=== PATIENT | female | born 1945 | race Caucasian/White ===

== ENCOUNTER → 2023-07-28 08:28 | Outpatient (REF) | payer MEDICARE, OTHER, SELFPAY ==
[2023-07-28 09:53] LABS: ALT (SGPT) 31 U/L (0-35); AST (SGOT) 26 U/L (14-36); Albumin 4.3 g/dl (3.5-5.0); Alkaline Phosphatase 83 U/L (38-126); Blood Urea Nitrogen 28 mg/dl (7-17); Carbon Dioxide 21 mmol/L (22-30); Chloride 108 mmol/L (98-107); Glucose 167 mg/dl (70-99); HDL Cholesterol 83 mg/dl; LDL Cholesterol, Calculated 110 mg/dl; Potassium 4.7 mmol/L (3.5-5.1); Sodium 136 mmol/L (135-145); Total Bilirubin 0.6 mg/dl (0.2-1.3); Total Cholesterol 215 mg/dl (50-199); Triglyceride 113 mg/dl (10-149); Very Low Density Lipoprotein 22 mg/dl (0-30); eGFR 33.01
[2023-07-28 10:10] LABS: Free T4 0.99 ng/dl (0.78-2.19)
[2023-07-28 10:23] LABS: TSH 0.86 uIU/ml (0.47-4.68)
[2023-07-28 12:13] LABS: Glycohemoglobin (HgbA1c) 7.4 % (4.0-5.6)
== END ==
LOC: REG 08:28
PROVIDERS: ATTENDING PHYSICIAN Family Medicine
DX: K52.9 Noninfective gastroenteritis and colitis, unspecified (principal); K58.0 Irritable bowel syndrome with diarrhea; I10 Essential (primary) hypertension; E11.9 Type 2 diabetes mellitus without complications
CPT/HCPCS: 36415; 80053; 80061; 83036; 84439; 84443

== ENCOUNTER 2023-11-05 19:50 | Inpatient (IN) | payer MEDICARE, OTHER, SELFPAY ==
[2023-11-05] VITALS (8 sets, daily range): BP systolic 138–189; BP diastolic 84–119; BMI 29.0; BMI 28.1; BMI 27.5
--- NOTE | 2023-11-05 15:12 | ED.PDOC.TRB ---
ED Provider Triage
-
Patient seen by provider in Triage?: Seen in Triage
78-year-old female presenting to the ER from her primary care physician for evaluation of gradually worsening shortness of breath and lower extremity edema. Patient states she has gained approximately 25 pounds since July due to the edema.
Primary care wanted her evaluated here further. Patient does admit to some exertional dyspnea. No cough, no fevers, no infectious symptoms. She does note that sometimes her abdomen feels a little bit swollen as well. She is not on any diuretics.
Patient is otherwise stable in no acute respiratory distress. Lab work and chest x-ray were ordered.
[2023-11-05 16:54] LABS: ALT (SGPT) 33 U/L (0-35); AST (SGOT) 34 U/L (14-36); Albumin 3.9 g/dl (3.5-5.0); Alkaline Phosphatase 95 U/L (38-126); Blood Urea Nitrogen 31 mg/dl (7-17); Calcium 9.1 mg/dl (8.4-10.2); Carbon Dioxide 19 mmol/L (22-30); Chloride 105 mmol/L (98-107); Glucose 164 mg/dl (70-99); Potassium 5.5 mmol/L (3.5-5.1); Sodium 135 mmol/L (135-145); Total Bilirubin 0.6 mg/dl (0.2-1.3); Total Protein 6.3 g/dl (6.3-8.2); eGFR 35.67
--- NOTE | 2023-11-05 17:26 | ED.GENMED ---
History of Present Illness
General
Chief Complaint: Breathing Problem
Source: patient
Exam Limitations: none
Time Seen by Provider: 11/05/23 17:04
Travel History
Have you had any contact with someone who has COVID-19?: No
Do you have any symptoms of coronavirus? Fever > 100 degrees, chills, cough, shortness of breath, sore throat, loss of taste or smell, muscle aches, or headache?: No
History of Present Illness
History of Present Illness:
78-year-old female presents with progressively worsening swelling to lower extremities now the abdomen and fatigue with shortness of breath. She lives by herself at home does not have a way to get to the doctor. She notes 25 pound weight gain in
the past several weeks. History of ttg-sdcieht-srpzugzme diabetes as well as hypothyroidism. No fevers. She notes decreased appetite. She notes decreased urine output. She notes significant swelling in the legs. No chest pain. She does note
occasional shortness of breath with exertion. No other complaints at this time
Past History
Past History
ED Past Medical History: Fibromyalgia, NIDDM, Hypothyroidism, Psychiatric (agorophobia) and Other (diabetic neuropathy, diverticulosis, IBS)
ED Past Surgical History: None
Social History
Tobacco: Non-smoker
Alcohol: None
Personal:
Living: alone
Phy Exam
Physical Exam
Physical Exam:
General: Slightly pale appearing female no acute respiratory distress
HEENT: Normocephalic atraumatic neck supple
Heart: Regular rate and rhythm no murmurs
Lungs: Breath sounds diminished more so on the right than the left extremities: Significant edema bilateral lower extremities that spreads into the abdomen
Abdomen is soft nontender nondistended
Skin: Warm no rash
Scores
Heart Failure Risk
Heart Failure Risk Score: Not Applicable
Course
Orders/Labs/Results
Orders:
Orders
11/05/23 15:15
Electrocardiogram (*1) Urgent
Reason for Study: Shortness of Breath
EKG- Treatment ONCE
CR Chest - 2 Views Urgent
Comment:
Reason For Exam: SOB, edema
11/05/23 16:32
Comprehensive Metabolic Panel Urgent
11/05/23 17:26
Complete Blood Count/With Diff Urgent
NT-proBNP Urgent
Urinalysis Reflex To Culture Urgent
Date Specimen was Collected: 11/05/23
Time Specimen was Collected: 16:51
Urine Microscopic Reflex Cult Urgent
11/05/23 18:14
Furosemide [Lasix] 60 mg IV NOW STA
Abnormal Lab Results
11/05/23 11/05/23
16:32 17:26
RBC 4.14 L 10^6/uL
(4.20-5.40)
Hgb 11.8 L g/dL
(12.0-16.0)
Hct 36.0 L %
(37.0-47.0)
MCHC 32.8 L g/dL
(33.0-37.0)
RDW 16.4 H %
(11.5-14.5)
Absolute Neuts (auto) 7.4 H 10^3/uL
(1.4-6.5)
Absolute Monos (auto) 0.7 H 10^3/uL
(0.1-0.6)
Neutrophils % 78.6 H %
(42.2-75.2)
Lymphocytes % 12.7 L %
(20.5-51.1)
Potassium 5.5 H mmol/L
(3.5-5.1)
Carbon Dioxide 19 L mmol/L
(22-30)
BUN 31 H mg/dl
(7-17)
Creatinine 1.5 H mg/dL
(0.6-1.0)
Glucose 164 H mg/dl
(70-99)
Urine Ketones 1+ A
(Negative)
Ur Occult Blood Reflex 1+ A
(Negative)
Urine Bacteria (Reflex) Few A
(Negative)
Urine Albumin (Reflex) 2+ A
(Neg - Trace)
11/05/23 17:26
11/05/23 16:32
Vital Signs
Initial and Last Documented VS:
Initial Vital Signs
Temp Pulse Resp BP Pulse Ox
97.4 F 92 20 185/100 98
11/05/23 15:14 11/05/23 15:14 11/05/23 15:14 11/05/23 15:14 11/05/23 15:14
Last Documented Vital Signs
Temp Pulse Resp BP Pulse Ox
98.1 F 93 21 184/119 96
11/05/23 17:27 11/05/23 17:30 11/05/23 17:30 11/05/23 17:27 11/05/23 17:30
MDM/Problems Addressed
Differential Diagnosis Includes:
Weight gain, shortness of breath and edema. Question CHF versus anemia versus electrolyte abnormality
Will check labs including BNP. I personally visualized chest x-ray which demonstrates a moderate right-sided pleural effusion.
Reviewed prior records. Patient most recently had an echocardiogram 12 years ago. The estimated ejection fraction was 55% at that time
I anticipate pending labs that patient require admission to hospital for moderate pleural effusion shortness of breath diffuse edema to be diuresed.
*Critical Care Note
Total Time (30-74mins, 75-104mins- exclusive of procedures): Not Applicable
Update Note
Update Note:
Chest x-ray demonstrates moderate pleural effusion on the right side. BNP is 24,600. Patient is volume overloaded and symptomatic. Underlying CHF. Lasix ordered. Admit to hospitalist
ED Attending Note
-
Portions of this chart may have been created with voice recognition software.� Occasional wrong word or��sound alike� substitutions may have occurred due to the inherent limitations of voice recognition software.
Discharge Plan
Departure
Patient Disposition: Admit
Date of Disposition: 11/05/23
Time of Disposition: 18:16
Admit to: Telemetry
Presentation/result/management discussed w/ accepting MD/DO: Hospitalist
Discharge Problem:
CHF (congestive heart failure)
Prescriptions:
No Action
glyburide 5 MG tablet
5 mg PO BID
metformin 1,000 MG tablet extended release 24hr
500 mg PO BID
thyroid (pork) [[place] Thyroid] 90 MG tablet
90 mg PO DAILY
latanoprost 0.005 % Drops
1 drp OPHTHALMIC (EYE) HS
Referrals:
UNKNOWN - PT DOES,NOT KNOW [Unknown Provider] -
Interventions
Interventions:
*Risk Screen - Suicide Last Done: 11/05/23 17:27
*Neglect/Abuse Screening Last Done: 11/05/23 17:27
ED- Fall Risk Assessment Last Done: 11/05/23 17:27
*ED COVID-19 Vaccine History Last Done: 11/05/23 15:14
ED- Cardiac Assessment Last Done: 11/05/23 17:27
ED- Pulmonary Assessment Last Done: 11/05/23 17:27
Discharge Date and Time
Print Language: URUGUAYAN
[2023-11-05 17:43] LABS: % Basophils 0.3 % (0-2); % Eosinophils 0.7 % (0-6); % Immature Granulocytes 0.2 % (0-0.5); % Lymphocytes 12.7 % (20.5-51.1); % Monocytes 7.5 % (1.7-9.3); % Neutrophils 78.6 % (42.2-75.2); Absolute Eosinophils 0.1 10^3/uL (0-0.7); Absolute Lymphocytes 1.2 10^3/uL (1.2-3.4); Absolute Monocytes 0.7 10^3/uL (0.1-0.6); Absolute Neutrophils 7.4 10^3/uL (1.4-6.5); Hemoglobin 11.8 g/dL (12.0-16.0); Mean Corp Hgb Conc. 32.8 g/dL (33.0-37.0); Mean Corpuscular Hgb 28.5 pg (27.0-31.0); Mean Platelet Volume 9.3 fL (7.4-10.4); Nucleated Red Blood Cells % 0 %; Platelet Count 297 10^3/uL (130-400); Red Blood Cell Count 4.14 10^6/uL (4.20-5.40); Red Cell Dist. Width 16.4 % (11.5-14.5); Urine Albumin 2+ (Neg - Trace); Urine Bilirubin Negative (Negative); Urine Character Clear (Clear); Urine Color Yellow; Urine Glucose Negative (Negative); Urine Ketone 1+ (Negative); Urine Leukocyte Negative (Negative); Urine Nitrite Negative (Negative); Urine Occult Blood 1+ (Negative); Urine Specific Gravity 1.025 (<1.030); Urine Urobilinogen Negative (Neg - 1+); White Blood Cell Count 9.4 10^3/uL (4.8-10.8)
[2023-11-05 17:52] LABS: Urine Squamous Cell 0-2 /LPF (Few)
[2023-11-05 17:53] LABS: Urine Red Blood Cell 0-2 /HPF (0-2)
[2023-11-05 17:54] LABS: Urine Bacteria Few (Negative); Urine White Cell 0-2 /HPF (0-5)
[2023-11-05 18:05] LABS: NT-proBNP 24600 pg/ml
[2023-11-05] MEDS: LASIX 60 MG IV (18:26)
--- NOTE | 2023-11-05 18:30 | EDRN ---
this RN notified the provider that the pts blood pressure has been elevated, the pt stated to this RN, 'If you people give me blood pressure medication i will freak out, bite someone, and leave AMA, so do not dare give me a blood pressure medication
i will freak out, i have a reaction, it doesn't make me feel good, i am agorophopic and i have white coat syndrome, my blood pressure will calm down i promise, i don't need blood pressure medication', this RN notified provider, will continue to
monitor the pt closely
--- NOTE | 2023-11-05 18:30 | HPS.HSE ---
Family Physician
-
Family Physician: Shukri Lara
Chief Complaint
-
Weight gain of breath
History of Present Illness
78-year-old female with past medical history for fibromyalgia, diabetes, hypothyroidism, agoraphobia, type 2 diabetes, mercury poisoning, presents with progressively worsening swelling to lower extremities, short of breath worse with activity.
weight gain of 25lbs in few weeks. Patient stated short of breath worse with activity. Denied headache, dizziness, syncopal episode. Patient denied chest pain. Patient denied abdominal pain, nausea, vomiting or diarrhea. Patient stated last
urine output.
Chest x-ray with pleural effusion. Elevated BNP. Patient received a dose of Lasix in ER. Admitting for further management
Medical History
Past Medical History
Past Medical History: Reports Other
Additional Past Medical History:
Neuropathy
Hypertension
Depression anxiety
Hyperlipidemia breast cancer
Hypothyroidism fibromyalgia
Type 2 diabetes
Diabetic retinopathy
Past Surgical History: Reports Other
Additional Past Surgical History:
Tonsillectomy
Cataract extraction
Right lumpectomy
Social History
Tobacco: Non-smoker
Alcohol: None
Drug: None
Personal: Single
Living: Alone
Family History
Family History: Not pertinent
Allergies / Home Medications
Allergies reflects when Allergies were last updated in [facility].
Home Medications with original date entered in [facility]
Allergy/Medication List:
Allergies
Allergy/AdvReac Type Severity Reaction Status Date / Time
lidocaine Allergy very cold Verified 11/05/23 15:20
& shakes
phenobarbital Allergy patient Verified 11/05/23 15:20
denies
phenytoin Allergy patient Verified 11/05/23 15:20
denies
Sulfa (Sulfonamide Allergy Itching Verified 11/05/23 15:20
Antibiotics)
sulfisoxazole Allergy Itching Verified 11/05/23 15:20
codeine AdvReac 'shakiness' Verified 11/05/23 15:20
anti hypertensives Allergy Unknown Unknown Uncoded 11/05/23 18:42
most pain medicines Allergy 'per Uncoded 11/05/23 15:20
patient -
they cause
problems'
NOT.[id number] - Not Allergy Pharmacy Uncoded 11/05/23 15:20
Converted 38. See Text. to Review
NOT.[id number] - Not Allergy Pharmacy Uncoded 11/05/23 15:20
Converted 46. See Text. to Review
NOT.[id number] - Not Allergy Pharmacy Uncoded 11/05/23 15:20
Converted 65. See Text. to Review
perfumed soaps Allergy Rash Uncoded 11/05/23 15:20
Home Medications
glyburide 5 mg tablet 5 mg PO BID 09/03/13
thyroid (pork) 90 mg tablet ([place] Thyroid) 90 mg PO DAILY 09/03/13
acetaminophen 500 mg tablet 500 mg PO TID PRN mild pain 11/05/23
glyburide 5 mg tablet 5 mg PO DAILYPRN PRN heavy meal 11/05/23
latanoprost 0.005 % eye drops 1 drp BOTH EYES HS 11/05/23
metformin 500 mg tablet 500 mg PO BID 11/05/23
metformin 500 mg tablet 500 mg PO DAILYPRN PRN heavy meal 11/05/23
Review of Systems
-
Constitutional: Reports Weight Gain
EENT: Reports No Symptoms
Respiratory: Reports Trouble Breathing
Cardiac: Reports No Symptoms
Abdomen/GI: Reports No Symptoms
: Reports No Symptoms
Musculoskeletal: Reports Edema (Bilateral lower extremities)
Skin: Reports No Symptoms
Neurological: Reports No Symptoms
Endocrine: Reports No Symptoms
Hematologic/Lymphatic: Reports No Symptoms
Psych: Reports No Symptoms
Physical Exam
Vital Signs
Vital Signs
Temp Pulse Resp BP Pulse Ox
98.1 F 89 21 189/106 96
11/05/23 17:27 11/05/23 18:26 11/05/23 17:30 11/05/23 18:26 11/05/23 17:30
Physical Exam
General: Well Developed, Well Nourished and No Apparent Distress
HEENT: NormoCephalic, Moist mucous membranes and Atraumatic
Respiratory: Clear
Cardiac: S1/S2 and Regular Rhythm; No Murmur or Rub
GI: Soft, Non Tender, Non Distended and Normal Bowel Sounds; No Organomegaly
Rectal: Deferred by Provider
Musculoskeletal: No Clubbing, No Cyanosis and Other (Bilateral lower extremity symmetric edema)
Skin: No Rash
Neuro: AO x 3 and Nonfocal/grossly intact
Laboratory Results
-
11/05/23 17:26
11/05/23 16:32
Laboratory Results
Total Bilirubin 0.6 mg/dl (0.2-1.3) 11/05/23 16:32
AST 34 U/L (14-36) 11/05/23 16:32
ALT 33 U/L (0-35) 11/05/23 16:32
Alkaline Phosphatase 95 U/L (38-126) 11/05/23 16:32
Data Reviewed
-
Diagnostic Radiology: Report Reviewed by me
Lab Data: Labs Reviewed by me
Impression/Plan
-
# Dyspneic on exertion, weight gain, edema suspect new onset CHF
-BNP 24 600
-Chest x-ray with impression of moderate right-sided pleural effusion with associated compressive atelectasis at the right lung base.
-IV Lasix 4omg bid continued
-Strict RBETT
-Daily weight
-Echocardiogram
-cardiology consult
# Pleural effusion
-IR consulted for thoracentesis
# Anemia of chronic disease
-Hemoglobin stable at 11.8
-No active bleeding
-Continue to monitor
# Hyperkalemia/metabolic acidosis/CKD stage IIIb
-K5.5, CO2 18, creatinine 1.5
-Continue to trend
#hypertension urgency
-hydralazine added
#type 2 DM
-glyburide, metformin held
-sliding scale
-CHO diet
#hypothyroidism
-thyroid continued
#DVT prophylaxis
heparin sq
#CODE status
-full code
--- NOTE | 2023-11-05 18:37 | EDRN ---
hospitalist at the pts bedside speaking with the pt, this RN notified the provider that the pt is allergic to anti hypertensive medications
--- NOTE | 2023-11-05 18:45 | W.PN.UPDATE ---
Update Note
Progress Note Update
This is an addendum to the H&P written by Denisse Song on 11/05/2023.
78-year-old female past medical history of diabetes, breast cancer status post right mastectomy, prior Mercury poisoning, agoraphobia, hypothyroidism, chronic kidney disease presenting with significant lower extremity edema all the way up to her
abdomen, 25 pound weight gain and shortness of breath. She is not been urinating much.
She has diminished breath sounds on the right side. Labs show hyperkalemia potassium 5.5, creatinine 1.5, baseline around 1.3. Cardiac BNP 24,000, chest x-ray showing moderate right-sided pleural effusion with compressive atelectasis of right lung
base.
Presentation consistent with CHF exacerbation. Also hypertensive urgency.
40 IV Lasix twice daily, check echo, cardiology. As needed hydralazine for hypertension. IR consulted for thoracentesis. Check bladder scan protocol.
[2023-11-05] MEDS: HEPARIN 5000 UNITS SC (21:15)
[2023-11-05 21:36] LABS: Glucose - Point of Care 169 mg/dl (70-99)
[2023-11-05] MEDS: XALATAN OPHTHALMIC SOLUTION 1 DROP BOTH EYES (22:27)
[2023-11-06] VITALS (8 sets, daily range): BP systolic 91–182; BP diastolic 70–109; BMI 27.5
[2023-11-06] MEDS: TYLENOL 650 MG PO (04:26)
[2023-11-06] MEDS: ARMOUR THYROID 90 MG PO (05:58)
[2023-11-06 07:36] LABS: % Basophils 0.4 % (0-2); % Eosinophils 0.8 % (0-6); % Immature Granulocytes 0.3 % (0-0.5); % Lymphocytes 12.8 % (20.5-51.1); % Monocytes 8.3 % (1.7-9.3); % Neutrophils 77.4 % (42.2-75.2); Absolute Eosinophils 0.1 10^3/uL (0-0.7); Absolute Lymphocytes 0.9 10^3/uL (1.2-3.4); Absolute Monocytes 0.6 10^3/uL (0.1-0.6); Absolute Neutrophils 5.6 10^3/uL (1.4-6.5); Hematocrit 34.8 % (37.0-47.0); Hemoglobin 11.3 g/dL (12.0-16.0); Mean Corp Hgb Conc. 32.5 g/dL (33.0-37.0); Mean Corpuscular Hgb 28.3 pg (27.0-31.0); Nucleated Red Blood Cells % 0 %; White Blood Cell Count 7.2 10^3/uL (4.8-10.8)
[2023-11-06 07:41] LABS: ALT (SGPT) 26 U/L (0-35); Albumin 3.5 g/dl (3.5-5.0); Alkaline Phosphatase 74 U/L (38-126); Blood Urea Nitrogen 31 mg/dl (7-17); Calcium 8.8 mg/dl (8.4-10.2); Carbon Dioxide 18 mmol/L (22-30); Chloride 108 mmol/L (98-107); Direct Bilirubin 0.4 mg/dl (0.0-0.4); Estimated Creatinine Clearance 33 ml/min; Glucose 138 mg/dl (70-99); HDL Cholesterol 72 mg/dl; LDH 253 U/L (120-246); LDL Cholesterol, Calculated 94 mg/dl; Magnesium 1.9 mg/dl (1.6-2.3); Potassium 4.8 mmol/L (3.5-5.1); Sodium 137 mmol/L (135-145); Total Bilirubin 0.7 mg/dl (0.2-1.3); Total Cholesterol 185 mg/dl (50-199); Total Protein 5.8 g/dl (6.3-8.2); Triglyceride 99 mg/dl (10-149); Very Low Density Lipoprotein 19 mg/dl (0-30); eGFR 35.67
--- NOTE | 2023-11-06 07:44 | CON.CAR ---
Addendum entered and electronically signed by Lora Boone DO 11/06/23 18:48:
Reviewed pending lab work and echocardiogram.
-Mildly abnormal troponin with cardiac risk factors and abnormal EKG with newly diagnosed LV systolic function and acute HFrEF. will add aspirin 81 mg daily. Will add atorvastatin 20 mg daily. Team will review echo findings and discuss future
ischemic evaluation, R/C, with patient during this hospitalization
-Blood pressures overall better but still elevated. Will increase Toprol-XL to 25 mg twice daily. Add hydralazine/Isordil with hopeful transition to Entresto prior to discharge id renal function/cost allows. Will check cost of Entresto with case
management.
-Jardiance cost is $198 a month per case management and will discuss with patient tomorrow
-Consults placed for heart failure education
Addendum entered and electronically signed by Lora Boone DO 11/06/23 18:34:
I saw and examined the patient.
The Shoe Caser's note was reviewed and I agree with the note.
Comment: Patient seen and examined with cardiac PA. Patient is a 78-year-old female with past medical history of type 2 diabetes, diabetic neuropathy, hypertension, hypercholesterolemia, hypothyroidism, CKD stage III, fibromyalgia, irritable bowel
disease, History of cervical cancer treated with holistic treatments, history of breast cancer, anxiety/depression who was seen by PCP yesterday due to complaints of 25 pound weight gain, bilateral lower extremity swelling and shortness of breath,
referred for admission. She states she has been having significant health problems since she had RSV in August 2022. She reports she has had shortness of breath which has been constant since July with panting at times. She has had worsening
weakness. She reports she weighed 142 pounds on 10/11 and reports she woke up on 10/12 swollen from the waist down. Previous to that she states she had only ever had swelling in her ankles.She denies chest pain or pressure. She denies palpitations
or dizziness. She denies known prior cardiovascular disease including cardiomyopathy, valvular heart disease, or known coronary artery disease. No history of cardiac arrhythmias. She unfortunately has significant issues with transportation and
lives independently. proBNP 24,600. Chest x-ray with moderate right-sided effusion. Cardiology consulted for evaluation
General: 78-year-old female who appears older than stated age awake alert and oriented x 3
Neck: +JVP
Heart: Regular, positive S1/S2, 2/6 SHYANN. 2/6 SM
Lungs: Bronchovesicular breath sounds with crackles bilaterally right greater than left. No wheezes
Abd: Distended, nontender. Positive bowel sound
Ext: +++ edema to thighs
Plan:
78-year-old female with volume overload consistent with heart failure with unknown ejection fraction.
-proBNP 24,600
-Chest x-ray with moderate right-sided effusion. Consider thoracentesis with fluid analysis and cytology given patient's history of prior malignancies
-Continue IV diuresis
-2D echocardiogram planned this morning
-Check LE US to rule out DVT
-Blood pressure significantly elevated: Add Toprol-XL 25 mg daily and if tolerates add hydralazine/Isordil. Eventual transition to RIGO/ARB or ARNi if renal function allows and pending echocardiogram results
-Patient denies chest pain or pressure but has multiple risk factors and abnormal EKG. EKG SR with lateral T wave inversion. check troponin. Future ischemic evaluation will be discussed with patient at later time
-Consider for SGLT2 inhibitor, although cost may be prohibitive to patient
-Monitor renal function closely with diuresis.
-TSH is 16 with compensated free T4. Defer adjustment in Synthroid dosing to primary service
-Hemoglobin A1c elevated 7.5%. Goal Normoglycemia
-Lipid profile: Total cholesterol 185, LDL 94, HDL 72, triglycerides 99. Pending studies will likely need to start lipid-lowering therapy
-Of note she has significant transportation issues limiting her medical compliance. Will consult case management to investigate options for patient.
Original Note:
Consultation
Consultation Request
Date/Time Consultation Performed: 11/06/23
Requesting Provider: Dr. Prado
Performing Provider: Magaly Welch PA-C for Dr. Boone
Reason for Consultation: CHF
Medical History
-
Chief Complaint: SOB, LE edema
History of Present Illness:
Patient is a 78-year-old female with past medical history of type 2 diabetes, diabetic neuropathy, hypertension, hypercholesterolemia, hypothyroidism, CKD stage III, fibromyalgia, irritable bowel disease, history of breast cancer, anxiety/depression
who was seen by PCP yesterday due to complaints of bilateral lower extremity swelling and shortness of breath. Noted weight gain of 25 pounds. Reportedly she needed to rest to get from the waiting room to the exam room at the PCP office. She
states she has been having significant health problems since she had RSV in August 2022. She reports she has had shortness of breath which has been constant since July with panting at times. She has had worsening weakness. She reports she weighed
142 pounds on 10/11 and reports she woke up on 10/12 swollen from the waist down. Previous to that she states she had only ever had swelling in her ankles. She unfortunately has significant issues with transportation and lives independently. She
was referred to the ER for further evaluation. proBNP 24,600. Chest x-ray with moderate right-sided effusion. Cardiology consulted for evaluation
PMH:
type 2 diabetes
diabetic neuropathy
hypertension
hypercholesterolemia
hypothyroidism
CKD stage III
Chronic anemia
fibromyalgia
irritable bowel disease
history of breast cancer s/p 9 lumpectomies on R and double XRT 2016
History of cervical cancer in 30s s/p holistic treatment
anxiety/depression
History of polio
History of mercury poisoning 1997
Past Medical History
Past Medical History: Other (in HPI)
Social History
Tobacco: Non-Smoker
Personal:
Living: Alone
Employment: Retired
Family History
Family History: CAD and Cancer
Allergies / Home Medications
Allergy/AdvReac Type Severity Reaction Status Date / Time
lidocaine Allergy very cold Verified 11/05/23 15:20
& shakes
phenobarbital Allergy patient Verified 11/05/23 15:20
denies
phenytoin Allergy patient Verified 11/05/23 15:20
denies
Sulfa (Sulfonamide Allergy Itching Verified 11/05/23 15:20
Antibiotics)
sulfisoxazole Allergy Itching Verified 11/05/23 15:20
codeine AdvReac 'shakiness' Verified 11/05/23 15:20
anti hypertensives Allergy Unknown Unknown Uncoded 11/05/23 18:42
most pain medicines Allergy 'per Uncoded 11/05/23 15:20
patient -
they cause
problems'
perfumed soaps Allergy Rash Uncoded 11/05/23 15:20
�Medication �Instructions �Recorded �Confirmed �Type
glyburide 5 mg tablet 5 mg PO BID 09/03/13 11/05/23 History
thyroid (pork) 90 mg tablet 90 mg PO DAILY 09/03/13 11/05/23 History
([place] Thyroid)
acetaminophen 500 mg tablet 500 mg PO TID PRN mild pain 11/05/23 11/05/23 History
glyburide 5 mg tablet 5 mg PO DAILYPRN PRN heavy meal 11/05/23 11/05/23 History
latanoprost 0.005 % eye drops 1 drp BOTH EYES HS 11/05/23 11/05/23 History
metformin 500 mg tablet 500 mg PO BID 11/05/23 11/05/23 History
metformin 500 mg tablet 500 mg PO DAILYPRN PRN heavy meal 11/05/23 11/05/23 History
Review of Systems
-
History Source: Patient
All other systems: Negative unless noted
Physical Exam
Vital Signs
Temp Pulse Resp BP Pulse Ox
98.1 F 84 18 169/94 100
11/06/23 03:33 11/06/23 03:33 11/06/23 03:33 11/06/23 03:33 11/06/23 03:33
Lab Results
11/06/23 06:42
[id number] Pept 76685 pg/ml 11/05/23 17:26
Physical Exam
General: No Apparent Distress and Comfortable
HEENT: Normocephalic, Anicteric and Moist Mucous Membranes
Respiratory: Clear and Non Labored Respirations
Cardiac: S1/S2 and Regular Rhythm
GI: Soft
Musculoskeletal: No Clubbing, No Cyanosis and Edema (4+ to level of thigh)
Skin: Warm and Dry
Impression / Plan
-
Primary [place]: none prior to admission
Assessment:
Presentation with SOB, LE edema
Acute CHF, unknown type
Right pleural effusion
type 2 diabetes, hemoglobin 7.5%
diabetic neuropathy
hypertension with hypertensive urgency on arrival
hypercholesterolemia
hypothyroidism with elevated TSH
CKD stage III
Chronic anemia
fibromyalgia
irritable bowel disease
history of breast cancer s/p 9 lumpectomies on R and double XRT 2016
History of cervical cancer in 30s s/p holistic treatment
anxiety/depression
History of polio
History of mercury poisoning 1997
Hyperkalemia, improved
Multiple medication intolerances
ECHO 11/06/23: pending
Plan:
-Patient presents with shortness of breath, lower extremity edema, weight gain
-Chest x-ray with right pleural effusion, and proBNP significantly elevated at 24,600
-Continue diuresis with IV Lasix 40 mg twice daily
-IR consult for right thoracentesis. Would send fluid cytology and analysis given history of malignancies.
-will also check LE US to rule out DVT
-Check echo
-in SR upon review of tele overnight. EKG SR with lateral T wave inversion. check troponin. may require eventual ischemic eval
-Blood pressures significantly elevated since admission. Will add Toprol 25 mg daily and uptitrate as able.
-Consider for SGLT2 inhibitor, although cost may be prohibitive to patient
-Of note she has significant transportation issues limiting her medical compliance. Will consult case management to investigate options for patient.
-TSH is 16 with compensated free T4. Defer adjustment in Synthroid dosing to primary service
Data Reviewed
-
EKG: Tracing Personally Visualized and interpreted
Radiology: Report Reviewed by me
Medical Tests (Nuc Med, Echo etc): Report Reviewed by me
Labs: Labs Reviewed by me
Old Records: Reviewed
[2023-11-06 07:46] LABS: AST (SGOT) 31 U/L (14-36)
[2023-11-06 07:51] LABS: Glucose - Point of Care 159 mg/dl (70-99)
[2023-11-06 08:30] LABS: Hepatitis C Antibody Negative (Negative)
[2023-11-06] MEDS: NOVOLOG FLEXPEN-LOW RESISTANCE 1 UNITS SC ×2 (08:46→12:58)
[2023-11-06] MEDS: LASIX 40 MG IV ×2 (08:46→17:25)
[2023-11-06] MEDS: HEPARIN 5000 UNITS SC ×2 (08:47→20:10)
[2023-11-06 08:52] LABS: Free T4 1.04 ng/dl (0.78-2.19)
[2023-11-06 09:47] LABS: Glycohemoglobin (HgbA1c) 7.5 % (4.0-5.6)
--- NOTE | 2023-11-06 10:07 | PTCARENOTE ---
Addendum entered by Mary Gerber RN 11/06/23 12:06:
pt went for R thoracentesis. report received and pt had 1100cc of clear yellow fluid pulled. follow up xray shows There is no pneumothorax.
Original Note:
pt receiving IV lasix for this nurse through her L AC IV site. pt is aaox3, ambulates at home with 'all her furniture in site'. pt to go for a thoracentesis this morning. Pt given CHF and thoracentesis education packets so that she understands the
procedures and treatment of her care.
--- NOTE | 2023-11-06 11:18 | PTCARENOTE ---
Advised covering provider ERIKA Anne of positive Troponin at 2318 of 0.182. Patient denies pain and is resting in bed. VSS. Serial Troponin labs are already in place.
[2023-11-06 11:34] LABS: Body Fluid pH 7.44
[2023-11-06 11:53] LABS: Body Fluid Glucose 155 mg/dl; Body Fluid LDH < 90 U/L; Body Fluid Protein < 2.0 g/dl; Body Fluid Triglycerides < 30 mg/dl
[2023-11-06 12:20] LABS: Glucose - Point of Care 170 mg/dl (70-99)
[2023-11-06 12:45] LABS: Body Fluid Mononuclear 71.7 %; Body Fluid Polymorphonuclear 28.3 %; Body Fluid WBC 113 /CUMM
--- NOTE | 2023-11-06 12:54 | PTCARENOTE ---
pt back to the floor at 1225. pt dhara receive toprolol now
--- NOTE | 2023-11-06 13:30 | W.PN.HOSP.TC ---
Today's Communication/Plan
-
cont iv lasix
echo
hypertensive control
Assessment / Plan
Assessment / Plan
Physical Exam
General: Well Developed, Well Nourished and No Apparent Distress
HEENT: NormoCephalic, Moist mucous membranes and Atraumatic
Respiratory: Clear
Cardiac: S1/S2 and Regular Rhythm; No Murmur or Rub
GI: Soft, Non Tender, Non Distended and Normal Bowel Sounds; No Organomegaly
Rectal: Deferred by Provider
Musculoskeletal: No Clubbing, No Cyanosis and Other (Bilateral lower extremity symmetric edema)
Skin: No Rash
Neuro: AO x 3 and Nonfocal/grossly intact
# Dyspnea on Exertion
#LE edema
#Pleural Effusion
#Acute unknown type CHF
-BNP 36879
-Chest x-ray with impression of moderate right-sided pleural effusion with associated compressive atelectasis at the right lung base.
-IV Lasix 4omg bid continued
- 2/p Right thora /
-Strict BRETT
-Daily weight
-Echocardiogram
-cardiology consult
-Toprol
# Anemia of chronic disease
-Hemoglobin stable at 11.8
-No active bleeding
-Continue to monitor
# Hyperkalemia/metabolic acidosis/CKD stage IIIb
-K5.5, CO2 18, creatinine 1.5
-Continue to trend
-Treat as needed
#hypertension urgency
-hydralazine added
-Add TOprol
#type 2 DM
-glyburide, metformin held
-sliding scale
-CHO diet
#Euthyroid sick syndrome
-thyroid continued
-f/u tfts outpatient for titration
#DVT prophylaxis
heparin sq
#CODE status
-full code
Anticipated Discharge: > 48 hours
Subjective/Interval History
-
Date of Service: November 06, 2023
No acute events, sitting on room air
Objective Data
-
Labs:
Laboratory Results
11/06/23
06:42
WBC 7.2
Hgb 11.3 L
Hct 34.8 L
Plt Count
Sodium 137
Potassium 4.8
Chloride 108 H
Carbon Dioxide 18 L
BUN 31 H
Creatinine 1.5 H
Glucose 138 H
Calcium 8.8
Total Bilirubin 0.7
AST 31
ALT 26
Alkaline Phosphatase 74
Vital Signs:
Vital Signs
Temp Pulse Resp BP Pulse Ox
98.4 F 94 18 160/81 95
11/06/23 12:20 11/06/23 12:20 11/06/23 12:20 11/06/23 12:59 11/06/23 12:20
I&O
11/05/23 11/06/23 11/07/23
06:59 06:59 06:59
Intake Total 480 / 480
Balance 480 / 480
Review of Systems
-
History Source: Patient
All other systems: Not reviewed unless documented
Data Reviewed
-
Diagnostic Radiology: Image personally visualized and interpreted and Report Reviewed by me
Medical Tests (Nuc Med, Echo etc): Image personally visualized and interpreted
[2023-11-06 13:36] LABS: Body Fluid Second Tech BP
--- NOTE | 2023-11-06 14:56 | CM ---
met with patient at bedside.patient lives alone in mobile home at [facility].she has 3 sonja,her bed and bath is o the frist level.she amb without device but uses A of 1 person to A(to hold hr hand).she is I in bathing with a shower chair in
bath tub.her pcp is dr zurita and she uses [facility] in [place].she has used [facility] home care but no ip rehab in past.
patient with a hx of htn,t2ddm is adm with chf. she has a r pleural effusion and is sp a thoracentesis with 1100cc fluid removed.she is on iv lasix bid.she is diabetic and takes glyburide and metformin.she dos not test her bs. patient mentions she
has little to no support since her son is in [place] and .however son helped her financially.she does have a friend bear erk who also assists her.she is having difficuty picking up her meds since he [facility] no longer delivers
her meds.Plan [facility].
--- NOTE | 2023-11-06 16:01 | VNURNOTE ---
[facility] referral completed in [facility] after review of chart. Patient was out of room at time of visit.
[2023-11-06 16:51] LABS: Troponin I 0.119 ng/ml
[2023-11-06 17:03] LABS: Glucose - Point of Care 235 mg/dl (70-99)
[2023-11-06] MEDS: NOVOLOG FLEXPEN-LOW RESISTANCE 2 UNITS SC (17:25)
[2023-11-06 21:16] LABS: Glucose - Point of Care 197 mg/dl (70-99)
[2023-11-06] MEDS: XALATAN OPHTHALMIC SOLUTION 1 DROP BOTH EYES (22:13)
[2023-11-06 22:56] LABS: Troponin I 0.182 ng/ml
[2023-11-07] MEDS: TYLENOL 650 MG PO ×3 (01:00→23:09)
[2023-11-07 01:57] LABS: Troponin I 0.221 ng/ml
--- NOTE | 2023-11-07 02:02 | PTCARENOTE ---
Advised covering provider ERIKA Anne of positive Troponin at 0202 of 0.221. Patient denies pain and is resting in bed. VSS.
[2023-11-07 03:25] VITALS: BP 149/70
[2023-11-07 03:27] VITALS: BMI 26.6
[2023-11-07] MEDS: ARMOUR THYROID 90 MG PO (05:53)
[2023-11-07 06:00] VITALS: BMI 26.6
[2023-11-07 07:19] LABS: % Basophils 0.5 % (0-2); % Eosinophils 2.8 % (0-6); % Immature Granulocytes 0.4 % (0-0.5); % Lymphocytes 16.1 % (20.5-51.1); % Monocytes 9.3 % (1.7-9.3); % Neutrophils 70.9 % (42.2-75.2); Absolute Eosinophils 0.2 10^3/uL (0-0.7); Absolute Lymphocytes 1.2 10^3/uL (1.2-3.4); Absolute Monocytes 0.7 10^3/uL (0.1-0.6); Absolute Neutrophils 5.4 10^3/uL (1.4-6.5); Hematocrit 34.2 % (37.0-47.0); Hemoglobin 11.3 g/dL (12.0-16.0); Mean Corpuscular Hgb 28.3 pg (27.0-31.0); Mean Corpuscular Volume 85.7 fL (81.0-99.0); Mean Platelet Volume 9.7 fL (7.4-10.4); Nucleated Red Blood Cells % 0 %; Platelet Count 249 10^3/uL (130-400); Red Blood Cell Count 3.99 10^6/uL (4.20-5.40); Red Cell Dist. Width 16.2 % (11.5-14.5); White Blood Cell Count 7.6 10^3/uL (4.8-10.8)
[2023-11-07 07:40] VITALS: BP 168/77
[2023-11-07 07:48] LABS: Troponin I 0.219 ng/ml
[2023-11-07 08:02] LABS: Glucose - Point of Care 130 mg/dl (70-99)
[2023-11-07] MEDS: NOVOLOG FLEXPEN-LOW RESISTANCE SC (08:02)
[2023-11-07 08:14] LABS: Blood Urea Nitrogen 34 mg/dl (7-17); Calcium 8.8 mg/dl (8.4-10.2); Carbon Dioxide 22 mmol/L (22-30); Chloride 105 mmol/L (98-107); Estimated Creatinine Clearance 28 ml/min; Glucose 136 mg/dl (70-99); Sodium 137 mmol/L (135-145); eGFR 33.01
[2023-11-07] MEDS: LASIX 40 MG IV ×2 (09:19→16:57)
[2023-11-07] MEDS: LOW STRENGTH ASPIRIN 81 MG PO (09:23)
[2023-11-07] MEDS: FLUSH (NSS) 2 FLUSH IV (09:23)
[2023-11-07] MEDS: HEPARIN 5000 UNITS SC ×2 (09:24→20:11)
[2023-11-07 11:39] LABS: Glucose - Point of Care 160 mg/dl (70-99)
[2023-11-07] MEDS: NOVOLOG FLEXPEN-LOW RESISTANCE 1 UNITS SC ×2 (12:17→17:22)
--- NOTE | 2023-11-07 13:03 | W.PN.CARDCBS ---
Today's Communication / Plan
-
Continue IV diuresis
Not agreeable to take metoprolol, hydralazine/nitrate
Consider left and right heart catheterization this week
Impression / Plan
-
Primary Survey Research Professor: none prior to admission, initially seen by Dr. Boone
Assessment:
Presentation with SOB, LE edema
Acute HFrEF (EF 25%)
Right pleural effusion
type 2 diabetes, hemoglobin 7.5%
diabetic neuropathy
hypertension with hypertensive urgency on arrival
hypercholesterolemia
hypothyroidism with elevated TSH
CKD stage III
Chronic anemia
fibromyalgia
irritable bowel disease
history of breast cancer s/p 9 lumpectomies on R and double XRT 2016
History of cervical cancer in 30s s/p holistic treatment
anxiety/depression
History of polio
History of mercury poisoning 1997
Hyperkalemia, improved
Multiple medication intolerances
ECHO 11/06/23: pending
Plan:
-Patient presents with shortness of breath, lower extremity edema, weight gain. Chest x-ray with right pleural effusion, and proBNP significantly elevated at 24,600 in keeping with decompensated HF.
-TTE shows newly reduced LVEF 25%
-Continue diuresis with IV Lasix 40 mg twice daily- follow daily weights and Cr/electrolytes
-Discussed GDMT for HFrEF, but she does not seem agreeable to take metoprolol or hydral/nitrate as ordered
-Willing to take KCA10ja daily, would continue pending ischemic eval
-Recommended L/RHC this week if patient agreeable
Progress Note - Survey Research Professor
Subjective
Date of Service: November 07, 2023
No acute overnight events. Tells me resolving lower extremity edema and abdominal distention with IV diuresis.
Objective
Labs:
11/07/23 06:43
11/07/23 06:43
Labs
Hgb 11.3 g/dL (12.0-16.0) L 11/07/23 06:43
Hct 34.2 % (37.0-47.0) L 11/07/23 06:43
Plt Count 249 10^3/uL (130-400) 11/07/23 06:43
Sodium 137 mmol/L (135-145) 11/07/23 06:43
Potassium 4.0 mmol/L (3.5-5.1) 11/07/23 06:43
BUN 34 mg/dl (7-17) H 11/07/23 06:43
Creatinine 1.6 mg/dL (0.6-1.0) H 11/07/23 06:43
Glucose 136 mg/dl (70-99) H 11/07/23 06:43
Troponins
11/06/23 11/06/23 11/07/23
16:17 22:05 01:15
Troponin I 0.119 H* 0.182 H* D 0.221 H*
11/07/23
06:43
Troponin I 0.219 H*
Vital Signs and I&O:
Vital Signs
Temp Pulse Resp BP Pulse Ox
99.3 F 79 18 168/77 98
11/07/23 07:40 11/07/23 07:40 11/07/23 07:40 11/07/23 07:40 11/07/23 07:40
Vital Signs
Temp Pulse Resp BP Pulse Ox
99.3 F 79 18 168/77 98
11/07/23 07:40 11/07/23 07:40 11/07/23 07:40 11/07/23 07:40 11/07/23 07:40
Intake & Output
11/05/23 11/06/23 11/07/23 11/08/23
06:59 06:59 06:59 06:59
Intake Total 480 / 480 960 / 960
Balance 480 / 480 960 / 960
Physical Exam
Physical Exam
Gen: NAD, AAOx3
HEENT: NC/AT, sclera anicteric
Neck: No JVD
CV: RRR, NL s1/s2
Lungs: No increased work of breathing on room air
Abd: S/distended
Ext: 2+ pitting LE edema
Skin: Warm, dry
Neuro: Non-focal
[2023-11-07 13:15] LABS: Glucose - Point of Care 248 mg/dl (70-99)
[2023-11-07 13:28] VITALS: BP 144/63
--- NOTE | 2023-11-07 14:25 | PTCARENOTE ---
Pt's son came out to desk from his mothers room yelling she is having a reaction. Pt in bed very sleepy and unable to hold trunk up. PT needed to have a sternal rub done to help awaken. She was unable to maintain a conversation and appeared to go
unresponsive, eyes rolling back. Rapid called. Once awoke she c/o her tongue feeling swollen and her speech was altered. Inspected pt's mouth and tongue appeared normal. ALL VSS. Glucose also normal. Pt just finished eating her dinner. No
facial droop or slurred speech noted. Pt does have an extensive hx of allergies to certain medications. Many am medications wer refused by pt. Upon ICU examination pt started to have visual hallucinations stating that something was in front of
her nose with different colors on and waving her hands at the side of the bed. She appeared confused. Son was in the room when all of these sudden changes took place. He was texting on his phone. Shortly thereafter assessment from ICU, pt states
that she is starting to feel better, 'it's going away.'. Team made a call that pt appeared to be recovering and no further tests order from ICU. Text placed to Dr. Goldman, but initially sent to other doctors. Text then forwarded to correct
doctor. Pt's already on floor. New orders placed and pt currently recovered from hallucinations and swollen tongue, stating 'I'm feeling better.' However started to cry saying 'I don't want to be a burden to my son' Son at [facility]. Pt sent
to CT for study. Will cont to monitor.
[2023-11-07 14:33] LABS: Venous Blood Gas B.E. -0.2 mmol/L (-4 to +4); Venous Blood Gas HCO3 23.9 mmol/L (22-27); Venous Blood Gas O2 Sat % 97.3 %; Venous Blood Gas pCO2 36 mmHg (35-48); Venous Blood Gas pH 7.43 (7.32-7.43); Venous Blood Gas pO2 80 mmHg (30-50)
[2023-11-07 14:34] LABS: Venous Blood Gas O2 Therapy ra
--- NOTE | 2023-11-07 14:36 | W.PN.HOSP.TC ---
Today's Communication/Plan
-
diuresis
asa; patient refusing bb,, hydral/nitrates
ua/ct head
lhc/rhc tentatively next week
Assessment / Plan
Assessment / Plan
Physical Exam
General: Well Developed, Well Nourished and No Apparent Distress
HEENT: NormoCephalic, Moist mucous membranes and Atraumatic
Respiratory: Clear
Cardiac: S1/S2 and Regular Rhythm; No Murmur or Rub
GI: Soft, Non Tender, Non Distended and Normal Bowel Sounds; No Organomegaly
Rectal: Deferred by Provider
Musculoskeletal: No Clubbing, No Cyanosis and Other (Bilateral lower extremity symmetric edema)
Skin: No Rash
Neuro: AO x 3 and Nonfocal/grossly intact
# Dyspnea on Exertion
#LE edema
#Pleural Effusion
#Acute HFrEF
-EF 25%
- BNP 22741
-Chest x-ray with impression of moderate right-sided pleural effusion with associated compressive atelectasis at the right lung base.
-IV Lasix 4omg bid continued
- 2/p Right thora 11/05
-Strict BRETT
-Daily weight
- Refusing BB, Hydral/nitrate
-LHC/RHC consideration early this week
-cardiology consulted
# Nonischemic myocardial injury
� Mostly secondary to acute HFrEF
� Cardiology planning for left and right heart cath this week
� Continue aspirin
# Anemia of chronic disease
-Hemoglobin stable at 11.8
-No active bleeding
-Continue to monitor
# Hyperkalemia/metabolic acidosis/CKD stage IIIb
-K5.5, CO2 18, creatinine 1.5
-Continue to trend
-Treat as needed
#Hallucinations
#Acute Metabolic Encephalopathy
-resolved
� Unclear etiology, doubt acute organic pathology
� Follow-up UA, CT head
� Patient is at baseline upon examination after rapid
#hypertension urgency
-hydralazine added
-Add Toprol
#type 2 DM
-glyburide, metformin held
-sliding scale
-CHO diet
#Euthyroid sick syndrome
-thyroid continued
-f/u tfts outpatient for titration
#DVT prophylaxis
heparin sq
#CODE status
-full code
Total time spent on today's encounter was 50 minutes which included time spent in counseling the patient/family regarding diagnosis and treatment plan as listed above, goals of care, and symptom management. Case was discussed with nursing staff,
specialists, and care coordinators/case management. All labs and imaging personally reviewed by me. Remainder the time spent in detailed review of previous records, lab data, imaging, and other medical provider documentation.
Anticipated Discharge: > 48 hours
Subjective/Interval History
-
Date of Service: November 07, 2023
No acute events overnight.
Rapid today, felt altered although at baseline upon examination. Vitals unremarkable for any abnormalities, respiratory
Objective Data
-
Labs:
Laboratory Results
11/07/23 11/07/23
06:43 14:23
WBC 7.6
Hgb 11.3 L
Hct 34.2 L
Plt Count 249
Sodium 137 Pending
Potassium 4.0 Pending
Chloride 105 Pending
Carbon Dioxide 22 Pending
BUN 34 H Pending
Creatinine 1.6 H Pending
Glucose 136 H Pending
Calcium 8.8 Pending
Vital Signs:
Vital Signs
Temp Pulse Resp BP Pulse Ox
98.2 F 87 18 144/63 97
11/07/23 13:28 11/07/23 13:28 11/07/23 13:28 11/07/23 13:28 11/07/23 13:28
I&O
11/06/23 11/07/23 11/08/23
06:59 06:59 06:59
Intake Total 480 / 480 960 / 960
Balance 480 / 480 960 / 960
Review of Systems
-
History Source: Patient
All other systems: Not reviewed unless documented
Data Reviewed
-
Diagnostic Radiology: Image personally visualized and interpreted and Report Reviewed by me
Medical Tests (Nuc Med, Echo etc): Image personally visualized and interpreted
[2023-11-07 15:12] LABS: Blood Urea Nitrogen 39 mg/dl (7-17); Calcium 9.1 mg/dl (8.4-10.2); Carbon Dioxide 21 mmol/L (22-30); Chloride 105 mmol/L (98-107); Estimated Creatinine Clearance 29 ml/min; Glucose 211 mg/dl (70-99); Potassium 4.4 mmol/L (3.5-5.1); Sodium 135 mmol/L (135-145); eGFR 35.67
--- NOTE | 2023-11-07 16:17 | CM ---
Per Cardiology consult request: Cost of Jardiance 10mg daily is $55.16/per month, Entresto 24/26 mg 1tab BID is 55.16/per month also.
[2023-11-07 17:05] LABS: Glucose - Point of Care 179 mg/dl (70-99)
[2023-11-07 19:51] VITALS: BP 149/69
[2023-11-07 21:23] LABS: Glucose - Point of Care 210 mg/dl (70-99)
[2023-11-07] MEDS: XALATAN OPHTHALMIC SOLUTION 1 DROP BOTH EYES (21:28)
[2023-11-07 23:12] VITALS: BP 166/80
[2023-11-08 03:17] VITALS: BP 146/67
[2023-11-08] MEDS: ARMOUR THYROID 90 MG PO (05:35)
[2023-11-08 06:00] VITALS: BMI 26.3
[2023-11-08 07:09] LABS: Glucose - Point of Care 151 mg/dl (70-99)
[2023-11-08 08:03] VITALS: BP 164/78
[2023-11-08] MEDS: LASIX 40 MG IV ×2 (09:11→17:21)
[2023-11-08] MEDS: LOW STRENGTH ASPIRIN 81 MG PO (09:12)
[2023-11-08] MEDS: HEPARIN 5000 UNITS SC ×2 (09:12→21:50)
[2023-11-08] MEDS: FLUSH (NSS) 2 FLUSH IV ×2 (09:14→17:22)
[2023-11-08] MEDS: NOVOLOG FLEXPEN-LOW RESISTANCE 1 UNITS SC ×2 (09:24→13:25)
[2023-11-08 09:48] LABS: % Basophils 0.5 % (0-2); % Eosinophils 2.6 % (0-6); % Immature Granulocytes 0.3 % (0-0.5); % Lymphocytes 11.4 % (20.5-51.1); % Monocytes 8.6 % (1.7-9.3); % Neutrophils 76.6 % (42.2-75.2); Absolute Eosinophils 0.2 10^3/uL (0-0.7); Absolute Lymphocytes 0.9 10^3/uL (1.2-3.4); Absolute Monocytes 0.7 10^3/uL (0.1-0.6); Absolute Neutrophils 5.9 10^3/uL (1.4-6.5); Hematocrit 32.9 % (37.0-47.0); Hemoglobin 10.7 g/dL (12.0-16.0); Mean Corp Hgb Conc. 32.5 g/dL (33.0-37.0); Mean Corpuscular Hgb 28.4 pg (27.0-31.0); Mean Corpuscular Volume 87.3 fL (81.0-99.0); Mean Platelet Volume 10.2 fL (7.4-10.4); Nucleated Red Blood Cells % 0 %; Platelet Count 237 10^3/uL (130-400); Red Blood Cell Count 3.77 10^6/uL (4.20-5.40); Red Cell Dist. Width 16.2 % (11.5-14.5); White Blood Cell Count 7.7 10^3/uL (4.8-10.8)
[2023-11-08 10:18] LABS: Blood Urea Nitrogen 39 mg/dl (7-17); Calcium 8.8 mg/dl (8.4-10.2); Carbon Dioxide 22 mmol/L (22-30); Chloride 104 mmol/L (98-107); Estimated Creatinine Clearance 28 ml/min; Glucose 202 mg/dl (70-99); Magnesium 1.7 mg/dl (1.6-2.3); Potassium 4.4 mmol/L (3.5-5.1); Sodium 137 mmol/L (135-145); eGFR 33.01
[2023-11-08 11:36] LABS: Urine Albumin Negative (Neg - Trace); Urine Bilirubin Negative (Negative); Urine Character Clear (Clear); Urine Color Yellow; Urine Glucose Negative (Negative); Urine Ketone Negative (Negative); Urine Leukocyte Trace (Negative); Urine Nitrite Negative (Negative); Urine Occult Blood Negative (Negative); Urine Specific Gravity 1.015 (<1.030); Urine Urobilinogen Negative (Neg - 1+)
[2023-11-08 11:44] LABS: Urine Red Blood Cell None Seen /HPF (0-2); Urine Squamous Cell 16-20 /LPF (Few); Urine White Cell 0-2 /HPF (0-5)
[2023-11-08 12:03] VITALS: BP 172/86
--- NOTE | 2023-11-08 12:45 | W.PN.HOSP.TC ---
Today's Communication/Plan
-
cont diuretics
patient still refusing many antihypertensive meds
anticipate lhc/rhc this week once near euvolemia
Assessment / Plan
Assessment / Plan
Physical Exam
General: Well Developed, Well Nourished and No Apparent Distress
HEENT: NormoCephalic, Moist mucous membranes and Atraumatic
Respiratory: Clear
Cardiac: S1/S2 and Regular Rhythm; No Murmur or Rub
GI: Soft, Non Tender, Non Distended and Normal Bowel Sounds; No Organomegaly
Rectal: Deferred by Provider
Musculoskeletal: No Clubbing, No Cyanosis and Other (Bilateral lower extremity symmetric edema)
Skin: No Rash
Neuro: AO x 3 and Nonfocal/grossly intact
# Dyspnea on Exertion
#LE edema
#Pleural Effusion
#Acute HFrEF
-EF 25%
- BNP 66536
-Chest x-ray with impression of moderate right-sided pleural effusion with associated compressive atelectasis at the right lung base.
-IV Lasix 4omg bid continued
- 2/p Right thora 11/05
-Strict BRETT
-Daily weight
- Refusing BB, Hydral/nitrate despite education and understanding risks
-LHC/RHC consideration early this week
-cardiology consulted
# Nonischemic myocardial injury
� Mostly secondary to acute HFrEF
� Cardiology planning for left and right heart cath this week
� Continue aspirin
# Anemia of chronic disease
-Hemoglobin stable at 11.8
-No active bleeding
-Continue to monitor
# Hyperkalemia/metabolic acidosis/CKD stage IIIb
-K5.5, CO2 18, creatinine 1.5
-Continue to trend
-Treat as needed
#Hallucinations
#Acute Metabolic Encephalopathy
-possible delirium
-resolved
� Unclear etiology, doubt acute organic pathology - possibly anxiety
- UA and CT head unremarkable
-CTM
#hypertension urgency
-hydralazine added
-Add Toprol
-pt refusing many meds
#type 2 DM
-glyburide, metformin held
-sliding scale
-CHO diet
#Euthyroid sick syndrome
-thyroid continued
-f/u tfts outpatient for titration
#DVT prophylaxis
heparin sq
#CODE status
-full code
Total time spent on today's encounter was 51 minutes which included time spent in counseling the patient/family regarding diagnosis and treatment plan as listed above, goals of care, and symptom management. Case was discussed with nursing staff,
specialists, and care coordinators/case management. All labs and imaging personally reviewed by me. Remainder the time spent in detailed review of previous records, lab data, imaging, and other medical provider documentation.
Anticipated Discharge: Within 24 hours
Subjective/Interval History
-
Date of Service: November 08, 2023
No acute events
Objective Data
-
Labs:
Laboratory Results
11/08/23
08:57
WBC 7.7
Hgb 10.7 L
Hct 32.9 L
Plt Count 237
Sodium 137
Potassium 4.4
Chloride 104
Carbon Dioxide 22
BUN 39 H
Creatinine 1.6 H
Glucose 202 H
Calcium 8.8
Vital Signs:
Vital Signs
Temp Pulse Resp BP Pulse Ox
98.3 F 84 16 172/86 98
11/08/23 12:03 11/08/23 12:03 11/08/23 12:03 11/08/23 12:03 11/08/23 12:12
I&O
11/07/23 11/08/23 11/09/23
06:59 06:59 06:59
Intake Total 960 / 960 600 / 600
Balance 960 / 960 600 / 600
Review of Systems
-
History Source: Patient
All other systems: Not reviewed unless documented
Data Reviewed
-
Diagnostic Radiology: Image personally visualized and interpreted and Report Reviewed by me
Medical Tests (Nuc Med, Echo etc): Image personally visualized and interpreted
[2023-11-08 12:52] LABS: Glucose - Point of Care 174 mg/dl (70-99)
[2023-11-08 15:50] VITALS: BP 147/59
--- NOTE | 2023-11-08 16:36 | W.PN.CARDCBS ---
Today's Communication / Plan
-
Continue IV diuresis, suspect her dry weight is around 150 pounds
Not agreeable to start guideline directed medical therapy for heart failure
Impression / Plan
-
Primary Leg Breaker: none prior to admission, initially seen by Dr. Boone
Assessment:
Presentation with SOB, LE edema
Acute HFrEF (EF 25%)
Right pleural effusion
type 2 diabetes, hemoglobin 7.5%
diabetic neuropathy
hypertension with hypertensive urgency on arrival
hypercholesterolemia
hypothyroidism with elevated TSH
CKD stage III
Chronic anemia
fibromyalgia
irritable bowel disease
history of breast cancer s/p 9 lumpectomies on R and double XRT 2016
History of cervical cancer in 30s s/p holistic treatment
anxiety/depression
History of polio
History of mercury poisoning 1997
Hyperkalemia, improved
Multiple medication intolerances
ECHO 11/06/23: Severely reduced left ventricular systolic function. Global hypokinesis with regional variability. Left ventricular ejection fraction is 25%. Mild mitral stenosis with a mean gradient of 4 mmHg. Mild to moderate mitral regurgitation.
Moderate tricuspid regurgitation, estimated pulmonary artery pressure of 60 mmHg, assuming a right atrial pressure of 8 mmHg.
Plan:
-Patient presents with shortness of breath, lower extremity edema, weight gain. Chest x-ray with right pleural effusion, and proBNP significantly elevated at 24,600 in keeping with decompensated HF.
-TTE shows newly reduced LVEF 25%
-Continue diuresis with IV Lasix 40 mg twice daily- follow daily weights and Cr/electrolytes
-Discussed GDMT for HFrEF, but she is not agreeable
-Willing to take [id number] daily, would continue pending ischemic eval
-Discussed potential L/RHC this week, she seems agreeable
Discussed with patient's son Danis by phone
Progress Note - Leg Breaker
Subjective
Date of Service: November 08, 2023
No acute overnight events. Patient resting comfortably in bed. Tells me that her extremity edema is significantly improved from prior. Breathing is comfortable.
Objective
Labs:
11/08/23 08:57
11/08/23 08:57
Labs
Hgb 10.7 g/dL (12.0-16.0) L 11/08/23 08:57
Hct 32.9 % (37.0-47.0) L 11/08/23 08:57
Plt Count 237 10^3/uL (130-400) 11/08/23 08:57
Sodium 137 mmol/L (135-145) 11/08/23 08:57
Potassium 4.4 mmol/L (3.5-5.1) 11/08/23 08:57
BUN 39 mg/dl (7-17) H 11/08/23 08:57
Creatinine 1.6 mg/dL (0.6-1.0) H 11/08/23 08:57
Glucose 202 mg/dl (70-99) H 11/08/23 08:57
Troponins
11/06/23 11/06/23 11/07/23
16:17 22:05 01:15
Troponin I 0.119 H* 0.182 H* D 0.221 H*
11/07/23
06:43
Troponin I 0.219 H*
Vital Signs and I&O:
Vital Signs
Temp Pulse Resp BP Pulse Ox
98.3 F 87 18 147/59 96
11/08/23 15:50 11/08/23 15:50 11/08/23 15:50 11/08/23 15:50 11/08/23 15:50
Vital Signs
Temp Pulse Resp BP Pulse Ox
98.3 F 87 18 147/59 96
11/08/23 15:50 11/08/23 15:50 11/08/23 15:50 11/08/23 15:50 11/08/23 15:50
Intake & Output
11/06/23 11/07/23 11/08/23 11/09/23
06:59 06:59 06:59 06:59
Intake Total 480 / 480 960 / 960 600 / 600
Balance 480 / 480 960 / 960 600 / 600
Physical Exam
Physical Exam
Gen: NAD, AAOx3
HEENT: NC/AT, sclera anicteric
Neck: No JVD
CV: RRR, NL s1/s2
Lungs: CTAB
Abd: S/ND
Ext: 1-2+ LE edema
Skin: Warm, dry
Neuro: Non-focal
[2023-11-08 17:20] LABS: Glucose - Point of Care 261 mg/dl (70-99)
[2023-11-08] MEDS: NOVOLOG FLEXPEN-LOW RESISTANCE 3 UNITS SC (17:26)
[2023-11-08 19:27] VITALS: BP 168/90
[2023-11-08] MEDS: XALATAN OPHTHALMIC SOLUTION 1 DROP BOTH EYES (21:50)
[2023-11-08] MEDS: TYLENOL 650 MG PO (21:51)
[2023-11-08 22:30] LABS: Glucose - Point of Care 168 mg/dl (70-99)
[2023-11-08 23:37] VITALS: BP 169/82
[2023-11-09] VITALS (7 sets, daily range): BP systolic 153–178; BP diastolic 68–89; PULSE 80; O2SAT 98; BMI 25.9
[2023-11-09] MEDS: ARMOUR THYROID 90 MG PO (06:09)
[2023-11-09 07:05] LABS: Glucose - Point of Care 147 mg/dl (70-99)
[2023-11-09] MEDS: NOVOLOG FLEXPEN-LOW RESISTANCE SC ×3 (07:25→17:27)
--- NOTE | 2023-11-09 08:41 | W.PN.HOSP.TC ---
Today's Communication/Plan
-
diuresis
eventual cath
Assessment / Plan
Assessment / Plan
Physical Exam
General: Well Developed, Well Nourished and No Apparent Distress
HEENT: NormoCephalic, Moist mucous membranes and Atraumatic
Respiratory: Clear
Cardiac: S1/S2 and Regular Rhythm; No Murmur or Rub
GI: Soft, Non Tender, Non Distended and Normal Bowel Sounds; No Organomegaly
Rectal: Deferred by Provider
Musculoskeletal: No Clubbing, No Cyanosis and Other (Bilateral lower extremity symmetric edema)
Skin: No Rash
Neuro: AO x 3 and Nonfocal/grossly intact
#Acute HFrEF
# Dyspnea on Exertion
#LE edema
#Pleural Effusion
-EF 25%, TTE 11/06/23 - newly reduced
-Chest x-ray with impression of moderate right-sided pleural effusion with associated compressive atelectasis at the right lung base.
- s/p Right thora 11/05
-IV Lasix 4omg BID
-Strict BRETT, Daily weight
- Refusing BB, Hydral/nitrate despite education and understanding risks
- LHC/RHC consideration early this week
- cardiology consult appreciated
# Nonischemic myocardial injury
� Mostly secondary to acute HFrEF
� Cardiology planning for left and right heart cath this week
� Continue aspirin
# Anemia of chronic disease
-Hemoglobin stable at 11.8
-No active bleeding
-Continue to monitor
# Hyperkalemia/metabolic acidosis/CKD stage IIIb
-K5.5, CO2 18, creatinine 1.5
-Continue to trend
-Treat as needed
#Hallucinations
#Acute Metabolic Encephalopathy
-possible delirium
-resolved
� Unclear etiology, doubt acute organic pathology - possibly anxiety
- UA and CT head unremarkable
- CTM
#hypertension urgency
-hydralazine added
-Add Toprol
-pt refusing many meds
#type 2 DM
-glyburide, metformin held
-sliding scale
-CHO diet
#Euthyroid sick syndrome
-thyroid continued
-f/u tfts outpatient for titration
#DVT prophylaxis
heparin sq
#CODE status
-full code
Total time spent on today's encounter was 51 minutes which included time spent in counseling the patient/family regarding diagnosis and treatment plan as listed above, goals of care, and symptom management. Case was discussed with nursing staff,
specialists, and care coordinators/case management. All labs and imaging personally reviewed by me. Remainder the time spent in detailed review of previous records, lab data, imaging, and other medical provider documentation.
Anticipated Discharge: 24 - 48 hours
Subjective/Interval History
-
Date of Service: November 09, 2023
she is diuresing well with less swelling and increased mobility of legs
Objective Data
-
Labs:
Laboratory Results
11/09/23
08:11
WBC Pending
Hgb Pending
Hct Pending
Plt Count Pending
Sodium Pending
Potassium Pending
Chloride Pending
Carbon Dioxide Pending
BUN Pending
Creatinine Pending
Glucose Pending
Calcium Pending
Total Bilirubin Pending
AST Pending
ALT Pending
Alkaline Phosphatase Pending
Vital Signs:
Vital Signs
Temp Pulse Resp BP Pulse Ox
98.4 F 74 18 168/85 97
11/09/23 06:57 11/09/23 06:57 11/09/23 06:57 11/09/23 06:57 11/09/23 06:57
I&O
11/08/23 11/09/23 11/10/23
06:59 06:59 06:59
Intake Total 600 / 600 1320 / 1320
Balance 600 / 600 0 / 1320
Review of Systems
-
History Source: Patient
All other systems: Reviewed and negative
Physical Exam
-
General: No Apparent Distress
Psych: Calm
Data Reviewed
-
Diagnostic Radiology: Report Reviewed by me
Labs: Labs Reviewed by me
[2023-11-09] MEDS: COLACE 100 MG PO (09:00)
[2023-11-09] MEDS: LASIX 40 MG IV ×2 (09:00→16:22)
[2023-11-09] MEDS: LOW STRENGTH ASPIRIN 81 MG PO (09:01)
[2023-11-09] MEDS: HEPARIN 5000 UNITS SC ×2 (09:01→21:12)
[2023-11-09 09:07] LABS: Hematocrit 34.5 % (37.0-47.0); Hemoglobin 11.1 g/dL (12.0-16.0); Mean Corp Hgb Conc. 32.2 g/dL (33.0-37.0); Mean Corpuscular Hgb 28.2 pg (27.0-31.0); Mean Corpuscular Volume 87.8 fL (81.0-99.0); Platelet Count 244 10^3/uL (130-400); Red Blood Cell Count 3.93 10^6/uL (4.20-5.40); Red Cell Dist. Width 15.9 % (11.5-14.5)
[2023-11-09 09:59] LABS: ALT (SGPT) 26 U/L (0-35); AST (SGOT) 33 U/L (14-36); Albumin 3.6 g/dl (3.5-5.0); Alkaline Phosphatase 77 U/L (38-126); Blood Urea Nitrogen 40 mg/dl (7-17); Calcium 8.9 mg/dl (8.4-10.2); Carbon Dioxide 25 mmol/L (22-30); Chloride 103 mmol/L (98-107); Estimated Creatinine Clearance 28 ml/min; Glucose 224 mg/dl (70-99); Magnesium 1.7 mg/dl (1.6-2.3); Potassium 4.2 mmol/L (3.5-5.1); Sodium 138 mmol/L (135-145); Total Bilirubin 0.7 mg/dl (0.2-1.3); eGFR 33.01
[2023-11-09 11:33] LABS: Glucose - Point of Care 209 mg/dl (70-99)
[2023-11-09] MEDS: TYLENOL 650 MG PO ×2 (12:14→21:11)
--- NOTE | 2023-11-09 13:10 | W.PN.CARDCBS ---
Today's Communication / Plan
-
Diurese
Impression / Plan
-
Primary Agricultural Technical Officer: none prior to admission, initially seen by Dr. Boone
Assessment:
Presentation with SOB, LE edema
Acute HFrEF (EF 25%)
Right pleural effusion
type 2 diabetes, hemoglobin 7.5%
diabetic neuropathy
hypertension with hypertensive urgency on arrival
hypercholesterolemia
hypothyroidism with elevated TSH
CKD stage III
Chronic anemia
fibromyalgia
irritable bowel disease
history of breast cancer s/p 9 lumpectomies on R and double XRT 2016
History of cervical cancer in 30s s/p holistic treatment
anxiety/depression
History of polio
History of mercury poisoning 1997
Hyperkalemia, improved
Multiple medication intolerances
ECHO 11/06/23: Severely reduced left ventricular systolic function. Global hypokinesis with regional variability. Left ventricular ejection fraction is 25%. Mild mitral stenosis with a mean gradient of 4 mmHg. Mild to moderate mitral regurgitation.
Moderate tricuspid regurgitation, estimated pulmonary artery pressure of 60 mmHg, assuming a right atrial pressure of 8 mmHg.
Plan:
New diagnosed acute heart failure with reduced ejection fraction and an EF estimated 25% with mild mitral stenosis and mild to moderate mitral regurgitation as well as pulmonary hypertension with moderate tricuspid regurgitation and an estimated
pulmonary artery pressure of 60 mmHg
-proBNP 24,600
-We discussed diagnosis and reviewed goal-directed medical therapy which was previously discussed over the weekend by my colleague with both patient and her son. Patient reiterates that she is not interested in starting any further pharmacologic
therapy at this time although states she may be open to it in the future [per case management, Jardiance 10 mg daily would be $55.16 per month, Entresto 24/26 mg 1 p.o. twice daily is $55.16/month.]
-Workup of heart failure etiology was also reviewed including ischemic evaluation. Patient states that she would be agreeable to a diagnostic left heart catheterization.
-Her volume status is improving however she remains volume overloaded. She is -19 pounds since admission. Will continue IV Lasix 40 mg IV twice daily.
-Continue to monitor renal function and electrolytes. Creatinine has been relatively stable at 1.5�1.6
-Blood pressures remain elevated-She has been overall resistant about adding medical therapy so we will increase hydralazine and if blood pressures tolerate increase Isordil. Continue diuretics with plan for transition to RIGO/ARB or ARNI if patient
allows prior to discharge
-Continue to monitor on telemetry for arrhythmias
-Will discuss with interventional cardiology diagnostic only right/left heart catheterization once patient is more euvolemic
Progress Note - Agricultural Technical Officer
Subjective
Date of Service: November 09, 2023
Patient seen and examined. Reviewed echocardiogram findings and reviewed discussions which occurred over the weekend regarding goal-directed medical therapy for heart failure and workup including ischemic evaluation
Objective
Labs:
11/09/23 08:11
11/09/23 08:11
Labs
Hgb 11.1 g/dL (12.0-16.0) L 11/09/23 08:11
Hct 34.5 % (37.0-47.0) L 11/09/23 08:11
Plt Count 244 10^3/uL (130-400) 11/09/23 08:11
Sodium 138 mmol/L (135-145) 11/09/23 08:11
Potassium 4.2 mmol/L (3.5-5.1) 11/09/23 08:11
BUN 40 mg/dl (7-17) H 11/09/23 08:11
Creatinine 1.6 mg/dL (0.6-1.0) H 11/09/23 08:11
Glucose 224 mg/dl (70-99) H 11/09/23 08:11
Troponins
11/06/23 11/06/23 11/07/23
16:17 22:05 01:15
Troponin I 0.119 H* 0.182 H* D 0.221 H*
11/07/23
06:43
Troponin I 0.219 H*
Vital Signs and I&O:
Vital Signs
Temp Pulse Resp BP Pulse Ox
99.1 F 79 18 178/86 96
11/09/23 11:26 11/09/23 11:26 11/09/23 11:26 11/09/23 11:26 11/09/23 11:26
Vital Signs
Temp Pulse Resp BP Pulse Ox
99.1 F 79 18 178/86 96
11/09/23 11:26 11/09/23 11:26 11/09/23 11:26 11/09/23 11:26 11/09/23 11:26
Intake & Output
11/07/23 11/08/23 11/09/23 11/10/23
06:59 06:59 06:59 06:59
Intake Total 960 / 960 600 / 600 1320 / 1320
Balance 960 / 960 600 / 600 1320 / 1320
Physical Exam
Physical Exam
Gen: NAD, AAOx3
HEENT: NC/AT, sclera anicteric
Neck: No JVD
CV: RRR, NL s1/s2
Lungs: CTAB
Abd: S/ND
Ext: 1-2+ LE edema
[2023-11-09 14:43] LABS: Glucose - Point of Care 188 mg/dl (70-99)
[2023-11-09] MEDS: MICRONASE 2.5 MG PO (14:43)
--- NOTE | 2023-11-09 16:24 | PTCARENOTE ---
pt refusing all cardiac medications. pt compliant to take lasix and heparin sc shot but no BP meds. nurse educated on purpose and pt states she does not know why we keep trying to give her them
[2023-11-09 17:27] LABS: Glucose - Point of Care 259 mg/dl (70-99)
[2023-11-09] MEDS: COLACE PO (21:08)
[2023-11-09 21:15] LABS: Glucose - Point of Care 224 mg/dl (70-99)
[2023-11-09] MEDS: XALATAN OPHTHALMIC SOLUTION 1 DROP BOTH EYES (21:22)
[2023-11-10] VITALS (12 sets, daily range): BP systolic 121–176; BP diastolic 65–86; BMI 25.0
[2023-11-10] MEDS: ARMOUR THYROID 90 MG PO (06:13)
[2023-11-10 06:38] LABS: % Basophils 0.5 % (0-2); % Eosinophils 5.4 % (0-6); % Immature Granulocytes 0.2 % (0-0.5); % Lymphocytes 14.5 % (20.5-51.1); % Monocytes 9.3 % (1.7-9.3); % Neutrophils 70.1 % (42.2-75.2); Absolute Eosinophils 0.3 10^3/uL (0-0.7); Absolute Lymphocytes 0.9 10^3/uL (1.2-3.4); Absolute Monocytes 0.6 10^3/uL (0.1-0.6); Absolute Neutrophils 4.3 10^3/uL (1.4-6.5); Hematocrit 33.1 % (37.0-47.0); Hemoglobin 10.7 g/dL (12.0-16.0); Mean Corp Hgb Conc. 32.3 g/dL (33.0-37.0); Mean Corpuscular Hgb 28.4 pg (27.0-31.0); Mean Corpuscular Volume 87.8 fL (81.0-99.0); Nucleated Red Blood Cells % 0 %; Platelet Count 233 10^3/uL (130-400); Red Blood Cell Count 3.77 10^6/uL (4.20-5.40); Red Cell Dist. Width 16.2 % (11.5-14.5); White Blood Cell Count 6.2 10^3/uL (4.8-10.8)
[2023-11-10 06:54] LABS: ALT (SGPT) 23 U/L (0-35); AST (SGOT) 27 U/L (14-36); Albumin 3.3 g/dl (3.5-5.0); Alkaline Phosphatase 76 U/L (38-126); Blood Urea Nitrogen 42 mg/dl (7-17); Carbon Dioxide 25 mmol/L (22-30); Chloride 103 mmol/L (98-107); Estimated Creatinine Clearance 29 ml/min; Glucose 148 mg/dl (70-99); Magnesium 1.7 mg/dl (1.6-2.3); Potassium 3.5 mmol/L (3.5-5.1); Sodium 138 mmol/L (135-145); Total Bilirubin 0.8 mg/dl (0.2-1.3); Total Protein 5.6 g/dl (6.3-8.2); eGFR 35.67
[2023-11-10 07:01] LABS: Glucose - Point of Care 147 mg/dl (70-99)
[2023-11-10] MEDS: NOVOLOG FLEXPEN-LOW RESISTANCE SC ×3 (07:04→17:19)
[2023-11-10] MEDS: LOW STRENGTH ASPIRIN 81 MG PO (09:00)
[2023-11-10] MEDS: COLACE 100 MG PO (09:00)
[2023-11-10] MEDS: LASIX 40 MG IV (09:00)
--- NOTE | 2023-11-10 09:02 | W.PN.HOSP.TC ---
Today's Communication/Plan
-
diuresis
Assessment / Plan
Assessment / Plan
Physical Exam
General: Well Developed, Well Nourished and No Apparent Distress
HEENT: NormoCephalic, Moist mucous membranes and Atraumatic
Respiratory: Clear
Cardiac: S1/S2 and Regular Rhythm; No Murmur or Rub
GI: Soft, Non Tender, Non Distended and Normal Bowel Sounds; No Organomegaly
Rectal: Deferred by Provider
Musculoskeletal: No Clubbing, No Cyanosis and Other (Bilateral lower extremity symmetric edema)
Skin: No Rash
Neuro: AO x 3 and Nonfocal/grossly intact
#Acute HFrEF
# Dyspnea on Exertion
#LE edema
#Pleural Effusion
-EF 25%, TTE 11/06/23 - newly reduced
-Chest x-ray with impression of moderate right-sided pleural effusion with associated compressive atelectasis at the right lung base.
- s/p Right thora 11/05
-IV Lasix 4omg BID
-Strict BRETT, Daily weight
- Refusing BB, Hydral/nitrate despite education and understanding risks
- LHC/RHC consideration when euvolemic
- cardiology consult appreciated
# Nonischemic myocardial injury
� Mostly secondary to acute HFrEF
� Cardiology planning for left and right heart cath this week
� Continue aspirin
# Anemia of chronic disease
-Hemoglobin stable at 11.8
-No active bleeding
-Continue to monitor
# Hyperkalemia/metabolic acidosis/CKD stage IIIb
-K5.5, CO2 18, creatinine 1.5
-Continue to trend
-Treat as needed
#Hallucinations
#Acute Metabolic Encephalopathy
-possible delirium
-resolved
� Unclear etiology, doubt acute organic pathology - possibly anxiety
- UA and CT head unremarkable
- CTM
#hypertension urgency
-hydralazine added
-Add Toprol
-pt refusing many meds
#type 2 DM
-glyburide, metformin held
-sliding scale
-CHO diet
#Euthyroid sick syndrome
-thyroid continued
-f/u [facility] outpatient for titration
#DVT prophylaxis
heparin sq
#CODE status
-full code
Anticipated Discharge: > 48 hours
Subjective/Interval History
-
Date of Service: November 10, 2023
urinating significantly and losing weight
Objective Data
-
Labs:
Laboratory Results
11/10/23
05:48
WBC 6.2
Hgb 10.7 L
Hct 33.1 L
Plt Count 233
Sodium 138
Potassium 3.5
Chloride 103
Carbon Dioxide 25
BUN 42 H
Creatinine 1.5 H
Glucose 148 H
Calcium 9.0
Total Bilirubin 0.8
AST 27
ALT 23
Alkaline Phosphatase 76
Vital Signs:
Vital Signs
Temp Pulse Resp BP Pulse Ox
98.0 F 80 18 153/70 97
11/10/23 07:50 11/10/23 07:50 11/10/23 07:50 11/10/23 07:50 11/10/23 07:50
I&O
11/09/23 11/10/23 11/11/23
06:59 06:59 06:59
Intake Total 1320 / 1320 1320 / 1320
Balance 1320 / 1320 1320 / 1320
Review of Systems
-
History Source: Patient
All other systems: Reviewed and negative
Physical Exam
-
General: No Apparent Distress
Psych: Calm
Data Reviewed
-
Diagnostic Radiology: Report Reviewed by me
Labs: Labs Reviewed by me
[2023-11-10] MEDS: HEPARIN 5000 UNITS SC ×2 (09:07→20:51)
[2023-11-10] MEDS: KCL 40 MEQ PO (09:30)
[2023-11-10] MEDS: MICRONASE 2.5 MG PO (11:25)
--- NOTE | 2023-11-10 12:29 | CM ---
Chart reviewed: diuresing today; anticipate DC > 48 hours
Plan: [facility] when medically stable;
--- NOTE | 2023-11-10 14:08 | ITS.CL.CATH ---
Logistics Supervisor - Catheterization
Cardiac Catheterization
Procedure Report:
LEFT HEART CATHETERIZATION
Date of Procedure: November 10, 2023
Referring: Adama Gilbert MD
PROCEDURES:
1. Left heart catheterization, coronary angiogram.
2. Right heart catheterization.
3. Ultrasound-guided access
INDICATION: Patient is a 78-year-old female with multiple significant comorbid conditions including type 2 diabetes mellitus, prior history of breast cancer, fibromyalgia, hypothyroidism, poorly controlled hypertension, hyperlipidemia, stage IIIb
CKD who presents with acute decompensated heart failure found to have severe LV dysfunction. Of note extensive discussions were had at the time of consent with patient and her son given ongoing refusal of medications including blood pressure
medications despite blood pressures being elevated into the 170s-190s systolic. After very extensive discussions explaining the risk and benefits of the procedure, both patient and son are agreeable to move forward excepting the risk of the
procedures.
ACCESS:
1. Right ulnar artery, 5 [place] sheath, under ultrasound guidance.
2. Right common femoral vein, 6 [place] sheath, under ultrasound guidance using a micropuncture kit
HEMODYNAMICS : (mmHg)
RA (m) : 16
RV (s/d,m) : 65/10, 18
PA (s/d, m) : 66/28, 42
PCWP (m) : 26
PA saturation: 55.6% on room air
AO saturation: 85.8% on room air
RA saturation: 56.9% on room air
Cardiac Output : 3.99 L/min
Cardiac Index : 2.22 L/min/m-2
Systemic vascular resistance: 1522 dsc^(-5)
Pulmonary vascular resistance: 4.76 kang unit
AO (s/d) : 144/60
LV (s/d) : 154/14
LVEDP : 27
CORONARY FINDINGS
DOMINANCE: Left
LEFT MAIN: The left main artery is a large-caliber vessel which gives rise to the left anterior descending artery and the left circumflex artery. There is mild diffuse atherosclerotic plaque.
LEFT ANTERIOR DESCENDING: The left anterior descending artery is a medium caliber vessel which gives rise to 1 major diagonal branch which is small to medium in caliber. There are tandem 70 to 80% lesions in the proximal to mid LAD with otherwise
moderate diffuse atherosclerotic plaque with 100% chronic total occlusion in the mid LAD with left to left collaterals.
CIRCUMFLEX: The left circumflex artery is a medium caliber vessel which gives rise to 3 major obtuse marginal branches, 2 left posterolateral branch and a small left posterior descending artery. There is moderate to severe diffuse atherosclerotic
plaque with multiple severe tandem lesions up to 70 to 80% in left circumflex artery proper. OM1 is a small caliber vessel with moderate to severe diffuse disease in the proximal portion. OM 2 has tubular 60 to 70% ostial to proximal stenosis.
RIGHT CORONARY ARTERY: The right coronary artery is a small caliber, nondominant vessel with a subtotal occlusion in the proximal portion.
SEDATION: 39 minutes of procedural sedation was utilized. An independent medical record technician was present to assist with and help manage the patient's level of consciousness and physiologic status.
RADIATION SUMMARY: Fluoro Time (min): 9.9, Dose (mGy): 327.3, DAP (Gy.cm2) : 30.6
Closure Device:
1. Vascular band over right ulnar artery, 10 cc of air.
2. Manual pressure was held over the right common femoral venous access site with successful hemostasis
CONCLUSIONS
1. Left dominant circulation. Severe multivessel coronary artery disease.
2. Significantly elevated right and left-sided filling pressures with normal cardiac output and severe pulmonary hypertension.
RECOMMENDATIONS
1. Goal-directed medical therapy for severe ischemic cardiomyopathy.
2. Ongoing heart team discussions in regards to potential treatment options including medical therapy alone versus consideration for coronary artery bypass grafting in addition to medications depending on what patient is agreeable to if patient is
deemed a good surgical candidate based on her anatomy.
3. Optimization of invasive filling pressures with IV diuresis.
4. Aggressive management of cardiovascular risk factors.
5. Wean vascular band per protocol and bedrest per protocol.
6. Eventual referral for outpatient cardiac rehab.
Copy to: Adama Gilbert
Milady Yu MD, FACC, [facility]
--- NOTE | 2023-11-10 14:36 | PTCARENOTE ---
pt down to cardiac services via bed. pt sent with chart and all under garments removed prior to transportation.
--- NOTE | 2023-11-10 16:58 | PTCARENOTE ---
pt returned to 2135 post cath. through the L ulnar and R femoral vein. pt bp when returning to the floor 121/82 and HR of 75. pt on bedrest for now per order. R band in place on R ulnar.
[2023-11-10] MEDS: LASIX IV (17:07)
[2023-11-10 17:14] LABS: Glucose - Point of Care 142 mg/dl (70-99)
[2023-11-10] MEDS: COLACE PO ×2 (20:51→21:02)
[2023-11-10 21:27] LABS: Glucose - Point of Care 276 mg/dl (70-99)
[2023-11-10] MEDS: XALATAN OPHTHALMIC SOLUTION 1 DROP BOTH EYES (22:06)
[2023-11-10] MEDS: TYLENOL 650 MG PO (23:03)
[2023-11-11] VITALS (7 sets, daily range): BP systolic 144–185; BP diastolic 70–98; BMI 24.6
[2023-11-11] MEDS: ARMOUR THYROID 90 MG PO (05:54)
--- NOTE | 2023-11-11 06:01 | PTCARENOTE ---
Patient refusing PRN blood pressure medication. Elevated blood pressure throughout shift. DR lam.
[2023-11-11] MEDS: TYLENOL 650 MG PO ×2 (06:03→20:11)
[2023-11-11 07:08] LABS: Glucose - Point of Care 182 mg/dl (70-99)
[2023-11-11 07:30] LABS: Hematocrit 32.1 % (37.0-47.0); Hemoglobin 10.4 g/dL (12.0-16.0); Mean Corp Hgb Conc. 32.4 g/dL (33.0-37.0); Mean Corpuscular Hgb 28.4 pg (27.0-31.0); Mean Corpuscular Volume 87.7 fL (81.0-99.0); Mean Platelet Volume 10.1 fL (7.4-10.4); Platelet Count 241 10^3/uL (130-400); Red Blood Cell Count 3.66 10^6/uL (4.20-5.40); Red Cell Dist. Width 16.1 % (11.5-14.5); White Blood Cell Count 6.3 10^3/uL (4.8-10.8)
[2023-11-11 07:51] LABS: Blood Urea Nitrogen 43 mg/dl (7-17); Calcium 8.9 mg/dl (8.4-10.2); Carbon Dioxide 27 mmol/L (22-30); Chloride 103 mmol/L (98-107); Estimated Creatinine Clearance 28 ml/min; Glucose 159 mg/dl (70-99); HDL Cholesterol 69 mg/dl; LDL Cholesterol, Calculated 97 mg/dl; Magnesium 1.7 mg/dl (1.6-2.3); Potassium 4.1 mmol/L (3.5-5.1); Sodium 139 mmol/L (135-145); Total Cholesterol 182 mg/dl (50-199); Triglyceride 80 mg/dl (10-149); Very Low Density Lipoprotein 16 mg/dl (0-30); eGFR 33.01
[2023-11-11] MEDS: COLACE 100 MG PO (08:44)
[2023-11-11] MEDS: NOVOLOG FLEXPEN-LOW RESISTANCE 1 UNITS SC (08:44)
[2023-11-11] MEDS: LOW STRENGTH ASPIRIN 81 MG PO (08:44)
[2023-11-11] MEDS: HEPARIN 5000 UNITS SC ×2 (08:44→20:11)
[2023-11-11] MEDS: MICRONASE 2.5 MG PO (08:44)
--- NOTE | 2023-11-11 09:28 | W.PN.HOSP.TC ---
Addendum entered and electronically signed by Michelle Vaughn MD 11/11/23 12:08:
visual hallucinations
-likely related to anxiety
-resolved
Original Note:
Today's Communication/Plan
-
diuresis
F/U further cardiology eval
Assessment / Plan
Assessment / Plan
Physical Exam
General: Well Developed, Well Nourished and No Apparent Distress
HEENT: NormoCephalic, Moist mucous membranes and Atraumatic
Respiratory: Clear
Cardiac: S1/S2 and Regular Rhythm; No Murmur or Rub
GI: Soft, Non Tender, Non Distended and Normal Bowel Sounds; No Organomegaly
Rectal: Deferred by Provider
Musculoskeletal: No Clubbing, No Cyanosis and Other (Bilateral lower extremity symmetric edema)
Skin: No Rash
Neuro: AO x 3 and Nonfocal/grossly intact
CONCLUSIONS
1. Left dominant circulation. Severe multivessel coronary artery disease.
2. Significantly elevated right and left-sided filling pressures with normal cardiac output and severe pulmonary hypertension.
RECOMMENDATIONS
1. Goal-directed medical therapy for severe ischemic cardiomyopathy.
2. Ongoing heart team discussions in regards to potential treatment options including medical therapy alone versus consideration for coronary artery bypass grafting in addition to medications depending on what patient is agreeable to if patient is
deemed a good surgical candidate based on her anatomy.
3. Optimization of invasive filling pressures with IV diuresis.
4. Aggressive management of cardiovascular risk factors.
5. Wean vascular band per protocol and bedrest per protocol.
6. Eventual referral for outpatient cardiac rehab.
#Acute HFrEF
# Dyspnea on Exertion
#LE edema
#Pleural Effusion
-EF 25%, TTE 11/06/23 - newly reduced
-Chest x-ray with impression of moderate right-sided pleural effusion with associated compressive atelectasis at the right lung base.
-s/p Right thora 6/7
-now s/p right and left cardiac cath 11/09 with finding MVD
-F/U cardiology and CTS recs; patient may not be candidate for CABG or agreeable
-patient refused GDMT earlier in hospital course - continued education
-IV Lasix 80mg BID
-Strict BRETT, Daily weight
# Anemia of chronic disease
-Hemoglobin stable at 11.8
-No active bleeding
-Continue to monitor
# Hyperkalemia/metabolic acidosis/CKD stage IIIb
-K5.5, CO2 18, creatinine 1.5
-improved
-creatinine stable
#Hallucinations
#Acute Metabolic Encephalopathy
-possible delirium
-resolved
� Unclear etiology, doubt acute organic pathology - possibly anxiety
- UA and CT head unremarkable
- CTM
#hypertension urgency
-hydralazine added
-Add Toprol
-pt refusing many meds
#type 2 DM
-resumed lower dose Glyburide
-sliding scale
-CHO diet
#Euthyroid sick syndrome
-thyroid continued
-f/u tfts outpatient for titration
#DVT prophylaxis
heparin sq
#CODE status
-full code
Anticipated Discharge: > 48 hours
Subjective/Interval History
-
Date of Service: November 11, 2023
continuing to diurese well
denies ches tpain
Objective Data
-
Labs:
Laboratory Results
11/11/23
06:40
WBC 6.3
Hgb 10.4 L
Hct 32.1 L
Plt Count 241
Sodium 139
Potassium 4.1
Chloride 103
Carbon Dioxide 27
BUN 43 H
Creatinine 1.6 H
Glucose 159 H
Calcium 8.9
Vital Signs:
Vital Signs
Temp Pulse Resp BP Pulse Ox
98.0 F 85 14 172/86 98
11/11/23 07:50 11/11/23 07:50 11/11/23 07:50 11/11/23 07:50 11/11/23 07:50
I&O
11/10/23 11/11/23 11/12/23
06:59 06:59 06:59
Intake Total 1320 / 1320 1080 / 1080
Balance 1320 / 1320 1080 / 1080
Review of Systems
-
History Source: Patient
All other systems: Reviewed and negative
Physical Exam
-
General: No Apparent Distress
Psych: Calm
Data Reviewed
-
Diagnostic Radiology: Report Reviewed by me
Labs: Labs Reviewed by me
--- NOTE | 2023-11-11 10:38 | PN.CDI ---
CDI
- -
CDI:
Physician Documentation Request
Admit Date: 11/05/23 19:50
Dear Doctor Johana,
Patient is admitted with heart failure.
Progress notes include a diagnosis of hallucinations.
11/06 Nursing note states pt stated 'that something was in front of her nose in different colors on and waving her hands to the side of the bed. She appears confused'
Please further specify the type of hallucinations:
Visual
Tactile
Other
Use of terms such as suspected, likely, concern for, or probable (associated with a specific diagnosis that is being evaluated, monitored, or treated as if it exists) are acceptable and can be coded in the inpatient setting, when documented at the
time of discharge.
Thank you,
Jeanette Kaur RN,BSN
CDI Specialist
tiger text
Please use your independent medical judgment in providing your response.
--- NOTE | 2023-11-11 11:19 | CONSULT.CT ---
Addendum entered and electronically signed by Wayne Hoang MD 11/12/23 15:26:
CARDIAC SURGERY ATTENDING:
I had a long conversation with Mrs. Tyson and her son at bedside this afternoon. I reviewed her case independently and concurrently with my cardiac surgical colleague and interventional cardiology colleagues. Unfortunately, given this patient's
past medical history coupled with her coronary disease, I do not believe she has any good surgical options for revascularization. I discussed this impression with the patient and her son who are agreeable. Is not clear the patient would desire
surgery even if this was recommended. I will defer to my interventional cardiology colleagues any potential for PCI intervention, but according to the patient and her son, it does not appear that this option is possible. The best course of action
given the complexity of this patient may be to continue to proceed with GDMT for her CAD.
Thank you for the opportunity participate in the care of this patient.
Wayne Hoang MD
[phone]
Original Note:
Consultation
-
Date/Time Consultation Requested: 11/11/23
Date/Time Consultation Performed: 11/11/23
Requesting Provider: Brianna
Performing Provider: Diana Yin PA-C for Dr. Martín Hoang
Reason for Consultation: CABG eval
Patient History
Physicians
Family Physician: Shukri Lara
Outpatient Live Truck Technician: none
Inpatient Live Truck Technician: YVONNE/Vladimir
History of Present Illness
Patient is a very interesting 78 year old woman with extensive past medical history including agoraphobia, anxiety/depression, mercury poisoning (1997), neuropathy, fibromyalgia, right breast cancer s/p multiple lumpectomies & XRT 2018 who describes
abrupt onset of shortness of breath that started in July of this year. Pt states all activities of daily living induced shortness of breath which was relieved by rest. At the time she states that her family doctor was out of town so she did not
immediately seek treatment. On October 11 patient states she woke up with swelling up to her abdomen where she was unable to walk or bend her legs. Some time after that, patient was able to see her PCP with the assistance of a friend from [facility]. Her
PCP then referred her to the hospital for evaluation & treatment. She denies any chest pain or palpitations. She denies any cardiac history or instances of shortness of breath prior to July. Upon admission pt noted to be extremely edematous, trops
peaked at 0.22, dx acute heart failure with reduced EF. Echo on 11/06 demonstrated EF 25% elevated PA pressures, mild to mod MR. She has been diuresed almost 30lbs so far. [facility] yesterday demonstrated diffuse severe multivessel CAD. We are asked to
evaluate her for CABG.
Additionally, patient does not have a ton of support at home, she states she never leaves the house alone. She has some balance issues as a result of polio as a child (?vestibular), but prefers to ambulate by holding onto another person or guiding
herself by holding onto furniture. She states she gets around her house just fine, and she has never had success with a cane/walker and refuses to use them. Her son, Danis, is supportive but lives in [place]. Pt states her was her
primary binder stripper machine/cyber workforce developer and manager of her medical issues, but he in 2017 from the flu. She states she and her son are in the process of trying to find some hat and cap parts cutter hand care-taking for her at home.
Patient is fixated on concerns over anesthesia complication. She reports issues in the past dating to her C section in 1976 where she ' for 11 seconds' due to anesthetics (twin where one during delivery). She told me
when she had her lumpectomy for breast CA in [address] Mehta at she had 'multiple procedures under twilight', but further investigation of her chart at notes a biopsy 04/2017 and then R lumpectomy 06/05/17 which was documented as conscious
sedation converted to general anesthesia with LMA. No apparent complications with anesthesia during that visit.
Past Medical History
type 2 diabetes
diabetic neuropathy
hypertension
hypercholesterolemia
hypothyroidism
CKD stage III
Chronic anemia
fibromyalgia
irritable bowel disease
history of R breast cancer s/p 9 lumpectomies and XRT 2016/2017
History of cervical cancer in 30s s/p holistic treatment
anxiety/depression
History of polio
History of mercury poisoning 1997
Past Surgical History
C section 1976 (with anesthesia complication per patient)
[place] teeth 1970
tonsillectomy 1969
R breast lumpectomy 2017 (Janine @ )- pt states multiple lumpectomies under twilight, but documentation states LMA/general anesthesia
Family History
Mother: at Age (88, old age)
Father: at Age (53, [place])
Family Medical History: Early CAD
Social History
Alcohol: None
Drug: None
Tobacco: Non-Smoker (never)
Personal:
Living: Alone
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
Allergies
Allergy/AdvReac Type Severity Reaction Status Date / Time
lidocaine Allergy very cold Verified 11/05/23 15:20
& shakes
phenobarbital Allergy patient Verified 11/05/23 15:20
denies
phenytoin Allergy patient Verified 11/05/23 15:20
denies
Sulfa (Sulfonamide Allergy Itching Verified 11/05/23 15:20
Antibiotics)
sulfisoxazole Allergy Itching Verified 11/05/23 15:20
codeine AdvReac 'shakiness' Verified 11/05/23 15:20
anti hypertensives Allergy Unknown Unknown Uncoded 11/05/23 18:42
most pain medicines Allergy 'per Uncoded 11/05/23 15:20
patient -
they cause
problems'
perfumed soaps Allergy Rash Uncoded 11/05/23 15:20
Home Medications
�Medication �Instructions �Recorded �Confirmed �Type
glyburide 5 mg tablet 5 mg PO BID Diabetes 09/03/13 11/05/23 History
thyroid (pork) 90 mg tablet 90 mg PO DAILY Thyroid 09/03/13 11/05/23 History
([place] Thyroid)
acetaminophen 500 mg tablet 500 mg PO TID PRN mild pain 11/05/23 11/05/23 History
glyburide 5 mg tablet 5 mg PO DAILYPRN PRN heavy meal 11/05/23 11/05/23 History
latanoprost 0.005 % eye drops 1 drp BOTH EYES HS Eye Condition 11/05/23 11/05/23 History
metformin 500 mg tablet 500 mg PO BID Diabetes 11/05/23 11/05/23 History
metformin 500 mg tablet 500 mg PO DAILYPRN PRN heavy meal 11/05/23 11/05/23 History
Review of Systems
-
History Source: Patient
General: Reports Weight Gain and Fatigue (reports fatigue today since cath yesterday)
HEENT: Reports Hoarseness (since thoracentesis/cough associated with that)
Respiratory: Reports MILLS (improving)
Cardiac: Reports Edema; Denies Chest Pain, Palpitations or Diaphoresis
Abdomen/GI: Reports No Symptoms
: Reports No Symptoms
Musculoskeletal: Reports No Symptoms
Skin: Reports No Symptoms
Neurological: Denies Syncope or Seizures
Vascular: Reports No Symptoms
Physical Exam
Vital Signs
Temp 98.0 F 11/11/23 07:50
Temp route: Oral 11/11/23 07:50
Pulse 85 11/11/23 07:50
Rhythm: Normal sinus rhythm 11/11/23 02:24
Resp Rate 14 11/11/23 07:50
Blood pressure 172/86 11/11/23 07:50
Blood pressure extremity used: Left upper arm 11/11/23 07:50
Position: Lying 11/11/23 07:50
MAP (cuff-Jesus Monitor) 116 11/05/23 19:00
MAP 139 11/05/23 17:27
SaO2 98 11/11/23 07:50
Oxygen Mode of Delivery Room air 11/11/23 07:50
Pulse Ox at Rest 98 11/09/23 11:11
Acceptable pain level during hospitalization? 1 11/05/23 15:14
Can the patient verbally communicate their pain? Yes 11/11/23 07:03
Pain scale ratin 11/11/23 07:03
Actual Weight 69.127 kg 11/11/23 05:20
Body Mass Index (BMI) 24.6 11/11/23 05:20
Supine- Blood Pressure 175/86 11/09/23 11:11
Supine- Pulse 80 11/09/23 11:11
Labs
11/11/23 06:40
11/11/23 06:40
Hemoglobin A1c 7.5 % (4.0-5.6) H 11/06/23 06:42
Troponin I 0.219 ng/ml H* 11/07/23 06:43
Akp-G-Vclqbbicces Pept 40960 pg/ml 11/05/23 17:26
Urinalysis
Urine Color Yellow 11/08/23 11:26
Urine Clarity Clear (Clear) 11/08/23 11:26
Urine pH 5.0 (5.0-9.0) 11/08/23 11:26
Ur Specific [place] 1.015 (<1.030) 11/08/23 11:26
Urine Ketones Negative (Negative) 11/08/23 11:26
Ur Occult Blood Reflex Negative (Negative) 11/08/23 11:26
Urine Bilirubin Negative (Negative) 11/08/23 11:26
Leukocyte Esterase Rfl Trace (Negative) A 11/08/23 11:26
Urine RBC None seen /HPF (0-2) 11/08/23 11:26
Urine WBC (Reflex) 0-2 /HPF (0-5) 11/08/23 11:26
Ur Squamous Epith Cells 16-20 /LPF (Few) 11/08/23 11:26
Urine Bacteria (Reflex) Few (Negative) A 11/05/23 17:26
Urine Glucose Negative (Negative) 11/08/23 11:26
Urine Albumin (Reflex) Negative (Neg - Trace) 11/08/23 11:26
Exam
General: Well Developed and No Apparent Distress
HEENT: Normocephalic and Anicteric
Neck: Trachea Midline; Negative Carotid Bruit or Mass
Respiratory: Clear; Negative Wheezes or Crackles
Cardiac: Regular Rhythm; Negative Murmur or Rub
GI: Soft, Non Tender and Non Distended
Rectal: Deferred by Provider
Skin: Warm and Dry
Neuro: Nonfocal/Grossly Intact
Extremities: Lower Level Edema (trace-1+ bilaterally)
Psych: Calm
Assessment / Plan
-
acute HF with reduced EF (25% on echo 11/06)
mild to moderate MR
severe multivessel CAD with OCEAN EXPORT COORDINATOR of LAD
Cath films to be reviewed by attending at earliest convenience to assess anatomy for bypass grafting. Pt amenable to discussions with surgeon regarding possible need for CABG. Will hold on preoperative testing/risk assessments until anatomy has been
reviewed. Her son, Danis, is here visiting her but was not present for my discussions with her. She would like him to be present for meetings with Dr if possible.
Data Reviewed
-
Tile Mason: Image Personally Visualized and interpreted and Report Reviewed by me
Echo: Report Reviewed by me
Labs: Labs Reviewed by me
[2023-11-11 11:39] LABS: Glucose - Point of Care 225 mg/dl (70-99)
[2023-11-11] MEDS: NOVOLOG FLEXPEN-LOW RESISTANCE 2 UNITS SC (11:44)
--- NOTE | 2023-11-11 12:10 | W.PN.CARDCBS ---
Today's Communication / Plan
-
CT surgery consult
Continue diuresis.
Start Coreg 3.125 mg twice daily
Impression / Plan
-
Primary Senior Sous Chef: none prior to admission, initially seen by Dr. Boone
Assessment:
Presentation with SOB, LE edema
Acute HFrEF (EF 25%)
CAD
Right pleural effusion
type 2 diabetes, hemoglobin 7.5%
diabetic neuropathy
hypertension with hypertensive urgency on arrival
hypercholesterolemia
hypothyroidism with elevated TSH
CKD stage III
Chronic anemia
fibromyalgia
irritable bowel disease
history of breast cancer s/p 9 lumpectomies on R and double XRT 2016
History of cervical cancer in 30s s/p holistic treatment
anxiety/depression
History of polio
History of mercury poisoning 1997
Hyperkalemia, improved
Multiple medication intolerances
ECHO 11/06/23: Severely reduced left ventricular systolic function. Global hypokinesis with regional variability. Left ventricular ejection fraction is 25%. Mild mitral stenosis with a mean gradient of 4 mmHg. Mild to moderate mitral regurgitation.
Moderate tricuspid regurgitation, estimated pulmonary artery pressure of 60 mmHg, assuming a right atrial pressure of 8 mmHg.
Cath 11/10/23: Tandem 70 to 80% proximal to mid LAD lesions with moderate diffuse disease with 100% chronic total occlusion of mid AD with left to left collaterals. 70 to 80% left circumflex, 60 to send percent ostial OM 2, small nondominant RCA
subtotal occlusion. LVEDP 27, PCWP 26.
Plan:
-Lengthy discussion was had with the patient and her son. We reviewed the results of her catheterization which has severe coronary artery disease with a depressed ejection fraction and continued volume overload. We will consult CT surgery to get
their opinion on possible revascularization.
She remains very concerned about possible medication side effects. I strongly advised her to consider the initiation of goal-directed medical therapy for her advanced cardiomyopathy. She is agreeable to start Coreg 3.125 mg twice daily. She is
going to think about RIGO/ARB/ARNI. Jardiance/Farxiga would also be an option for her. She is very concerned about side effects.
We will continue the IV Lasix for now as her filling pressures were elevated. Continue IV Lasix. Creatinine is overall stable at 1.6
Continue to hold metformin.
LDL is 97. She clearly would also benefit from statin therapy but remains hesitant for now.
Progress Note - Senior Sous Chef
Subjective
Date of Service: November 11, 2023
Her breathing is improved and she has diuresed well. She has no current chest pains.
Objective
Labs:
11/11/23 06:40
11/11/23 06:40
Labs
Hgb 10.4 g/dL (12.0-16.0) L 11/11/23 06:40
Hct 32.1 % (37.0-47.0) L 11/11/23 06:40
Plt Count 241 10^3/uL (130-400) 11/11/23 06:40
Sodium 139 mmol/L (135-145) 11/11/23 06:40
Potassium 4.1 mmol/L (3.5-5.1) 11/11/23 06:40
BUN 43 mg/dl (7-17) H 11/11/23 06:40
Creatinine 1.6 mg/dL (0.6-1.0) H 11/11/23 06:40
Glucose 159 mg/dl (70-99) H 11/11/23 06:40
Vital Signs and I&O:
Vital Signs
Temp Pulse Resp BP Pulse Ox
98.1 F 84 14 182/98 98
11/11/23 11:30 11/11/23 11:30 11/11/23 11:30 11/11/23 11:30 11/11/23 11:30
Vital Signs
Temp Pulse Resp BP Pulse Ox
98.1 F 84 14 182/98 98
11/11/23 11:30 11/11/23 11:30 11/11/23 11:30 11/11/23 11:30 11/11/23 11:30
Intake & Output
11/09/23 11/10/23 11/11/23 11/12/23
06:59 06:59 06:59 06:59
Intake Total 1320 / 1320 1320 / 1320 1080 / 1080
Balance 1320 / 1320 1320 / 1320 1080 / 1080
Physical Exam
Physical Exam
GEN: No distress, awake, Ox3
HEENT: supple, anicteric, mmm
LUNGS: CTA, no wheezes/rales
CV: Reg, S1/S2, 1/6 syst LSB, no gallop
ABD: soft, BS+, NT/ND
EXT: +1 edema
NEURO: Gross non-focal
SKIN: No rash
[2023-11-11] MEDS: COREG 3.125 MG PO ×2 (12:35→20:11)
[2023-11-11 15:54] LABS: Glucose - Point of Care 306 mg/dl (70-99)
[2023-11-11] MEDS: LASIX 80 MG IV (16:29)
[2023-11-11] MEDS: NOVOLOG FLEXPEN-LOW RESISTANCE 4 UNITS SC (16:32)
[2023-11-11 18:20] LABS: Glucose - Point of Care 211 mg/dl (70-99)
[2023-11-11] MEDS: COLACE PO (20:11)
[2023-11-11 21:19] LABS: Glucose - Point of Care 160 mg/dl (70-99)
[2023-11-11] MEDS: XALATAN OPHTHALMIC SOLUTION 1 DROP BOTH EYES (22:40)
[2023-11-12] VITALS (7 sets, daily range): BP systolic 136–179; BP diastolic 60–86; BMI 24.5
[2023-11-12] MEDS: ARMOUR THYROID 90 MG PO (05:27)
[2023-11-12 07:10] LABS: Glucose - Point of Care 149 mg/dl (70-99)
--- NOTE | 2023-11-12 07:47 | CM ---
met with patient at bedside.patient is sp right and left cardiac cath with mvd,cardiac surgery cs.visual hallucinations resolved,cont iv lasix bid,hgb stable.[facility] following patient.Plan dc home with [facility].
[2023-11-12 08:09] LABS: Blood Urea Nitrogen 47 mg/dl (7-17); Calcium 8.7 mg/dl (8.4-10.2); Carbon Dioxide 28 mmol/L (22-30); Chloride 103 mmol/L (98-107); Estimated Creatinine Clearance 28 ml/min; Glucose 130 mg/dl (70-99); Sodium 137 mmol/L (135-145); eGFR 33.01
--- NOTE | 2023-11-12 09:07 | W.PN.HOSP.TC ---
Today's Communication/Plan
-
diuresis
F/U discussion with surgeon
Assessment / Plan
Assessment / Plan
Physical Exam
General: Well Developed, Well Nourished and No Apparent Distress
HEENT: NormoCephalic, Moist mucous membranes and Atraumatic
Respiratory: Clear
Cardiac: S1/S2 and Regular Rhythm; No Murmur or Rub
GI: Soft, Non Tender, Non Distended and Normal Bowel Sounds; No Organomegaly
Rectal: Deferred by Provider
Musculoskeletal: No Clubbing, No Cyanosis and Other (Bilateral lower extremity symmetric edema)
Skin: No Rash
Neuro: AO x 3 and Nonfocal/grossly intact
CONCLUSIONS
1. Left dominant circulation. Severe multivessel coronary artery disease.
2. Significantly elevated right and left-sided filling pressures with normal cardiac output and severe pulmonary hypertension.
RECOMMENDATIONS
1. Goal-directed medical therapy for severe ischemic cardiomyopathy.
2. Ongoing heart team discussions in regards to potential treatment options including medical therapy alone versus consideration for coronary artery bypass grafting in addition to medications depending on what patient is agreeable to if patient is
deemed a good surgical candidate based on her anatomy.
3. Optimization of invasive filling pressures with IV diuresis.
4. Aggressive management of cardiovascular risk factors.
5. Wean vascular band per protocol and bedrest per protocol.
6. Eventual referral for outpatient cardiac rehab.
#Acute HFrEF
# Dyspnea on Exertion
#LE edema
#Pleural Effusion
-EF 25%, TTE 11/06/23 - newly reduced
-Chest x-ray with impression of moderate right-sided pleural effusion with associated compressive atelectasis at the right lung base.
-s/p Right thora 11/05
-now s/p right and left cardiac cath 11/09 with finding MVD
-F/U cardiology and CTS recs; patient may not be candidate for CABG or agreeable
-patient refused GDMT earlier in hospital course - continued education
-IV Lasix 80mg BID
-Strict BRETT, Daily weight
# Anemia of chronic disease
-Hemoglobin stable at 11.8
-No active bleeding
-Continue to monitor
# Hyperkalemia/metabolic acidosis/CKD stage IIIb
-K5.5, CO2 18, creatinine 1.5
-improved
-creatinine stable
#Hallucinations
#Acute Metabolic Encephalopathy
-possible delirium
-resolved
� Unclear etiology, doubt acute organic pathology - possibly anxiety
- UA and CT head unremarkable
- CTM
#hypertension urgency
-hydralazine added
-Add Toprol
-pt refusing many meds
#type 2 DM
-resumed lower dose Glyburide
-sliding scale
-CHO diet
#Euthyroid sick syndrome
-thyroid continued
-f/u [facility]fts outpatient for titration
#DVT prophylaxis
heparin sq
#CODE status
-full code
Anticipated Discharge: > 48 hours
Subjective/Interval History
-
Date of Service: November 12, 2023
continuing to urinate often
Objective Data
-
Labs:
Laboratory Results
11/12/23
06:12
Sodium 137
Potassium 4.0
Chloride 103
Carbon Dioxide 28
BUN 47 H
Creatinine 1.6 H
Glucose 130 H
Calcium 8.7
Vital Signs:
Vital Signs
Temp Pulse Resp BP Pulse Ox
98.0 F 67 16 168/80 97
11/12/23 07:00 11/12/23 07:00 11/12/23 07:00 11/12/23 07:00 11/12/23 07:00
I&O
11/11/23 11/12/23 11/13/23
06:59 06:59 06:59
Intake Total 1080 / 1080 480 / 480 120 / 120
Balance 1080 / 1080 480 / 480 120 / 120
Review of Systems
-
History Source: Patient
All other systems: Reviewed and negative
Data Reviewed
-
Diagnostic Radiology: Report Reviewed by me
Labs: Labs Reviewed by me
[2023-11-12] MEDS: NOVOLOG FLEXPEN-LOW RESISTANCE SC (09:11)
[2023-11-12] MEDS: COREG 3.125 MG PO ×2 (09:12→20:23)
[2023-11-12] MEDS: HEPARIN 5000 UNITS SC ×2 (09:12→20:23)
[2023-11-12] MEDS: LASIX 80 MG IV ×2 (09:13→17:33)
[2023-11-12] MEDS: COLACE 100 MG PO (09:13)
[2023-11-12] MEDS: MICRONASE 2.5 MG PO (09:14)
[2023-11-12] MEDS: LOW STRENGTH ASPIRIN 81 MG PO (09:14)
--- NOTE | 2023-11-12 11:19 | W.PN.CARDCBS ---
Today's Communication / Plan
-
await CT Surgery
increase Coreg to 6.25mg po bid
cont IV Lasix. Creat stable at 1.6
Cont sugar control
eventual RIGO/ARB/ARNI if aggreable
also consider Farxiga if not cost prohibitive
Impression / Plan
-
Primary Resident Care Aide: none prior to admission, initially seen by Dr. Boone
Assessment:
Presentation with SOB, LE edema
Acute HFrEF (EF 25%)
CAD
Right pleural effusion
type 2 diabetes, hemoglobin 7.5%
diabetic neuropathy
hypertension with hypertensive urgency on arrival
hypercholesterolemia
hypothyroidism with elevated TSH
CKD stage III
Chronic anemia
fibromyalgia
irritable bowel disease
history of breast cancer s/p 9 lumpectomies on R and double XRT 2016
History of cervical cancer in 30s s/p holistic treatment
anxiety/depression
History of polio
History of mercury poisoning 1997
Hyperkalemia, improved
Multiple medication intolerances
ECHO 11/06/23: Severely reduced left ventricular systolic function. Global hypokinesis with regional variability. Left ventricular ejection fraction is 25%. Mild mitral stenosis with a mean gradient of 4 mmHg. Mild to moderate mitral regurgitation.
Moderate tricuspid regurgitation, estimated pulmonary artery pressure of 60 mmHg, assuming a right atrial pressure of 8 mmHg.
Cath 11/10/23: Tandem 70 to 80% proximal to mid LAD lesions with moderate diffuse disease with 100% chronic total occlusion of mid AD with left to left collaterals. 70 to 80% left circumflex, 60 to send percent ostial OM 2, small nondominant RCA
subtotal occlusion. LVEDP 27, PCWP 26.
Plan:
-await Ct surgery opinion regarding possible CABG
She remains very concerned about possible medication side effects. I strongly advised her to consider the initiation of goal-directed medical therapy for her advanced cardiomyopathy. She is agreeable to Coreg. will increase to 6.25mg po bid today
She is going to think about RIGO/ARB/ARNI. Jardiance/Farxiga would also be an option for her. She is very concerned about side effects.
We will continue the IV Lasix for now as her filling pressures were elevated. Continue IV Lasix. Creatinine is overall stable at 1.6
Continue to hold metformin.
LDL is 97. She clearly would also benefit from statin therapy but remains hesitant for now.
Progress Note - Resident Care Aide
Subjective
Date of Service: November 12, 2023
Continues to diurese.
Objective
Labs:
11/11/23 06:40
11/12/23 06:12
Labs
Hgb 10.4 g/dL (12.0-16.0) L 11/11/23 06:40
Hct 32.1 % (37.0-47.0) L 11/11/23 06:40
Plt Count 241 10^3/uL (130-400) 11/11/23 06:40
Sodium 137 mmol/L (135-145) 11/12/23 06:12
Potassium 4.0 mmol/L (3.5-5.1) 11/12/23 06:12
BUN 47 mg/dl (7-17) H 11/12/23 06:12
Creatinine 1.6 mg/dL (0.6-1.0) H 11/12/23 06:12
Glucose 130 mg/dl (70-99) H 11/12/23 06:12
Vital Signs and I&O:
Vital Signs
Temp Pulse Resp BP Pulse Ox
98.0 F 67 16 168/80 97
11/12/23 07:00 11/12/23 09:12 11/12/23 07:00 11/12/23 09:12 11/12/23 07:00
Vital Signs
Temp Pulse Resp BP Pulse Ox
98.0 F 67 16 168/80 97
11/12/23 07:00 11/12/23 09:12 11/12/23 07:00 11/12/23 09:12 11/12/23 07:00
Intake & Output
11/10/23 11/11/23 11/12/23 11/13/23
06:59 06:59 06:59 06:59
Intake Total 1320 / 1320 1080 / 1080 480 / 480 120 / 120
Balance 1320 / 1320 1080 / 1080 480 / 480 120 / 120
Physical Exam
Physical Exam
GEN: No distress, awake, Ox3
HEENT: supple, anicteric, mmm
LUNGS: CTA, no wheezes/rales
CV: Reg, S1/S2, 1/6 syst LSB, no gallop
ABD: soft, BS+, NT/ND
EXT: No edema
NEURO: Gross non-focal
SKIN: No rash
--- NOTE | 2023-11-12 11:45 | WOUNDNOTE ---
[facility] RN NOTE: Reviewed chart and met with patient and son. Patient appears anxious about left third toe scab. Patient reports scab is not new and she follows with a sterilization tech for every 6-8 for toenail care. Scab is intact, no drainage, redness.
Patient expressed that she would like scab to be covered so sure-prep and adhesive foam bandage applied to scab. Heels and sacrum intact. Patient prefers bed to the chair and is able to get out of bed and ambulate to BR independently. Reports fair
appetite. RN Lucila given update. Will follow as needed.
--- NOTE | 2023-11-12 12:06 | WOUNDNOTE ---
LEFT THIRD TOE SCAB
[2023-11-12] MEDS: TYLENOL 650 MG PO ×2 (13:15→20:25)
[2023-11-12 14:20] LABS: Glucose - Point of Care 151 mg/dl (70-99)
[2023-11-12] MEDS: NOVOLOG FLEXPEN-LOW RESISTANCE 1 UNITS SC (14:33)
--- NOTE | 2023-11-12 17:02 | W.PN.UPDATE ---
Update Note
Progress Note Update
Patient was seen with Dr. Hoang today. After reviewing patient's images, she was deemed not a surgical candidate. It was discussed during multidisciplinary rounds that medical management will be best. Patient and patient's son were educated about
the importance of medical management and medical regimen adherence. CT surgery will sign off.
[2023-11-12] MEDS: NOVOLOG FLEXPEN-LOW RESISTANCE 3 UNITS SC (17:39)
[2023-11-12 17:40] LABS: Glucose - Point of Care 282 mg/dl (70-99)
[2023-11-12] MEDS: COLACE PO (20:23)
[2023-11-12 21:15] LABS: Glucose - Point of Care 216 mg/dl (70-99)
[2023-11-12] MEDS: XALATAN OPHTHALMIC SOLUTION 1 DROP BOTH EYES (22:34)
[2023-11-13] VITALS (7 sets, daily range): BP systolic 109–169; BP diastolic 56–82; BMI 24.0
[2023-11-13] MEDS: ARMOUR THYROID 90 MG PO (05:21)
[2023-11-13 07:27] LABS: Glucose - Point of Care 158 mg/dl (70-99)
[2023-11-13 08:26] LABS: Blood Urea Nitrogen 53 mg/dl (7-17); Calcium 8.8 mg/dl (8.4-10.2); Carbon Dioxide 26 mmol/L (22-30); Chloride 100 mmol/L (98-107); Estimated Creatinine Clearance 26 ml/min; Glucose 131 mg/dl (70-99); Magnesium 1.8 mg/dl (1.6-2.3); Potassium 3.7 mmol/L (3.5-5.1); Sodium 137 mmol/L (135-145)
[2023-11-13] MEDS: NOVOLOG FLEXPEN-LOW RESISTANCE 1 UNITS SC (09:16)
[2023-11-13] MEDS: COLACE 100 MG PO ×2 (09:17→21:00)
--- NOTE | 2023-11-13 09:17 | W.PN.HOSP.TC ---
Today's Communication/Plan
-
diuresis
GDMT - patient now willing to accept medications
Assessment / Plan
Assessment / Plan
Physical Exam
General: Well Developed, Well Nourished and No Apparent Distress
HEENT: NormoCephalic, Moist mucous membranes and Atraumatic
Respiratory: Clear
Cardiac: S1/S2 and Regular Rhythm; No Murmur or Rub
GI: Soft, Non Tender, Non Distended and Normal Bowel Sounds; No Organomegaly
Rectal: Deferred by Provider
Musculoskeletal: No Clubbing, No Cyanosis and Other (Bilateral lower extremity symmetric edema)
Skin: No Rash
Neuro: AO x 3 and Nonfocal/grossly intact
CONCLUSIONS
1. Left dominant circulation. Severe multivessel coronary artery disease.
2. Significantly elevated right and left-sided filling pressures with normal cardiac output and severe pulmonary hypertension.
RECOMMENDATIONS
1. Goal-directed medical therapy for severe ischemic cardiomyopathy.
2. Ongoing heart team discussions in regards to potential treatment options including medical therapy alone versus consideration for coronary artery bypass grafting in addition to medications depending on what patient is agreeable to if patient is
deemed a good surgical candidate based on her anatomy.
3. Optimization of invasive filling pressures with IV diuresis.
4. Aggressive management of cardiovascular risk factors.
5. Wean vascular band per protocol and bedrest per protocol.
6. Eventual referral for outpatient cardiac rehab.
#Acute HFrEF
# Dyspnea on Exertion
#LE edema
#Pleural Effusion
-EF 25%, TTE 11/06/23 - newly reduced
-Chest x-ray with impression of moderate right-sided pleural effusion with associated compressive atelectasis at the right lung base.
-s/p Right thora 11/05
-now s/p right and left cardiac cath 11/09 with finding MVD
-patient is not a surgical candidate
-patient initially refused GDMT - now telling me she is willing to take any medication recommended - updated cardiology
-IV Lasix 80mg BID
-Strict BRETT, Daily weight
-continue coreg
# Anemia of chronic disease
-Hemoglobin stable at 11.8
-No active bleeding
# Hyperkalemia/metabolic acidosis/CKD stage IIIb
-K5.5, CO2 18, creatinine 1.5
-improved
-creatinine stable
#Hallucinations
#Acute Metabolic Encephalopathy
-possible delirium
-resolved
� Unclear etiology, doubt acute organic pathology - possibly anxiety
- UA and CT head unremarkable
#hypertension urgency
-hydralazine added
-Add Toprol
-pt refusing many meds
#type 2 DM
-resumed lower dose Glyburide
-sliding scale
-CHO diet
#Euthyroid sick syndrome
-thyroid continued
-f/u tfts outpatient for titration
#DVT prophylaxis
heparin sq
#CODE status
-full code
Anticipated Discharge: 24 - 48 hours
Subjective/Interval History
-
Date of Service: November 13, 2023
continuing to diurese
feeling better
Objective Data
-
Labs:
Laboratory Results
11/13/23
07:17
Sodium 137
Potassium 3.7
Chloride 100
Carbon Dioxide 26
BUN 53 H
Creatinine 1.7 H
Glucose 131 H
Calcium 8.8
Vital Signs:
Vital Signs
Temp Pulse Resp BP Pulse Ox
98.3 F 70 14 157/64 96
11/13/23 07:35 11/13/23 07:35 11/13/23 07:35 11/13/23 07:35 11/13/23 07:35
I&O
11/12/23 11/13/23 11/14/23
06:59 06:59 06:59
Intake Total 480 / 480 600 / 600
Balance 480 / 480 600 / 600
Review of Systems
-
History Source: Patient
All other systems: Reviewed and negative
Data Reviewed
-
Diagnostic Radiology: Report Reviewed by me
Labs: Labs Reviewed by me
[2023-11-13] MEDS: MICRONASE 2.5 MG PO (09:18)
[2023-11-13] MEDS: COREG 3.125 MG PO ×2 (09:18→21:00)
[2023-11-13] MEDS: HEPARIN 5000 UNITS SC ×2 (09:18→21:00)
[2023-11-13] MEDS: LOW STRENGTH ASPIRIN 81 MG PO (09:19)
[2023-11-13] MEDS: LASIX 80 MG IV ×2 (09:19→16:58)
[2023-11-13] MEDS: KCL 40 MEQ PO (09:33)
[2023-11-13 12:26] LABS: Glucose - Point of Care 145 mg/dl (70-99)
[2023-11-13] MEDS: NOVOLOG FLEXPEN-LOW RESISTANCE SC (12:36)
[2023-11-13] MEDS: ZESTRIL 5 MG PO (12:37)
--- NOTE | 2023-11-13 16:08 | CM ---
met with patient at bedside.patient is sp r/l heart cath with mvd,still on iv lasix,patient now willing to take goal directed medical therapy(meds) for her icm.patient signed imm letter..son is here visiting from [email or web address] dc home with VN.
[2023-11-13 17:27] LABS: Glucose - Point of Care 246 mg/dl (70-99)
[2023-11-13] MEDS: NOVOLOG FLEXPEN-LOW RESISTANCE 2 UNITS SC (18:13)
--- NOTE | 2023-11-13 20:00 | W.PN.CARDCBS ---
Today's Communication / Plan
-
Optimize medical therapy as able
Impression / Plan
-
Primary Communications Billing Analyst: none prior to admission, initially seen by Dr. Boone
Assessment:
Presentation with SOB, LE edema
Acute HFrEF (EF 25%)
CAD
Right pleural effusion
type 2 diabetes, hemoglobin 7.5%
diabetic neuropathy
hypertension with hypertensive urgency on arrival
hypercholesterolemia
hypothyroidism with elevated TSH
CKD stage III
Chronic anemia
fibromyalgia
irritable bowel disease
history of breast cancer s/p 9 lumpectomies on R and double XRT 2016
History of cervical cancer in 30s s/p holistic treatment
anxiety/depression
History of polio
History of mercury poisoning 1997
Hyperkalemia, improved
Multiple medication intolerances
ECHO 11/06/23: Severely reduced left ventricular systolic function. Global hypokinesis with regional variability. Left ventricular ejection fraction is 25%. Mild mitral stenosis with a mean gradient of 4 mmHg. Mild to moderate mitral regurgitation.
Moderate tricuspid regurgitation, estimated pulmonary artery pressure of 60 mmHg, assuming a right atrial pressure of 8 mmHg.
Cath 11/10/23: Tandem 70 to 80% proximal to mid LAD lesions with moderate diffuse disease with 100% chronic total occlusion of mid AD with left to left collaterals. 70 to 80% left circumflex, 60 to send percent ostial OM 2, small nondominant RCA
subtotal occlusion. LVEDP 27, PCWP 26.
Plan:
New ischemic cardiomyopathy with HFrEF, proBNP 70789 on admission
Volume status is improving however she is still volume overloaded.
-She has lost approximately 30 pounds since admission
-Will continue IV Lasix another 24-48 hours but monitor renal function closely.
-We reviewed cardiac testing, findings and answered all questions ongoing questions regarding medications for ischemic cardiomyopathy/heart failure
-Will start lisinopril 5 mg daily today and give renal function stable start Farxiga 10 mg daily this weekend.
-Will start atorvastatin 20 mg 1 p.o. daily. LDL 97 but she would clearly benefit from statin therapy given multi vessel severe coronary artery disease
-Ongoing education regarding heart failure pathophysiology, symptoms, monitoring, and medical therapy
Severe multivessel coronary artery disease by cardiac catheterization 11/10/2023
-Appreciate CT surgery input; not deemed to be a surgical candidate
-No chest pain suggestive of angina
-Plan for medical therapy at this time
-Continue aspirin and optimize medical therapy as she will allow
Chronic renal insufficiency
-Continue to monitor creatinine with addition of lisinopril and possibly Farxiga with ongoing diuresis
-Outpatient nephrology consultation advised
-Continue to hold metformin
Uncontrolled type 2 diabetes mellitus with hemoglobin A1c 7.5%
-Management per hospitalist
-Continue to hold metformin
Abnormal TFTs
-Management per hospitalist. Thyroid supplementation continued
Anemia
-Advised outpatient evaluation
She remains very concerned about possible medication side effects. I strongly advised her to consider the initiation of goal-directed medical therapy for her advanced cardiomyopathy.
Progress Note - Communications Billing Analyst
Subjective
Date of Service: November 13, 2023
Seen and examined. Son at bedside. Patient ambulated with assistance from bathroom to bed and is being seen by PT with plans for home PT and VNA. Denies chest pain or pressure. Shortness of breath improved. Edema improving.
Objective
Labs:
11/11/23 06:40
11/13/23 07:17
Labs
Hgb 10.4 g/dL (12.0-16.0) L 11/11/23 06:40
Hct 32.1 % (37.0-47.0) L 11/11/23 06:40
Plt Count 241 10^3/uL (130-400) 11/11/23 06:40
Sodium 137 mmol/L (135-145) 11/13/23 07:17
Potassium 3.7 mmol/L (3.5-5.1) 11/13/23 07:17
BUN 53 mg/dl (7-17) H 11/13/23 07:17
Creatinine 1.7 mg/dL (0.6-1.0) H 11/13/23 07:17
Glucose 131 mg/dl (70-99) H 11/13/23 07:17
Vital Signs and I&O:
Vital Signs
Temp Pulse Resp BP Pulse Ox
98.6 F 83 16 109/69 92
11/13/23 18:50 11/13/23 18:50 11/13/23 18:50 11/13/23 18:50 11/13/23 18:50
Vital Signs
Temp Pulse Resp BP Pulse Ox
98.6 F 83 16 109/69 92
11/13/23 18:50 11/13/23 18:50 11/13/23 18:50 11/13/23 18:50 11/13/23 18:50
Intake & Output
11/11/23 11/12/23 11/13/23 11/14/23
06:59 06:59 06:59 06:59
Intake Total 1080 / 1080 480 / 480 600 / 600 780 / 780
Balance 1080 / 1080 480 / 480 600 / 600 780 / 780
Physical Exam
Physical Exam
GEN: No distress, awake, Ox3
HEENT: supple, anicteric, mmm
LUNGS: Bronchovesicular breath sounds with fine crackles right base otherwise clear
CV: Reg, S1/S2, 1/6 syst LSB, no gallop
ABD: soft, BS+, NT/ND
EXT: ++ edema[significantly improved]
[2023-11-13] MEDS: XALATAN OPHTHALMIC SOLUTION 1 DROP BOTH EYES (21:39)
[2023-11-13 21:52] LABS: Glucose - Point of Care 204 mg/dl (70-99)
[2023-11-14 03:54] VITALS: BP 132/58
[2023-11-14] MEDS: ARMOUR THYROID 90 MG PO (05:08)
[2023-11-14 05:22] VITALS: BMI 23.3
[2023-11-14 07:20] LABS: Glucose - Point of Care 141 mg/dl (70-99)
[2023-11-14 07:50] VITALS: BP 149/61
[2023-11-14 07:57] LABS: Blood Urea Nitrogen 57 mg/dl (7-17); Calcium 8.7 mg/dl (8.4-10.2); Carbon Dioxide 30 mmol/L (22-30); Chloride 100 mmol/L (98-107); Estimated Creatinine Clearance 25 ml/min; Glucose 137 mg/dl (70-99); Potassium 3.9 mmol/L (3.5-5.1); Sodium 139 mmol/L (135-145); eGFR 28.66
--- NOTE | 2023-11-14 08:48 | W.PN.HOSP.TC ---
Today's Communication/Plan
-
diuresis per cardiology
GDMT initiation per cardiology
increase glyburide
eventual rehab
Assessment / Plan
Assessment / Plan
Physical Exam
General: Well Developed, Well Nourished and No Apparent Distress
HEENT: NormoCephalic, Moist mucous membranes and Atraumatic
Respiratory: Clear
Cardiac: S1/S2 and Regular Rhythm; No Murmur or Rub
GI: Soft, Non Tender, Non Distended and Normal Bowel Sounds; No Organomegaly
Rectal: Deferred by Provider
Musculoskeletal: No Clubbing, No Cyanosis and Other (Bilateral lower extremity symmetric edema)
Skin: No Rash
Neuro: AO x 3 and Nonfocal/grossly intact
CONCLUSIONS
1. Left dominant circulation. Severe multivessel coronary artery disease.
2. Significantly elevated right and left-sided filling pressures with normal cardiac output and severe pulmonary hypertension.
RECOMMENDATIONS
1. Goal-directed medical therapy for severe ischemic cardiomyopathy.
2. Ongoing heart team discussions in regards to potential treatment options including medical therapy alone versus consideration for coronary artery bypass grafting in addition to medications depending on what patient is agreeable to if patient is
deemed a good surgical candidate based on her anatomy.
3. Optimization of invasive filling pressures with IV diuresis.
4. Aggressive management of cardiovascular risk factors.
5. Wean vascular band per protocol and bedrest per protocol.
6. Eventual referral for outpatient cardiac rehab.
#Acute HFrEF
# Dyspnea on Exertion
#LE edema
#Pleural Effusion
-EF 25%, TTE 11/06/23 - newly reduced
-Chest x-ray with impression of moderate right-sided pleural effusion with associated compressive atelectasis at the right lung base.
-s/p Right thora 11/05
-now s/p right and left cardiac cath 11/09 with finding MVD
-patient is not a surgical candidate
-patient initially refused GDMT - now accepting
-new start atorvastatin and lisinopril
-continue coreg
-IV Lasix 80mg BID. creatinine mildly trending up; remains with swollen legs - follow up further cardiology recs
-Strict BRETT, Daily weight
# Anemia of chronic disease
-Hemoglobin stable at 11.8
-No active bleeding
# Hyperkalemia/metabolic acidosis/CKD stage IIIb
-monitoring renal function closely with diuresis
#Hallucinations
#Acute Metabolic Encephalopathy
-possible delirium
-resolved
#hypertension urgency
-hydralazine added
-Add Toprol
-pt refusing many meds
#type 2 DM
-resumed lower dose Glyburide --> increase to BID todaoy
-sliding scale
-CHO diet
#Euthyroid sick syndrome
-thyroid continued
-f/u tfts outpatient for titration
#DVT prophylaxis
heparin sq
#CODE status
-full code
Anticipated Discharge: 24 - 48 hours
Subjective/Interval History
-
Date of Service: November 14, 2023
feeling better today
legs less swollen
Objective Data
-
Labs:
Laboratory Results
11/14/23
06:17
Sodium 139
Potassium 3.9
Chloride 100
Carbon Dioxide 30
BUN 57 H
Creatinine 1.8 H
Glucose 137 H
Calcium 8.7
Vital Signs:
Vital Signs
Temp Pulse Resp BP Pulse Ox
97.5 F 69 18 149/61 96
11/14/23 07:50 11/14/23 07:50 11/14/23 07:50 11/14/23 07:50 11/14/23 07:50
I&O
11/13/23 11/14/23 11/15/23
06:59 06:59 06:59
Intake Total 600 / 600 1140 / 1140
Balance 600 / 600 1140 / 1140
Review of Systems
-
History Source: Patient
All other systems: Reviewed and negative
Data Reviewed
-
Diagnostic Radiology: Report Reviewed by me
Labs: Labs Reviewed by me
[2023-11-14] MEDS: NOVOLOG FLEXPEN-LOW RESISTANCE SC (09:58)
[2023-11-14] MEDS: COLACE 100 MG PO ×2 (09:58→20:51)
[2023-11-14] MEDS: COREG 3.125 MG PO ×2 (09:58→20:52)
[2023-11-14] MEDS: LOW STRENGTH ASPIRIN 81 MG PO (09:59)
[2023-11-14] MEDS: MICRONASE 2.5 MG PO (09:59)
[2023-11-14] MEDS: LASIX 60 MG IV (09:59)
[2023-11-14] MEDS: ZESTRIL 5 MG PO (09:59)
[2023-11-14] MEDS: HEPARIN 5000 UNITS SC ×2 (10:00→20:51)
[2023-11-14] MEDS: TYLENOL 650 MG PO ×2 (10:21→17:02)
--- NOTE | 2023-11-14 11:23 | W.PN.CARDCBS ---
Today's Communication / Plan
-
change IV to linda Lasix (40 mg BID)
Initiate Jardiance
Impression / Plan
-
Primary Veneer Sample Maker: none prior to admission, initially seen by Dr. Boone
Assessment:
Presentation with SOB, LE edema
Acute HFrEF (EF 25%)
CAD
Right pleural effusion
type 2 diabetes, hemoglobin 7.5%
diabetic neuropathy
hypertension with hypertensive urgency on arrival
hypercholesterolemia
hypothyroidism with elevated TSH
CKD stage III
Chronic anemia
fibromyalgia
irritable bowel disease
history of breast cancer s/p 9 lumpectomies on R and double XRT 2016
History of cervical cancer in 30s s/p holistic treatment
anxiety/depression
History of polio
History of mercury poisoning 1997
Hyperkalemia, improved
Multiple medication intolerances
ECHO 11/06/23: Severely reduced left ventricular systolic function. Global hypokinesis with regional variability. Left ventricular ejection fraction is 25%. Mild mitral stenosis with a mean gradient of 4 mmHg. Mild to moderate mitral regurgitation.
Moderate tricuspid regurgitation, estimated pulmonary artery pressure of 60 mmHg, assuming a right atrial pressure of 8 mmHg.
Cath 11/10/23: Tandem 70 to 80% proximal to mid LAD lesions with moderate diffuse disease with 100% chronic total occlusion of mid AD with left to left collaterals. 70 to 80% left circumflex, 60 to send percent ostial OM 2, small nondominant RCA
subtotal occlusion. LVEDP 27, PCWP 26.
Plan:
New ischemic cardiomyopathy with HFrEF, proBNP 51472 on admission
Volume status is improving however she is still volume overloaded.
Down 4 lbs overnight 11/12 into 11/13, she has lost approximately 35 pounds since admission
BUN/Creat has bumped a bit. She tells me she is back to her baseline wt of 142-144 lbs
Will stop IV Lasix which most recently was at 60 mg IV bid and start oral Lasix at 40 mg BID
Maintain Lisinopril 5 mg daily
Maintain Coreg 3.125 BID
Jardiance is approx $55/mo. Will start Jardiance 10 mg daily
Maintain atorvastatin 20 mg daily. LDL 97
Ongoing education regarding heart failure pathophysiology, symptoms, monitoring, and medical therapy
Severe multivessel coronary artery disease by cardiac catheterization 11/10/2023
-Appreciate CT surgery input; not deemed to be a surgical candidate
-No chest pain suggestive of angina
-Plan for medical therapy at this time
-Continue aspirin, statin, BB and optimize medical therapy as she will allow
Chronic renal insufficiency
-Continue to monitor creatinine with addition of lisinopril and SGLT2 inhibitor, IV Lasix stopped 11/13 as she is transitioned to oral Lasix
-Outpatient nephrology consultation advised
-Continue to hold metformin
Uncontrolled type 2 diabetes mellitus with hemoglobin A1c 7.5%
-Management per hospitalist
-Continue to hold metformin
Abnormal TFTs
-Management per hospitalist. Thyroid supplementation continued
Anemia
-Advised outpatient evaluation
Patient now tells me she is 'on board' with our medical recommendations.
Note, I also spoke to her son who was on speaker phone during my visit with her. All his questions answered as well. .
Total time 53 min
Progress Note - Veneer Sample Maker
Subjective
Date of Service: November 14, 2023
tells me she feels 'better' and that her wt is finally back to her baseline of 142-144 lbs
Objective
Labs:
11/11/23 06:40
11/14/23 06:17
Labs
Hgb 10.4 g/dL (12.0-16.0) L 11/11/23 06:40
Hct 32.1 % (37.0-47.0) L 11/11/23 06:40
Plt Count 241 10^3/uL (130-400) 11/11/23 06:40
Sodium 139 mmol/L (135-145) 11/14/23 06:17
Potassium 3.9 mmol/L (3.5-5.1) 11/14/23 06:17
BUN 57 mg/dl (7-17) H 11/14/23 06:17
Creatinine 1.8 mg/dL (0.6-1.0) H 11/14/23 06:17
Glucose 137 mg/dl (70-99) H 11/14/23 06:17
Vital Signs and I&O:
Vital Signs
Temp Pulse Resp BP Pulse Ox
97.5 F 69 18 149/61 96
11/14/23 07:50 11/14/23 09:59 11/14/23 07:50 11/14/23 09:59 11/14/23 07:50
Vital Signs
Temp Pulse Resp BP Pulse Ox
97.5 F 69 18 149/61 96
11/14/23 07:50 11/14/23 09:59 11/14/23 07:50 11/14/23 09:59 11/14/23 07:50
Intake & Output
11/12/23 11/13/23 11/14/23 11/15/23
06:59 06:59 06:59 06:59
Intake Total 480 / 480 600 / 600 1140 / 1140
Balance 480 / 480 600 / 600 1140 / 1140
Physical Exam
Physical Exam
GEN: No distress, awake, Ox3
HEENT: supple, anicteric, mmm
LUNGS: Bronchovesicular breath sounds with fine crackles right base otherwise clear
CV: Reg, S1/S2, 1/6 syst LSB, no gallop
ABD: soft, BS+, NT/ND
EXT: + edema b/l
[2023-11-14 11:35] VITALS: BP 166/68
[2023-11-14 11:49] LABS: Glucose - Point of Care 172 mg/dl (70-99)
[2023-11-14] MEDS: NOVOLOG FLEXPEN-LOW RESISTANCE 1 UNITS SC (12:15)
[2023-11-14 15:40] VITALS: BP 130/46
[2023-11-14 16:40] LABS: Glucose - Point of Care 226 mg/dl (70-99)
[2023-11-14] MEDS: NOVOLOG FLEXPEN-LOW RESISTANCE 2 UNITS SC (17:03)
[2023-11-14] MEDS: LIPITOR 20 MG PO (18:05)
[2023-11-14] MEDS: XALATAN OPHTHALMIC SOLUTION 1 DROP BOTH EYES (20:52)
[2023-11-14 21:34] LABS: Glucose - Point of Care 194 mg/dl (70-99)
[2023-11-14 23:35] VITALS: BP 151/59
[2023-11-15] MEDS: ARMOUR THYROID 90 MG PO (05:18)
[2023-11-15 05:26] VITALS: BMI 23.0
[2023-11-15 07:05] VITALS: BP 158/68
[2023-11-15 07:09] LABS: Glucose - Point of Care 162 mg/dl (70-99)
[2023-11-15 07:31] LABS: Blood Urea Nitrogen 57 mg/dl (7-17); Calcium 8.7 mg/dl (8.4-10.2); Carbon Dioxide 29 mmol/L (22-30); Chloride 101 mmol/L (98-107); Estimated Creatinine Clearance 25 ml/min; Glucose 135 mg/dl (70-99); Sodium 139 mmol/L (135-145); eGFR 28.66
[2023-11-15] MEDS: MICRONASE 2.5 MG PO ×2 (08:28→17:08)
[2023-11-15] MEDS: LOW STRENGTH ASPIRIN 81 MG PO (08:29)
[2023-11-15] MEDS: HEPARIN 5000 UNITS SC ×2 (08:29→19:32)
[2023-11-15] MEDS: NOVOLOG FLEXPEN-LOW RESISTANCE 1 UNITS SC ×3 (08:29→17:09)
[2023-11-15] MEDS: COLACE 100 MG PO ×2 (08:29→19:32)
[2023-11-15] MEDS: COREG 3.125 MG PO ×2 (08:29→19:32)
[2023-11-15] MEDS: LASIX 40 MG PO ×2 (08:29→17:08)
[2023-11-15] MEDS: JARDIANCE 10 MG PO (08:29)
[2023-11-15] MEDS: ZESTRIL 5 MG PO (08:29)
--- NOTE | 2023-11-15 08:42 | W.PN.HOSP.TC ---
Today's Communication/Plan
-
likely discharge today, confirming plan with cardiology
Assessment / Plan
Assessment / Plan
Physical Exam
General: Well Developed, Well Nourished and No Apparent Distress
HEENT: NormoCephalic, Moist mucous membranes and Atraumatic
Respiratory: Clear
Cardiac: S1/S2 and Regular Rhythm; No Murmur or Rub
GI: Soft, Non Tender, Non Distended and Normal Bowel Sounds; No Organomegaly
Rectal: Deferred by Provider
Musculoskeletal: No Clubbing, No Cyanosis and Other (Bilateral lower extremity symmetric edema much improved)
Skin: No Rash
Neuro: AO x 3 and Nonfocal/grossly intact
CONCLUSIONS
1. Left dominant circulation. Severe multivessel coronary artery disease.
2. Significantly elevated right and left-sided filling pressures with normal cardiac output and severe pulmonary hypertension.
RECOMMENDATIONS
1. Goal-directed medical therapy for severe ischemic cardiomyopathy.
2. Ongoing heart team discussions in regards to potential treatment options including medical therapy alone versus consideration for coronary artery bypass grafting in addition to medications depending on what patient is agreeable to if patient is
deemed a good surgical candidate based on her anatomy.
3. Optimization of invasive filling pressures with IV diuresis.
4. Aggressive management of cardiovascular risk factors.
5. Wean vascular band per protocol and bedrest per protocol.
6. Eventual referral for outpatient cardiac rehab.
#Acute HFrEF
# Dyspnea on Exertion
#LE edema
#Pleural Effusion
-EF 25%, TTE 11/06/23 - newly reduced
-Chest x-ray with impression of moderate right-sided pleural effusion with associated compressive atelectasis at the right lung base.
-s/p Right thora 11/05
-now s/p right and left cardiac cath 11/09 with finding MVD
-patient is not a surgical candidate
-s/p IV diuresis, now converted to lasix 40 BID on 11/13
-patient initially refused GDMT - now accepting
-new start Coreg
-new start atorvastatin and lisinopril
-new start Jardiance
-Strict BRETT, Daily weight
# Anemia of chronic disease
-Hemoglobin stable at 11.8
-No active bleeding
# Hyperkalemia/metabolic acidosis/CKD stage IIIb
-monitoring renal function closely with diuresis
#Hallucinations
#Acute Metabolic Encephalopathy
-possible delirium
-resolved
#hypertension urgency
-hydralazine added
-Add Toprol
-pt refusing many meds
#type 2 DM
-resumed lower dose Glyburide --> increase to BID at discharge
-new start Jardiance for heart faliure
-sliding scale
-CHO diet
#Euthyroid sick syndrome
-thyroid continued
-f/u tfts outpatient for titration
#DVT prophylaxis
heparin sq
#CODE status
-full code
Anticipated Discharge: Within 24 hours
Subjective/Interval History
-
Date of Service: November 15, 2023
feeling well
feels ready to go home
Objective Data
-
Labs:
Laboratory Results
11/15/23
06:17
Sodium 139
Potassium 4.0
Chloride 101
Carbon Dioxide 29
BUN 57 H
Creatinine 1.8 H
Glucose 135 H
Calcium 8.7
Vital Signs:
Vital Signs
Temp Pulse Resp BP Pulse Ox
97.6 F 64 16 158/68 98
11/15/23 07:05 11/15/23 08:29 11/15/23 07:05 11/15/23 08:29 11/15/23 07:05
I&O
11/14/23 11/15/23 11/16/23
06:59 06:59 06:59
Intake Total 1140 / 1140 600 / 600
Balance 1140 / 1140 600 / 600
Review of Systems
-
History Source: Patient
All other systems: Reviewed and negative
Physical Exam
-
General: No Apparent Distress
Psych: Calm
Data Reviewed
-
Diagnostic Radiology: Report Reviewed by me
Labs: Labs Reviewed by me
--- NOTE | 2023-11-15 08:55 | W.DS.TRANS ---
DC Summary - Geological Sample Tester
-
Discharge Instructions:
Sleep Apnea Risk Low
Discharge Diagnosis/Procedures multi-vessel coronary artery disease; heart
failure with reduced ejection fraction (EF 25%);
status post cardiac catheterization on 11/10/23
Diet 2 Gram Sodium,Diabetic, Carb Controlled,Low
Cholesterol,Restrict fluids to 48 oz
Activity As tolerated
Driving Restrictions No driving for 24 hours
Bathing Restrictions None
Blood Work BMP to be collected by home health in 5-8 days.
Other Services VN,PT,OT
Specialty Instructions Weigh Daily
Instructions: *[facility] Heart Failure Instructions
Stand-Alone Forms: DC Instructions- Cath/EP Lab
Changes to Home Medications: Yes
Discharge Medications:
DC Medications w/original date entered in [facility]
thyroid (pork) 90 mg tablet ([facility] Thyroid) 90 mg PO DAILY Thyroid 09/03/13
acetaminophen 500 mg tablet 500 mg PO TID PRN mild pain 11/05/23
latanoprost 0.005 % eye drops 1 drp BOTH EYES HS Eye Condition 11/05/23
aspirin 81 mg chewable tablet (Children's Aspirin) 81 mg PO DAILY #30 tabs 11/15/23
atorvastatin 20 mg tablet 20 mg PO QPM #30 tabs 11/15/23
carvedilol 3.125 mg tablet 3.125 mg PO BID #60 tabs 11/15/23
empagliflozin 10 mg tablet (Jardiance) 10 mg PO DAILY #30 tabs 11/15/23
furosemide 40 mg tablet 40 mg PO BID AT 0800,1600 #60 tabs 11/15/23
glyburide 2.5 mg tablet 2.5 mg PO BID #60 tabs 11/15/23
lisinopril 5 mg tablet 5 mg PO DAILY #30 tabs 11/15/23
Home Medication Changes
For Diabetes:
Stop Metformin given kidney disease. This may be decided to be resumed as outpatient based on your kidney function numbers.
Your Glyburide is decreased from 5mg twice a day to 2.5mg twice a day.
You are newly started on Jardiance for management of heart failure, this also lowers blood sugar levels
New Heart Medication Regimen:
Aspirin 81mg daily
Atorvastatin 20mg in evenings
Coreg 3.125mg twice a day
Lisinopril 5mg daily
Jardiance 10mg daily
Lasix 40mg twice a day --> this is to keep the extra fluid off
Pending Results: No
--- NOTE | 2023-11-15 10:28 | CM ---
Addendum entered by Ivonne Cerrato RN 11/15/23 11:31:
Spoke with the patient at the bedside. Patient's son will transport home.
Original Note:
Reviewed the chart notes. Patient to be discharged to home today with VN services. CM continues to be available to patient/family and is monitoring medical plan for needs at discharge.
Plan: Discharge to home with VN services.
[2023-11-15 10:47] LABS: Glucose - Point of Care 162 mg/dl (70-99)
--- NOTE | 2023-11-15 12:31 | W.DCSUMMARY ---
Discharge Summary
Discharge Data
Date of Admission: 11/05/23
Date of Discharge: 11/15/23
-
Pending Results: No
Hospital Course
Discharging Physician : Dr. Michelle Vaughn
Disposition : Home with Home Health
Primary care physician : Dr. Shukri Lara
Principal Discharge diagnosis : multivessel coronary artery disease, heart failure with reduced ejection fraction
Hospital Course :
Ms. Casandra Tyson is a 78 yo woman with history of diabetes, breast cancer status post right mastectomy, prior Mercury poisoning, agoraphobia, hypothyroidism, chronic kidney disease presenting with significant lower extremity edema all the way up to
her abdomen, 25 pound weight gain and shortness of breath. Triage vitals significant for BP 185/100, RR 20, SpO2 98% RA. Exam with diminished breath sounds on right. Labs with creatinine 1.5, K 5.5, BNP 24,000. CXR with moderate right-sided
pleural effusion with compressive atelectasis of right lung base.
She was admitted to medicine with cardiology consulting for further treatment and work up of heart failure. IR consulted for right pleural effusion and she is s/p thoracentesis on 11/05, transudative. TTE 11/05 with a new finding of EF 25%. She was
diuresed with improvement of symptoms and on 11/09 underwent cardiac catheterization with finding of multivessel coronary artery disease. Patient was deemed not to be a good surgical candidate based on her anatomy. Plan made for medical management.
In the beginning of hospital course patient refused initiation of GDMT but after cath findings and knowing she wasn't a surgical candidate she is more accepting.
She was newly started on:
Aspirin 81mg daily
Atorvastatin 20mg in evenings
Coreg 3.125mg twice a day
Lisinopril 5mg daily
Jardiance 10mg daily
Lasix 40mg twice a day
She was diuresed with drop in weight from 81.6kg on admission to 64.5 kg on discharge. She has follow up with cardiology on 12/01.
Patient's creatinine is 1.8 on day of discharge. May have some mild post contrast nephropathy. Her IV lasix is now transitioned to oral. She will get close follow up labs in one week. Her metformin is held.
Patient's HgA1c is 7.5%. Farxiga is now added as a heart failure drug. Her Glipizide is decreased in half from 5mg PO BID to 2.5mg PO BID. She is told to stop metformin given kidney disease.
Hospital course c/b delirium, negative head CT. May have been related to anxiety and fully resolved.
Patient felt ready to go home today. I discussed that if family had any concerns we could watch an additional night on current regimen.
Time spent on discharge was 40 minutes.
Important imaging findings :
TTE 11/06/23
Normal left ventricular chamber size. Severely reduced left ventricular
systolic function. Global hypokinesis with regional variability. Left
ventricular ejection fraction is 25% by Walls's method. Mild concentric left
ventricular hypertrophy. Enlarged right ventricular size. Reduced right
ventricular systolic function.
Stage II diastolic dysfunction suggestive of abnormal relaxation and increased
filling pressures.
Mild mitral stenosis with a mean gradient of 4 mmHg. Mild to moderate mitral
regurgitation.
Aortic sclerosis without stenosis.
Moderate tricuspid regurgitation. Estimated pulmonary artery pressure of 60
mmHg, assuming a right atrial pressure of 8 mmHg.
Compared to prior study dated 05/19/12:
Biventricular function was previously normal and has now declined
Tricuspid regurgitation has worsened from trace to moderate
Estimated pulmonary pressures were previously normal and are now significantly
elevated
HEAD CT 11/07/23
IMPRESSION:
There are no acute intracranial abnormalities.
There is mild diffuse cortical atrophy with mild nonspecific white matter changes as described above.
Procedure findings :
Cardiac Cath 11/10/23
CONCLUSIONS
1. Left dominant circulation. Severe multivessel coronary artery disease.
2. Significantly elevated right and left-sided filling pressures with normal cardiac output and severe pulmonary hypertension.
RECOMMENDATIONS
1. Goal-directed medical therapy for severe ischemic cardiomyopathy.
2. Ongoing heart team discussions in regards to potential treatment options including medical therapy alone versus consideration for coronary artery bypass grafting in addition to medications depending on what patient is agreeable to if patient is
deemed a good surgical candidate based on her anatomy.
3. Optimization of invasive filling pressures with IV diuresis.
4. Aggressive management of cardiovascular risk factors.
5. Wean vascular band per protocol and bedrest per protocol.
6. Eventual referral for outpatient cardiac rehab.
Discharge Plan
-
Patient Disposition: Home with Home Care
Discharge Diagnosis/Procedures: multi-vessel coronary artery disease; heart failure with reduced ejection fraction (EF 25%); status post cardiac catheterization on 11/10/23
Diet: Low Cholesterol, 2 Gram Sodium, Diabetic, Carb Controlled and Restrict fluids to 48 oz
Activity: As tolerated
Driving Restrictions: No driving for 24 hours
Bathing Restrictions: None
Blood Work: BMP to be collected by home health in 5-8 days.
Other Services: VN, PT and OT
Specialty Instructions: Weigh Daily- Call MD for wt gain/loss 3 lbs overnight/5 lbs in 1 week
Activity Restrictions/Additional Instructions:
Wound Care Instructions Left third toe- Clean with normal saline, apply sure-prep and clean dressing. Change Q 3 days and PRN. Follow up with your photographic editor after discharge.
Instructions: *[facility] Heart Failure Instructions
Stand Alone Forms: DC Instructions- Cath/EP Lab
Referrals:
Flakita Bunch PA-C [Specified Professional Personl] - 12/02/23 10:40 am (You have a follow up visit with Flakita Bunch at the [place] office. Please call with questions. )
Shukri Lara, DO [Family Provider] - in less than 1 week
Additional Discharge Medication Instructions: For Diabetes:
Stop Metformin given kidney disease. This may be decided to be resumed as outpatient based on your kidney function numbers.
Your Glyburide is decreased from 5mg twice a day to 2.5mg twice a day.
You are newly started on Jardiance for management of heart failure, this also lowers blood sugar levels
New Heart Medication Regimen:
Aspirin 81mg daily
Atorvastatin 20mg in evenings
Coreg 3.125mg twice a day
Lisinopril 5mg daily
Jardiance 10mg daily
Lasix 40mg twice a day --> this is to keep the extra fluid off
Prescriptions:
New
carvedilol 3.125 mg Tablet
3.125 mg PO BID Qty: 60 0RF
Jardiance 10 mg Tablet
10 mg PO DAILY Qty: 30 0RF
furosemide 40 mg Tablet
40 mg PO BID AT 0800,1600 Qty: 60 0RF
atorvastatin 20 mg Tablet
20 mg PO QPM Qty: 30 0RF
aspirin [Children's Aspirin] 81 mg Tablet,Chewable
81 mg PO DAILY Qty: 30 0RF
glyburide 2.5 mg Tablet
2.5 mg PO BID Qty: 60 0RF
lisinopril 5 mg Tablet
5 mg PO DAILY Qty: 30 0RF
Continued
thyroid (pork) [[place] Thyroid] 90 MG tablet
90 mg PO DAILY
latanoprost 0.005 % Drops
1 drp BOTH EYES HS
acetaminophen 500 mg Tablet
500 mg PO TID PRN (Reason: mild pain)
Discontinued
glyburide 5 MG tablet
5 mg PO BID
metformin 500 mg tablet
500 mg PO BID
metformin 500 mg tablet
500 mg PO DAILYPRN PRN (Reason: heavy meal)
Patient Comments:
11/05/2023: Sometimes takes a 3rd dose if she has a heavy meal.
glyburide 5 mg tablet
5 mg PO DAILYPRN PRN (Reason: heavy meal)
Patient Comments:
11/05/2023: Sometimes takes a 3rd dose if she has a heavy meal.
Discharge Orders:
Discharge Patient (As Directed); Ordered 11/15/23
Ordered By: Michelle Vaughn
Discharge Date and Time
Print Language: TURKMEN
--- NOTE | 2023-11-15 14:04 | W.PN.UPDATE ---
Update Note
Progress Note Update
discussion had with son. worried about discharge so soon after addition of new medication regimen requesting one more day of observation. will repeat labs tomorrow. cardiology updated.
[2023-11-15 15:45] VITALS: BP 147/57
[2023-11-15 16:57] LABS: Glucose - Point of Care 179 mg/dl (70-99)
[2023-11-15] MEDS: LIPITOR 20 MG PO (17:08)
[2023-11-15] MEDS: XALATAN OPHTHALMIC SOLUTION 1 DROP BOTH EYES (20:57)
[2023-11-15 21:43] LABS: Glucose - Point of Care 188 mg/dl (70-99)
[2023-11-15 23:07] VITALS: BP 156/54
[2023-11-16] MEDS: ARMOUR THYROID 90 MG PO (04:13)
[2023-11-16 05:39] VITALS: BMI 22.8
[2023-11-16 06:30] LABS: Blood Urea Nitrogen 59 mg/dl (7-17); Calcium 8.6 mg/dl (8.4-10.2); Carbon Dioxide 29 mmol/L (22-30); Chloride 102 mmol/L (98-107); Estimated Creatinine Clearance 23 ml/min; Glucose 141 mg/dl (70-99); Potassium 3.8 mmol/L (3.5-5.1); Sodium 139 mmol/L (135-145); eGFR 26.86
[2023-11-16 07:24] LABS: Glucose - Point of Care 163 mg/dl (70-99)
[2023-11-16 07:26] VITALS: BP 163/63
[2023-11-16] MEDS: ZESTRIL 5 MG PO (08:43)
[2023-11-16] MEDS: COLACE 100 MG PO (08:43)
[2023-11-16] MEDS: NOVOLOG FLEXPEN-LOW RESISTANCE 1 UNITS SC ×2 (08:43→12:00)
[2023-11-16] MEDS: MICRONASE 2.5 MG PO (08:44)
[2023-11-16] MEDS: JARDIANCE 10 MG PO (08:44)
[2023-11-16] MEDS: LOW STRENGTH ASPIRIN 81 MG PO (08:44)
[2023-11-16] MEDS: HEPARIN 5000 UNITS SC (08:44)
[2023-11-16] MEDS: COREG 3.125 MG PO (08:44)
[2023-11-16] MEDS: LASIX 40 MG PO (08:44)
--- NOTE | 2023-11-16 10:18 | W.PN.UPDATE ---
Update Note
Progress Note Update
Patient with acute HFrEF on admission. Diuresed 33+ lbs this admission and is new to Lasix 40 mg PO BID at discharge. Also new to Coreg 3.125 mg BID, lisinopril 5 mg daily and Jardiance 10 mg daily. Patient and son were agreeable to additions.
Cardiac cath this admission showed multivessel CAD and patient was not felt to be a candidate for CABG. New to aspirin 81 mg daily. Troponin peaked at 0.221 and will manage as a nonischemic myocardial injury Troponin elevation due to acute HF.
Cardiology follow up arranged. Will sign off.
--- NOTE | 2023-11-16 11:35 | CM ---
IMM signed and placed on chart. The patient is being discharged to home today with VN. CM continues to be available to patient/family and is monitoring medical plan for needs at discharge.
Plan: Discharge to home with VN services.
--- NOTE | 2023-11-16 11:41 | W.PN.HOSP.TC ---
Addendum entered and electronically signed by Jonas Goldman MD 11/17/23 16:00:
[id number]
Original Note:
Today's Communication/Plan
-
DC today on new cardiac meds
F/u PCP, Cardiology outpatient
Assessment / Plan
Assessment / Plan
Physical Exam
General: Well Developed, Well Nourished and No Apparent Distress
HEENT: NormoCephalic, Moist mucous membranes and Atraumatic
Respiratory: Clear
Cardiac: S1/S2 and Regular Rhythm; No Murmur or Rub
GI: Soft, Non Tender, Non Distended and Normal Bowel Sounds; No Organomegaly
Rectal: Deferred by Provider
Musculoskeletal: No Clubbing, No Cyanosis and Other (Bilateral lower extremity symmetric edema much improved)
Skin: No Rash
Neuro: AO x 3 and Nonfocal/grossly intact
CONCLUSIONS
1. Left dominant circulation. Severe multivessel coronary artery disease.
2. Significantly elevated right and left-sided filling pressures with normal cardiac output and severe pulmonary hypertension.
RECOMMENDATIONS
1. Goal-directed medical therapy for severe ischemic cardiomyopathy.
2. Ongoing heart team discussions in regards to potential treatment options including medical therapy alone versus consideration for coronary artery bypass grafting in addition to medications depending on what patient is agreeable to if patient is
deemed a good surgical candidate based on her anatomy.
3. Optimization of invasive filling pressures with IV diuresis.
4. Aggressive management of cardiovascular risk factors.
5. Wean vascular band per protocol and bedrest per protocol.
6. Eventual referral for outpatient cardiac rehab.
#Acute HFrEF
# Dyspnea on Exertion
#LE edema
#Pleural Effusion
-EF 25%, TTE 11/06/23 - newly reduced
-Chest x-ray with impression of moderate right-sided pleural effusion with associated compressive atelectasis at the right lung base.
-s/p Right thora 11/05
-now s/p right and left cardiac cath 11/09 with finding MVD
-patient is not a surgical candidate
-s/p IV diuresis, now converted to lasix 40 BID on 11/13
-patient initially refused GDMT - now accepting
-new start Coreg
-new start atorvastatin and lisinopril
-new start Jardiance
-Strict BRETT, Daily weight
# Anemia of chronic disease
-Hemoglobin stable at 11.8
-No active bleeding
# Hyperkalemia/metabolic acidosis/CKD stage IIIb
-monitoring renal function closely with diuresis
#Hallucinations
#Acute Metabolic Encephalopathy
-possible delirium
-resolved
#hypertension urgency
-hydralazine added
-Add Toprol
-pt refusing many meds
#type 2 DM
-resumed lower dose Glyburide --> increase to BID at discharge
-new start Jardiance for heart faliure
-sliding scale
-CHO diet
#Euthyroid sick syndrome
-thyroid continued
-f/u tfts outpatient for titration
#DVT prophylaxis
heparin sq
#CODE status
-full code
More than 30 minutes spent in discharge including
Final examination of the patient
Summarizing hospital stay
Instructions for continuing care to all relevant caregivers
Preparation of discharge records, prescriptions, and referral forms
Total time spent (35 in minutes):
Anticipated Discharge: Today
Subjective/Interval History
-
Date of Service: November 16, 2023
No acute events overnight
Objective Data
-
Labs:
Laboratory Results
11/16/23
04:57
Sodium 139
Potassium 3.8
Chloride 102
Carbon Dioxide 29
BUN 59 H
Creatinine 1.9 H
Glucose 141 H
Calcium 8.6
Vital Signs:
Vital Signs
Temp Pulse Resp BP Pulse Ox
98.3 F 62 18 163/63 98
11/16/23 07:26 11/16/23 08:43 11/16/23 07:26 11/16/23 08:43 11/16/23 09:47
I&O
11/15/23 11/16/23 11/17/23
06:59 06:59 06:59
Intake Total 600 / 600 1320 / 1320
Balance 600 / 600 1320 / 1320
Review of Systems
-
History Source: Patient
All other systems: Not reviewed unless documented
Physical Exam
-
General: No Apparent Distress
Psych: Calm
Data Reviewed
-
Diagnostic Radiology: Report Reviewed by me
Ultrasound: Report Reviewed by me
Labs: Labs Reviewed by me
--- NOTE | 2023-11-16 11:44 | W.DS.TRANS ---
DC Summary - Stop Attacher
-
Discharge Instructions:
Sleep Apnea Risk Low
Discharge Diagnosis/Procedures multi-vessel coronary artery disease; heart
failure with reduced ejection fraction (EF 25%);
status post cardiac catheterization on 11/10/23
Diet 2 Gram Sodium,Diabetic, Carb Controlled,Low
Cholesterol,Restrict fluids to 48 oz
Activity As tolerated
Driving Restrictions No driving for 24 hours
Bathing Restrictions None
Blood Work BMP to be collected by home health in 5-8 days.
TFTS in 4 weeks
Other Services VN,PT,OT
Specialty Instructions Weigh Daily
Instructions: *[facility] Heart Failure Instructions
Stand-Alone Forms: DC Instructions- Cath/EP Lab
Changes to Home Medications: Yes
Discharge Medications:
DC Medications w/original date entered in [employer]
thyroid (pork) 90 mg tablet ([place] Thyroid) 90 mg PO DAILY Thyroid 09/03/13
acetaminophen 500 mg tablet 500 mg PO TID PRN mild pain 11/05/23
latanoprost 0.005 % eye drops 1 drp BOTH EYES HS Eye Condition 11/05/23
aspirin 81 mg chewable tablet (Children's Aspirin) 81 mg PO DAILY #30 tabs 11/15/23
atorvastatin 20 mg tablet 20 mg PO QPM #30 tabs 11/15/23
carvedilol 3.125 mg tablet 3.125 mg PO BID #60 tabs 11/15/23
empagliflozin 10 mg tablet (Jardiance) 10 mg PO DAILY #30 tabs 11/15/23
furosemide 40 mg tablet 40 mg PO BID AT 0800,1600 #60 tabs 11/15/23
glyburide 2.5 mg tablet 2.5 mg PO BID #60 tabs 11/15/23
lisinopril 5 mg tablet 5 mg PO DAILY #30 tabs 11/15/23
Home Medication Changes
aspirin 81 mg chewable tablet (Children's Aspirin) 81 mg PO DAILY #30 tabs 11/15/23
atorvastatin 20 mg tablet 20 mg PO QPM #30 tabs 11/15/23
carvedilol 3.125 mg tablet 3.125 mg PO BID #60 tabs 11/15/23
empagliflozin 10 mg tablet (Jardiance) 10 mg PO DAILY #30 tabs 11/15/23
furosemide 40 mg tablet 40 mg PO BID AT 0800,1600 #60 tabs 11/15/23
glyburide 2.5 mg tablet 2.5 mg PO BID #60 tabs 11/15/23
lisinopril 5 mg tablet 5 mg PO DAILY #30 tabs 11/15/23
Pending Results: No
[2023-11-16 11:53] LABS: Glucose - Point of Care 192 mg/dl (70-99)
--- NOTE | 2023-11-16 13:44 | W.HF.CON ---
Heart Failure
- LV Function
Left ventricular function study result: LV Ejection fraction </= 35%
Ejection Fraction Percentage: 25
- ARNI
Patient already on ARNI: No
Heart Failure ARNI Contraindication: Acute Renal Failure
- ACEI/ARB
Patient already on ACEI/ARB: Yes
- Beta Efren
Patient already on Evidence Based Beta Efren: Yes
- Mineralocorticord Receptor Antagonist
Patient already on MRA: No
Heart Failure MRA Contraindication: Acute Renal Insufficiency
- SGLT-2 Inhibitor
Patient already on SGLT-2 Inhibitor: Yes
- NYHA CHF Classification
NYHA CHF Classification Level: Class III - Symptoms w/ min exertion, interferes w/ nml daily activity
- ACC/AHA Stage
ACC/AHA Stage: Stage C: Symptomatic Heart Failure
[2023-11-16 14:13] VITALS: BP 158/63
== END 2023-11-16 15:31 | disposition home health service (06) | DRG 286 ==
LOC: 2 NORTH 19:50
PROVIDERS: Internal Medicine Cardiovascular Disease; Internal Medicine Interventional Cardiology; Nurse Practitioner Adult Health; Nurse Practitioner Family; Physician Assistant; Physician Assistant Medical; Radiology Diagnostic Radiology; Registered Nurse; Student in an Organized Health Care Education/Training Program; ADMITTING PHYSICIAN Hospitalist; ATTENDING PHYSICIAN Internal Medicine; CONSULT PHYSICIAN Internal Medicine Cardiovascular Disease; CONSULT PHYSICIAN Thoracic Surgery (Cardiothoracic Vascular Surgery); EMERGENCY PHYSICIAN Emergency Medicine; FAMILY PHYSICIAN Family Medicine
PROC: 0W993ZX Drainage of Right Pleural Cavity, Percutaneous Approach, Diagnostic (ICD-10-PCS; 2023-11-06)
PROC: B24BZZZ Ultrasonography of Heart with Aorta (ICD-10-PCS; 2023-11-06)
PROC: 4A023N8 Measurement of Cardiac Sampling and Pressure, Bilateral, Percutaneous Approach (ICD-10-PCS; 2023-11-10)
PROC: B211YZZ Fluoroscopy of Multiple Coronary Arteries using Other Contrast (ICD-10-PCS; 2023-11-10)
DX: I13.0 Hypertensive heart and chronic kidney disease with heart failure and stage 1 through stage 4 chronic kidney disease, or unspecified chronic kidney disease (principal); G93.41 Metabolic encephalopathy; I50.21 Acute systolic (congestive) heart failure; J98.11 Atelectasis; E87.20 Acidosis, unspecified; J90 Pleural effusion, not elsewhere classified; E11.22 Type 2 diabetes mellitus with diabetic chronic kidney disease; E11.40 Type 2 diabetes mellitus with diabetic neuropathy, unspecified; N18.32 Chronic kidney disease, stage 3b; I16.0 Hypertensive urgency; I5A Non-ischemic myocardial injury (non-traumatic); M79.7 Fibromyalgia; F40.00 Agoraphobia, unspecified; F32.A Depression, unspecified; F41.9 Anxiety disorder, unspecified; E78.00 Pure hypercholesterolemia, unspecified; E11.319 Type 2 diabetes mellitus with unspecified diabetic retinopathy without macular edema; E87.5 Hyperkalemia; D63.1 Anemia in chronic kidney disease; K58.9 Irritable bowel syndrome, unspecified; E07.81 Sick-euthyroid syndrome; I08.1 Rheumatic disorders of both mitral and tricuspid valves; R44.1 Visual hallucinations; I25.10 Atherosclerotic heart disease of native coronary artery without angina pectoris; I25.5 Ischemic cardiomyopathy; I27.20 Pulmonary hypertension, unspecified; E03.8 Other specified hypothyroidism; Z91.148 Patient's other noncompliance with medication regimen for other reason; Z88.2 Allergy status to sulfonamides; Z85.41 Personal history of malignant neoplasm of cervix uteri; Z85.3 Personal history of malignant neoplasm of breast; Z79.84 Long term (current) use of oral hypoglycemic drugs; Z59.82 Transportation insecurity; Z86.12 Personal history of poliomyelitis; Z82.49 Family history of ischemic heart disease and other diseases of the circulatory system
CPT/HCPCS: 32555; 70450; 71045; 71046; 80048; 80053; 80061; 81003; 81015; 82248; 82805; 82945; 82962; 83036; 83615; 83735; 83880; 83986; 84157; 84439; 84443; 84478; 84484; 85025; 85027; 86803; 87015; 87040; 87070; 87102; 87116; 87205; 87206; 89051; 93005; 93306; 93460; 93970; 96374; 97162; 97530; 99152; 99153; 99285; C1894; Q9950; Q9967

== ENCOUNTER → 2023-11-23 12:18 | Outpatient (REF) | payer MEDICARE, OTHER, SELFPAY ==
[2023-11-23 14:12] LABS: Blood Urea Nitrogen 52 mg/dl (7-17); Calcium 9.2 mg/dl (8.4-10.2); Carbon Dioxide 22 mmol/L (22-30); Chloride 102 mmol/L (98-107); Glucose 145 mg/dl (70-99); Potassium 4.4 mmol/L (3.5-5.1); Sodium 138 mmol/L (135-145); eGFR 25.26
== END ==
LOC: CLAB 12:18
PROVIDERS: ATTENDING PHYSICIAN Family Medicine; REFERRING PHYSICIAN Physician Assistant Medical
DX: I11.0 Hypertensive heart disease with heart failure (principal)
CPT/HCPCS: 80048

== ENCOUNTER → 2023-12-23 14:02 | Outpatient (REF) | payer MEDICARE, OTHER, SELFPAY ==
[2023-12-23 15:38] LABS: TSH Reflex To Free T4 0.21 uIU/ml (0.47-4.68)
[2023-12-23 16:08] LABS: Free T4 0.96 ng/dl (0.78-2.19)
== END ==
LOC: CLAB 14:02
PROVIDERS: ATTENDING PHYSICIAN Family Medicine
DX: I11.0 Hypertensive heart disease with heart failure (principal); M79.7 Fibromyalgia
CPT/HCPCS: 36415; 84439; 84443

== ENCOUNTER 2024-04-19 04:02 | Inpatient (IN) | payer MEDICARE, OTHER, SELFPAY ==
[2024-04-19] VITALS (18 sets, daily range): BP systolic 117–153; BP diastolic 44–74; PULSE 83–88; O2SAT 98; BMI 20.9; BMI 20.3
[2024-04-19 01:10] LABS: % Basophils 0.2 % (0-2); % Immature Granulocytes 0.4 % (0-0.5); % Lymphocytes 6.6 % (20.5-51.1); % Monocytes 4.6 % (1.7-9.3); % Neutrophils 88.2 % (42.2-75.2); Absolute Immature Granulocytes 0.1 10^3/uL (0-0.05); Absolute Lymphocytes 1.2 10^3/uL (1.2-3.4); Absolute Monocytes 0.8 10^3/uL (0.1-0.6); Absolute Neutrophils 16.1 10^3/uL (1.4-6.5); Hemoglobin 12.5 g/dL (12.0-16.0); Mean Corp Hgb Conc. 33.8 g/dL (33.0-37.0); Mean Corpuscular Hgb 32.1 pg (27.0-31.0); Mean Corpuscular Volume 95.1 fL (81.0-99.0); Mean Platelet Volume 9.5 fL (7.4-10.4); Nucleated Red Blood Cells % 0 %; Platelet Count 302 10^3/uL (130-400); Red Blood Cell Count 3.89 10^6/uL (4.20-5.40); Red Cell Dist. Width 13.1 % (11.5-14.5); White Blood Cell Count 18.2 10^3/uL (4.8-10.8)
--- NOTE | 2024-04-19 01:43 | ED.GENMED ---
History of Present Illness
General
Chief Complaint: Weakness
Source: patient, records and ambulance crew
Exam Limitations: none
Time Seen by Provider: 04/19/24 01:02
Nursing documentation reviewed up to this point in time: agreed with
History of Present Illness
History of Present Illness:
79-year-old female with past medical history of hypertension, CHF, diabetes, diabetic neuropathy who presents to the emergency room from home where she lives independently and has visiting nurse few times a week; she presents via EMS for evaluation
of generalized weakness. Patient reports onset of symptoms about a week ago and they have been constant and progressive since then. She reports generalized weakness and lack of strength. She says that she has had so much fatigue and weakness that
she has trouble even getting up out of her chair. She says that she has essentially not had anything to eat or drink in the past 4 days because she is too weak to get up. Finally called EMS to bring her to the hospital today after she disclosed
symptoms to her son. She denies any other specific symptoms such as chest pain, shortness of breath, cough. She denies any fevers or chills. She denies any abdominal pain. She denies any urinary symptoms. She does have chronic incontinence of
her stools. No vomiting. She has not had any weight gain. She says she has had increased pain in her right leg she believes from neuropathy. She denies any other complaints. She did have recent admission in October for CHF with significant pleural
effusion requiring thoracentesis. She has been following with Dr. Rao for cardiology.
Past History
Past History
ED Past Medical History: Fibromyalgia, NIDDM, Hypothyroidism, Psychiatric (agorophobia) and Other (diabetic neuropathy, diverticulosis, IBS)
ED Past Surgical History: None
Social History
Tobacco: Non-smoker
Alcohol: None
Personal:
Living: alone
Review of Systems
Review of Systems
All Other Systems: ROS reviewed and negative except as documented in HPI and ROS
Constitutional: Reports fatigue; Denies fever
Respiratory: Denies cough or trouble breathing
Cardiac: Denies chest pain or palpitations
ABD/GI: Denies abdominal pain, nausea or vomiting
: Denies dysuria, frequency or flank pain
Musculoskeletal: Denies edema, neck pain or back pain
Neurological: Reports weakness (Generalized); Denies dizzy or headache
Phy Exam
Physical Exam
Physical Exam:
General: Awake, alert, oriented x3; no acute distress
Head: Normocephalic, atraumatic
Eyes: Conjunctiva normal
Throat: Airway intact, mucous membranes very dry
Neck: Trachea midline, supple without meningismus
Lungs: Clear to auscultation bilaterally, no wheezing, rales, rhonchi
Heart: Regular rate and rhythm, no murmurs, gallops, or rubs appreciated
Abd: Soft, non distended, nontender
Neuro: No gross deficits
Extremities: No edema in extremities, equal pulses in all extremities; right lower extremity erythematous, warm and tender to the touch
Scores
Heart Failure Risk
Heart Failure Risk Score: Not Applicable
Heart Score for Chest Pain Patients
STEMI patient?: Not applicable
Withdrawal Assessment of Alcohol
Withdrawal Assessment Completed?: Not applicable
Course
Orders/Labs/Results
Orders:
Orders
04/19/24 00:53
Cardiac Monitoring- Treatment ONCE
04/19/24 01:04
Complete Blood Count/With Diff Urgent
Free T4 Urgent
TSH Reflex To Free T4 Urgent
04/19/24 01:23
Urinalysis Reflex To Culture Urgent
04/19/24 01:46
COVID-19 Antigen Urgent
Source: Nasal Swab
Comprehensive Metabolic Panel Urgent
Lactate Level [Lactic Acid] Urgent
Blood Culture Q30M
GHAZAL Source: Blood/Venous
Specimen Description:
Blood Culture Q30M
GHAZAL Source: Blood/Venous
Specimen Description:
04/19/24 01:48
0.9% Sodium Chloride 250 ml [Nss] 250 ml IV BOLUS
04/19/24 01:49
Electrocardiogram (*1) Urgent
Reason for Study: Fatigue / Weakness
EKG- Treatment ONCE
04/19/24 02:05
CR Chest - 2 Views Urgent
Comment:
Reason For Exam: weakness
04/19/24 02:36
Albuterol Nebs [Ventolin Nebules] 2.5 mg INH R NOW STA
Insulin Human Regular [Novolin R] 5 units IV NOW STA
Sodium Zirconium Cyclosilicate [Lokelma] 10 gram PO NOW STA
04/19/24 02:39
0.9% Sodium Chloride 1000 ml [Nss] 1,000 ml IV BOLUS
04/19/24 02:43
Liao Placement- Treatment ONCE
Reason for insertion: Acute Kidney Injury
04/19/24 02:45
Dextrose 5%/Water 1000 ml [D5w] 1,000 ml Sodium Bicarbonate 150 meq IV 100 mls/hr
Abnormal Lab Results
04/19/24 04/19/24
01:04 01:46
WBC 18.2 H 10^3/uL
(4.8-10.8)
RBC 3.89 L 10^6/uL
(4.20-5.40)
MCH 32.1 H pg
(27.0-31.0)
Abs Immat Gran (auto) 0.1 H 10^3/uL
(0-0.05)
Absolute Neuts (auto) 16.1 H 10^3/uL
(1.4-6.5)
Absolute Monos (auto) 0.8 H 10^3/uL
(0.1-0.6)
Neutrophils % 88.2 H %
(42.2-75.2)
Lymphocytes % 6.6 L %
(20.5-51.1)
Sodium 129 L mmol/L
(135-145)
Potassium 5.7 H mmol/L
(3.5-5.1)
Carbon Dioxide 11 L* mmol/L
(22-30)
BUN 106 H* mg/dl
(7-17)
Creatinine 3.9 H mg/dL
(0.6-1.0)
Glucose 268 H mg/dl
(70-99)
Calcium 8.1 L mg/dl
(8.4-10.2)
AST 78 H U/L
(14-36)
ALT 56 H U/L
(0-35)
Total Protein 6.1 L g/dl
(6.3-8.2)
TSH (Reflex) 4.94 H uIU/ml
(0.47-4.68)
04/19/24 01:04
04/19/24 01:46
Vital Signs
Initial and Last Documented VS:
Initial Vital Signs
Temp Pulse Resp BP Pulse Ox
36.8 C 98 13 144/74 100
04/19/24 00:55 04/19/24 00:55 04/19/24 00:55 04/19/24 00:55 04/19/24 00:55
Last Documented Vital Signs
Temp Pulse Resp BP Pulse Ox
36.8 C 98 13 144/74 100
04/19/24 00:55 04/19/24 00:55 04/19/24 00:55 04/19/24 00:55 04/19/24 00:55
MDM/Problems Addressed
Differential Diagnosis Includes:
Deconditioning, infection including UTI or pneumonia, dehydration, anemia, hypothyroidism
MDM/Problems Addressed:
79-year-old female with history as documented presents for increased generalized weakness as described above. She says that she has not been able to eat for days due to difficulty getting up out of her chair. Vital signs significant for heart rate
in the 90s. Exam as above�notably the patient appears very dry. She had lab work sent off in triage: CBC showed a leukocytosis to 18.2�added lactate and blood cultures. CMP still pending. Thyroid studies pending. Swab for COVID and flu. Will
check chest x-ray and urinalysis. Will provide some fluids as clinically she appears to be hydration�slow rate given known history of CHF with reduced ejection fraction. Monitor closely reassess after the above.
Chest x-ray reviewed by me: No acute disease. CMP reviewed: Patient has acute renal failure with creatinine of 3.9 (baseline 2.0), anion gap metabolic acidosis with bicarb of 11�likely secondary to uremia. Hyperkalemia with a potassium of 5.7.
Treat with insulin, albuterol, bicarb, Lokelma. Provide additional IV fluids. Urinalysis pending�no retained urine on bladder scan will place Liao for strict I+O's. Concern for right lower extremity cellulitis�will treat with Ancef. Will admit
for continued treatment of acute renal failure. Case discussed with hospitalist.
Chronic conditions affecting care:
CHF
*Radiology
Radiology exam reviewed: preliminary read by ED provider
*Pulse Oximetry
Patient hypoxic: no
*Critical Care Note
Total Time (30-74mins, 75-104mins- exclusive of procedures): Not Applicable
Data Reviewed
Review of Other/Old Records Reveals: Labs, Records and Discharge Summary
Source: patient, records and ambulance crew
Patient Management
Discussion with other providers: Hospitalist (Discussed with hospitalist)
Escalation/DeEscalation of care consider admission/obs:
Admission indicated
ED Attending Note
-
Portions of this chart may have been created with voice recognition software.� Occasional wrong word or��sound alike� substitutions may have occurred due to the inherent limitations of voice recognition software.
Discharge Plan
Departure
Patient Disposition: Admit
Date of Disposition: 04/19/24
Time of Disposition: 02:41
Admit to doctor: Malcolm
Presentation/result/management discussed w/ accepting MD/DO: Hospitalist
Discharge Problem:
Acute renal failure, Metabolic acidosis, Acute hyperkalemia, Acute dehydration, Cellulitis
Prescriptions:
No Action
thyroid (pork) [[place] Thyroid] 90 MG tablet
90 mg PO DAILY
latanoprost 0.005 % Drops
1 drp BOTH EYES HS
acetaminophen 500 mg Tablet
500 mg PO TID PRN (Reason: mild pain)
carvedilol 3.125 mg Tablet
3.125 mg PO BID Qty: 60 0RF
Jardiance 10 mg Tablet
10 mg PO DAILY Qty: 30 0RF
furosemide 40 mg Tablet
40 mg PO BID AT 0800,1600 Qty: 60 0RF
atorvastatin 20 mg Tablet
20 mg PO QPM Qty: 30 0RF
aspirin [Children's Aspirin] 81 mg Tablet,Chewable
81 mg PO DAILY Qty: 30 0RF
glyburide 2.5 mg Tablet
2.5 mg PO BID Qty: 60 0RF
lisinopril 5 mg Tablet
5 mg PO DAILY Qty: 30 0RF
Referrals:
Shukri Lara DO [Family Provider] -
Interventions
Interventions:
*Risk Screen - Suicide Last Done: 04/19/24 00:55
*General Assessment Last Done: 04/19/24 00:55
*Neglect/Abuse Screening Last Done: 04/19/24 00:55
ED- Fall Risk Assessment Last Done: 04/19/24 01:02
*ED COVID-19 Vaccine History Last Done: 04/19/24 00:55
ED- Cardiac Assessment Last Done: 04/19/24 01:02
ED- Neurological Assessment Last Done: 04/19/24 01:02
ED- Pulmonary Assessment Last Done: 04/19/24 01:02
Discharge Date and Time
Print Language: ALBANIAN
[2024-04-19 02:19] LABS: Lactic Acid 1.3 mmol/L (0.7-2.0)
[2024-04-19] MEDS: NSS 250 IV (02:19)
[2024-04-19 02:22] LABS: COVID-19 Antigen Negative (Negative)
[2024-04-19 02:28] LABS: ALT (SGPT) 56 U/L (0-35); AST (SGOT) 78 U/L (14-36); Albumin 3.5 g/dl (3.5-5.0); Alkaline Phosphatase 66 U/L (38-126); Blood Urea Nitrogen 106 mg/dl (7-17); Calcium 8.1 mg/dl (8.4-10.2); Carbon Dioxide 11 mmol/L (22-30); Chloride 99 mmol/L (98-107); Estimated Creatinine Clearance 11 ml/min; Glucose 268 mg/dl (70-99); Potassium 5.7 mmol/L (3.5-5.1); Sodium 129 mmol/L (135-145); Total Bilirubin 0.5 mg/dl (0.2-1.3); Total Protein 6.1 g/dl (6.3-8.2); eGFR 11.26
[2024-04-19 02:37] LABS: TSH Reflex To Free T4 4.94 uIU/ml (0.47-4.68)
[2024-04-19 03:06] LABS: Free T4 1.08 ng/dl (0.78-2.19)
[2024-04-19] MEDS: NSS 1000 IV (03:09)
[2024-04-19] MEDS: ANCEF 10 IV (03:09)
[2024-04-19] MEDS: VENTOLIN NEBULES 2.5 MG INH (03:10)
[2024-04-19] MEDS: LOKELMA 10 GRAM PO (03:12)
[2024-04-19] MEDS: NOVOLIN R 5 UNITS IV (03:12)
[2024-04-19 03:30] LABS: Urine Albumin Trace (Neg - Trace); Urine Bilirubin Negative (Negative); Urine Character Clear (Clear); Urine Color Yellow; Urine Glucose Trace (Negative); Urine Ketone Negative (Negative); Urine Leukocyte 1+ (Negative); Urine Nitrite Negative (Negative); Urine Occult Blood Negative (Negative); Urine Urobilinogen Negative (Neg - 1+)
--- NOTE | 2024-04-19 03:50 | EDRN ---
Dr. Fowler at bedside working on admission, was discussing with him what patient had already received, Dr. Fowler would like the bicarb not to be in dextrose, asked me to hold of on starting the drip and continue the NSS @ 150ml/hr and he will put in
for her to get the bicarb once that is completed.
--- NOTE | 2024-04-19 03:58 | HPS.HSE ---
Family Physician
-
Family Physician: Shukri Lara
Chief Complaint
-
Fatigue / Weakness. RLE Pain
History of Present Illness
Patient is a 79y F with PMH significant for ASCVD, CHFrEF, hypothyroidism and DM-II who presents to ED complaining of marked fatigue / weakness and general decline over the past week or so. Patient states that today she was so weak that she
could not get OOB. She notes that she has not eaten / drank or taken her medications for the past 3-4 days due to overwhelming weakness / fatigue. Her current symptoms started about one week ago. She had a follow-up visit with her Airway Controller
and had to walk a distance to get to the office. She felt extremely fatigued at that time and it has only progressed since.
Patient was last admitted here in October of this year when she was treated for CHF and severe multivessel coronary disease. She was deemed not a surgical candidate and was started on GDMT and new diuretics.
Patient states that she has been monitoring her weight and she has lost 65 lbs since that time.
She has not had an follow-up labs since her October admission.
Patient denies any chest pain. She states that she has chronic dyspnea with activity that is not significantly changed since October.
She denies any new cough, fevers / chills, abdominal pain, N/V.
She does note that she has been having episodes of incontinence of loose / watery stools. It is difficult to quantify the amount / frequency.
She also complains of pain in the R leg that also started about one week ago. the leg is red appearing and quite painful to touch / move.
Patient denies any known injury or trauma. She states that she has mostly been lying bed / sitting in a chair and has not been moving around much.
Medical History
Past Medical History
Past Medical History: Reports Other
Additional Past Medical History:
ASCVD
Chronic HFrEF (25% October 2023)
Hypertension
CKD III
Depression / Anxiety
Agoraphobia
Hyperlipidemia
Breast cancer
Hypothyroidism
Fibromyalgia
DM-II with Retinopathy and Neuropathy
Past Surgical History: Reports Other
Additional Past Surgical History:
Tonsillectomy
Cataract extraction
Right lumpectomy
Social History
Tobacco: Non-smoker
Alcohol: None
Drug: None
Personal: Single
Living: Alone
Family History
Family History: Not pertinent
Allergies / Home Medications
Allergies reflects when Allergies were last updated in [facility].
Home Medications with original date entered in [facility]
Allergy/Medication List:
Allergies
Allergy/AdvReac Type Severity Reaction Status Date / Time
lidocaine Allergy very cold Verified 04/19/24 01:01
& shakes
phenobarbital Allergy patient Verified 04/19/24 01:01
denies
phenytoin Allergy patient Verified 04/19/24 01:01
denies
Sulfa (Sulfonamide Allergy Itching Verified 04/19/24 01:01
Antibiotics)
sulfisoxazole Allergy Itching Verified 04/19/24 01:01
codeine AdvReac 'shakiness' Verified 04/19/24 01:01
anti hypertensives Allergy Unknown Unknown Uncoded 04/19/24 01:01
most pain medicines Allergy 'per Uncoded 04/19/24 01:01
patient -
they cause
problems'
perfumed soaps Allergy Rash Uncoded 04/19/24 01:01
Home Medications
thyroid (pork) 90 mg tablet ([place] Thyroid) 90 mg PO DAILY Thyroid 09/03/13
latanoprost 0.005 % eye drops 1 drp BOTH EYES HS Eye Condition 11/05/23
aspirin 81 mg chewable tablet (Children's Aspirin) 81 mg PO DAILY #30 tabs 11/15/23
atorvastatin 20 mg tablet 20 mg PO QPM #30 tabs 11/15/23
carvedilol 3.125 mg tablet 3.125 mg PO BID #60 tabs 11/15/23
lisinopril 5 mg tablet 5 mg PO DAILY #30 tabs 11/15/23
Probiotic 04/19/24
docusate sodium 100 mg capsule (Colace) 100 mg PO BID 04/19/24
glyburide 5 mg tablet 5 mg PO BID 04/19/24
metformin 500 mg tablet 500 mg PO BID 04/19/24
Review of Systems
-
History Source: Patient
A 12 point ROS was completed and negative except as noted: Yes
Constitutional: Reports Weight Loss (65 lbs in 5 months) and Fatigue; Denies Fever
EENT: Denies Sore Throat
Respiratory: Reports Trouble Breathing (MILLS); Denies Cough
Cardiac: Denies Chest Pain, Palpitations or Syncope
Abdomen/GI: Reports Diarrhea and Anorexia; Denies Abdominal Pain, Nausea, Vomiting or Bloody Stools
: Reports Frequency; Denies Dysuria, Incontinence or Difficulty Voiding
Musculoskeletal: Denies Joint Pain or Edema
Neurological: Reports Dizzy and Weakness; Denies Headache
Psych: Denies Depression or Anxiety
Physical Exam
Vital Signs
Vital Signs
Temp Pulse Resp BP Pulse Ox
98.2 F 102 12 143/54 100
04/19/24 00:55 04/19/24 03:30 04/19/24 03:30 04/19/24 03:00 04/19/24 00:55
Physical Exam
General: Other (79y F in no acute distress.)
HEENT: Other (Dry MM. Neck supple.)
Respiratory: Clear; No Wheezes, Rales or Rhonchi
Cardiac: S1/S2 and Regular Rhythm; No Murmur
GI: Soft, Non Tender, Non Distended and Normal Bowel Sounds
Musculoskeletal: No Clubbing, No Cyanosis and Other (Erythematous / petechial rash over the RLE. Significantly tender. Trace edema.)
Neuro: AO x 3 and Nonfocal/grossly intact
Laboratory Results
-
04/19/24 01:04
04/19/24 01:46
Laboratory Results
Lactic Acid 1.3 mmol/L (0.7-2.0) 04/19/24 01:46
Total Bilirubin 0.5 mg/dl (0.2-1.3) 04/19/24:46
AST 78 U/L (14-36) H 04/19/24:46
ALT 56 U/L (0-35) H 04/19/24:46
Alkaline Phosphatase 66 U/L (38-126) 04/19/24 01:46
Impression/Plan
-
A/P: Patient is a 79y F with PMH significant for ASCVD, CHF, HTN and DM-II who presents to ED complaining of marked weakness / fatigue and RLE pain / redness.
FAWN on CKD III
Anion Gap Metabolic Acidosis
Hyperkalemia secondary to the above
Hyponatremia
- Admit for further evaluation and treatment.
- Suspect excessive diuresis / prerenal etiology coupled with med effects (RIGO inhibitor / metformin / etc).
- Lokelma was given in the ED along with NSS bolus.
- Hold diuretics acutely.
- Hold lisinopril / metformin.
- Liao placed in the ED to monitor I/Os / urine output.
- IVFs with supplemental bicarb for now.
- Follow labs and lytes q4 hours for now and adjust fluids as needed.
- Nephrology evaluation for additional recommendations.
- Follow for clinical improvement coincident with improvement in labs.
RLE Cellulitis
- Petechial / red rash from the knee to the toes.
- Significantly tender. Afebrile. Noted leukocytosis.
- Continue IV abx and follow for clinical changes.
Chronic HFrEF
- Patient with excessive weight loss since October admission.
- Hold diuretics (Lasix / Aldactone) as noted above.
- Follow daily weights, I/Os, etc.
- Consider updating Echo.
ASCVD
- Severe multivessel disease noted on cardiac cath in October.
- Not surgical candidate and plan for medical therapy.
- Continue ASA, statin, etc.
DM-II
- Uncontrolled. Hyperglycemia noted in the ED - follow for changes with volume replacement.
- Hold PO medications including metformin and glyburide.
- Follow glucose and cover with SSI as needed.
- Update A1C.
Hypothyroidism
- Stable. Continue current [place] Thyroid replacement.
- TFTs done today are essentially unremarkable (mildly elevated TSH / normal T4).
DVT Prophylaxis: Subcut Heparin
Code Status: Full
[2024-04-19 04:12] LABS: Urine Bacteria Moderate (Negative); Urine White Cell 30-40 /HPF (0-5)
--- NOTE | 2024-04-19 05:02 | EDRN ---
Patient asked to use bedside commode was able to transfer with help, attempted to have a bowl movement but states she can't go anymore, patient back in bed and lights turned down, call dowling in reach.
[2024-04-19 06:41] LABS: Hematocrit 33.5 % (37.0-47.0); Hemoglobin 11.4 g/dL (12.0-16.0); Mean Corpuscular Hgb 32.6 pg (27.0-31.0); Mean Corpuscular Volume 95.7 fL (81.0-99.0); Mean Platelet Volume 9.6 fL (7.4-10.4); Platelet Count 244 10^3/uL (130-400); Red Cell Dist. Width 13.2 % (11.5-14.5); White Blood Cell Count 16.9 10^3/uL (4.8-10.8)
--- NOTE | 2024-04-19 07:00 | PTCARENOTE ---
received patient from ER. assessment documented. AM labs sent. SR on monitor, on RA. tello intact, ordered for FAWN. IVF infusing, waiting for bicarb gtt from pharmacy. call dowling in reach.
[2024-04-19 07:17] LABS: Blood Urea Nitrogen 104 mg/dl (7-17); Calcium 7.6 mg/dl (8.4-10.2); Carbon Dioxide 12 mmol/L (22-30); Chloride 99 mmol/L (98-107); Estimated Creatinine Clearance 12 ml/min; Glucose 209 mg/dl (70-99); Magnesium 2.1 mg/dl (1.6-2.3); Potassium 4.9 mmol/L (3.5-5.1); Sodium 129 mmol/L (135-145); eGFR 13.28
[2024-04-19] MEDS: ARMOUR THYROID 90 MG PO (07:22)
[2024-04-19] MEDS: COLACE 100 MG PO ×2 (07:22→19:45)
[2024-04-19] MEDS: COREG 3.125 MG PO ×2 (07:22→19:46)
[2024-04-19] MEDS: LOW STRENGTH ASPIRIN 81 MG PO (07:22)
[2024-04-19] MEDS: HEPARIN 5000 UNITS SC ×2 (07:23→19:45)
[2024-04-19 07:31] LABS: Glucose - Point of Care 266 mg/dl (70-99)
[2024-04-19] MEDS: ANCEF 5 IV ×2 (07:46→19:45)
[2024-04-19] MEDS: NOVOLOG FLEXPEN-MODERATE RESISTANCE 5 UNITS SC ×2 (07:47→12:29)
[2024-04-19] MEDS: SODIUM BICARBONATE 1150 MEQ IV ×2 (07:58→18:05)
[2024-04-19 08:38] LABS: Glycohemoglobin (HgbA1c) 8.4 % (4.0-5.6)
--- NOTE | 2024-04-19 09:27 | W.CON.NEPH ---
Consultation
-
Date/Time Consultation Requested: 04/19/24 0600
Date/Time Consultation Performed: 04/19/24 0930
Requesting Provider: Clarke Alexander
Performing Provider: Hina Lagunas
Reason for Consultation: FAWN, met acidosis
Medical History
-
Chief Complaint: gen weakness
History of Present Illness:
Patient is a 79y F with PMH significant for ASCVD, CHFrEF 25%, hypothyroidism on armour thyroid, and DM-II on meformin and Glyburide who presents to ED on 04/18 complaining of marked fatigue / weakness and general decline over the past week or
so. Patient states that today she was so weak that she could not get OOB. She notes that she has not eaten / drank or taken her medications for the past 3-4 days due to overwhelming weakness / fatigue. Her current symptoms started about one week
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 She felt extremely fatigued since that time and it has only progressed since.
Patient was last admitted here in October of this year when she was treated for CHF and severe multivessel coronary disease. She was deemed not a surgical candidate and was started on GDMT and new diuretics. No SGLT2I was started with UTI. During her
recent cards visit lasix was lowered to 20mg daily.
Patient states that she has been monitoring her weight and she has lost 65 lbs since that time.
SHe reports only eating breakfast and rest of the day nibbling on fruits since she could not cook. She has caregivers who help her with basic needs. For last 4days ago she became bedbound and unable to move. On arrival to ER c/o right leg pain and
redness. No DVT noted on US. Cr noted at 3.9, bicarb of 11, k 5.7 s/p Lokelma, na at 129, tello placed and drained 400cc, No hypotension s/p .25lit of NS given and currently running bicarb IVF.
last admit in October cr was in range of 1.5-1.9, and post d/c cr at 2 on November 22.
Patient denies any chest pain. She states that she has chronic dyspnea with activity that is not significantly changed since October. c/o dysphagia for few few days. 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 She does
note that she has been having episodes of incontinence of loose / watery stools. It is difficult to quantify the amount / frequency. No falls.
Past Medical History
ASCVD
Chronic HFrEF (25% October 2023)
Hypertension
CKD III
Depression / Anxiety
Agoraphobia
Hyperlipidemia
Breast cancer
Hypothyroidism
Fibromyalgia
DM-II with Retinopathy and Neuropathy
Past Surgical History: Other (Tonsillectomy Cataract extraction Right lumpectomy )
Social History
son lives in [place]
Tobacco: Non-Smoker
Alcohol: None
Drug: None
Personal: Single
Living: Alone
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
Family History
no CKD
Family History: Not Pertinent
Allergies / Home Medications
Allergy/AdvReac Type Severity Reaction Status Date / Time
lidocaine Allergy very cold Verified 04/19/24 01:01
& shakes
phenobarbital Allergy patient Verified 04/19/24 01:01
denies
phenytoin Allergy patient Verified 04/19/24 01:01
denies
Sulfa (Sulfonamide Allergy Itching Verified 04/19/24 01:01
Antibiotics)
sulfisoxazole Allergy Itching Verified 04/19/24 01:01
codeine AdvReac 'shakiness' Verified 04/19/24 01:01
anti hypertensives Allergy Unknown Unknown Uncoded 04/19/24 01:01
most pain medicines Allergy 'per Uncoded 04/19/24 01:01
patient -
they cause
problems'
perfumed soaps Allergy Rash Uncoded 04/19/24 01:01
�Medication �Instructions �Recorded �Confirmed �Type
thyroid (pork) 90 mg tablet 90 mg PO DAILY Thyroid 09/03/13 04/19/24 History
([place] Thyroid)
latanoprost 0.005 % eye drops 1 drp BOTH EYES HS Eye Condition 11/05/23 04/19/24 History
aspirin 81 mg chewable tablet 81 mg PO DAILY #30 tabs 11/15/23 04/19/24 Rx
(Children's Aspirin)
atorvastatin 20 mg tablet 20 mg PO QPM #30 tabs 11/15/23 04/19/24 Rx
carvedilol 3.125 mg tablet 3.125 mg PO BID #60 tabs 11/15/23 04/19/24 Rx
lisinopril 5 mg tablet 5 mg PO DAILY #30 tabs 11/15/23 04/19/24 Rx
Probiotic 04/19/24 History
docusate sodium 100 mg capsule 100 mg PO BID 04/19/24 04/19/24 History
(Colace)
glyburide 5 mg tablet 5 mg PO BID 04/19/24 04/19/24 History
metformin 500 mg tablet 500 mg PO BID 04/19/24 04/19/24 History
Review of Systems
-
All complete 12 point ROS have been inquired and found negative other than stated in HPI
Physical Exam
Vital Signs
Vital Signs
Temp Pulse Resp BP Pulse Ox
98.3 F 93 18 135/50 97
04/19/24 07:30 04/19/24 07:22 04/19/24 07:00 04/19/24 07:22 04/19/24 08:37
Lab Results
WBC 16.9 10^3/uL (4.8-10.8) H 04/19/24 06:26
RBC 3.50 10^6/uL (4.20-5.40) L 04/19/24 06:26
Hgb 11.4 g/dL (12.0-16.0) L 04/19/24 06:26
Hct 33.5 % (37.0-47.0) L 04/19/24 06:26
Plt Count 244 10^3/uL (130-400) 04/19/24 06:26
eGFR Cancelled 04/19/24 09:59
Phosphorus 5.0 mg/dl (2.5-4.5) H 04/19/24 06:26
Albumin 3.5 g/dl (3.5-5.0) 04/19/24 01:46
Abnormal Lab Results
04/19/24 04/19/24 04/19/24
01:04 01:46 03:07
WBC 18.2 H
RBC 3.89 L
Hgb
Hct
MCH 32.1 H
Abs Immat Gran (auto) 0.1 H
Absolute Neuts (auto) 16.1 H
Absolute Monos (auto) 0.8 H
Neutrophils % 88.2 H
Lymphocytes % 6.6 L
Sodium 129 L
Potassium 5.7 H
Carbon Dioxide 11 L*
BUN 106 H*
Creatinine 3.9 H
Glucose 268 H
Hemoglobin A1c
Calcium 8.1 L
Phosphorus
AST 78 H
ALT 56 H
Total Protein 6.1 L
TSH (Reflex) 4.94 H
Leukocyte Esterase Rfl 1+ A
Urine RBC 3-6 A
Urine WBC (Reflex) 30-40 A
Urine Bacteria (Reflex) Moderate A
Urine Glucose Trace A
POC Glucose
04/19/24 04/19/24
06:26 07:20
WBC 16.9 H
RBC 3.50 L
Hgb 11.4 L
Hct 33.5 L
MCH 32.6 H
Abs Immat Gran (auto)
Absolute Neuts (auto)
Absolute Monos (auto)
Neutrophils %
Lymphocytes %
Sodium 129 L
Potassium
Carbon Dioxide 12 L*
BUN 104 H*
Creatinine 3.4 H
Glucose 209 H
Hemoglobin A1c 8.4 H
Calcium 7.6 L
Phosphorus 5.0 H
AST
ALT
Total Protein
TSH (Reflex)
Leukocyte Esterase Rfl
Urine RBC
Urine WBC (Reflex)
Urine Bacteria (Reflex)
Urine Glucose
POC Glucose 266 H
Physical Exam
General: Awake, Alert, Oriented, AOx3, No Distress and Nontoxic
HEENT: EOMI, Anicteric, Conjunctivae Clear, Facial Symmetry and Neck Supple
Respiratory: Clear, Normal Excursion and Nonlabored Respirations
Cardiac: S1/S2 and Regular Rate/Rhythm
Breast: Deferred by me
Abdomen: Soft, Nontender and Nondistended
Musculoskeletal: No Cyanosis, No Edema and Other
Skin: Other (right LE with TTP and erythema noted)
Neuro: Nonfocal/Grossly Intact
Psych: Mood/afflect pleasant, Insight/judgement good and Appropriate
Data Reviewed
-
Radiology: Report Reviewed by me and Discussed with Patient
Labs: Labs Reviewed by me and Discussed with Patient
Assessment/Plan
-
IMP:
FAWN on CKD 3 vs 4
Azotemia
Anion Gap Metabolic Acidosis
Hyperkalemia
Hyponatremia
RLE Cellulitis
Chronic HFrEF
ASCVD- Severe multivessel disease noted on cardiac cath in October.
DM-II
Hypothyroidism
Plan:
A/w gen weakness and right leg cellulitis
FAWN-suspect prerenal with poor po intake
cr is slowly improving , would cont IVF , barely non oliguric so far
UA ?UTI sample, check Fena and keep tello
check renal US for baseline
her previous cr seem to be at 1.5-1.9 may have CKD 4 -mostly cardiorenal
check U PCR to r/o proteinuria with h/o DM
Sig met acidosis, normal L acid and no ketones on UA-cont bicarb IVF
suspect gap and non gap met acidosis from FAWN and GI loss
BP stable, hold diuretics and ACEI
also hold glyburide and metformin
hyperkalemia improved s/p Lokelma
no SGLT2I with UTI
likely check echo -supposed to have it in Dec out pt
hyponatremia likely from hypovolemia-monitor with IVF
follow LFTs
vol status seem on dry end but cautious with low EF 25%
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
dose meds renally
on Ancef for celllulitis
Also w/u dysphagia?
d/w pt in detail
d/w nursing
high risk encounter
--- NOTE | 2024-04-19 11:37 | PTCARENOTE ---
AM care and rounds completed, pt worked with PT OOB to chair. offers no complaints of pain. US now at bedside for renal US. CB in reach
[2024-04-19 12:09] LABS: Glucose - Point of Care 279 mg/dl (70-99)
--- NOTE | 2024-04-19 14:07 | CM ---
CM following re: discharge planning.
Reviewed pt's chart, met with pt.
Pt is a 79 year old female admitted with primary dx of Fatigue / Weakness. RLE Pain
patient lives alone in mobile home at [place] [id number], she has 3 steps, bed and bath is on the first level, ambulates without device but uses A of 1 person to A(to hold hr hand).she is I in bathing with a shower chair in bath tub.
pt is known to [facility] and [facility]. No SNF history. Pt reports she has been experienced weakness and inability to walk for the past week.
Pt reports she has a son who lives in [place] and helps paying for caregivers. Pt reports he in 2017
PT and OT will evaluate the pt to determine a level of care at discharge.
PCP: Shukri Lara
Pharmacy: [facility] in [place].
D/C plan: most likely SNF if recommended by PT and OT.
CM will follow with discharge plan updates as hospitalization progresses
[2024-04-19 14:13] LABS: Osmolality Urine 412 mOsm/kg (300-900)
[2024-04-19 14:14] LABS: Urine Protein 17 mg/dl (0-12); Urine Sodium 8 mmol/L (30-90)
[2024-04-19 15:18] LABS: Blood Urea Nitrogen 111 mg/dl (7-17); Calcium 7.4 mg/dl (8.4-10.2); Carbon Dioxide 16 mmol/L (22-30); Chloride 95 mmol/L (98-107); Estimated Creatinine Clearance 12 ml/min; Glucose 330 mg/dl (70-99); Potassium 4.9 mmol/L (3.5-5.1); Sodium 127 mmol/L (135-145); eGFR 13.28
--- NOTE | 2024-04-19 15:30 | PTCARENOTE ---
confirm bicarb infusion to continue with nephro and attending. pt is improving, OOB to chair this afternoon. continue to trend labs. No change in assessment. CB in reach.
[2024-04-19] MEDS: NOVOLOG FLEXPEN-MODERATE RESISTANCE 7 UNITS SC (16:09)
[2024-04-19] MEDS: TYLENOL 650 MG PO ×2 (18:08→23:06)
[2024-04-19 20:25] LABS: Blood Urea Nitrogen 110 mg/dl (7-17); Calcium 7.6 mg/dl (8.4-10.2); Carbon Dioxide 18 mmol/L (22-30); Chloride 93 mmol/L (98-107); Estimated Creatinine Clearance 13 ml/min; Glucose 243 mg/dl (70-99); Sodium 127 mmol/L (135-145); eGFR 14.28
[2024-04-19 21:09] LABS: Glucose - Point of Care 242 mg/dl (70-99)
[2024-04-20] VITALS (13 sets, daily range): BP systolic 131–153; BP diastolic 52–87; BMI 20.7
[2024-04-20] MEDS: DILAUDID 0.25 MG IV (04:27)
[2024-04-20 04:49] LABS: % Basophils 0.2 % (0-2); % Eosinophils 1.1 % (0-6); % Immature Granulocytes 0.7 % (0-0.5); % Lymphocytes 10.9 % (20.5-51.1); % Monocytes 5.8 % (1.7-9.3); % Neutrophils 81.3 % (42.2-75.2); Absolute Eosinophils 0.1 10^3/uL (0-0.7); Absolute Immature Granulocytes 0.1 10^3/uL (0-0.05); Absolute Lymphocytes 1.3 10^3/uL (1.2-3.4); Absolute Monocytes 0.7 10^3/uL (0.1-0.6); Absolute Neutrophils 9.3 10^3/uL (1.4-6.5); Hematocrit 25.9 % (37.0-47.0); Hemoglobin 9.2 g/dL (12.0-16.0); Mean Corp Hgb Conc. 35.5 g/dL (33.0-37.0); Mean Corpuscular Hgb 33.1 pg (27.0-31.0); Mean Corpuscular Volume 93.2 fL (81.0-99.0); Mean Platelet Volume 9.9 fL (7.4-10.4); Nucleated Red Blood Cells % 0 %; Platelet Count 239 10^3/uL (130-400); Red Blood Cell Count 2.78 10^6/uL (4.20-5.40); Red Cell Dist. Width 12.2 % (11.5-14.5); White Blood Cell Count 11.5 10^3/uL (4.8-10.8)
--- NOTE | 2024-04-20 05:19 | PTCARENOTE ---
AM labs sent. 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 no other changes in assessment noted. pt assist x2 oob to bathroom to attempt bm with no luck overnight. tello care done. bicarb gtt continues. call
dowling within reach.
[2024-04-20 05:21] LABS: ALT (SGPT) 44 U/L (0-35); AST (SGOT) 85 U/L (14-36); Albumin 2.7 g/dl (3.5-5.0); Alkaline Phosphatase 80 U/L (38-126); Blood Urea Nitrogen 102 mg/dl (7-17); Carbon Dioxide 24 mmol/L (22-30); Chloride 94 mmol/L (98-107); Estimated Creatinine Clearance 15 ml/min; Glucose 186 mg/dl (70-99); Potassium 4.1 mmol/L (3.5-5.1); Sodium 128 mmol/L (135-145); Total Bilirubin 0.2 mg/dl (0.2-1.3); Total Protein 4.8 g/dl (6.3-8.2); eGFR 16.76
[2024-04-20 07:22] LABS: Glucose - Point of Care 241 mg/dl (70-99)
[2024-04-20] MEDS: ANCEF 5 IV ×2 (07:28→19:34)
[2024-04-20] MEDS: COREG 3.125 MG PO ×2 (07:29→19:35)
[2024-04-20] MEDS: LOW STRENGTH ASPIRIN 81 MG PO (07:30)
[2024-04-20] MEDS: ARMOUR THYROID 90 MG PO (07:30)
[2024-04-20] MEDS: HEPARIN 5000 UNITS SC ×2 (07:30→19:35)
[2024-04-20] MEDS: COLACE 100 MG PO ×2 (07:30→19:34)
[2024-04-20] MEDS: NOVOLOG FLEXPEN-MODERATE RESISTANCE 3 UNITS SC (07:31)
--- NOTE | 2024-04-20 09:17 | W.PN.NEPH.PH ---
Today's Communication / Plan
-
follow BMP
Assessment/Plan
-
IMP:
HOWARD on CKD 3 vs 4 (1.5-1.9)
Azotemia
Anion Gap Metabolic Acidosis
Hyperkalemia
Hyponatremia
RLE Cellulitis
Chronic HFrEF
ASCVD- Severe multivessel disease noted on cardiac cath in October.
DM-II
Hypothyroidism
Plan:
cap IVF
follow BMP
follow po intake
voiding trial in next 24-48 hrs
-
-
Date of Service: April 20, 2024
CC / HPI / ROS
-
Chief Complaint:
HOWARD
History of Present Illness:
Howard/Cr down to 2.8
Na low stable 128
K normal
BP stable
tello in place
Review of Systems:
no CP/SOB
Labs
-
Labs:
WBC 11.5 10^3/uL (4.8-10.8) H 04/20/24 04:13
RBC 2.78 10^6/uL (4.20-5.40) L 04/20/24 04:13
Hgb 9.2 g/dL (12.0-16.0) L 04/20/24 04:13
Hct 25.9 % (37.0-47.0) L 04/20/24 04:13
Plt Count 239 10^3/uL (130-400) 04/20/24 04:13
Sodium 128 mmol/L (135-145) L 04/20/24 04:13
Potassium 4.1 mmol/L (3.5-5.1) 04/20/24 04:13
Chloride 94 mmol/L (98-107) L 04/20/24 04:13
Carbon Dioxide 24 mmol/L (22-30) 04/20/24 04:13
BUN 102 mg/dl (7-17) H* 04/20/24 04:13
Creatinine 2.8 mg/dL (0.6-1.0) H 04/20/24 04:13
eGFR 16.76 04/20/24 04:13
Glucose 186 mg/dl (70-99) H 04/20/24 04:13
Calcium 7.0 mg/dl (8.4-10.2) L 04/20/24 04:13
Phosphorus 5.0 mg/dl (2.5-4.5) H 04/19/24 06:26
Albumin 2.7 g/dl (3.5-5.0) L 04/20/24 04:13
Physical Exam
-
Vital Signs:
Vital Signs
Temp Pulse Resp BP Pulse Ox
97 F 85 17 145/55 96
04/20/24 04:03 04/20/24 07:29 04/20/24 06:00 04/20/24 07:29 04/20/24 08:00
Cardiovascular:: Regular rate and rhythm
Respiratory:: Bilateral: CTA
Lung Excursion:: Normal
Abdomen:: Nontender and Soft
Bowel Sounds:: Normal
Extremity Edema:: None: Bilateral:
[2024-04-20] MEDS: NOVOLOG FLEXPEN-MODERATE RESISTANCE 7 UNITS SC ×2 (11:19→16:24)
[2024-04-20 11:28] LABS: Glucose - Point of Care 301 mg/dl (70-99)
--- NOTE | 2024-04-20 12:52 | CM ---
CM following re: discharge planning.
Reviewed pt's chart, met with pt.
PT and OT evaluations noted - SNF level of care recommended. Pt is aware, expressed her agreement. A list of SNFs provided. Following SNFs preferred: [facility], [facility], [facility]. A referral to above SNFs made. Pt stated her number one choice
will be [facility]. Pt stated her son arrived to [place] today from [place] and he will visit the pt tomorrow. Pt stated she will go over a list of SNFs again with her son and will make any corrections.
D/C plan: preferred SNF.
CM will follow to assist pt with discharge to a preferred SNF
[2024-04-20] MEDS: LANTUS 0.1 UNITS SC (13:28)
--- NOTE | 2024-04-20 14:30 | PTCARENOTE ---
pt OOB to chair for lunch. x2 assist to ambulate to bathroom. Now resting comfortably in bed. remains NSR and on RA. CB in reach. no change in assessment
--- NOTE | 2024-04-20 14:53 | W.PN.HOSP.TC ---
Today's Communication/Plan
-
Assessment / Plan
Assessment / Plan
Imaging
Physical Exam
NAD, resting comfortably in bed
Scleral anicteric
Moist mucous membranes
No JVD
CTA bilateral
Normal S1-S2 no murmurs
Soft nontender nondistended bowel sounds active
Right lower extremity swelling with a a petechiae well-demarcated erythematous flat rash that extends to above the knee from the ankle
Moves extremities spontaneously
AAOx3
Assessment and Plan
FAWN versus questionable progressive CKD
�Baseline Cr 1.9
�Pre-renal (overdiuresis and poor p.o. intake)
�Urine lytes
�Bladder scan
�Nonoligouric
�Avoid nephrotoxins and hypotension
�Renal diet
-nephrology following
Right lower extremity cellulitis versus atypical petechial rash
-Improving white count on Ancef
-However there has been further spread today compared to yesterday
-DVT study negative
-Cannot completely exclude small vessel vasculitides
-May eventually need outpatient rheumatology/dermatology follow-up for biopsy
-Will check CPK if high will obtain noncontrast CT daily would want a contrast CT to assess if myofascicle planes involved
Severe anion gap none anion gap metabolic acidosis
-Likely in the setting of FAWN and GI losses
-Previously on bicarbonate drip
-Now discontinued
-Will continue to follow
Hypothyroidism
-Continue levothyroxine
Diabetes type 2
-Hyperglycemic
�Sliding scale
�Accu-Cheks
�Long and short acting insulin initiated
Chronic HFrEF, ICM, EF 25%, hypovolemic NYHA class II
-Hold Lasix
-Hold RIGO inhibitor
-Continue beta-hilda
-Monitor volume status
-Keep potassium greater than 4 magnesium greater than 2
-Monitor urinary output
CAD, severe multivessel CAD
-Medical manage
-Continue outpatient cardiology discussions for medical management versus CABG
-Continue aspirin statin and beta-hilda
Anticipated Discharge: > 48 hours
Subjective/Interval History
-
Date of Service: April 20, 2024
seen and exained. no new complaints. no acute overnight events
no pian
Objective Data
-
Labs:
Laboratory Results
04/20/24
04:13
WBC 11.5 H
Hgb 9.2 L
Hct 25.9 L
Plt Count 239
Sodium 128 L
Potassium 4.1
Chloride 94 L
Carbon Dioxide 24
BUN 102 H*
Creatinine 2.8 H
Glucose 186 H
Calcium 7.0 L
Total Bilirubin 0.2
AST 85 H
ALT 44 H
Alkaline Phosphatase 80
Vital Signs:
Vital Signs
Temp Pulse Resp BP Pulse Ox
98.3 F 84 14 145/52 97
04/20/24 11:05 04/20/24 12:00 04/20/24 12:00 04/20/24 12:00 04/20/24 10:00
I&O
04/19/24 04/20/24 04/21/24
06:59 06:59 06:59
Intake Total 2280 / 2280
Output Total 400 / 400 1050 / 1050
Balance -400 / -400 1230 / 1230
[2024-04-20 16:21] LABS: Glucose - Point of Care 320 mg/dl (70-99)
[2024-04-20] MEDS: NOVOLOG FLEXPEN 4 UNITS SC (16:24)
[2024-04-20] MEDS: TYLENOL 650 MG PO (19:39)
--- NOTE | 2024-04-20 20:10 | PTCARENOTE ---
resumed care of pt laying in bed AAOx3, slightly forgetful. HR in the 70's in NSR on the monitor. POX 97% on RA. Lungs clear. + bowel. Liao cath in place draining yellow urine per FAWN. + 1 RLE. RLE redness, warmth, tender to touch. PRN Tylenol
administered as ordered. Heels elevated on pillows. Pt turned and repositioned per comfort. Warm blankets provided. Left wrist int capped. Call dowling in reach. Bed alarm in place. Will continue to monitor.
[2024-04-20 22:05] LABS: Glucose - Point of Care 100 mg/dl (70-99)
--- NOTE | 2024-04-20 23:36 | PTCARENOTE ---
Pt transferred to unit. aaox3, forgetful. C/o pain in RLE, painful to light touch. RLE pedal pulse + with doppler. RLE red & warm, more like a rash, elevated on a pillow. Pt remains Q2T. NSR on monitor, remains RA lungs clear. No other issues at
this time. Will monitor.
[2024-04-21] VITALS (17 sets, daily range): BP systolic 112–149; BP diastolic 51–111; PULSE 84; O2SAT 97; BMI 21.5
[2024-04-21] MEDS: TYLENOL 650 MG PO (04:00)
[2024-04-21 06:04] LABS: Blood Urea Nitrogen 89 mg/dl (7-17); Calcium 7.4 mg/dl (8.4-10.2); Carbon Dioxide 25 mmol/L (22-30); Chloride 96 mmol/L (98-107); Creatine Phosphokinase 226 U/L (30-135); Estimated Creatinine Clearance 19 ml/min; Glucose 154 mg/dl (70-99); Potassium 4.4 mmol/L (3.5-5.1); Sodium 131 mmol/L (135-145); eGFR 21.22
[2024-04-21 07:37] LABS: Glucose - Point of Care 185 mg/dl (70-99)
[2024-04-21] MEDS: NOVOLOG FLEXPEN-MODERATE RESISTANCE 1 UNITS SC (08:15)
[2024-04-21] MEDS: NOVOLOG FLEXPEN 4 UNITS SC ×3 (08:15→16:10)
[2024-04-21] MEDS: ARMOUR THYROID 90 MG PO (08:16)
[2024-04-21] MEDS: COREG 3.125 MG PO ×2 (08:16→20:02)
[2024-04-21] MEDS: LOW STRENGTH ASPIRIN 81 MG PO (08:16)
[2024-04-21] MEDS: COLACE 100 MG PO ×2 (08:16→20:03)
[2024-04-21] MEDS: ANCEF 5 IV ×2 (08:17→20:07)
[2024-04-21] MEDS: HEPARIN 5000 UNITS SC ×2 (08:17→20:03)
[2024-04-21 12:26] LABS: Glucose - Point of Care 218 mg/dl (70-99)
[2024-04-21] MEDS: NOVOLOG FLEXPEN-MODERATE RESISTANCE 3 UNITS SC (12:30)
[2024-04-21] MEDS: LANTUS 0.1 UNITS SC (13:11)
[2024-04-21] MEDS: MIRALAX 17 GRAMS PO (13:12)
--- NOTE | 2024-04-21 13:58 | W.PN.HOSP.TC ---
Today's Communication/Plan
-
Assessment / Plan
Assessment / Plan
Physical Exam
NAD, resting comfortably in bed
Scleral anicteric
Moist mucous membranes
No JVD
CTA bilateral
Normal S1-S2 no murmurs
Soft nontender nondistended bowel sounds active
Right lower extremity swelling with a a petechiae well-demarcated erythematous flat rash that extends to above the knee from the ankle
Rigth ankle pain to touch, no really effused
Moves extremities spontaneously
AAOx3
Assessment and Plan
FAWN versus questionable progressive CKD
�Baseline Cr 1.9
�Pre-renal (overdiuresis and poor p.o. intake)
�Urine lytes
�Bladder scan
�Nonoligouric
�Avoid nephrotoxins and hypotension
�Renal diet
-nephrology following
Right lower extremity cellulitis versus atypical petechial rash
-Improving white count on Ancef
-However there has been further spread today compared to yesterday
-DVT study negative
-Cannot completely exclude small vessel vasculitides
-May eventually need outpatient rheumatology/dermatology follow-up for biopsy
-CK low in gthe 200's
Severe anion gap none anion gap metabolic acidosis
-Likely in the setting of FAWN and GI losses
-Previously on bicarbonate drip
-Now discontinued
-Will continue to follow
Hypothyroidism
-Continue levothyroxine
Diabetes type 2
-Hyperglycemic
�Sliding scale
�Accu-Cheks
�Long and short acting insulin initiated
Chronic HFrEF, ICM, EF 25%, hypovolemic NYHA class II
-Hold Lasix
-Hold RIGO inhibitor
-Continue beta-hilda
-Monitor volume status
-Keep potassium greater than 4 magnesium greater than 2
-Monitor urinary output
Right ankle pain
-Ortho consult
-Xray
-Uric acid
CAD, severe multivessel CAD
-Medical manage
-Continue outpatient cardiology discussions for medical management versus CABG
-Continue aspirin statin and beta-hilda
Anticipated Discharge: 24 - 48 hours
Subjective/Interval History
-
Date of Service: April 21, 2024
Seen and examined. No new complaints. No acute overnight events
Objective Data
-
Labs:
Laboratory Results
04/21/24
05:14
Sodium 131 L
Potassium 4.4
Chloride 96 L
Carbon Dioxide 25
BUN 89 H
Creatinine 2.3 H
Glucose 154 H
Calcium 7.4 L
Vital Signs:
Vital Signs
Temp Pulse Resp BP Pulse Ox
97.6 F 79 17 139/52 96
04/21/24 11:05 04/21/24 10:00 04/21/24 10:00 04/21/24 10:00 04/21/24 10:18
I&O
04/20/24 04/21/24 04/22/24
06:59 06:59 06:59
Intake Total 2280 / 2280 120 / 120
Output Total 1050 / 1050 1450 / 1450 225 / 225
Balance 1230 / 1230 -1330 / -1330 -225 / -225
[2024-04-21 15:55] LABS: Glucose - Point of Care 299 mg/dl (70-99)
[2024-04-21] MEDS: NOVOLOG FLEXPEN-MODERATE RESISTANCE 5 UNITS SC (16:09)
--- NOTE | 2024-04-21 16:57 | PTCARENOTE ---
see nursing assessment. omer removed this afternoon per order dtv at 2100. pt currently oob in chair. downgraded to tele level of care. report given to Alice on .
--- NOTE | 2024-04-21 19:01 | CON.MD ---
Consultation - Medical
-
Date/Time Consultation Requested: 04/19/24 0600
Date/Time Consultation Performed: 04/19/24 0930
Reason for Consultation: FAWN, met acidosis
Medical History
-
Chief Complaint: Cellulitis RLE and LE pain right more than left
History of Present Illness:
Patient is a 79y F with PMH significant for ASCVD, CHFrEF 25%, hypothyroidism, DM2 who presented to ED on 04/19 complaining of marked fatigue / weakness and general decline over the past week or so. For last 4days she became bedbound and unable
to move as result of generalized weakness as well as right leg pain and redness. She also states she has pain to her left heel for quite some time now as well as a new wound that was found by Dr Peralta, her suction plate roller hand approx 1-2 weeks ago. She has
not returned or sought any treatment for this.
Past Medical History:
ASCVD
Chronic HFrEF (25% October 2023)
HypertensionCKD III
Depression / Anxiety
Agoraphobia
Hyperlipidemia
Breast cancer
Hypothyroidism
Fibromyalgia
Past Surgical History: Other (Tonsillectomy Cataract extraction Right lumpectomy )
Social History: Lives alone, , son lives in [place]
Denies nicotine, drugs or alcohol use
Family History: Not Pertinent
Allergies / Home Medications
Allergy/AdvReac Type Severity Reaction Status Date / Time
lidocaine Allergy very cold Verified 04/19/24 01:01
& shakes
phenobarbital Allergy patient Verified 04/19/24 01:01
denies
phenytoin Allergy patient Verified 04/19/24 01:01
denies
Sulfa (Sulfonamide Allergy Itching Verified 04/19/24 01:01
Antibiotics)
sulfisoxazole Allergy Itching Verified 04/19/24 01:01
codeine AdvReac 'shakiness' Verified 04/19/24 01:01
anti hypertensives Allergy Unknown Unknown Uncoded 04/19/24 01:01
most pain medicines Allergy 'per Uncoded 04/19/24 01:01
patient -
they cause
problems'
perfumed soaps Allergy Rash Uncoded 04/19/24 01:01
�Medication �Instructions �Recorded �Confirmed �Type
thyroid (pork) 90 mg tablet 90 mg PO DAILY Thyroid 09/03/13 04/19/24 History
([place] Thyroid)
latanoprost 0.005 % eye drops 1 drp BOTH EYES HS Eye Condition 11/05/23 04/19/24 History
aspirin 81 mg chewable tablet 81 mg PO DAILY #30 tabs 11/15/23 04/19/24 Rx
(Children's Aspirin)
atorvastatin 20 mg tablet 20 mg PO QPM #30 tabs 11/15/23 04/19/24 Rx
carvedilol 3.125 mg tablet 3.125 mg PO BID #60 tabs 11/15/23 04/19/24 Rx
lisinopril 5 mg tablet 5 mg PO DAILY #30 tabs 11/15/23 04/19/24 Rx
Probiotic 04/19/24 History
docusate sodium 100 mg capsule 100 mg PO BID 04/19/24 04/19/24 History
(Colace)
glyburide 5 mg tablet 5 mg PO BID 04/19/24 04/19/24 History
metformin 500 mg tablet 500 mg PO BID 04/19/24 04/19/24 History
Review of Systems
All complete 12 point ROS have been inquired and found negative other than stated in HPI
Physical Exam
Vital Signs
Vital Signs
Temp Pulse Resp BP Pulse Ox
98.3 F 93 18 135/50 97
04/19/24 07:30 04/19/24 07:22 04/19/24 07:00 04/19/24 07:22 04/19/24 08:37
Lab Results
WBC 16.9 10^3/uL (4.8-10.8) H 04/19/24 06:26
RBC 3.50 10^6/uL (4.20-5.40) L 04/19/24 06:26
Hgb 11.4 g/dL (12.0-16.0) L 04/19/24 06:26
Hct 33.5 % (37.0-47.0) L 04/19/24 06:26
Plt Count 244 10^3/uL (130-400) 04/19/24 06:26
eGFR Cancelled 04/19/24 09:59
Phosphorus 5.0 mg/dl (2.5-4.5) H 04/19/24 06:26
Albumin 3.5 g/dl (3.5-5.0) 04/19/24 01:46
Abnormal Lab Results
04/19/24 04/19/24 04/19/24
01:04 01:46 03:07
WBC 18.2 H
RBC 3.89 L
Hgb
Hct
MCH 32.1 H
Abs Immat Gran (auto) 0.1 H
Absolute Neuts (auto) 16.1 H
Absolute Monos (auto) 0.8 H
Neutrophils % 88.2 H
Lymphocytes % 6.6 L
Sodium 129 L
Potassium 5.7 H
Carbon Dioxide 11 L*
BUN 106 H*
Creatinine 3.9 H
Glucose 268 H
Hemoglobin A1c
Calcium 8.1 L
Phosphorus
AST 78 H
ALT 56 H
Total Protein 6.1 L
TSH (Reflex) 4.94 H
Leukocyte Esterase Rfl 1+ A
Urine RBC 3-6 A
Urine WBC (Reflex) 30-40 A
Urine Bacteria (Reflex) Moderate A
Urine Glucose Trace A
POC Glucose
04/19/24 04/19/24
06:26 07:20
WBC 16.9 H
RBC 3.50 L
Hgb 11.4 L
Hct 33.5 L
MCH 32.6 H
Abs Immat Gran (auto)
Absolute Neuts (auto)
Absolute Monos (auto)
Neutrophils %
Lymphocytes %
Sodium 129 L
Potassium
Carbon Dioxide 12 L*
BUN 104 H*
Creatinine 3.4 H
Glucose 209 H
Hemoglobin A1c 8.4 H
Calcium 7.6 L
Phosphorus 5.0 H
AST
ALT
Total Protein
TSH (Reflex)
Leukocyte Esterase Rfl
Urine RBC
Urine WBC (Reflex)
Urine Bacteria (Reflex)
Urine Glucose
POC Glucose 266 H
Physical Exam
General: Pleasant, AOx3, No Distress and Nontoxic
LE focused exam:
Vascular: Feeble DPA and non palpable SUPERVISOR INSPECTION, poor skin texture and turgor + RLE edema
Musculoskeletal/Neuro: +Hyperaesthesia to legs and feet-limiting physical exam, no gross deformities B/L
Skin: Erysipelas RLE with ischemic changes to the RLE, gangrene/necrosis to the right great toe plantarly and 2 necrotic fissures to the left lateral heel that appear uninfected but very tender to touch
Data Reviewed
-
Radiology: Report Reviewed by me and Discussed with Patient
XRAY Right ankle- does not appear to reveal ST gas, + calcified vessels, + DJD
Labs: Labs Reviewed
Assessment/Plan
RLE Cellulitis
ASCVD- Severe multivessel disease noted on cardiac cath in October.
DM-II with CLI and B/L LE pain
Gangrene Right great toe
Necrotic fissures to the left lateral heel
Fibromyalgia
Plan:
Patient will not tolerate Ultrasound, however, I recommend vascular assessment/eval for treatment options to improve peripheral flow
Wound care and orders written for heating pad for symptom relief to the RLE (pain likely result of cellulitis as well as ischemia)
Do not suspect septic ankle at this time or Gout
Will check xray right foot r/o osteomyelitis right great toe- this appears to be the most likely source of the cellulitis RLE
on Ancef for celllulitis- consider ID eval
--- NOTE | 2024-04-21 20:00 | TRANSFER ---
received pt from [facility] at 1945. pt escorted by U PCT in wheelchair. pt was a stand and pivot with a 2 person assist from wheelchair to bed. pt AAOx3, VSS. oriented to room, call dowling in reach. plan of care ongoing.
[2024-04-21] MEDS: BACTROBAN 2% OINTMENT 1 APPLIC TOPICAL (20:29)
--- NOTE | 2024-04-21 21:30 | PTCARENOTE ---
pt due to void at 2100 per MD orders after removal of tello today at 1500. pt not able to void at this time. bladder scanned for 258. will continue to monitor.
[2024-04-21 21:53] LABS: Glucose - Point of Care 216 mg/dl (70-99)
[2024-04-22] VITALS (8 sets, daily range): BP systolic 118–159; BP diastolic 54–69; PULSE 80–92; O2SAT 98; BMI 21.3
[2024-04-22] MEDS: TYLENOL 650 MG PO ×3 (04:47→17:47)
[2024-04-22 07:13] LABS: Glucose - Point of Care 174 mg/dl (70-99)
[2024-04-22 07:29] LABS: Blood Urea Nitrogen 86 mg/dl (7-17); Carbon Dioxide 25 mmol/L (22-30); Chloride 97 mmol/L (98-107); Estimated Creatinine Clearance 24 ml/min; Glucose 166 mg/dl (70-99); Sodium 134 mmol/L (135-145); Uric Acid 7.4 mg/dl (2.5-6.2); eGFR 28.48
[2024-04-22] MEDS: NOVOLOG FLEXPEN-MODERATE RESISTANCE 1 UNITS SC ×2 (07:48→16:38)
[2024-04-22] MEDS: NOVOLOG FLEXPEN 4 UNITS SC ×3 (07:49→16:38)
[2024-04-22] MEDS: ANCEF 5 IV (07:50)
[2024-04-22] MEDS: ARMOUR THYROID 90 MG PO (07:51)
[2024-04-22] MEDS: COREG 3.125 MG PO ×2 (07:52→21:08)
[2024-04-22] MEDS: BACTROBAN 2% OINTMENT 1 APPLIC TOPICAL (07:52)
[2024-04-22] MEDS: COLACE 100 MG PO ×2 (07:52→21:08)
[2024-04-22] MEDS: LOW STRENGTH ASPIRIN 81 MG PO (07:54)
[2024-04-22] MEDS: HEPARIN 5000 UNITS SC ×2 (07:54→21:09)
--- NOTE | 2024-04-22 10:33 | CON.VAS ---
Addendum entered and electronically signed by Jasmeet Liao III, MD 04/22/24 19:51:
This patient was seen and examined with ERIKA Daltno. I agree with the history and physical exam as well as the assessment and plan. I have the following additions:
79-year-old female with right lower extremity pain below the knee and at the ankle
Reports that she is unable to stand or walk for unclear reasons
Nonhealing right hallux wound for several weeks at least
On physical exam she is tender to touch over the distal calf and ankle
Has scaly plaque-like area of red skin discoloration over her calf and ankle
Doppler signal present over the dorsalis pedis
No Doppler signal could be found over the posterior tibial
Recommending lower extremity arterial studies with ELIUD/TBI and arterial duplex. [place] once the studies are back to formulate a surgical plan which may involve arteriogram and possible endovascular intervention. Explained this to the
patient in detail.
Signed:
Jasmeet Liao III, MD
[facility] Vascular Surgery
[phone] (mlly)
Original Note:
Consultation
Consultation Request
Performing Provider: Yanni
Reason for Consultation: Nonhealing wounds
Medical History
-
Chief Complaint: Right lower extremity pain
History of Present Illness:
79-year-old female with significant past medical history for ASCVD, CHF, diabetes, hypertension, multivessel CAD (not surgical candidate) presented to our ER 04/19/2024 for fatigue and weakness x 1 week. Patient had stated she became so weak she
could not get out of bed. She had noted she did not eat or drink anything or taken her meds in 2 or 3 days due to this fatigue/weakness. Since admission patient also notes pain to the right lower extremity for about a week. Leg was painful to
touch in the ER. She had denied trauma or injury to the site and states she has not been very active lately.
Vascular consult for right lower extremity pain, PAD evaluation, right nonhealing toe wound. Patient seen at bedside this a.m. with Dr. Liao.
Small dry wound to right great toe. + Doppler DP on the right, PT absent, +1 femoral pulse.
Past Medical History
Past Medical History: Other (ASCVD, Chronic HFrEF (25% October 2023), Hypertension, CKD III, Depression / Anxiety, Agoraphobia, Hyperlipidemia, Breast cancer, Hypothyroidism, Fibromyalgia, DM-II with Retinopathy and Neuropathy)
Past Surgical History: , Tonsilectomy and Other (Cataract extraction, right lumpectomy)
Social History
Tobacco: Non-Smoker
Alcohol: None
Drug: None
Personal: Single
Living: Alone
Family History
Family History: Reviewed & Not Pertinent
Allergies / Home Medications
Allergy/AdvReac Type Severity Reaction Status Date / Time
lidocaine Allergy very cold Verified 04/19/24 01:01
& shakes
phenobarbital Allergy patient Verified 04/19/24 01:01
denies
phenytoin Allergy patient Verified 04/19/24 01:01
denies
Sulfa (Sulfonamide Allergy Itching Verified 04/19/24 01:01
Antibiotics)
sulfisoxazole Allergy Itching Verified 04/19/24 01:01
codeine AdvReac 'shakiness' Verified 04/19/24 01:01
anti hypertensives Allergy Unknown Unknown Uncoded 04/19/24 01:01
most pain medicines Allergy 'per Uncoded 04/19/24 01:01
patient -
they cause
problems'
perfumed soaps Allergy Rash Uncoded 04/19/24 01:01
�Medication �Instructions �Recorded �Confirmed �Type
thyroid (pork) 90 mg tablet 90 mg PO DAILY Thyroid 09/03/13 04/19/24 History
([place] Thyroid)
latanoprost 0.005 % eye drops 1 drp BOTH EYES HS Eye Condition 11/05/23 04/19/24 History
aspirin 81 mg chewable tablet 81 mg PO DAILY #30 tabs 11/15/23 04/19/24 Rx
(Children's Aspirin)
atorvastatin 20 mg tablet 20 mg PO QPM #30 tabs 11/15/23 04/19/24 Rx
carvedilol 3.125 mg tablet 3.125 mg PO BID #60 tabs 11/15/23 04/19/24 Rx
lisinopril 5 mg tablet 5 mg PO DAILY #30 tabs 11/15/23 04/19/24 Rx
Probiotic 04/19/24 History
docusate sodium 100 mg capsule 100 mg PO BID Constipation 04/19/24 04/19/24 History
(Colace)
glyburide 5 mg tablet 5 mg PO BID Diabetes 04/19/24 04/19/24 History
metformin 500 mg tablet 500 mg PO BID Diabetes 04/19/24 04/19/24 History
Review of Systems
-
History Source: Patient
All other systems: Negative unless noted
Constitutional: Reports Fatigue
EENT: Reports No Symptoms
Respiratory: Reports No Symptoms
Cardiac: Reports No Symptoms
Abdomen/GI: Reports No Symptoms
: Reports No Symptoms
Musculoskeletal: Reports Edema
Skin: Reports Other (Right great toe wound, skin highly sensitive to touch, dry, scaly)
Neurological: Reports No Symptoms
Endocrine: Reports No Symptoms
Physical Exam
Vital Signs
Temp Pulse Resp BP Pulse Ox
97.8 F 80 20 130/54 98
04/22/24 07:36 04/22/24 07:36 04/22/24 07:36 04/22/24 07:36 04/22/24 07:36
Lab Results
04/20/24 04:13
04/22/24 06:05
Physical Exam
General: No Apparent Distress
HEENT: Normocephalic and Atraumatic
Respiratory: Non Labored Respirations
Cardiac: Negative JVD
GI: Soft and Non Tender
Musculoskeletal: No Clubbing, No Cyanosis and Edema (Trace)
Skin: Warm, Dry and Other (Small dry wound to right great toe, skin dry and scaly, hypersensitive to touch)
Neuro: Awake
Psych: Calm
Pulses: Right Femoral: +1 and Right Dorsalis Pedis: Doppler
Assessment / Plan
-
79-year-old female with nonhealing right great toe wound vascular consult for PAD evaluation
Plan:
-Arterial ultrasound with ELIUD/TBI pending
-Continue local wound care
-Will follow-up with patient after scan
Data Reviewed
-
Labs: Labs Reviewed by me
[2024-04-22] MEDS: LANTUS SC (10:37)
[2024-04-22] MEDS: MAXIPIME 1000 MG IV ×2 (10:58→21:25)
[2024-04-22] MEDS: STERILE WATER FOR INJECTION 10 ML IV ×2 (10:58→21:18)
--- NOTE | 2024-04-22 11:07 | W.PN.NEPH.PH ---
Today's Communication / Plan
-
Observe
Assessment/Plan
-
IMP:
HOWARD on CKD 3 vs 4 (1.5-1.9)
Azotemia
Anion Gap Metabolic Acidosis
Hyperkalemia
Hyponatremia
RLE Cellulitis
Chronic HFrEF
ASCVD- Severe multivessel disease noted on cardiac cath in October.
DM-II
Hypothyroidism
Plan:
Sodium improving to 134
creatinine at baseline 1.8, nonoliguric via straight cath
follow po intake
voiding trial today, he does not look good postvoid residuals greater than 350 requiring intermittent straight cath
Low threshold for putting Liao back in
-
-
Date of Service: April 22, 2024
CC / HPI / ROS
-
Chief Complaint:
HOWARD
History of Present Illness:
Howard/Cr down to 1.8
Na up to 132 from 128
K normal
BP stable
Review of Systems:
no CP/SOB
Intermittent straight cath with high postvoid residual
Labs
-
Labs:
WBC 11.5 10^3/uL (4.8-10.8) H 04/20/24 04:13
RBC 2.78 10^6/uL (4.20-5.40) L 04/20/24 04:13
Hgb 9.2 g/dL (12.0-16.0) L 04/20/24 04:13
Hct 25.9 % (37.0-47.0) L 04/20/24 04:13
Plt Count 239 10^3/uL (130-400) 04/20/24 04:13
Sodium 134 mmol/L (135-145) L 04/22/24 06:05
Potassium 5.0 mmol/L (3.5-5.1) 04/22/24 06:05
Chloride 97 mmol/L (98-107) L 04/22/24 06:05
Carbon Dioxide 25 mmol/L (22-30) 04/22/24 06:05
BUN 86 mg/dl (7-17) H 04/22/24 06:05
Creatinine 1.8 mg/dL (0.6-1.0) H 04/22/24 06:05
eGFR 28.48 04/22/24 06:05
Glucose 166 mg/dl (70-99) H 04/22/24 06:05
Calcium 8.0 mg/dl (8.4-10.2) L 04/22/24 06:05
Phosphorus 5.0 mg/dl (2.5-4.5) H 04/19/24 06:26
Albumin 2.7 g/dl (3.5-5.0) L 04/20/24 04:13
Physical Exam
-
Vital Signs:
Vital Signs
Temp Pulse Resp BP Pulse Ox
97.8 F 80 20 130/54 98
04/22/24 07:36 04/22/24 07:36 04/22/24 07:36 04/22/24 07:36 04/22/24 07:36
Cardiovascular:: Regular rate and rhythm
Respiratory:: Bilateral: CTA
Lung Excursion:: Normal
Abdomen:: Nontender and Soft
Bowel Sounds:: Normal
Extremity Edema:: None: Bilateral:
Liao Catheter: No
[2024-04-22 11:28] LABS: Glucose - Point of Care 250 mg/dl (70-99)
[2024-04-22] MEDS: NOVOLOG FLEXPEN-MODERATE RESISTANCE 5 UNITS SC (11:29)
--- NOTE | 2024-04-22 14:08 | W.PN.HOSP.TC ---
Today's Communication/Plan
-
Assessment / Plan
Assessment / Plan
Physical Exam
NAD, resting comfortably in bed
Scleral anicteric
Moist mucous membranes
No JVD
CTA bilateral
Normal S1-S2 no murmurs
Soft nontender nondistended bowel sounds active
Right lower extremity swelling with a a petechiae well-demarcated erythematous flat rash that extends to above the knee from the ankle
Rigth ankle pain to touch, no really effused
Moves extremities spontaneously
AAOx3
Assessment and Plan
FAWN versus questionable progressive CKD
�Baseline Cr 1.9, now baseline
�Pre-renal (overdiuresis and poor p.o. intake)
�Urine lytes
�Bladder scan
�Nonoligouric, Liao removed however still retaining greater than 350 received 2 straight caths. If again retaining for greater than 350 will replace Liao
�Avoid nephrotoxins and hypotension
�Renal diet
-nephrology following
Right lower extremity cellulitis versus atypical petechial rash
-Improving, but no improvement in erythma/warmth/tnederness will start cefepime and stop ancef
-However there has been further spread today compared to yesterday
-DVT study negative
-Cannot completely exclude small vessel vasculitides
-Podiatry evaluated concern for right great toe infection/osteo-, MRI foot ordered, vascular surgery consulted for ELIUD/TBI
Severe anion gap none anion gap metabolic acidosis
-Likely in the setting of FAWN and GI losses
-Previously on bicarbonate drip
-Now discontinued
-Will continue to follow
Hypothyroidism
-Continue levothyroxine
Diabetes type 2
-Hyperglycemic
�Sliding scale
�Accu-Cheks
�Long and short acting insulin initiated
Chronic HFrEF, ICM, EF 25%, hypovolemic NYHA class II
-Hold Lasix
-Hold RIGO inhibitor
-Continue beta-hilda
-Monitor volume status
-Keep potassium greater than 4 magnesium greater than 2
-Monitor urinary output
Right ankle pain
-Ortho consult
-Xray
-Uric acid
CAD, severe multivessel CAD
-Medical manage
-Continue outpatient cardiology discussions for medical management versus CABG
-Continue aspirin statin and beta-hilda
Anticipated Discharge: > 48 hours
Subjective/Interval History
-
Date of Service: April 22, 2024
Seen and examined. No new complaints. No acute overnight events.
Objective Data
-
Labs:
Laboratory Results
04/22/24
06:05
Sodium 134 L
Potassium 5.0
Chloride 97 L
Carbon Dioxide 25
BUN 86 H
Creatinine 1.8 H
Glucose 166 H
Calcium 8.0 L
Vital Signs:
Vital Signs
Temp Pulse Resp BP Pulse Ox
98.2 F 82 20 156/69 97
04/22/24 11:39 04/22/24 11:39 04/22/24 11:39 04/22/24 11:39 04/22/24 11:39
I&O
04/21/24 04/22/24 04/23/24
06:59 06:59 06:59
Intake Total 120 / 120 1180 / 1180 240 / 240
Output Total 1450 / 1450 1125 / 1125
Balance -1330 / -1330 55 / 55 240 / 240
[2024-04-22 16:20] LABS: Glucose - Point of Care 183 mg/dl (70-99)
--- NOTE | 2024-04-22 17:04 | CON.ID ---
Consultation
-
Date/Time Consultation Requested: 04/22/2024 0914
Date/Time Consultation Performed: 04/22/2024 1630
Requesting Provider: Dr. Delatorre
Performing Provider: Dr. Lai
Reason for Consultation: Right lower extremity cellulitis; right foot infection
Chief Complaint / Past History
History of Present Illness
Casandra Tyson is a 79-year-old female with a significant past medical history of diabetes mellitus (with associated neuropathy/retinopathy) being evaluated at the request of Dr. Delatorre in regards to right lower extremity cellulitis and right hallux
infection. History is obtained from chart review, along with patient interview, along with history obtained from the patient's son who was present at the bedside.
The patient reports that she has had some generalized weakness over the past week or so, that ultimately resulted with her calling the police to bring her in to the hospital for further evaluation. She reports some right leg pain and redness which
is gone on for approximately the past week, and seemed to start rather acutely. Additionally, she reports that she has had an infection of right hallux for the past 3 weeks or so.
Earlier this week she had marked increase in erythema of the right lower extremity, that likely contributed to her generalized weakness.
She denies any history of trauma to the right foot or leg.
Past History
Additional Past Medical History:
Hx breast CA
CKD stage III
HTN
CHF
DM with associated neuropathy/retinopathy
Fibromyalgia
Hypothyroidism
Diverticulosis
IBS
ASCVD
Depression/anxiety
Additional Past Surgical History:
Cataract surgery
Right lumpectomy
Allergy History:
lidocaine Allergy (Verified 04/19/24 01:01)
very cold & shakes
phenobarbital Allergy (Verified 04/19/24 01:01)
patient denies
phenytoin Allergy (Verified 04/19/24 01:01)
patient denies
Sulfa (Sulfonamide Antibiotics) Allergy (Verified 04/19/24 01:01)
Itching
codeine Adverse Reaction (Verified 04/19/24 01:01)
'shakiness'
anti hypertensives Allergy (Unknown, Uncoded 04/19/24 01:01)
Unknown
most pain medicines Allergy (Uncoded 04/19/24 01:01)
'per patient - they cause problems'
perfumed soaps Allergy (Uncoded 04/19/24 01:01)
Rash
Medications Reviewed: Yes
Current Antibiotics:
Cefepime 1 g IV every 24 hours
Social History
Tobacco: Non-Smoker
Alcohol: None
Drug: None
Personal:
Living: Alone
Employment: Retired
Family History
Family History: Not Pertinent
Review of Systems
Vital Signs
Temp Pulse Resp BP Pulse Ox
98.7 F 79 20 159/67 99
04/22/24 16:00 04/22/24 16:00 04/22/24 16:00 04/22/24 16:00 04/22/24 16:00
Physical Exam
Physical Exam
Constitutional: No Acute Distress, Comfortable and Non-toxic
Eyes: No Conjunctival Hemorrhage and Sclera Anicteric
Cardiovascular: Regular Rate and S1/S2; Negative S3/S4
Pulmonary: Clear; Negative Wheezes or Rales
Gastrointestinal: Soft, Non Tender, Non Distended and Normal Bowel Sounds
Extremities: Erythema (Right lower extremity)
Wound: Other (Right hallux with significant swelling and tenderness)
Neurological: Awake and Alert
Psychological: Calm
Lab / Diagnostic Study Results
04/20/24 04:13
04/22/24 06:05
Abs Immat Gran (auto) 0.1 10^3/uL (0-0.05) H 04/20/24 04:13
Absolute Neuts (auto) 9.3 10^3/uL (1.4-6.5) H 04/20/24 04:13
Absolute Lymphs (auto) 1.3 10^3/uL (1.2-3.4) 04/20/24 04:13
Absolute Monos (auto) 0.7 10^3/uL (0.1-0.6) H 04/20/24 04:13
Absolute Basos (auto) 0.0 10^3/uL (0-0.2) 04/20/24 04:13
Immature Gran % 0.7 % (0-0.5) H 04/20/24 04:13
Neutrophils % 81.3 % (42.2-75.2) H 04/20/24 04:13
Lymphocytes % 10.9 % (20.5-51.1) L 04/20/24 04:13
Monocytes % 5.8 % (1.7-9.3) 04/20/24 04:13
Eosinophils % 1.1 % (0-6) 04/20/24 04:13
Basophils % 0.2 % (0-2) 04/20/24 04:13
Lactic Acid 1.3 mmol/L (0.7-2.0) 04/19/24 01:46
Ur Squamous Epith Cells 3-5 /LPF (Few) 04/19/24 03:07
Microbiology Results
Micro:
04/19/24 01:46 Blood Culture - Preliminary
Blood/Venous No Growth in 72 hours- Final report to follow
04/19/24 01:46 Blood Culture - Preliminary
Blood/Venous No Growth in 72 hours- Final report to follow
04/19/24 03:07 Urine Culture - Final
Urine
Imaging:
04/21/2024 X-ray right foot: No acute fracture or dislocation. No osseous destructive changes. Marginal osteophyte at the first metatarsophalangeal joint and hallux sesamoid complex. Vascular calcifications noted. Overall, no radiographic
evidence for acute osteomyelitis. Please see full dictation for additional detail. Film personally viewed.
Assessment / Plan
Right lower extremity cellulitis
Right hallux infection (cellulitis +/- osteomyelitis)
Leukocytosis
FAWN on CKD
Hx breast CA
CKD stage III
HTN
CHF
DM with associated neuropathy/retinopathy
Fibromyalgia
Hypothyroidism
Diverticulosis
IBS
ASCVD
Depression/anxiety
Recommendations:
Continue cefepime for today, but increase to 1 g IV every 12 hours
Local care to hallux.
X-ray does not reveal osseous destruction, but findings on plain film may lag by two weeks or more. Would recommend MRI to further delineate whether osteomyelitis is present.
Podiatry, as well as Vascular Surgery have been consulted. Will await further input.
Check ESR and CRP.
Tight glucose control.
Given underlying uncontrolled diabetes and vascular disease, patient is at high risk for limb loss.
Care Review
Plan reviewed with: Physician (Podiatry)
--- NOTE | 2024-04-22 17:10 | W.PN.POD ---
Today's Communication
Today's Communication
*Wound right great toe was cleansed with 5 min vashe compress, then sharply excisionally debrided full thickness with scalpel through the epidermis, dermis into subcutaneous tissue. Scant bleeding noted, controlled with pressure. Wound measures
1.5cm x 1.8cm with unstageable necrotic area centrally. Wound cleansed and redressed with mupirocin and bordered foam dressing.
*XRAY negative for OM of the right great toe, MRI pending
*Vascular sx input appreciated. arterial studies are pending
*WBAT in walker shoes B/L with walker assist- Lawall consulted-
Assessment / Plan
-
DM2 with PAD
DM2 with DPN
Necrotic toe wound right- unstageable.
Erysipelas RLE -improved. iv abt per id. mri pending. 
Subjective
Chief Complaint
Infection/PAD RLE
Subjective
Pt is sitting up in chair- denies pain at present
Objective
Temp Pulse Resp BP Pulse Ox
98.7 F 79 20 159/67 99
04/22/24 16:00 04/22/24 16:00 04/22/24 16:00 04/22/24 16:00 04/22/24 16:00
04/20/24 04:13
04/22/24 06:05
Vital Signs and Lab results were reviewed.
xray right great toe was personally reviewed - there are changes with osteoarthritis right hallux ipj, no osetomyelitis is seen. 
Inspection: Cellulitis (RLE is improved), Inflammation (improved RLE) and Ulcer (right hallux and left heel)
Review of Systems
Review of Systems
Review of Systems: No Fever, No Chills and No Nausea
Physical Exam
Physical Exam
General: No Apparent Distress, Comfortable and Conversant
Musculoskeletal: Edema, Right Lower Extrem (improved since initial visit) and Other (Pain/ hyperaesthesia has improved to the RLE, heel pain left remains relatively unchanged)
Skin: Dry, Necrotic (Necrotic wound right great toe + scant purulence expressed. Necrotic fissures x 2 left heel without signs of infection) and Other (cellulitis RLE)
Neuro: AO x 3 and Protective Sensation Diminished (to the toes)
Vascular: Capillary Refill Delayed and Pedal Hair Absent
Dorsalis Pedis: Diminished
Posterior Tibialis: Absent
--- NOTE | 2024-04-22 17:45 | PTCARENOTE ---
Dr Delatorre made aware of pts PVR results, MD would favor one more additional straight cath prior to reinsertion of tello. Pt was straight cathed once overnight, Pt bladder scanned multiple times this shift with results less than 400 per bladder scan
straight cath protocol. Pt is voiding 150-200cc with each void. Pt was constipated and is now having bowel movements. Pt updated, plan of care continues.
[2024-04-22 21:07] LABS: Glucose - Point of Care 322 mg/dl (70-99)
[2024-04-22] MEDS: BACTROBAN 2% OINTMENT TOPICAL (21:18)
[2024-04-22] MEDS: LANTUS 0.1 UNITS SC (21:26)
[2024-04-23] VITALS (7 sets, daily range): BP systolic 120–154; BP diastolic 57–74; PULSE 74–95; O2SAT 96; BMI 20.6
[2024-04-23 04:39] LABS: Glucose - Point of Care 155 mg/dl (70-99)
[2024-04-23 06:30] LABS: Blood Urea Nitrogen 74 mg/dl (7-17); Calcium 8.2 mg/dl (8.4-10.2); Carbon Dioxide 25 mmol/L (22-30); Chloride 101 mmol/L (98-107); Estimated Creatinine Clearance 26 ml/min; Glucose 147 mg/dl (70-99); Potassium 5.2 mmol/L (3.5-5.1); Sodium 136 mmol/L (135-145)
[2024-04-23 07:34] LABS: Erythrocyte Sed Rate 80 mm/hour (0-20)
--- NOTE | 2024-04-23 07:48 | PTCARENOTE ---
Pt continues to retain urine despite multiple voiding trials on BSC and BRP. Pt was straight cath at 0000 for 550cc. This morning PVR>365 after voiding 100cc and the pt complains of increasing pressure. BOILER PLANT OPERATOR (Ric) made aware, order of Liao
given. Liao 14F placed and it'd draining clear yellow urine. Pt reports relief of the pressure. Will follow.
[2024-04-23 07:59] LABS: Glucose - Point of Care 247 mg/dl (70-99)
--- NOTE | 2024-04-23 08:15 | W.PN.VS ---
Addendum entered and electronically signed by Jasmeet Liao III, MD 04/23/24 09:01:
This patient was seen and examined with ERIKA Bowman. I agree with the history and physical exam as well as the assessment and plan.
Arterial studies reviewed. Patient would benefit from arteriogram and possible endovascular intervention. Will discuss contrast dye administration with nephrology. Plan discussed with patient and her son Catherine and both agree to proceed.
Sammy will be performing arteriogram on 04/25/2024.
Signed:
Jasmeet Liao III, MD
[facility] Vascular Surgery
[phone] (kbxb)
Original Note:
Today's Communication / Plan
-
Patient seen and examined at bedside with Dr. Jasmeet Liao III, below plan reviewed with attending.
Assessment/Plan
-
Assessment: 79-year-old female with nonhealing right great toe wound vascular consult for PAD evaluation with CKD stage 3 versus 4 and FAWN on this admission
Plan:
Arterial duplex with TBI reviewed suggesting inflow disease in addition to significantly decreased TBI, would ideally recommend CTA aorta with runoff to fully evaluate suspected inflow and outflow peripheral arterial disease. However, patient with
advanced chronic kidney disease and FAWN on this admission, contrast induced neuropathy is of high concern, therefore to reduce contrast load would recommend at this point only proceeding with right lower extremity angio to assess for peripheral
arterial disease. Reviewed this plan with costing analyst, son, patient and hospitalist. We will proceed with right lower extremity angiogram on Thursday (04/25/24). N.p.o. at midnight.
Subjective Data
-
Date of Service: April 23, 2024
Patient seen and examined at bedside, offers no complaints. Does endorse walking a few steps with walker and aid of physical therapy.
Objective Data
-
Vital Signs
Temp Pulse Resp BP Pulse Ox
98.3 F 79 18 153/65 97
04/23/24 03:28 04/23/24 03:28 04/23/24 03:28 04/23/24 03:28 04/23/24 03:28
Intake and Output
04/22/24 04/23/24 04/24/24
06:59 06:59 06:59
Intake Total 1180 / 1180 240 / 240
Output Total 1125 / 1125 1900 / 1900
Balance 55 / 55 -1660 / -1660
Intake:
Oral fluids 1180 / 1180 240 / 240
Output:
Urine, Liao 150 / 150
Urine, Voided 525 / 525 1350 / 1350
Straight cath output 450 / 450 550 / 550
Lab Results
04/20/24 04:13
04/23/24 05:44
Calcium 8.2 mg/dl (8.4-10.2) L 04/23/24 05:44
Phosphorus 5.0 mg/dl (2.5-4.5) H 04/19/24 06:26
Magnesium 2.1 mg/dl (1.6-2.3) 04/19/24 06:26
Total Bilirubin 0.2 mg/dl (0.2-1.3) 04/20/24 04:13
AST 85 U/L (14-36) H 04/20/24 04:13
ALT 44 U/L (0-35) H 04/20/24 04:13
Alkaline Phosphatase 80 U/L (38-126) 04/20/24 04:13
Total Protein 4.8 g/dl (6.3-8.2) L D 04/20/24 04:13
Albumin 2.7 g/dl (3.5-5.0) L 04/20/24 04:13
Physical Exam
-
No apparent distress resting in bed comfortably
No tachycardia
No dyspnea on room air
Right lower extremity remains with erythema and sensitivity to touch over ankle, left hallux wound stable and unchanged
[2024-04-23] MEDS: NOVOLOG FLEXPEN-MODERATE RESISTANCE 3 UNITS SC (08:45)
[2024-04-23] MEDS: NOVOLOG FLEXPEN 4 UNITS SC ×3 (08:46→16:27)
[2024-04-23] MEDS: LOW STRENGTH ASPIRIN 81 MG PO (08:47)
[2024-04-23] MEDS: ARMOUR THYROID 90 MG PO (08:47)
[2024-04-23] MEDS: HEPARIN 5000 UNITS SC ×2 (08:47→20:03)
[2024-04-23] MEDS: COLACE 100 MG PO ×2 (08:47→20:02)
[2024-04-23] MEDS: COREG 3.125 MG PO ×2 (08:47→20:02)
[2024-04-23] MEDS: TYLENOL 650 MG PO ×2 (08:48→17:08)
[2024-04-23] MEDS: FLUSH (NSS) 1 FLUSH IV (08:49)
--- NOTE | 2024-04-23 11:22 | W.PN.NEPH.PH ---
Today's Communication / Plan
-
see plan
Assessment/Plan
-
IMP:
FAWN on CKD 3 vs 4 (1.5-1.9)
Azotemia
Anion Gap Metabolic Acidosis
Hyperkalemia
Hyponatremia
RLE Cellulitis
Chronic HFrEF
ASCVD- Severe multivessel disease noted on cardiac cath in October.
DM-II
Hypothyroidism
Plan:
Sodium improving to 136
creatinine at baseline 1.7,
Omer placed this am for persistent retention 500cc
follow k
reviewed with vasc LESLY risk is mod to high , possible angio next week as cr remains stable
this was reviewed with pt and she agrees with risk
use minimal contrast as much as possible and would give her bicarb IVF
follow h/h
BP stable
-
-
Date of Service: April 23, 2024
CC / HPI / ROS
-
Chief Complaint:
FAWN
History of Present Illness:
Fawn/Cr down to 1.7
Na up to 136
K up at 5.2
BP stable
Review of Systems:
no CP/SOB
Intermittent straight cath with high postvoid residual, omer placed this am
still right leg pain
Labs
-
Labs:
WBC 11.5 10^3/uL (4.8-10.8) H 04/20/24 04:13
RBC 2.78 10^6/uL (4.20-5.40) L 04/20/24 04:13
Hgb 9.2 g/dL (12.0-16.0) L 04/20/24 04:13
Hct 25.9 % (37.0-47.0) L 04/20/24 04:13
Plt Count 239 10^3/uL (130-400) 04/20/24 04:13
Sodium 136 mmol/L (135-145) 04/23/24 05:44
Potassium 5.2 mmol/L (3.5-5.1) H 04/23/24 05:44
Chloride 101 mmol/L (98-107) 04/23/24 05:44
Carbon Dioxide 25 mmol/L (22-30) 04/23/24 05:44
BUN 74 mg/dl (7-17) H 04/23/24 05:44
Creatinine 1.7 mg/dL (0.6-1.0) H 04/23/24 05:44
eGFR 30.50 04/23/24 05:44
Glucose 147 mg/dl (70-99) H 04/23/24 05:44
Calcium 8.2 mg/dl (8.4-10.2) L 04/23/24 05:44
Phosphorus 5.0 mg/dl (2.5-4.5) H 04/19/24 06:26
Albumin 2.7 g/dl (3.5-5.0) L 04/20/24 04:13
Physical Exam
-
Vital Signs:
Vital Signs
Temp Pulse Resp BP Pulse Ox
97.9 F 74 20 154/63 98
04/23/24 06:56 04/23/24 08:47 04/23/24 06:56 04/23/24 08:47 04/23/24 06:56
Cardiovascular:: Regular rate and rhythm
Respiratory:: Bilateral: CTA
Lung Excursion:: Normal
Abdomen:: Nontender and Soft
Extremity Edema:: +1: Bilateral:
Liao Catheter: Yes
Other Findings::
right leg erythema and TTP
[2024-04-23 11:58] LABS: Glucose - Point of Care 165 mg/dl (70-99)
[2024-04-23] MEDS: ULTRAM 25 MG PO (12:06)
[2024-04-23] MEDS: NOVOLOG FLEXPEN-MODERATE RESISTANCE 1 UNITS SC ×2 (12:07→16:28)
[2024-04-23] MEDS: STERILE WATER FOR INJECTION 10 ML IV ×2 (12:07→21:26)
[2024-04-23] MEDS: BACTROBAN 2% OINTMENT 1 APPLIC TOPICAL ×2 (12:08→20:01)
[2024-04-23] MEDS: MAXIPIME 1000 MG IV ×2 (12:08→21:26)
--- NOTE | 2024-04-23 14:19 | W.PN.HOSP.TC ---
Today's Communication/Plan
-
Assessment / Plan
Assessment / Plan
Physical Exam
NAD, resting comfortably in bed
Scleral anicteric
Moist mucous membranes
No JVD
CTA bilateral
Normal S1-S2 no murmurs
Soft nontender nondistended bowel sounds active
Right lower extremity swelling with a a petechiae well-demarcated erythematous flat rash that extends to above the knee from the ankle
Rigth ankle pain to touch, no really effused
Moves extremities spontaneously
AAOx3
Assessment and Plan
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
�Baseline Cr 1.7, now baseline
�Pre-renal (overdiuresis and poor p.o. intake)
�Nonoligouric
�Avoid nephrotoxins and hypotension
�Renal diet
-Baptiste reinserted
-nephrology following
Right lower extremity cellulitis
-Improving, but no improvement in erythma/warmth/tnederness will start cefepime and stop ancef
-However there has been further spread today compared to yesterday
-DVT study negative
-Cannot completely exclude small vessel vasculitides
-Podiatry evaluated concern for right great toe infection/osteo-, MRI foot ordered, vascular surgery following, planning for ctangio to rle on thursday
Severe anion gap none anion gap metabolic acidosis
-Likely in the setting of FAWN and GI losses
-Previously on bicarbonate drip
-Now discontinued
-Will continue to follow
Hypothyroidism
-Continue levothyroxine
Diabetes type 2
-Hyperglycemic
�Sliding scale
�Accu-Cheks
�Long and short acting insulin initiated
Chronic HFrEF, ICM, EF 25%, hypovolemic NYHA class II
-Hold Lasix
-Hold RIGO inhibitor
-Continue beta-hilda
-Monitor volume status
-Keep potassium greater than 4 magnesium greater than 2
-Monitor urinary output
CAD, severe multivessel CAD
-Medical manage
-Continue outpatient cardiology discussions for medical management versus CABG
-Continue aspirin statin and beta-hilda
Anticipated Discharge: > 48 hours
Subjective/Interval History
-
Date of Service: April 23, 2024
seen and examined. no new complaints. no acute ovenrigght events
Objective Data
-
Labs:
Laboratory Results
04/23/24
05:44
Sodium 136
Potassium 5.2 H
Chloride 101
Carbon Dioxide 25
BUN 74 H
Creatinine 1.7 H
Glucose 147 H
Calcium 8.2 L
Vital Signs:
Vital Signs
Temp Pulse Resp BP Pulse Ox
98.8 F 82 18 120/57 98
04/23/24 11:10 04/23/24 11:10 04/23/24 11:10 04/23/24 11:10 04/23/24 11:10
I&O
04/22/24 04/23/24 04/24/24
06:59 06:59 06:59
Intake Total 1180 / 1180 240 / 240
Output Total 1125 / 1125 1900 / 1900
Balance 55 / 55 -1660 / -1660
--- NOTE | 2024-04-23 14:23 | W.PN.ID1 ---
Date of Service
Date of Service: April 23, 2024
Today's Communication
Continue antibiotics. Await MRI
Assessment / Plan
Right lower extremity cellulitis
Right hallux infection (cellulitis +/- osteomyelitis)
Leukocytosis
FAWN on CKD
Hx breast CA
CKD stage III
HTN
CHF
DM with associated neuropathy/retinopathy
Fibromyalgia
Hypothyroidism
Diverticulosis
IBS
ASCVD
Depression/anxiety
Recommendations:
Continue cefepime
Local care to hallux.
X-ray does not reveal osseous destruction, but findings on plain film may lag by two weeks or more. Await MRI to further delineate whether osteomyelitis is present.
Tight glucose control.
Given underlying uncontrolled diabetes and vascular disease, patient is at high risk for limb loss.
Chief Complaint
-: Other (Right hallux infection)
Subjective / Review of Systems
Review of Systems: No Fever
Vital Signs / Physical Exam
Vital Signs
Vital Signs
Temp Pulse Resp BP Pulse Ox
98.8 F 82 18 120/57 98
04/23/24 11:10 04/23/24 11:10 04/23/24 11:10 04/23/24 11:10 04/23/24 11:10
Physical Exam
Constitutional: No Acute Distress and Comfortable
Cardiovascular: S1/S2; Negative S3/S4
Pulmonary: Non Labored
Gastrointestinal: Non Distended
Wound: Other (Right hallux dressed.)
Psychological: Calm
Objective Data
Lab Data
Lab Results
04/20/24 04:13
04/23/24 05:44
ESR 80 mm/hour (0-20) H 04/23/24 05:44
Estimated Creat Clear 26 ml/min 04/23/24 05:44
Lactic Acid 1.3 mmol/L (0.7-2.0) 04/19/24 01:46
Total Bilirubin 0.2 mg/dl (0.2-1.3) 04/20/24 04:13
AST 85 U/L (14-36) H 04/20/24 04:13
ALT 44 U/L (0-35) H 04/20/24 04:13
Alkaline Phosphatase 80 U/L (38-126) 04/20/24 04:13
C-Reactive Protein 59.60 mg/L (0.0-10.00) H 04/23/24 05:44
Most recent labs reviewed.
Micro Results:
04/19/24 01:46 Blood Culture - Preliminary
Blood/Venous No Growth in 4 days- Final report to follow
04/19/24 01:46 Blood Culture - Preliminary
Blood/Venous No Growth in 4 days- Final report to follow
04/19/24 03:07 Urine Culture - Final
Urine
Imaging:
04/21/2024 X-ray right foot: No acute fracture or dislocation. No osseous destructive changes. Marginal osteophyte at the first metatarsophalangeal joint and hallux sesamoid complex. Vascular calcifications noted. Overall, no radiographic
evidence for acute osteomyelitis. Please see full dictation for additional detail. Film personally viewed.
[2024-04-23 16:15] LABS: Glucose - Point of Care 167 mg/dl (70-99)
[2024-04-23 21:09] LABS: Glucose - Point of Care 318 mg/dl (70-99)
[2024-04-23] MEDS: DILAUDID 0.25 MG IV (21:22)
[2024-04-23] MEDS: LANTUS 0.1 UNITS SC (21:23)
[2024-04-23] MEDS: LOKELMA 5 GRAM PO (22:05)
--- NOTE | 2024-04-24 01:18 | W.PN.UPDATE ---
Update Note
Progress Note Update
- Per nursing,�patient c/o 9/10 headache and crying. Upon visit, patient pleasant, appears somewhat anxious, reports she has severe headache which she reports is worse she ever felt. She does report getting headaches at home and reports has taken
medications in the remote past for migraine headaches which she does not recall - but does take extra strength Tylenol now for the headaches. Per nursing patient cannot take PO med as Lokelma is due (per order no meds 2hrs before/after other oral
meds). Rx�0/25mg IV dilaudid x1.�
[2024-04-24 06:00] VITALS: BMI 21.1
[2024-04-24 07:47] LABS: Hematocrit 29.3 % (37.0-47.0); Hemoglobin 10.1 g/dL (12.0-16.0); Mean Corp Hgb Conc. 34.5 g/dL (33.0-37.0); Mean Corpuscular Volume 98.7 fL (81.0-99.0); Mean Platelet Volume 9.6 fL (7.4-10.4); Platelet Count 335 10^3/uL (130-400); Red Blood Cell Count 2.97 10^6/uL (4.20-5.40); White Blood Cell Count 15.9 10^3/uL (4.8-10.8)
[2024-04-24 07:55] VITALS: BP 143/65
[2024-04-24 08:01] LABS: Glucose - Point of Care 328 mg/dl (70-99)
[2024-04-24 08:05] LABS: Blood Urea Nitrogen 67 mg/dl (7-17); Calcium 8.3 mg/dl (8.4-10.2); Carbon Dioxide 23 mmol/L (22-30); Chloride 99 mmol/L (98-107); Estimated Creatinine Clearance 27 ml/min; Glucose 235 mg/dl (70-99); Potassium 5.6 mmol/L (3.5-5.1); Sodium 133 mmol/L (135-145); eGFR 32.81
[2024-04-24] MEDS: NOVOLOG FLEXPEN-MODERATE RESISTANCE 7 UNITS SC (08:25)
[2024-04-24] MEDS: NOVOLOG FLEXPEN 4 UNITS SC ×3 (08:25→18:35)
[2024-04-24] MEDS: ARMOUR THYROID 90 MG PO (08:26)
[2024-04-24] MEDS: COLACE 100 MG PO ×2 (08:26→22:04)
[2024-04-24] MEDS: LOW STRENGTH ASPIRIN 81 MG PO (08:26)
[2024-04-24] MEDS: TYLENOL 650 MG PO (08:26)
[2024-04-24] MEDS: COREG 3.125 MG PO ×2 (08:27→22:08)
[2024-04-24] MEDS: HEPARIN 5000 UNITS SC ×2 (08:27→22:05)
--- NOTE | 2024-04-24 09:00 | PTCARENOTE ---
Pt's blood sugar this am 328 but was obtained after pt ate breakfast. Encouraged pt to make sure that she asks for blood sugar to be taken prior to eating. Made Dr. Dre Delatorre aware and he requested for blood sugar be retaken in a hour. Updated
pt on plan of care.
Also, pt with oral temp of 101.0 this am, Tylenol 650mg po administered and made Dr. Delatorre aware that pt is febrile, will monitor.
[2024-04-24 09:07] VITALS: BP 118/63; BP 132/67; BP 139/70; PULSE 101; PULSE 102; PULSE 106
[2024-04-24 09:45] LABS: Glucose - Point of Care 264 mg/dl (70-99)
[2024-04-24] MEDS: ULTRAM 25 MG PO (09:55)
[2024-04-24] MEDS: FLUSH (NSS) 2 FLUSH IV (10:56)
[2024-04-24] MEDS: STERILE WATER FOR INJECTION 10 ML IV ×2 (10:56→23:55)
[2024-04-24] MEDS: MAXIPIME 1000 MG IV ×2 (10:56→23:55)
--- NOTE | 2024-04-24 10:56 | W.PN.POD ---
Today's Communication
Today's Communication
MRI does not suggest OM to the right great toe, presents as dry gangrene- await Agram w/endovascular intervention w/Dr Christianson
Wound care clarified w/RN and on chart - continue daily dressing with mupirocin and 2x2 and spandage sz 1 or 2
Once revasc will reassess tx plan
Assessment / Plan
-
DM2 with PAD
DM2 with DPN
Necrotic toe wound right- unstageable.
Erysipelas RLE -improved. iv abt per id.
Subjective
Chief Complaint
Cellulitis RLE
Subjective
Patient states she has reduced redness and pain to the RLE now up to the ankle and foot, Pain to the heels L>R is unchanged
Objective
Temp Pulse Resp BP Pulse Ox
98.9 F 100 16 143/65 94
04/24/24 10:55 04/24/24 08:27 04/24/24 07:55 04/24/24 08:27 04/24/24 07:55
04/24/24 06:13
04/24/24 06:13
Vital Signs and Lab results were reviewed.
MRI FOOT right:
IMPRESSION: There is T2/STIR hyperintense signal and enhancement within the inferior medial soft tissues of the great toe as well as a likely soft tissue defect consistent with known infectious process.
There is edema within the underlying distal phalanx of the great toe without discrete findings of osteomyelitis.
Inspection: Cellulitis (improved), Inflammation and Ulcer (necrotic wound to the right great toe-dry, no drainage expressed + pain to palpation, appears to be deep to bone and is not boggy or moveable)
Review of Systems
Review of Systems
Review of Systems: No Fever, No Chills and No Nausea
Physical Exam
Physical Exam
General: No Apparent Distress
Musculoskeletal: Edema, Right Lower Extrem
Skin: Warm and Necrotic (Right great toe and left heel fissures)
Neuro: AO x 3 and Protective Sensation Diminished
Vascular: Capillary Refill Delayed
Dorsalis Pedis: Diminished
Posterior Tibialis: Absent
[2024-04-24] MEDS: BACTROBAN 2% OINTMENT TOPICAL (11:13)
--- NOTE | 2024-04-24 11:25 | W.PN.HOSP.TC ---
Today's Communication/Plan
-
Repeat bcx
Vanc/Cefe
Monitor renal function
Vascular planning for CTAngio of the RLE on Thursday
Assessment / Plan
Assessment / Plan
MRI LE
IMPRESSION:
There is T2/STIR hyperintense signal and enhancement within the inferior medial soft tissues of the great toe as well as a likely soft tissue defect consistent with known infectious process. There is edema within the underlying distal phalanx of the
great toe without discrete findings of osteomyelitis.
Physical Exam
NAD, resting comfortably in bed
Scleral anicteric
Moist mucous membranes
No JVD
CTA bilateral
Normal S1-S2 no murmurs
Soft nontender nondistended bowel sounds active
Right lower extremity cellulitic changes are improving
Rigth ankle pain to touch, no really effused
Moves extremities spontaneously
AAOx3
Assessment and Plan
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
�Baseline Cr 1.7, now baseline
�Pre-renal (overdiuresis and poor p.o. intake)
�Nonoligouric
�Avoid nephrotoxins and hypotension
�Renal diet
-Liao reinserted for retnition
-nephrology following
Sepsis secondary to RLE
-Worsening whitecount, fever
-Repeat Blood Cultures
-Start Vanc
-Continue Cefe
-ID updated
Right lower extremity cellulitism, improving
-Improving, but no improvement in erythma/warmth/tnederness will start cefepime and stop ancef
-However there has been further spread today compared to yesterday
-DVT study negative
-Podiatry evaluated concern for right great toe infection/osteo-, MRI foot completed, as above vascular surgery following, planning for ctangio to rle on thursday
Severe anion gap none anion gap metabolic acidosis, resolved
-Likely in the setting of FAWN and GI losses
-Previously on bicarbonate drip
-Now discontinued
-Will continue to follow
Hypothyroidism
-Continue levothyroxine
Diabetes type 2
-Hyperglycemic
�Sliding scale
�Accu-Cheks
�Long and short acting insulin initiated
Chronic HFrEF, ICM, EF 25%, hypovolemic NYHA class II
-Hold Lasix
-Hold RIGO inhibitor
-Continue beta-hilda
-Monitor volume status
-Keep potassium greater than 4 magnesium greater than 2
-Monitor urinary output
CAD, severe multivessel CAD
-Medical manage
-Continue outpatient cardiology discussions for medical management versus CABG
-Continue aspirin statin and beta-hilda
Anticipated Discharge: > 48 hours
Subjective/Interval History
-
Date of Service: April 24, 2024
seen and examined. no new comaplitns. no acute ovenright events
does not appear in pain
in good spirits today
right leg looks improved.
unfortunatly, worsening white count and fever of 101 this AM
Objective Data
-
Labs:
Laboratory Results
04/24/24
06:13
WBC 15.9 H
Hgb 10.1 L
Hct 29.3 L
Plt Count 335 D
Sodium 133 L
Potassium 5.6 H
Chloride 99
Carbon Dioxide 23
BUN 67 H
Creatinine 1.6 H
Glucose 235 H
Calcium 8.3 L
Vital Signs:
Vital Signs
Temp Pulse Resp BP Pulse Ox
98.9 F 100 16 143/65 94
04/24/24 10:55 04/24/24 08:27 04/24/24 07:55 04/24/24 08:27 04/24/24 07:55
I&O
04/23/24 04/24/24 04/25/24
06:59 06:59 06:59
Intake Total 240 / 240 720 / 720
Output Total 1900 / 1900 1650 / 1650
Balance -1660 / -1660 -930 / -930
[2024-04-24 11:46] LABS: Glucose - Point of Care 168 mg/dl (70-99)
--- NOTE | 2024-04-24 11:49 | W.PN.NEPH.PH ---
Today's Communication / Plan
-
LOkelma
check TTKG
bicarb IVF for angio tomorrow
Assessment/Plan
-
IMP:
HOWARD on CKD 3 vs 4 (1.5-1.9)
Azotemia
Anion Gap Metabolic Acidosis
Hyperkalemia
Hyponatremia
RLE Cellulitis
Chronic HFrEF
ASCVD- Severe multivessel disease noted on cardiac cath in October.
DM-II
Hypothyroidism
Plan:
HOWARD-cr baseline at 1.6
hyperkalemia-changed to low k diet, s/p Lokelma
no clear etiology of hyperkalemia-check TTKG
monitor mild hyponatremia
Liao replaced 04/23 for persistent retention 500cc
reviewed with vasc LESLY risk is mod to high , possible angio tomorrow
this was reviewed with pt and she agrees with risk
use minimal contrast as much as possible and would give her bicarb IVF
abx per ID
BP stable
-
-
Date of Service: April 24, 2024
CC / HPI / ROS
-
Chief Complaint:
HOWARD
History of Present Illness:
Howard/Cr down to 1.6
Na down to 133
K up at 5.6
BP stable
Review of Systems:
no CP/SOB
migraine BRAVO since last night
Labs
-
Labs:
WBC 15.9 10^3/uL (4.8-10.8) H 04/24/24 06:13
RBC 2.97 10^6/uL (4.20-5.40) L 04/24/24 06:13
Hgb 10.1 g/dL (12.0-16.0) L 04/24/24 06:13
Hct 29.3 % (37.0-47.0) L 04/24/24 06:13
Plt Count 335 10^3/uL (130-400) D 04/24/24 06:13
Sodium 133 mmol/L (135-145) L 04/24/24 06:13
Potassium 5.6 mmol/L (3.5-5.1) H 04/24/24 06:13
Chloride 99 mmol/L (98-107) 04/24/24 06:13
Carbon Dioxide 23 mmol/L (22-30) 04/24/24 06:13
BUN 67 mg/dl (7-17) H 04/24/24 06:13
Creatinine 1.6 mg/dL (0.6-1.0) H 04/24/24 06:13
eGFR 32.81 04/24/24 06:13
Glucose 235 mg/dl (70-99) H 04/24/24 06:13
Calcium 8.3 mg/dl (8.4-10.2) L 04/24/24 06:13
Phosphorus 5.0 mg/dl (2.5-4.5) H 04/19/24 06:26
Albumin 2.7 g/dl (3.5-5.0) L 04/20/24 04:13
Physical Exam
-
Vital Signs:
Vital Signs
Temp Pulse Resp BP Pulse Ox
98.9 F 100 16 143/65 94
04/24/24 10:55 04/24/24 08:27 04/24/24 07:55 04/24/24 08:27 04/24/24 07:55
Cardiovascular:: Regular rate and rhythm
Respiratory:: Bilateral: CTA
Lung Excursion:: Normal
Abdomen:: Nontender and Soft
Extremity Edema:: None: Bilateral:
Liao Catheter: Yes
Other Findings::
right erythema improving
[2024-04-24] MEDS: VANCOCIN 530 MG IV (11:51)
[2024-04-24] MEDS: LOKELMA 10 GRAM PO ×3 (11:56→18:34)
--- NOTE | 2024-04-24 12:09 | W.PN.ID1 ---
Date of Service
Date of Service: April 24, 2024
Today's Communication
Continue antibiotics.
Assessment / Plan
Right lower extremity cellulitis
Right hallux wound with cellulitis.
- No osteomyelitis noted on MRI
Leukocytosis
FAWN on CKD
Hx breast CA
CKD stage III
HTN
CHF
DM with associated neuropathy/retinopathy
Fibromyalgia
Hypothyroidism
Diverticulosis
IBS
ASCVD
Depression/anxiety
Recommendations:
Continue cefepime. Vancomycin has been initiated.
Local care to hallux area
Follow white count and temperature curve. Follow-up pending cultures.
Tight glucose control.
����������������������������������������������������������
Chief Complaint
-: Other (Right hallux infection)
Subjective / Review of Systems
Patient seen and examined. Overall feels well, but fever noted this a.m. to 101 degrees. Currently afebrile. Denies significant complaints.
Vital Signs / Physical Exam
Vital Signs
Vital Signs
Temp Pulse Resp BP Pulse Ox
98.9 F 100 16 143/65 94
04/24/24 10:55 04/24/24 08:27 04/24/24 07:55 04/24/24 08:27 04/24/24 07:55
Physical Exam
Constitutional: No Acute Distress, Comfortable, Chronically Ill and Non-toxic
Eyes: Sclera Anicteric
Cardiovascular: S1/S2; Negative S3/S4
Pulmonary: Non Labored
Gastrointestinal: Non Distended
Wound: Other (Right hallux with medial distal wound with overlying crust. Little erythema up foot. Erythema of distal right leg overall improved, but area remains tender.)
Neurological: Awake and Alert
Psychological: Calm
Objective Data
Lab Data
Lab Results
04/24/24 06:13
04/24/24 06:13
ESR 80 mm/hour (0-20) H 04/23/24 05:44
Estimated Creat Clear 27 ml/min 04/24/24 06:13
Lactic Acid 1.3 mmol/L (0.7-2.0) 04/19/24 01:46
Total Bilirubin 0.2 mg/dl (0.2-1.3) 04/20/24 04:13
AST 85 U/L (14-36) H 04/20/24 04:13
ALT 44 U/L (0-35) H 04/20/24 04:13
Alkaline Phosphatase 80 U/L (38-126) 04/20/24 04:13
C-Reactive Protein 59.60 mg/L (0.0-10.00) H 04/23/24 05:44
Most recent labs reviewed.
Micro Results:
04/24/24 10:48 Blood Culture - Pending
Blood/Venous
04/24/24 10:10 Blood Culture - Pending
Blood/Venous
04/19/24 01:46 Blood Culture - Final
Blood/Venous No Growth - Final Report
04/19/24 01:46 Blood Culture - Final
Blood/Venous No Growth - Final Report
04/19/24 03:07 Urine Culture - Final
Urine
Imaging:
04/23/2024 MRI right lower extremity: There is T2/STIR hyperintense signal and enhancement within the inferior medial soft tissues of the great toe as well as a likely soft tissue defect consistent with known infectious process. There is edema
within the underlying distal phalanx of the great toe without discrete findings of osteomyelitis.
04/21/2024 X-ray right foot: No acute fracture or dislocation. No osseous destructive changes. Marginal osteophyte at the first metatarsophalangeal joint and hallux sesamoid complex. Vascular calcifications noted. Overall, no radiographic
evidence for acute osteomyelitis. Please see full dictation for additional detail. Film personally viewed.
Care Review
Plan reviewed with: Physician (Hospitalist)
[2024-04-24 12:48] LABS: Osmolality Serum 306 mOsm/kg (275-300)
[2024-04-24] MEDS: BACTROBAN 2% OINTMENT 1 APPLIC TOPICAL (12:48)
[2024-04-24] MEDS: NOVOLOG FLEXPEN-MODERATE RESISTANCE 1 UNITS SC (12:51)
[2024-04-24 15:30] VITALS: BP 136/66
[2024-04-24 16:05] LABS: Osmolality Urine 534 mOsm/kg (300-900)
[2024-04-24 16:15] LABS: Urine Potassium 42.9 mmol/L (30-90)
[2024-04-24 17:09] LABS: Glucose - Point of Care 149 mg/dl (70-99)
[2024-04-24] MEDS: NOVOLOG FLEXPEN-MODERATE RESISTANCE SC (18:34)
[2024-04-24 21:32] LABS: Glucose - Point of Care 211 mg/dl (70-99)
[2024-04-24] MEDS: MAXIPIME IV (22:07)
[2024-04-24] MEDS: STERILE WATER FOR INJECTION IV (22:08)
[2024-04-24] MEDS: LANTUS 0.1 UNITS SC (22:56)
[2024-04-24] MEDS: MIRALAX 17 GRAMS PO (22:57)
[2024-04-24] MEDS: XALATAN OPHTHALMIC SOLUTION 1 DROP BOTH EYES (22:57)
[2024-04-24 23:37] VITALS: BP 134/67
[2024-04-25] VITALS (14 sets, daily range): BP systolic 114–155; BP diastolic 52–78; PULSE 84; O2SAT 98; BMI 21.5
[2024-04-25 05:50] LABS: Glucose - Point of Care 149 mg/dl (70-99)
[2024-04-25] MEDS: LOKELMA 10 GRAM PO (05:56)
[2024-04-25 07:52] LABS: Hematocrit 28.5 % (37.0-47.0); Hemoglobin 9.2 g/dL (12.0-16.0); Mean Corp Hgb Conc. 32.3 g/dL (33.0-37.0); Mean Corpuscular Hgb 32.3 pg (27.0-31.0); Mean Platelet Volume 9.4 fL (7.4-10.4); Platelet Count 325 10^3/uL (130-400); Red Blood Cell Count 2.85 10^6/uL (4.20-5.40); Red Cell Dist. Width 13.1 % (11.5-14.5); White Blood Cell Count 11.2 10^3/uL (4.8-10.8)
[2024-04-25 07:56] LABS: INR 1.22; PT 15.7 Sec (11.4-14.6)
[2024-04-25 07:58] LABS: APTT 37.6 Sec (23.4-35.0)
[2024-04-25 08:23] LABS: Blood Urea Nitrogen 60 mg/dl (7-17); Calcium 7.9 mg/dl (8.4-10.2); Carbon Dioxide 26 mmol/L (22-30); Chloride 101 mmol/L (98-107); Estimated Creatinine Clearance 24 ml/min; Glucose 131 mg/dl (70-99); Potassium 4.5 mmol/L (3.5-5.1); Sodium 135 mmol/L (135-145); eGFR 28.48
[2024-04-25] MEDS: NOVOLOG FLEXPEN SC ×2 (08:55→15:16)
[2024-04-25] MEDS: NOVOLOG FLEXPEN-MODERATE RESISTANCE SC ×2 (08:55→15:32)
[2024-04-25] MEDS: COREG 3.125 MG PO ×2 (08:56→21:04)
[2024-04-25] MEDS: ARMOUR THYROID 90 MG PO (08:56)
[2024-04-25] MEDS: COLACE 100 MG PO ×2 (09:04→21:04)
[2024-04-25] MEDS: HEPARIN 5000 UNITS SC ×2 (09:04→21:04)
[2024-04-25] MEDS: LOW STRENGTH ASPIRIN 81 MG PO (09:04)
[2024-04-25] MEDS: BACTROBAN 2% OINTMENT 1 APPLIC TOPICAL (09:11)
[2024-04-25] MEDS: ULTRAM 25 MG PO (09:21)
[2024-04-25] MEDS: SODIUM BICARBONATE 1150 MEQ IV (10:14)
--- NOTE | 2024-04-25 11:07 | W.PN.HOSP.TC ---
Today's Communication/Plan
-
.
Assessment / Plan
Assessment / Plan
MRI LE
IMPRESSION:
There is T2/STIR hyperintense signal and enhancement within the inferior medial soft tissues of the great toe as well as a likely soft tissue defect consistent with known infectious process. There is edema within the underlying distal phalanx of the
great toe without discrete findings of osteomyelitis.
Physical Exam
general: No Acute Distress, Comfortable, Chronically Ill and Non-toxic
HEENT: Sclera Anicteric, no deformities.
Cardiovascular: S1/S2;
Lungs: Non Labored
Gastrointestinal: non tender, Non Distended
Wound: Other (Right hallux with medial distal wound with overlying crust. Little erythema up foot. Erythema of distal right leg overall improved, but area remains tender.)
Neurological: Awake and Alert, she followed commands
Psych: Calm
Assessment and Plan
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
�Baseline Cr 1.7, now baseline
�Pre-renal (overdiuresis and poor p.o. intake)
�Nonoligouric
�Avoid nephrotoxins and hypotension, holding lisinopril & metformin.
�Renal diet
-Liao reinserted for retention
-nephrology following
# hyponatremia, mild
No confusion.
# Hyperkalemia:
s/p Lokelma, holding RIGO
K normalizing
#Sepsis secondary to RLE/ Right lower extremity cellulitis, improving
MRI : No OM to the right great toe, c/w dry gangrene due to diabetes/ diabetic neuropathy
Per house mover supervisor: Necrotic toe wound right- unstageable.
Erysipelas RLE -improving.
-afebrile, denies pain in right lower leg/foot
-Repeat Blood Cultures showing no growth
-Appreciate vascular, podiatry and ID doctors.
- for RLE angiogram/ plasty
#Severe anion gap none anion gap metabolic acidosis, resolved
#Hypothyroidism
-Continue levothyroxine
#Diabetes type 2
-Hyperglycemia due to infection
�Sliding scale with Lantus, pre-meal insulin
�Accu-Cheks
Chronic HFrEF, ICM, EF 25%, hypovolemic NYHA class II
-Held Lasix
-Held RIGO inhibitor
-Continue beta-hilda
-Monitor volume status, weight.
-Keep potassium greater than 4 magnesium greater than 2
-Monitor urinary output
#CAD, severe multivessel CAD
-no chest pain
-Continue outpatient cardiology discussions for medical management versus CABG
-Continue aspirin statin and beta-hilda
Total time spent to see the patient, examine the patient on the floor, review data and lab results, discuss treatment plan with patient, nursing staff around 55 minutes
Anticipated Discharge: > 48 hours
Subjective/Interval History
-
Date of Service: April 25, 2024
Objective Data
-
Labs:
Laboratory Results
04/25/24
07:05
WBC 11.2 H
Hgb 9.2 L
Hct 28.5 L
Plt Count 325
PT 15.7 H
INR 1.22
APTT 37.6 H
Sodium 135
Potassium 4.5
Chloride 101
Carbon Dioxide 26
BUN 60 H
Creatinine 1.8 H
Glucose 131 H
Calcium 7.9 L
Vital Signs:
Vital Signs
Temp Pulse Resp BP Pulse Ox
98.2 F 80 16 146/71 100
04/25/24 07:30 04/25/24 08:56 04/25/24 07:30 04/25/24 08:56 04/25/24 07:30
I&O
04/24/24 04/25/24 04/26/24
06:59 06:59 06:59
Intake Total 720 / 720 1490 / 1490
Output Total 1650 / 1650 975 / 975
Balance -930 / -930 515 / 515
--- NOTE | 2024-04-25 11:42 | W.SUR.PREOP ---
Addendum entered and electronically signed by Sony Christianson MD 04/25/24 11:54:
Discussed risks procedure including but not limited to bleeding, arterial injury/thrombosis/worsening of limb ischemia, renal failure. Discussed also possible need for left brachial access for imaging. She understands all and wishes to proceed.
Original Note:
Pre-Operative Surgical Note
-
I have examined this patient prior to the performance of the scheduled procedure.
The patient's condition is unchanged from the time of the current History and
Physical and the patient is able to undergo the scheduled procedure.
--- NOTE | 2024-04-25 12:45 | W.SUR.POST ---
Addendum entered and electronically signed by ERIKA Dalton 04/25/24 13:20:
CORRECTED: Procedure Performed: Right lower extremity arteriogram, shockwave lithotripsy and balloon angioplasty right SFA and popliteal arteries, SFA stent placement
Original Note:
Surgical Immediate Post Op
Note
Pre Op Diagnosis: PAD
Post Op Diagnosis: Same
Procedure Performed: Right lower extremity arteriogram, shockwave lithotripsy and balloon angioplasty right SFA and popliteal arteries
Primary Surgeon: Sammy
Anesthesia: Local and sedation
Estimated Blood Loss: Less than 2 cc
Fluids: See anesthesia flowsheet
Drains/Shunts: none
Specimens/Cultures: none
Doppler/Duplex/Angio (Y/N): Y
Complications: none
Operative Findings: Palpable DP pulse
[2024-04-25 13:30] LABS: Glucose - Point of Care 140 mg/dl (70-99)
--- NOTE | 2024-04-25 13:46 | W.PN.NEPH.PH ---
Today's Communication / Plan
-
Follow-up BMP tomorrow following angiogram procedure
Contrast prophylaxis provided with sodium bicarb IV fluids
Assessment/Plan
-
IMP:
HOWARD on CKD 3 vs 4 (1.5-1.9)
Azotemia
Anion Gap Metabolic Acidosis
Hyperkalemia
Hyponatremia
RLE Cellulitis
Chronic HFrEF
ASCVD- Severe multivessel disease noted on cardiac cath in October.
DM-II
Hypothyroidism
Plan:
HOWARD-cr baseline at 1.8
hyperkalemia-changed to low k diet, s/p Lokelma
K 4.5 today
no clear etiology of hyperkalemia-check TTKG :4:suggests hypo aldosterone state, however elevated bp does not
monitor mild hyponatremia
Liao replaced 04/23 for persistent retention 500cc
reviewed with vasc LESLY risk is mod to high , possible angio today
this was reviewed with pt and she agreed with risk
use minimal contrast as much as possible and given her bicarb IVF for contrast prophylaxis
abx per ID
BP stable
-
-
Date of Service: April 25, 2024
CC / HPI / ROS
-
Chief Complaint:
HOWARD
History of Present Illness:
Howard/Cr at 1.8
Na down to 133
K down following lokelma administration
BP stable
Review of Systems:
no CP/SOB
Grossly nonoliguric
Labs
-
Labs:
WBC 11.2 10^3/uL (4.8-10.8) H 04/25/24 07:05
RBC 2.85 10^6/uL (4.20-5.40) L 04/25/24 07:05
Hgb 9.2 g/dL (12.0-16.0) L 04/25/24 07:05
Hct 28.5 % (37.0-47.0) L 04/25/24 07:05
Plt Count 325 10^3/uL (130-400) 04/25/24 07:05
Sodium 135 mmol/L (135-145) 04/25/24 07:05
Potassium 4.5 mmol/L (3.5-5.1) 04/25/24 07:05
Chloride 101 mmol/L (98-107) 04/25/24 07:05
Carbon Dioxide 26 mmol/L (22-30) 04/25/24 07:05
BUN 60 mg/dl (7-17) H 04/25/24 07:05
Creatinine 1.8 mg/dL (0.6-1.0) H 04/25/24 07:05
eGFR 28.48 04/25/24 07:05
Glucose 131 mg/dl (70-99) H 04/25/24 07:05
Calcium 7.9 mg/dl (8.4-10.2) L 04/25/24 07:05
Phosphorus 5.0 mg/dl (2.5-4.5) H 04/19/24 06:26
Albumin 2.7 g/dl (3.5-5.0) L 04/20/24 04:13
Physical Exam
-
Vital Signs:
Vital Signs
Temp Pulse Resp BP Pulse Ox
98.2 F 80 16 146/71 100
04/25/24 07:30 04/25/24 08:56 04/25/24 07:30 04/25/24 08:56 04/25/24 07:30
Cardiovascular:: Regular rate and rhythm
Respiratory:: Bilateral: CTA
Lung Excursion:: Normal
Abdomen:: Nontender and Soft
Extremity Edema:: None: Bilateral:
Liao Catheter: Yes
Other Findings::
right erythema improving
--- NOTE | 2024-04-25 14:04 | OR.RPT ---
Operative Report
Operative Report
PROCEDURE DATE: 04/25/2024
Preoperative diagnosis: Critical limb ischemia right lower extremity
Postoperative diagnosis: Same
Procedure:
1. Duplex assisted left common femoral artery cannulation.
2. Aortogram and pelvic angiogram.
3. Right lower extremity arteriogram with third order vessel catheterization of right tibioperoneal trunk via left common femoral artery puncture.
4. Balloon angioplasty of right superficial femoral artery and above-knee popliteal artery with 4 mm angioplasty balloon.
5. Intravascular lithotripsy (IVL) angioplasty of right superficial femoral artery and above-knee popliteal artery with Shockwave E8 5 mm balloon catheter.
6. Placement of drug-eluting stent with [employer] Systemslver self-expanding stent 6 mm x 140 mm right superficial femoral artery.
7. Left femoral angiogram.
8. Supervision and interpretation.
Surgeon: Sammy
Wirer Maintenance: None
Complications: None
Anesthesia: Local, sedation
Fluoroscopy:
20.3 min
69 mGy
12.63 Gy.cm2
Indications for procedure:
Critical limb ischemia right lower extremity with small tissue loss right toe. Risk/benefits/alternatives of angiography were discussed. Patient understood all wished to proceed.
Description of procedure:
Patient was identified, brought to the operating room. Placed on the table in the supine position. After the adequate administration of anesthesia, the patient was prepped and draped in the standard surgical fashion. A standard preoperative
timeout was undertaken and everybody was in agreement with the plan.
The left common femoral artery was accessed with a micropuncture kit under direct duplex ultrasound guidance. A 5 Wallisian sheath was then advanced over a 0.035 inch wire, and a marshall's hook catheter was advanced into the abdominal aorta.
Aortogram and pelvic angiogram was obtained. Findings as follows:
Infrarenal aorta: Patent with eccentric calcified plaque but no significant stenosis.
Right common iliac artery: Patent with eccentric calcified plaque but no significant stenosis.
Right external iliac artery: Patent with eccentric calcified plaque but no significant stenosis.
Left common iliac artery: Patent with eccentric calcified plaque but no significant stenosis.
Left external iliac artery: Patent with eccentric calcified plaque but no significant stenosis.
Using a floppy angled hydrophilic wire, the right common femoral artery was cannulated and the catheter was advanced. Right lower extremity arteriogram was obtained. Findings as follows:
Common femoral artery: Patent with eccentric calcified plaque but no significant stenosis.
Profunda femoris artery: Patent with eccentric calcified plaque but no significant stenosis.
Superficial femoral artery: Patent with eccentric calcified plaque. Proximal 4-6 cm with mild luminal irregularities but no significant stenosis. Beyond here there was alternating areas of severe string-like stenoses and near occlusions with
somewhat more patent areas. This continued down to the above-knee popliteal artery. Heavy focal area of stenosis causing plaque in the above-knee popliteal artery in the vicinity of the patella. Beyond here the popliteal artery had some luminal
irregularities but was patent without any significant stenosis.
Popliteal artery: See above
Anterior tibial artery: Patent with no significant stenosis. Dominant runoff vessel to the foot.
Tibial peroneal trunk: Patent proximally and then occluded.
Peroneal artery: Occluded with reconstitution distally at the ankle.
Posterior tibial artery: Occluded
At this point I selectively cannulated the right superficial femoral artery and then exchanged over a Storq wire for a 6 Wallisian up and over sheath. The patient was given 5000 units of intravenous heparin. Next under roadmap assisted guidance using
a flopping of hydrophilic wire and a CXI catheter I was able to gain wire access through the areas of severe stenoses and into the above-knee popliteal artery. However I could not pass my CXI catheter into the distal SFA/above-knee popliteal
artery. I was able to gain distal wire access into the anterior tibial artery. Therefore with Glidewire and the anterior tibial artery, I exchanged my CXI catheter out for a 4 mm angioplasty balloon. I was able to pass this only to the distal SFA
(mid to distal SFA). I then angioplastied this. I then tried to gain further purchase with the balloon but was unable to pass it. I finally after attempting multiple techniques was able to gain more distal wire access into the tibioperoneal trunk
with a stiff Glidewire. Once I did this I was able to pass the balloon further down and angioplasty the very distal SFA. But I could not pass the balloon into the popliteal artery. However once I had inflated and then deflated the balloon, I then
exchanged for a new angioplasty balloon was able to pass this down. I then was able to balloon the popliteal artery as well. I was able to profile the balloons with all these angioplasties. As such now, I was able to gain a flow channel. I then
exchanged for a 0.014 inch wire into the tibioperoneal trunk. There was extensive plaque disease, and therefore I felt that the patient would benefit significantly from plaque modification with intravascular lithotripsy angioplasty. I then used a
Shockwave E8 IVL 5mm balloon catheter to perform intravascular lithotripsy/balloon angioplasty. Standard low atmospheric inflations were performed with delivery of the pulses. And then inflation to 6 isatu to profile the balloon. This was done
repeatedly in the above-knee popliteal artery shifting the balloon between inflations. I then walked to the balloon back repeatedly performing IVL angioplasty all the way back to the proximal to mid SFA where the artery became more normal.
Completion angiogram now demonstrated much improved result with enhance flow through the SFA and popliteal artery. In fact the mid to distal SFA and popliteal artery all appeared quite well now. There was diffuse residual plaque in the more
proximal SFA that had shifted as well. I felt that this needed to be stented therefore. However unfortunately they lost their 0.014 inch wire due to contamination. Therefore had to exchange back using a flopping on hydrophilic wire and a CXI
catheter. However I was easily able to wire back into the TP trunk. I then exchanged for a Storq wire, and then performed stenting of the mid SFA with 6 mm x 140 mm Zilver PTX drug-eluting self-expanding stent. This was post angioplastied with a
5 mm balloon. Completion angiogram now demonstrated excellent result with brisk flow through the SFA and popliteal artery with no residual stenosis. There is brisk flow directly into the anterior tibial artery as well with no residual stenosis or
hold-up. At this point I was very satisfied. I withdrew my sheath to the left external iliac artery. Left femoral angiogram demonstrated good puncture in the left common femoral artery. Therefore the wires and catheters were withdrawn.
Protamine was given reverse the heparin and manual pressure was applied as the sheath was withdrawn. Hemostasis was fully achieved in the left groin.
The patient tolerated procedure well. She had a palpable DP pulse in the right foot upon completion.
[2024-04-25 14:07] LABS: Glucose - Point of Care 134 mg/dl (70-99)
[2024-04-25] MEDS: PLAVIX 300 MG PO (14:07)
[2024-04-25] MEDS: STERILE WATER FOR INJECTION IV (15:33)
[2024-04-25] MEDS: MAXIPIME IV (15:33)
--- NOTE | 2024-04-25 16:04 | WOUNDNOTE ---
WOC RN note: Confirmed with Dr. Canales can cancel WOC RN consult. Dr. Miles is managing.
[2024-04-25 16:20] LABS: Glucose - Point of Care 151 mg/dl (70-99)
[2024-04-25] MEDS: STERILE WATER FOR INJECTION 10 ML IV (17:22)
[2024-04-25] MEDS: MAXIPIME 1000 MG IV (17:22)
[2024-04-25] MEDS: NOVOLOG FLEXPEN-MODERATE RESISTANCE 1 UNITS SC (17:23)
[2024-04-25] MEDS: NOVOLOG FLEXPEN 4 UNITS SC (17:24)
--- NOTE | 2024-04-25 18:06 | CM ---
Addendum entered by Ileana Pantoja 04/25/24 18:10:
[facility] accepted referral pending on bed availability when stable for DC
Original Note:
Casandra lives alone at [facility]; one level dwelling. Ambulates without device but has hand hold A of 1 or 'furniture surfs'. Patient is I in bathing with a shower chair in bath tub. Son paying for private caregivers.
CM to continue to follow.
[2024-04-25] MEDS: LOKELMA PO (18:09)
[2024-04-25] MEDS: XALATAN OPHTHALMIC SOLUTION 1 DROP BOTH EYES (21:05)
[2024-04-25 21:42] LABS: Glucose - Point of Care 316 mg/dl (70-99)
[2024-04-25] MEDS: LANTUS 0.1 UNITS SC (22:24)
[2024-04-26] MEDS: ULTRAM 25 MG PO ×2 (00:41→14:06)
[2024-04-26 03:49] VITALS: BP 143/70
[2024-04-26] MEDS: MAXIPIME 1000 MG IV (04:27)
[2024-04-26] MEDS: STERILE WATER FOR INJECTION 10 ML IV (04:27)
[2024-04-26 06:00] VITALS: BMI 21.6
[2024-04-26 07:17] VITALS: BP 146/65
[2024-04-26 08:01] LABS: Hematocrit 26.3 % (37.0-47.0); Hemoglobin 8.7 g/dL (12.0-16.0); Mean Corp Hgb Conc. 33.1 g/dL (33.0-37.0); Mean Corpuscular Hgb 32.7 pg (27.0-31.0); Mean Corpuscular Volume 98.9 fL (81.0-99.0); Mean Platelet Volume 9.5 fL (7.4-10.4); Platelet Count 339 10^3/uL (130-400); Red Blood Cell Count 2.66 10^6/uL (4.20-5.40); Red Cell Dist. Width 12.9 % (11.5-14.5); White Blood Cell Count 14.6 10^3/uL (4.8-10.8)
--- NOTE | 2024-04-26 08:02 | W.PN.VS ---
Today's Communication / Plan
-
Discussed with Dr. Liao
Assessment/Plan
-
Assessment: POD 1
Balloon angioplasty of right superficial femoral artery and above-knee popliteal artery with 4 mm angioplasty balloon.
Intravascular lithotripsy (IVL) angioplasty of right superficial femoral artery and above-knee popliteal artery with Shockwave E8 5 mm balloon catheter.
Placement of drug-eluting stent with [employer] Inclver self-expanding stent 6 mm x 140 mm right superficial femoral artery.
Plan:
Continue aspirin and Plavix
Continue local wound care
Okay for discharge from vascular standpoint, follow-up will be added to her discharge instructions
Subjective Data
-
Date of Service: April 26, 2024
Patient seen at bedside this a.m. Patient offers no complaints at this time. No events overnight.
Objective Data
-
Vital Signs
Temp Pulse Resp BP Pulse Ox
97.5 F 85 20 143/70 93
04/26/24 03:49 04/26/24 03:49 04/26/24 03:49 04/26/24 03:49 04/26/24 03:49
Intake and Output
04/25/24 04/26/24 04/27/24
06:59 06:59 06:59
Intake Total 1490 / 1490 1730 / 1730
Output Total 975 / 975 1100 / 1100
Balance 515 / 515 630 / 630
Intake:
Oral fluids 960 / 960 1680 / 1680
IV fluids (Total) 50 / 50
Nss 50 / 50
IV piggybacks 530 / 530
Output:
Yanni Mendoza 975 / 975 1100 / 1100
Lab Results
04/26/24 07:37
Calcium 7.9 mg/dl (8.4-10.2) L 04/25/24 07:05
Phosphorus 5.0 mg/dl (2.5-4.5) H 04/19/24 06:26
Magnesium 2.1 mg/dl (1.6-2.3) 04/19/24 06:26
Total Bilirubin 0.2 mg/dl (0.2-1.3) 04/20/24 04:13
AST 85 U/L (14-36) H 04/20/24 04:13
ALT 44 U/L (0-35) H 04/20/24 04:13
Alkaline Phosphatase 80 U/L (38-126) 04/20/24 04:13
Total Protein 4.8 g/dl (6.3-8.2) L D 04/20/24 04:13
Albumin 2.7 g/dl (3.5-5.0) L 04/20/24 04:13
Physical Exam
-
AAO x 3
No tachypnea on room air
No tachycardia
Abdomen soft
Groin site clean, dry, intact, soft, no drainage noted
--- NOTE | 2024-04-26 08:06 | WOUNDNOTE ---
R GREAT TOE, PICTURE TAKEN BY DR. KENDRICK
--- NOTE | 2024-04-26 08:07 | WOUNDNOTE ---
OFELIA PATIÑO NOTE: Wound photo of R great toe taken by Dr. Miles and uploaded by this show card writer, as requested by Dr. Canales.
[2024-04-26 08:26] LABS: Blood Urea Nitrogen 64 mg/dl (7-17); Calcium 7.9 mg/dl (8.4-10.2); Carbon Dioxide 26 mmol/L (22-30); Chloride 101 mmol/L (98-107); Estimated Creatinine Clearance 24 ml/min; Glucose 197 mg/dl (70-99); Potassium 4.8 mmol/L (3.5-5.1); Sodium 134 mmol/L (135-145); eGFR 28.48
[2024-04-26 08:45] LABS: Glucose - Point of Care 283 mg/dl (70-99)
--- NOTE | 2024-04-26 09:28 | W.PN.POD ---
Today's Communication
Today's Communication
Will begin enzymatic debridement of the necrotic area and follow closely, will require follow up xray to the right great toe to evaluate for potential developing osteo
WBAT in DH shoe (delivered to patient room
Continue protection to heels
Assessment / Plan
-
DM2 with PAD S/P revasc RLE
DM2 with DPN
Necrotic toe wound right- unstageable.
Necrotic heel fissures left heel-stable/uninfected
Erysipelas/cellulitis RLE -nearly resolved. iv abt per id.
Subjective
Chief Complaint
RLE pain and cellulitis w/gangrene right great toe
Subjective
Pt states she is feeling much better post Agram and revasc to the RLE
Objective
Temp Pulse Resp BP Pulse Ox
97.5 F 85 20 143/70 93
04/26/24 03:49 04/26/24 03:49 04/26/24 03:49 04/26/24 03:49 04/26/24 03:49
04/26/24 07:37
04/26/24 07:37
Vital Signs and Lab results were reviewed.
Inspection: Cellulitis (nearly all resolved to the RLE ) and Other (dry gangrene to the Right great toe)
Review of Systems
Review of Systems
Review of Systems: No Fever, No Chills, No Nausea, No Diarrhea and No Joint Pain
Physical Exam
Physical Exam
General: No Apparent Distress and Comfortable
Musculoskeletal: Other (General LE weakness, pain to the LEs has improved)
Skin: Warm, Dry and Ischemic Ulcer (right great toe measures 1.5cm x 1.8cm , dry and necrotic, no odor or drainage expressed + local cellulitis to the distal phalynx)
Neuro: AO x 3 and Protective Sensation Diminished (to forefoot and toes B/L )
Vascular: Capillary Refill Delayed and Pedal Hair Absent
Dorsalis Pedis: Diminished
[2024-04-26] MEDS: COREG 3.125 MG PO ×2 (09:38→20:11)
[2024-04-26] MEDS: ARMOUR THYROID 90 MG PO (09:39)
[2024-04-26] MEDS: PLAVIX 75 MG PO (09:39)
[2024-04-26] MEDS: COLACE 100 MG PO ×2 (09:42→20:11)
[2024-04-26] MEDS: HEPARIN 5000 UNITS SC ×2 (09:42→20:12)
[2024-04-26] MEDS: BACTROBAN 2% OINTMENT 1 APPLIC TOPICAL (09:42)
[2024-04-26] MEDS: NOVOLOG FLEXPEN-MODERATE RESISTANCE 5 UNITS SC ×2 (09:43→12:01)
[2024-04-26] MEDS: NOVOLOG FLEXPEN 4 UNITS SC ×3 (09:44→18:27)
[2024-04-26] MEDS: LOW STRENGTH ASPIRIN 81 MG PO (09:51)
[2024-04-26 11:56] LABS: Glucose - Point of Care 273 mg/dl (70-99)
[2024-04-26] MEDS: TYLENOL 650 MG PO ×2 (12:00→20:09)
--- NOTE | 2024-04-26 12:23 | W.PN.HOSP.TC ---
Today's Communication/Plan
-
BMP in AM
PT/OT
Likely dc in am
Assessment / Plan
Assessment / Plan
MRI LE
IMPRESSION:
There is T2/STIR hyperintense signal and enhancement within the inferior medial soft tissues of the great toe as well as a likely soft tissue defect consistent with known infectious process. There is edema within the underlying distal phalanx of the
great toe without discrete findings of osteomyelitis.
Physical Exam
general: No Acute Distress, Comfortable, Chronically Ill and Non-toxic
HEENT: Sclera Anicteric, no deformities.
Cardiovascular: S1/S2;
Lungs: Non Labored
Gastrointestinal: non tender, Non Distended
Wound: Other (Right hallux with medial distal wound with overlying crust. Little erythema up foot. Erythema of distal right leg overall improved, but area remains tender.)
Neurological: Awake and Alert, she followed commands
Psych: Calm
Assessment and Plan
# PAD
s/p Right lower extremity arteriogram, shockwave lithotripsy and balloon angioplasty right SFA and popliteal arteries by Dr Christianson on 04/25
No complications reported
Evaluated the wound with Dr Miles, seems good with no worsening
c/w aspirin and Plavix
# FAWN on CKD IV
�Baseline Cr 1.8, now baseline
�Pre-renal (overdiuresis and poor p.o. intake)
�Nonoligouric
�Avoid nephrotoxins and hypotension, holding lisinopril & metformin.
�Renal diet
-Liao reinserted for retention
-nephrology following
# hyponatremia, mild
No confusion.
# Hyperkalemia:
s/p Lokelma, holding RIGO
K normalizing
#Sepsis secondary to RLE/ Right lower extremity cellulitis, improving
MRI : No OM to the right great toe, c/w dry gangrene due to diabetes/ diabetic neuropathy
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
Erysipelas RLE -improving.
-afebrile, denies pain in right lower leg/foot
-Repeat Blood Cultures showing no growth
-Appreciate vascular, podiatry and ID doctors.
- for RLE angiogram/ plasty
#Severe anion gap none anion gap metabolic acidosis, resolved
#Hypothyroidism
-Continue levothyroxine
#Diabetes type 2
-Hyperglycemia due to infection
�Sliding scale with Lantus, pre-meal insulin
�Accu-Cheks
Chronic HFrEF, ICM, EF 25%, hypovolemic NYHA class II
-Held Lasix
-Held RIGO inhibitor
-Continue beta-hilda
-Monitor volume status, weight.
-Keep potassium greater than 4 magnesium greater than 2
-Monitor urinary output
#CAD, severe multivessel CAD
-no chest pain
-Continue outpatient cardiology discussions for medical management versus CABG
-Continue aspirin statin and beta-hilda
Total time spent to see the patient, examine the patient on the floor, review data and lab results, discuss treatment plan with patient, impregnator [employer] products, nursing staff around 59 minutes
Anticipated Discharge: Within 24 hours
Subjective/Interval History
-
Date of Service: April 26, 2024
No chest pain
No sob
Objective Data
-
Labs:
Laboratory Results
04/26/24
07:37
WBC 14.6 H
Hgb 8.7 L
Hct 26.3 L
Plt Count 339
Sodium 134 L
Potassium 4.8
Chloride 101
Carbon Dioxide 26
BUN 64 H
Creatinine 1.8 H
Glucose 197 H
Calcium 7.9 L
Vital Signs:
Vital Signs
Temp Pulse Resp BP Pulse Ox
98.2 F 81 18 146/65 98
04/26/24 07:17 04/26/24 09:38 04/26/24 07:17 04/26/24 09:38 04/26/24 07:17
I&O
04/25/24 04/26/24 04/27/24
06:59 06:59 06:59
Intake Total 1490 / 1490 1730 / 1730
Output Total 975 / 975 1100 / 1100
Balance 515 / 515 630 / 630
[2024-04-26 13:49] LABS: Glucose - Point of Care 275 mg/dl (70-99)
[2024-04-26 15:29] VITALS: BP 149/58
--- NOTE | 2024-04-26 16:01 | W.PN.ID1 ---
Date of Service
Date of Service: April 26, 2024
Today's Communication
Narrow to cefazolin. See below�
Assessment / Plan
Right lower extremity cellulitis
Right hallux wound with cellulitis.
- No osteomyelitis noted on MRI
Leukocytosis
FAWN on CKD
Hx breast CA
CKD stage III
HTN
CHF
DM with associated neuropathy/retinopathy
Fibromyalgia
Hypothyroidism
Diverticulosis
IBS
ASCVD
Depression/anxiety
Recommendations:
Narrow to cephalexin. If continued clinical improvement, can transition to oral Keflex at discharge.
Local care to hallux area
Tight glucose control.
����������������������������������������������������������
Chief Complaint
-: Other (Right hallux infection)
Subjective / Review of Systems
Patient seen and examined. Reports some right foot discomfort.
Review of Systems: No Fever and No Chills
Vital Signs / Physical Exam
Vital Signs
Vital Signs
Temp Pulse Resp BP Pulse Ox
98.2 F 81 18 146/65 98
04/26/24 07:17 04/26/24 09:38 04/26/24 07:17 04/26/24 09:38 04/26/24 07:17
Physical Exam
Constitutional: No Acute Distress, Comfortable, Chronically Ill and Non-toxic
Eyes: Sclera Anicteric
Cardiovascular: S1/S2; Negative S3/S4
Pulmonary: Non Labored
Gastrointestinal: Non Distended
Wound: Other (Right hallux with medial distal wound with overlying crust. Little erythema up foot. Erythema of distal right leg overall improved, With less tenderness.)
Neurological: Awake and Alert
Psychological: Calm
Objective Data
Lab Data
Lab Results
04/26/24 07:37
04/26/24 07:37
ESR 80 mm/hour (0-20) H 04/23/24 05:44
PT 15.7 Sec (11.4-14.6) H 04/25/24 07:05
INR 1.22 04/25/24 07:05
APTT 37.6 Sec (23.4-35.0) H 04/25/24 07:05
Estimated Creat Clear 24 ml/min 04/26/24 07:37
Lactic Acid 1.3 mmol/L (0.7-2.0) 04/19/24 01:46
Total Bilirubin 0.2 mg/dl (0.2-1.3) 04/20/24 04:13
AST 85 U/L (14-36) H 04/20/24 04:13
ALT 44 U/L (0-35) H 04/20/24 04:13
Alkaline Phosphatase 80 U/L (38-126) 04/20/24 04:13
C-Reactive Protein 59.60 mg/L (0.0-10.00) H 04/23/24 05:44
Most recent labs reviewed.
Micro Results:
04/24/24 10:48 Blood Culture - Preliminary
Blood/Venous No Growth in 48 hours- Final report to follow
04/24/24 10:10 Blood Culture - Preliminary
Blood/Venous No Growth in 48 hours- Final report to follow
04/19/24 01:46 Blood Culture - Final
Blood/Venous No Growth - Final Report
04/19/24 01:46 Blood Culture - Final
Blood/Venous No Growth - Final Report
04/19/24 03:07 Urine Culture - Final
Urine
Imaging:
04/23/2024 MRI right lower extremity: There is T2/STIR hyperintense signal and enhancement within the inferior medial soft tissues of the great toe as well as a likely soft tissue defect consistent with known infectious process. There is edema
within the underlying distal phalanx of the great toe without discrete findings of osteomyelitis.
04/21/2024 X-ray right foot: No acute fracture or dislocation. No osseous destructive changes. Marginal osteophyte at the first metatarsophalangeal joint and hallux sesamoid complex. Vascular calcifications noted. Overall, no radiographic
evidence for acute osteomyelitis. Please see full dictation for additional detail. Film personally viewed.
[2024-04-26 16:06] LABS: Glucose - Point of Care 179 mg/dl (70-99)
--- NOTE | 2024-04-26 16:45 | W.PN.NEPH.PH ---
Today's Communication / Plan
-
follow up bmp tomorrow
s/p PCI of right lower extremity
Assessment/Plan
-
IMP:
HOWARD on CKD 3 vs 4 (1.5-1.9)
Azotemia
Anion Gap Metabolic Acidosis
Hyperkalemia
Hyponatremia
RLE Cellulitis
Chronic HFrEF
ASCVD- Severe multivessel disease noted on cardiac cath in October.
DM-II
Hypothyroidism
Plan:
HOWARD-cr baseline at 1.8
hyperkalemia-changed to low k diet, s/p Lokelma
K 4.8 today
no clear etiology of hyperkalemia-check TTKG :4:suggests hypo aldosterone state, however elevated bp does not
monitor mild hyponatremia
Liao replaced 04/23 for persistent retention 500cc
reviewed with vasc LESLY risk is mod to high , s/p right superficial femoral artery and above knee popliteal artery PCI and stent
abx per ID
BP stable
-
-
Date of Service: April 26, 2024
CC / HPI / ROS
-
Chief Complaint:
HOWARD
History of Present Illness:
Howard/Cr at 1.8
Na at 134
K down following lokelma administration
BP stable
Review of Systems:
no CP/SOB
Grossly nonoliguric
Labs
-
Labs:
WBC 14.6 10^3/uL (4.8-10.8) H 04/26/24 07:37
RBC 2.66 10^6/uL (4.20-5.40) L 04/26/24 07:37
Hgb 8.7 g/dL (12.0-16.0) L 04/26/24 07:37
Hct 26.3 % (37.0-47.0) L 04/26/24 07:37
Plt Count 339 10^3/uL (130-400) 04/26/24 07:37
Sodium 134 mmol/L (135-145) L 04/26/24 07:37
Potassium 4.8 mmol/L (3.5-5.1) 04/26/24 07:37
Chloride 101 mmol/L (98-107) 04/26/24 07:37
Carbon Dioxide 26 mmol/L (22-30) 04/26/24 07:37
BUN 64 mg/dl (7-17) H 04/26/24 07:37
Creatinine 1.8 mg/dL (0.6-1.0) H 04/26/24 07:37
eGFR 28.48 04/26/24 07:37
Glucose 197 mg/dl (70-99) H 04/26/24 07:37
Calcium 7.9 mg/dl (8.4-10.2) L 04/26/24 07:37
Phosphorus 5.0 mg/dl (2.5-4.5) H 04/19/24 06:26
Albumin 2.7 g/dl (3.5-5.0) L 04/20/24 04:13
Physical Exam
-
Vital Signs:
Vital Signs
Temp Pulse Resp BP Pulse Ox
98.2 F 81 18 146/65 98
04/26/24 07:17 04/26/24 09:38 04/26/24 07:17 04/26/24 09:38 04/26/24 07:17
Cardiovascular:: Regular rate and rhythm
Respiratory:: Bilateral: CTA
Lung Excursion:: Normal
Abdomen:: Nontender and Soft
Extremity Edema:: None: Bilateral:
Liao Catheter: Yes
Other Findings::
right erythema improving
[2024-04-26] MEDS: STERILE WATER FOR INJECTION IV (18:24)
[2024-04-26] MEDS: NOVOLOG FLEXPEN-MODERATE RESISTANCE 1 UNITS SC (18:27)
[2024-04-26] MEDS: ANCEF 10 IV (18:28)
[2024-04-26] MEDS: MAXIPIME IV (18:41)
[2024-04-26 21:27] LABS: Glucose - Point of Care 150 mg/dl (70-99)
[2024-04-26] MEDS: LANTUS 0.1 UNITS SC (21:36)
[2024-04-26] MEDS: XALATAN OPHTHALMIC SOLUTION 1 DROP BOTH EYES (21:37)
[2024-04-26 23:28] VITALS: BP 143/62
--- NOTE | 2024-04-27 04:16 | DOWNTIME ---
There was a [employer] Client Payroll Lead Downtime on 04/27/2024 from 0100 to 04/27/2024 at 0350. Downtime documentation of patient's care, including medication administrations, has been reconciled in the electronic record per guidelines. Refer to the
patient's paper chart under the miscellaneous tab to see printed paper medication records and downtime forms.
[2024-04-27] MEDS: ANCEF 10 IV ×2 (05:17→17:25)
[2024-04-27] MEDS: ULTRAM 25 MG PO ×2 (05:17→20:37)
[2024-04-27] MEDS: STERILE WATER FOR INJECTION IV ×2 (05:20→16:53)
[2024-04-27 06:00] VITALS: BMI 21.9
[2024-04-27 07:21] LABS: Glucose - Point of Care 159 mg/dl (70-99)
[2024-04-27 07:30] VITALS: BP 139/65
[2024-04-27 08:37] LABS: Hematocrit 28.1 % (37.0-47.0); Mean Corpuscular Hgb 32.3 pg (27.0-31.0); Mean Corpuscular Volume 100.7 fL (81.0-99.0); Mean Platelet Volume 9.3 fL (7.4-10.4); Platelet Count 345 10^3/uL (130-400); Red Blood Cell Count 2.79 10^6/uL (4.20-5.40); Red Cell Dist. Width 13.2 % (11.5-14.5); White Blood Cell Count 15.1 10^3/uL (4.8-10.8)
[2024-04-27] MEDS: NOVOLOG FLEXPEN-MODERATE RESISTANCE 1 UNITS SC (09:12)
[2024-04-27] MEDS: NOVOLOG FLEXPEN 4 UNITS SC ×3 (09:13→17:26)
[2024-04-27] MEDS: ARMOUR THYROID 90 MG PO (09:14)
[2024-04-27] MEDS: BACTROBAN 2% OINTMENT 1 APPLIC TOPICAL (09:14)
[2024-04-27] MEDS: COLACE 100 MG PO (09:14)
[2024-04-27] MEDS: COREG 3.125 MG PO ×2 (09:15→20:36)
[2024-04-27] MEDS: LOW STRENGTH ASPIRIN 81 MG PO (09:15)
[2024-04-27] MEDS: HEPARIN 5000 UNITS SC ×2 (09:15→20:37)
[2024-04-27] MEDS: PLAVIX 75 MG PO (09:15)
[2024-04-27] MEDS: SANTYL OINTMENT 1 APPLIC TOPICAL (09:16)
[2024-04-27] MEDS: TYLENOL 650 MG PO (10:42)
--- NOTE | 2024-04-27 10:48 | W.PN.ID1 ---
Date of Service
Date of Service: April 27, 2024
Today's Communication
Continue cefazolin for today
Assessment / Plan
Right lower extremity cellulitis
- improved
Right hallux wound with cellulitis.
- No osteomyelitis noted on MRI
Leukocytosis
- suspect secondary to ongoing constipation.
FAWN on CKD
Hx breast CA
CKD stage III
HTN
CHF
DM with associated neuropathy/retinopathy
Fibromyalgia
Hypothyroidism
Diverticulosis
IBS
ASCVD
Depression/anxiety
Recommendations:
Continue with cefazolin. Transition to oral Keflex at discharge.
Local care to hallux area. Offload bilateral heels.
Tight glucose control.
����������������������������������������������������������
Chief Complaint
-: Leukocytosis and Other (Right hallux infection)
Subjective / Review of Systems
Patient seen and examined. Reports some right foot discomfort.
Review of Systems: No Fever and No Chills
Vital Signs / Physical Exam
Vital Signs
Vital Signs
Temp Pulse Resp BP Pulse Ox
98.3 F 97 18 139/65 98
04/27/24 07:30 04/27/24 09:15 04/27/24 07:30 04/27/24 09:15 04/27/24 09:09
Physical Exam
Constitutional: No Acute Distress, Comfortable, Chronically Ill and Non-toxic
Eyes: Sclera Anicteric
Cardiovascular: S1/S2; Negative S3/S4
Pulmonary: Clear and Non Labored
Gastrointestinal: Non Distended and Normal Bowel Sounds
Extremities: Edema (1+ LLE edema); Negative Erythema
Wound: Other (Right hallux with medial distal wound with overlying crust. Little erythema up foot. Erythema of distal right leg overall improved, With less tenderness.)
Neurological: Awake and Alert
Psychological: Calm
Objective Data
Lab Data
Lab Results
04/27/24 08:23
ESR 80 mm/hour (0-20) H 04/23/24 05:44
PT 15.7 Sec (11.4-14.6) H 04/25/24 07:05
INR 1.22 04/25/24 07:05
APTT 37.6 Sec (23.4-35.0) H 04/25/24 07:05
Estimated Creat Clear 24 ml/min 04/26/24 07:37
Lactic Acid 1.3 mmol/L (0.7-2.0) 04/19/24 01:46
Total Bilirubin 0.2 mg/dl (0.2-1.3) 04/20/24 04:13
AST 85 U/L (14-36) H 04/20/24 04:13
ALT 44 U/L (0-35) H 04/20/24 04:13
Alkaline Phosphatase 80 U/L (38-126) 04/20/24 04:13
C-Reactive Protein 59.60 mg/L (0.0-10.00) H 04/23/24 05:44
Most recent labs reviewed.
Micro Results:
04/24/24 10:10 Blood Culture - Preliminary
Blood/Venous No Growth in 72 hours- Final report to follow
04/24/24 10:48 Blood Culture - Preliminary
Blood/Venous No Growth in 48 hours- Final report to follow
04/19/24 01:46 Blood Culture - Final
Blood/Venous No Growth - Final Report
04/19/24 01:46 Blood Culture - Final
Blood/Venous No Growth - Final Report
04/19/24 03:07 Urine Culture - Final
Urine
Imaging:
04/23/2024 MRI right lower extremity: There is T2/STIR hyperintense signal and enhancement within the inferior medial soft tissues of the great toe as well as a likely soft tissue defect consistent with known infectious process. There is edema
within the underlying distal phalanx of the great toe without discrete findings of osteomyelitis.
04/21/2024 X-ray right foot: No acute fracture or dislocation. No osseous destructive changes. Marginal osteophyte at the first metatarsophalangeal joint and hallux sesamoid complex. Vascular calcifications noted. Overall, no radiographic
evidence for acute osteomyelitis. Please see full dictation for additional detail. Film personally viewed.
[2024-04-27 10:54] VITALS: BP 147/73; PULSE 99; O2SAT 97
[2024-04-27 11:14] LABS: Blood Urea Nitrogen 64 mg/dl (7-17); Calcium 8.2 mg/dl (8.4-10.2); Carbon Dioxide 25 mmol/L (22-30); Chloride 98 mmol/L (98-107); Estimated Creatinine Clearance 24 ml/min; Glucose 244 mg/dl (70-99); Potassium 5.5 mmol/L (3.5-5.1); Sodium 135 mmol/L (135-145); eGFR 28.48
[2024-04-27 11:55] LABS: Glucose - Point of Care 246 mg/dl (70-99)
--- NOTE | 2024-04-27 12:24 | W.PN.HOSP.TC ---
Addendum entered and electronically signed by Arianna Canales MD 04/27/24 13:40:
Addendum to A/P
Will dc Liao for second time and do voiding trial, if fails then dc with Liao
End
Original Note:
Today's Communication/Plan
-
Treat constipation. No BM documented. If oral TX kc snot work, will do rectal Dulcolax suppository
Give Lokelma
Increase Lantus
Switch to Keflex
Assessment / Plan
Assessment / Plan
MRI LE
IMPRESSION:
There is T2/STIR hyperintense signal and enhancement within the inferior medial soft tissues of the great toe as well as a likely soft tissue defect consistent with known infectious process. There is edema within the underlying distal phalanx of the
great toe without discrete findings of osteomyelitis.
Physical Exam
general: No Acute Distress, Comfortable, Chronically Ill and Non-toxic
HEENT: Sclera Anicteric, no deformities.
Cardiovascular: S1/S2;
Lungs: Non Labored
Gastrointestinal: non tender, Non Distended
Wound: Other (Right hallux with medial distal wound with overlying crust. Little erythema up foot. Erythema of distal right leg overall improved, but area remains tender.)
Neurological: Awake and Alert, she followed commands
Psych: Calm
Assessment and Plan
# hyperkalemia, will give Lokelma
low K diet if possible
Would avoid RIGO in future. Hyperglycemia seems better controlled, will keep adjusting.
# constipation
will dos tat oral Dulcolax and MiraLAX, if no BM, will do rectal Dulcolax suppository.
# PAD
s/p Right lower extremity arteriogram, shockwave lithotripsy and balloon angioplasty right SFA and popliteal arteries by Dr Christianson on 04/25
No complications reported
Evaluated the wound with Dr Miles, seems good with no worsening
c/w aspirin and Plavix
# FAWN on CKD IV
�Baseline Cr 1.8, now baseline
�Pre-renal (overdiuresis and poor p.o. intake)
�Nonoligouric
�Avoid nephrotoxins and hypotension, holding lisinopril & metformin.
�Renal diet
-Liao reinserted for retention
-nephrology following
# hyponatremia, mild
No confusion.
#Sepsis secondary to RLE/ Right lower extremity cellulitis, improving
MRI : No OM to the right great toe, c/w dry gangrene due to diabetes/ diabetic neuropathy
Per duplication specialist: Necrotic toe wound right- unstageable.
Erysipelas RLE -improving.
-afebrile, denies pain in right lower leg/foot
-Repeat Blood Cultures showing no growth
-Appreciate vascular, podiatry and ID doctors. DC on Keflex.
- for RLE angiogram/ plasty
#Severe anion gap none anion gap metabolic acidosis, resolved
#Hypothyroidism
-Continue levothyroxine
#Diabetes type 2
-Hyperglycemia due to infection
�Sliding scale with Lantus, pre-meal insulin
�Accu-Cheks
Chronic HFrEF, ICM, EF 25%, hypovolemic NYHA class II
-Held Lasix
-Held RIGO inhibitor
-Continue beta-hilda
-Monitor volume status, weight.
-Keep potassium greater than 4 magnesium greater than 2
-Monitor urinary output
#CAD, severe multivessel CAD
-no chest pain
-Continue outpatient cardiology discussions for medical management versus CABG
-Continue aspirin statin and beta-hilda
Total time spent to see the patient, examine the patient on the floor, review data and lab results, discuss treatment plan with patient, duplication specialist, nursing staff around 59 minutes
Anticipated Discharge: Within 24 hours
Subjective/Interval History
-
Date of Service: April 27, 2024
she reports constipation
no chest pain or sob
Objective Data
-
Labs:
Laboratory Results
04/27/24
08:23
WBC 15.1 H
Hgb 9.0 L
Hct 28.1 L
Plt Count 345
Sodium 135
Potassium 5.5 H
Chloride 98
Carbon Dioxide 25
BUN 64 H
Creatinine 1.8 H
Glucose 244 H
Calcium 8.2 L
Vital Signs:
Vital Signs
Temp Pulse Resp BP Pulse Ox
98.3 F 97 18 139/65 98
04/27/24 07:30 04/27/24 09:15 04/27/24 07:30 04/27/24 09:15 04/27/24 09:09
I&O
04/26/24 04/27/24 04/28/24
06:59 06:59 06:59
Intake Total 1730 / 1730 1080 / 1080
Output Total 1100 / 1100 1500 / 1500
Balance 630 / 630 -420 / -420
[2024-04-27] MEDS: NOVOLOG FLEXPEN-MODERATE RESISTANCE 3 UNITS SC ×2 (12:40→17:26)
[2024-04-27] MEDS: DULCOLAX 10 MG PO (13:10)
[2024-04-27] MEDS: LOKELMA 10 GRAM PO (13:11)
[2024-04-27 13:43] VITALS: BMI 21.9
--- NOTE | 2024-04-27 14:36 | PTCARENOTE ---
Yanni harman'mirella; pt DTV by 20:30 today. Will monitor.
[2024-04-27 15:20] VITALS: BP 155/78
--- NOTE | 2024-04-27 15:34 | W.PN.NEPH.PH ---
Today's Communication / Plan
-
follow labs
Assessment/Plan
-
IMP:
HOWARD on CKD 3 vs 4 (1.5-1.9)
Azotemia
Anion Gap Metabolic Acidosis
Hyperkalemia
Hyponatremia
RLE Cellulitis
Chronic HFrEF
ASCVD- Severe multivessel disease noted on cardiac cath in October.
DM-II
Hypothyroidism
Plan:
HOWARD-cr baseline at 1.8
hyperkalemia-changed to low k diet, s/p Lokelma today
may need LOkelma 3xweekly at d/c
TTKG :4:suggests hypo aldosterone state, note pt on heparin SC
monitor mild hyponatremia
Liao replaced 04/23 for persistent retention 500cc
s/p right superficial femoral artery and above knee popliteal artery PCI and stent
abx per ID
BP stable
-
-
Date of Service: April 27, 2024
CC / HPI / ROS
-
Chief Complaint:
HOWARD
History of Present Illness:
Howard/Cr at 1.8, k high 5.5
Na at 135
BP stable
Review of Systems:
no CP/SOB
Grossly nonoliguric
leg pain improving
Labs
-
Labs:
WBC 15.1 10^3/uL (4.8-10.8) H 04/27/24 08:23
RBC 2.79 10^6/uL (4.20-5.40) L 04/27/24 08:23
Hgb 9.0 g/dL (12.0-16.0) L 04/27/24 08:23
Hct 28.1 % (37.0-47.0) L 04/27/24 08:23
Plt Count 345 10^3/uL (130-400) 04/27/24 08:23
Sodium 135 mmol/L (135-145) 04/27/24 08:23
Potassium 5.5 mmol/L (3.5-5.1) H 04/27/24 08:23
Chloride 98 mmol/L (98-107) 04/27/24 08:23
Carbon Dioxide 25 mmol/L (22-30) 04/27/24 08:23
BUN 64 mg/dl (7-17) H 04/27/24 08:23
Creatinine 1.8 mg/dL (0.6-1.0) H 04/27/24 08:23
eGFR 28.48 04/27/24 08:23
Glucose 244 mg/dl (70-99) H 04/27/24 08:23
Calcium 8.2 mg/dl (8.4-10.2) L 04/27/24 08:23
Phosphorus 5.0 mg/dl (2.5-4.5) H 04/19/24 06:26
Albumin 2.7 g/dl (3.5-5.0) L 04/20/24 04:13
Physical Exam
-
Vital Signs:
Vital Signs
Temp Pulse Resp BP Pulse Ox
98.3 F 97 18 139/65 98
04/27/24 07:30 04/27/24 09:15 04/27/24 07:30 04/27/24 09:15 04/27/24 09:09
Cardiovascular:: Regular rate and rhythm
Respiratory:: Bilateral: CTA
Lung Excursion:: Normal
Abdomen:: Nontender and Soft
Extremity Edema:: None: Bilateral:
Liao Catheter: Yes
--- NOTE | 2024-04-27 15:58 | W.PN.POD ---
Today's Communication
Today's Communication
Stable. No surgical tx planned at this time. Rec follow up xrays in 2 weeks.
Wound care : Vashe cleanse, apply santyl ointment, xeroform gauze, 2x2 and hypafix dressing daily
WBAT in DH walker shoe
Assessment / Plan
-
DM2 with PAD S/P revasc RLE
DM2 with DPN
Necrotic toe wound right- unstageable. MRI was negative for OM distal phalynx
Necrotic heel fissures left heel-stable/uninfected
Erysipelas/cellulitis RLE -nearly resolved. iv abt per id.
Subjective
Chief Complaint
cellulitis right foot/leg
Subjective
Pt states she had a great day and was able to walk with far less pain to her RLE and left heel
Objective
Temp Pulse Resp BP Pulse Ox
97.8 F 90 18 155/78 99
04/27/24 15:20 04/27/24 15:20 04/27/24 15:20 04/27/24 15:20 04/27/24 15:49
04/27/24 08:23
04/27/24 08:23
Vital Signs and Lab results were reviewed.
Inspection: Cellulitis
Review of Systems
Review of Systems
Review of Systems: No Fever, No Chills, No Headache and No Nausea
Physical Exam
Physical Exam
General: No Apparent Distress and Comfortable
Musculoskeletal: Edema, Right Lower Extrem
Skin: Warm, Dry, Neurotrophic Ulcer and Ischemic Ulcer (gangrene to right great toe with demarcation, no odor or drainage expressed, minimal discomfort)
Neuro: AO x 3 and Protective Sensation Diminished (to toes B/L )
Vascular: Capillary Refill Delayed, Pedal Hair Absent and Skin Temperature Warm to Warm
Dorsalis Pedis: Intact
Posterior Tibialis: Diminished
[2024-04-27 16:03] LABS: Glucose - Point of Care 211 mg/dl (70-99)
--- NOTE | 2024-04-27 16:32 | PTCARENOTE ---
Pt AAO x3, forgetful at times. LUGO; OOB to chair with assist x 1/walker, izaiah well, no c/o weakness/dizziness. On room air- pulse ox 99%, no SO Bnoted. Abd soft, rounded, izaiah PO well. No BM so far this shift. Pt DTV by 20:30 after Yanni dc'd
earlier in shift. Rt great toe dsg D/I. resting in bed at present, no c/o. Will continue to monitor.
--- NOTE | 2024-04-27 16:41 | CM ---
Casandra has been accepted for transfer to [facility] for tomorrow, 04/28/2024. Family aware and agreeable to same.
Family lives out of the area, so are interested in assisted living for Casandra so she has assistance as needed, as well as supervision on a regular basis.Provided resources - [facility] - to assist with finding a jail living plan, as Casandra
has not been doing well living alone and has been more forgetful. Family lives out of the area, so are interested in assisted living for Casandra so she has assistance as needed, as well as supervision on a regular basis.
Plan: Transfer to [facility] tomorrow via w/c van. CM will need to contact pt's son to provide information re: payment for w/c van transport.
W/C van request form completed and on the front of Casandra's chart. [facility] requests transfer no earlier than 3PM.
[facility] Report:[phone]
[facility]
[2024-04-27] MEDS: FLUSH (NSS) 1 FLUSH IV (17:25)
[2024-04-27] MEDS: COLACE PO (20:36)
[2024-04-27 21:33] LABS: Glucose - Point of Care 205 mg/dl (70-99)
[2024-04-27] MEDS: LANTUS 0.17 UNITS SC (21:39)
[2024-04-27] MEDS: XALATAN OPHTHALMIC SOLUTION 1 DROP BOTH EYES (21:41)
[2024-04-27 23:49] VITALS: BP 150/72
[2024-04-28] MEDS: ANCEF 10 IV (05:19)
[2024-04-28 06:00] VITALS: BMI 22.0
--- NOTE | 2024-04-28 06:00 | PTCARENOTE ---
Pt continues to have difficulty voiding through the night since the tello catheter was removed yesterday afternoon. Pt had multiple voiding trials, but voiding small amounts at the time. This morning PVR>472, and the pt was feeling increasing
pressure. Straight catheter was performed for 500cc of clear yellow urine. Will follow.
[2024-04-28 06:08] LABS: Hematocrit 26.2 % (37.0-47.0); Hemoglobin 8.6 g/dL (12.0-16.0); Mean Corp Hgb Conc. 32.8 g/dL (33.0-37.0); Mean Corpuscular Hgb 32.3 pg (27.0-31.0); Mean Corpuscular Volume 98.5 fL (81.0-99.0); Mean Platelet Volume 9.3 fL (7.4-10.4); Platelet Count 330 10^3/uL (130-400); Red Blood Cell Count 2.66 10^6/uL (4.20-5.40); Red Cell Dist. Width 13.2 % (11.5-14.5); White Blood Cell Count 11.3 10^3/uL (4.8-10.8)
[2024-04-28 06:37] LABS: Blood Urea Nitrogen 59 mg/dl (7-17); Calcium 8.2 mg/dl (8.4-10.2); Carbon Dioxide 26 mmol/L (22-30); Chloride 101 mmol/L (98-107); Estimated Creatinine Clearance 24 ml/min; Glucose 128 mg/dl (70-99); Potassium 4.2 mmol/L (3.5-5.1); Sodium 138 mmol/L (135-145); eGFR 28.48
[2024-04-28 07:01] LABS: Glucose - Point of Care 129 mg/dl (70-99)
[2024-04-28 08:22] VITALS: BP 155/69
[2024-04-28] MEDS: ULTRAM 25 MG PO (08:37)
[2024-04-28] MEDS: NOVOLOG FLEXPEN-MODERATE RESISTANCE SC ×2 (09:15→12:15)
[2024-04-28] MEDS: NOVOLOG FLEXPEN 4 UNITS SC ×3 (09:16→16:34)
[2024-04-28] MEDS: SANTYL OINTMENT 1 APPLIC TOPICAL (09:17)
[2024-04-28] MEDS: COLACE PO (09:17)
[2024-04-28] MEDS: BACTROBAN 2% OINTMENT 1 APPLIC TOPICAL (09:17)
[2024-04-28] MEDS: ARMOUR THYROID 90 MG PO (09:18)
[2024-04-28] MEDS: COREG 3.125 MG PO (09:19)
[2024-04-28] MEDS: LOW STRENGTH ASPIRIN 81 MG PO (09:19)
[2024-04-28] MEDS: PLAVIX 75 MG PO (09:19)
[2024-04-28] MEDS: HEPARIN 5000 UNITS SC (09:20)
--- NOTE | 2024-04-28 10:11 | W.PN.HOSP.TC ---
Today's Communication/Plan
-
Discharge
Assessment / Plan
Assessment / Plan
MRI LE
IMPRESSION:
There is T2/STIR hyperintense signal and enhancement within the inferior medial soft tissues of the great toe as well as a likely soft tissue defect consistent with known infectious process. There is edema within the underlying distal phalanx of the
great toe without discrete findings of osteomyelitis.
Physical Exam
general: No Acute Distress, Comfortable, Chronically Ill and Non-toxic
HEENT: Sclera Anicteric, no deformities.
Cardiovascular: S1/S2;
Lungs: Non Labored
Gastrointestinal: non tender, Non Distended
Wound: Other (Right hallux with medial distal wound with overlying crust. Little erythema up foot. Erythema of distal right leg overall improved, but area remains tender.)
Neurological: Awake and Alert, she followed commands
Psych: Calm
Assessment and Plan
# hyperkalemia, resolved. Avoid RIGO.
# constipation
Had BM
we did oral Dulcolax.
She refused MiraLAX and rectal Dulcolax suppository.
# PAD
s/p Right lower extremity arteriogram, shockwave lithotripsy and balloon angioplasty right SFA and popliteal arteries by Dr Christianson on 04/25
No complications reported
Evaluated the wound with Dr Miles, seems good with no worsening
c/w aspirin and Plavix
# FAWN on CKD IV
�Baseline Cr 1.8, now baseline
�Pre-renal (overdiuresis and poor p.o. intake)
- Also noted to have > 300 cc of post void urine volume
- Starte don Flomax
�Avoid nephrotoxins and hypotension, holding lisinopril & metformin.
�Renal diet
-Liao is removed now, will do Straight cath BID if and PRN
-nephrology following
# hyponatremia, mild
No confusion.
#Sepsis secondary to RLE/ Right lower extremity cellulitis, improving
MRI : No OM to the right great toe, c/w dry gangrene due to diabetes/ diabetic neuropathy
Per supervisor: Necrotic toe wound right- unstageable.
Erysipelas RLE -improving.
-afebrile, denies pain in right lower leg/foot
-Repeat Blood Cultures showing no growth
-Appreciate vascular, podiatry and ID doctors. DC on Keflex.
- for RLE angiogram/ plasty
#Severe anion gap none anion gap metabolic acidosis, resolved
#Hypothyroidism
-Continue levothyroxine
#Diabetes type 2
-Hyperglycemia due to infection, now better controlled.
�Sliding scale with Lantus, pre-meal insulin
�Accu-Cheks
Chronic HFrEF, ICM, EF 25%, hypovolemic NYHA class II
-Held Lasix
-Held RIGO inhibitor
-Continue beta-hilda
-Monitored volume status, weight.
-Keep potassium greater than 4 magnesium greater than 2
-Monitor urinary output
#CAD, severe multivessel CAD
-no chest pain
-Continue outpatient cardiology discussions for medical management versus CABG
-Continue aspirin statin and beta-hilda
Total discharge time spent to see the patient, examine the patient on the floor, review data and lab results, discuss discharge plan with patient, supervisor, nursing staff around 69 minutes
Anticipated Discharge: Today
Subjective/Interval History
-
Date of Service: April 28, 2024
No complaints
No sob
No chest pain
Objective Data
-
Labs:
Laboratory Results
04/28/24
05:56
WBC 11.3 H
Hgb 8.6 L
Hct 26.2 L
Plt Count 330
Sodium 138
Potassium 4.2
Chloride 101
Carbon Dioxide 26
BUN 59 H
Creatinine 1.8 H
Glucose 128 H
Calcium 8.2 L
Vital Signs:
Vital Signs
Temp Pulse Resp BP Pulse Ox
98.7 F 84 18 155/69 99
04/28/24 08:22 04/28/24 08:22 04/28/24 08:22 04/28/24 08:22 04/28/24 08:22
I&O
04/27/24 04/28/24 04/29/24
06:59 06:59 06:59
Intake Total 1080 / 1080 680 / 680
Output Total 1500 / 1500 1150 / 1150
Balance -420 / -420 -470 / -470
[2024-04-28] MEDS: FLOMAX 0.4 MG PO (11:04)
[2024-04-28 11:31] LABS: Glucose - Point of Care 139 mg/dl (70-99)
--- NOTE | 2024-04-28 11:36 | CM ---
CM reviewed chart, patient for discharge today to [facility]. Patient scheduled for 4:30 transport, no WC Van over weekend, ambulance transport, will honor WC Van cost. CM placed call to patients son, Danis, provided number to call to provide
payment for transport. Patient seen bedside, discussed transport time. IMM reviewed, signed, placed in chart, provided with copy. CM will continue to follow for all discharge planning needs.
Plan; [facility], 4:30 ambulance transport
[facility] Report: [phone]
[facility]
--- NOTE | 2024-04-28 12:48 | W.DCSUMMARY ---
Discharge Summary
Discharge Data
Date of Admission: 04/19/24
Date of Discharge: 04/28/24
-
Pending Results: No
Hospital Course
79 years old female presented to the emergency room with history of weakness, fatigue and decreasing oral intake. Patient was seen by her supervisory civil engineer. She was started on new medications including diuretics to optimize treatment for her severe
coronary artery disease and heart failure. She also complained of right leg pain and redness with worsening of right big toe necrotic wound. Ultrasound was negative for deep venous thrombosis. She was noted to have creatinine 3.9, bicarb of 11,
potassium 5.7 and sodium around 129. She had mild urinary retention. Patient had history of chronic kidney disease with creatinine range 1.5-1.9.
Patient was diagnosed with acute kidney injury and was put on bladder scan protocol for retention. Nephrology doctor evaluated the patient and she was started on modified intravenous fluid. RIGO inhibitor and diuretics were held. Her kidney
function started to improve. With stabilization of creatinine around 1.8. She was treated for hyperkalemia with Lokelma multiple times. She was diagnosed with anion gap metabolic acidosis with progressive kidney disease, stage IV. Patient was
started on Flomax for urinary retention. She had MRI of the right foot and did not show osteomyelitis. She was diagnosed with unstageable necrotic toe wound. She was evaluated by podiatry. She had wound care and was started on intravenous
antibiotics. Blood culture did not show any growth. She was followed by podiatry and infectious diseases consultants. Patient had history of severe peripheral arterial disease. She was evaluated by vascular surgery. She underwent right lower
extremity arteriogram, shockwave lithotripsy and balloon angioplasty right SFA and popliteal arteries by Dr Christianson on 04/25. Post procedure, creatinine remained stable. She started to feel better with resolution of right lower extremity discomfort.
She was kept on aspirin and Plavix. She was diagnosed with poorly controlled diabetes. Hemoglobin A1c was 8.4. Oral hypoglycemic agents were discontinued due to progressive kidney disease and to avoid hypoglycemia. She was started on insulin
regimen. Blood glucose became better controlled. ID recommended 2 weeks of antibiotic course. Patient remained hemodynamic stable. She was evaluated by physical therapy recommended snf facility placement. facility manager histology was involved
in discharge planning. Patient was discharged to snf facility in a stable condition.
Discharge Plan
-
Patient Disposition: Home (Routine Discharge)
Discharge Diagnosis/Procedures: Peripheral arterial disease status post right lower extremity arteriogram, shockwave lithotripsy and balloon angioplasty right SFA and popliteal arteries by Dr Christianson on 04/25. Continue aspirin and Plavix
Hyperkalemia, resolved
Acute kidney injury on chronic kidney disease stage IV
Right great toe cellulitis/dry gangrene. Necrotic toe wound right- unstageable. MRI was negative for OM distal phalynx
Necrotic heel fissures left heel-stable/uninfected. Discharged on Keflex for another 4 days.
Diabetes/diabetic neuropathy
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
Coronary artery disease
Constipation
Urinary retention,Bladder scan BID, straight cath if Post void volume more than 450 cc, PRN straight cath if low urine ( less than 150 cc per shift, or discomfort)
Condition: Good
Diet: As tolerated
Additional Diets: Low potassium
Activity: No strenuous activity
Additional Activity: WBAT in DH walker shoe
Driving Restrictions: No driving
Bathing Restrictions: OK to Shower
Blood Work: BMP in 35 days
Others Tests: Your follow up arterial ultrasound is on 05/30/24 at 9:00 here at [facility]
Wound Care: Wound care : Vashe cleanse, apply santyl ointment, xeroform gauze, 2x2 and hypafix dressing daily
Stand Alone Forms: DC Instr - Vascular OR
Referrals:
Shukri Lara DO [Family Provider] -
Antwan Pryor MD [Active] - (as needed )
Hina Staples MD [Active] - in two to three weeks
Merly Gupta CRNP [Specified Professional Personl] - 06/03/24 9:45 am
Prescriptions:
New
clopidogrel 75 mg Tablet
75 mg PO DAILY Qty: 90 0RF
acetaminophen 325 mg Tablet
650 mg PO Q4HPRN PRN (Reason: Mild Pain / Temp > 101) Qty: 20 0RF
polyethylene glycol 3350 17 gram Powder In Packet
17 g PO HS Qty: 30 0RF
insulin aspart U-100 100 unit/mL (3 mL) Insulin Pen
4 unit SC AC Qty: 90 0RF
Insulin Glargine Lantus [Lantus] 17 UNITS
Subcutaneous Insulin Syringe [Syringe-Insulin] 0 UNIT
As Directed mls/hr SC DAILY@2200
Ordered By: Arianna Canales MD
Last Taken: 04/27/24 21:39 0.17 mls
Santyl 250 unit/gram Ointment
1 applic topical DAILY Qty: 30 0RF
cephalexin 500 mg capsule
500 mg PO Q6H Qty: 16 0RF
Continued
thyroid (pork) [[place] Thyroid] 90 MG tablet
90 mg PO DAILY
latanoprost 0.005 % Drops
1 drp BOTH EYES HS
carvedilol 3.125 mg Tablet
3.125 mg PO BID Qty: 60 0RF
atorvastatin 20 mg Tablet
20 mg PO QPM Qty: 30 0RF
aspirin [Children's Aspirin] 81 mg Tablet,Chewable
81 mg PO DAILY Qty: 30 0RF
docusate sodium [Colace] 100 mg Capsule
100 mg PO BID
Probiotic
Discontinued
lisinopril 5 mg Tablet
5 mg PO DAILY Qty: 30 0RF
metformin 500 mg Tablet
500 mg PO BID
glyburide 5 mg Tablet
5 mg PO BID
Discharge Orders:
Discharge Patient (As Directed); Ordered 04/28/24
Ordered By: Arianna Canales
Discharge Date and Time
Print Language: SINHALA
[2024-04-28 14:00] VITALS: BP 141/65
--- NOTE | 2024-04-28 14:20 | W.PN.NEPH.PH ---
Today's Communication / Plan
-
ok for d/c to rehab
Assessment/Plan
-
IMP:
HOWARD on CKD 3 vs 4 (1.5-1.9)
Azotemia
Anion Gap Metabolic Acidosis
Hyperkalemia
Hyponatremia
RLE Cellulitis
Chronic HFrEF
ASCVD- Severe multivessel disease noted on cardiac cath in October.
DM-II
Hypothyroidism
Plan:
HOWARD-cr baseline at 1.8
hyperkalemia-improved k, low k diet and prn LOkelma
TTKG :4:suggests hypo aldosterone state, note pt on heparin SC
monitor mild hyponatremia -improved
Liao replaced 04/23 for persistent retention 500cc -VT today
s/p right superficial femoral artery and above knee popliteal artery PCI and stent
abx per ID
BP stable
after d/c f/u nephro
BMP 1week
-
-
Date of Service: April 28, 2024
CC / HPI / ROS
-
Chief Complaint:
HOWARD
History of Present Illness:
Howard/Cr stable at 1.8, k normal now s/p Lokelam 04/27
Na at 138
BP stable
Review of Systems:
no CP/SOB
Grossly nonoliguric
leg pain improving
Labs
-
Labs:
WBC 11.3 10^3/uL (4.8-10.8) H 04/28/24 05:56
RBC 2.66 10^6/uL (4.20-5.40) L 04/28/24 05:56
Hgb 8.6 g/dL (12.0-16.0) L 04/28/24 05:56
Hct 26.2 % (37.0-47.0) L 04/28/24 05:56
Plt Count 330 10^3/uL (130-400) 04/28/24 05:56
Sodium 138 mmol/L (135-145) 04/28/24 05:56
Potassium 4.2 mmol/L (3.5-5.1) 04/28/24 05:56
Chloride 101 mmol/L (98-107) 04/28/24 05:56
Carbon Dioxide 26 mmol/L (22-30) 04/28/24 05:56
BUN 59 mg/dl (7-17) H 04/28/24 05:56
Creatinine 1.8 mg/dL (0.6-1.0) H 04/28/24 05:56
eGFR 28.48 04/28/24 05:56
Glucose 128 mg/dl (70-99) H 04/28/24 05:56
Calcium 8.2 mg/dl (8.4-10.2) L 04/28/24 05:56
Phosphorus 5.0 mg/dl (2.5-4.5) H 04/19/24 06:26
Albumin 2.7 g/dl (3.5-5.0) L 04/20/24 04:13
Physical Exam
-
Vital Signs:
Vital Signs
Temp Pulse Resp BP Pulse Ox
98.5 F 82 18 141/65 98
04/28/24 14:00 04/28/24 14:00 04/28/24 14:00 04/28/24 14:00 04/28/24 14:00
Cardiovascular:: Regular rate and rhythm
Respiratory:: Bilateral: CTA
Lung Excursion:: Normal
Abdomen:: Nontender and Soft
Extremity Edema:: None: Bilateral:
Liao Catheter: No
[2024-04-28 16:27] LABS: Glucose - Point of Care 155 mg/dl (70-99)
[2024-04-28] MEDS: NOVOLOG FLEXPEN-MODERATE RESISTANCE 1 UNITS SC (16:34)
== END 2024-04-28 17:51 | DRG 278 ==
LOC: 4 EAST ACU 04:02
PROVIDERS: Emergency Medicine; Hospitalist; Nurse Practitioner; Specialist; Surgery Vascular Surgery; ADMITTING PHYSICIAN Hospitalist; ATTENDING PHYSICIAN Internal Medicine; CONSULT PHYSICIAN Internal Medicine; CONSULT PHYSICIAN Internal Medicine Infectious Disease; CONSULT PHYSICIAN Podiatrist Foot & Ankle Surgery; EMERGENCY PHYSICIAN Emergency Medicine; FAMILY PHYSICIAN Family Medicine; OTHER PHYSICIAN Surgery Vascular Surgery
PROC: 0JBQ0ZZ Excision of Right Foot Subcutaneous Tissue and Fascia, Open Approach (ICD-10-PCS; 2024-04-22)
PROC: 047K34Z Dilation of Right Femoral Artery with Drug-eluting Intraluminal Device, Percutaneous Approach (ICD-10-PCS; 2024-04-25)
PROC: 04FK3ZZ Fragmentation of Right Femoral Artery, Percutaneous Approach (ICD-10-PCS; 2024-04-25)
DX: E11.52 Type 2 diabetes mellitus with diabetic peripheral angiopathy with gangrene (principal); A41.9 Sepsis, unspecified organism; N17.9 Acute kidney failure, unspecified; E87.1 Hypo-osmolality and hyponatremia; I13.0 Hypertensive heart and chronic kidney disease with heart failure and stage 1 through stage 4 chronic kidney disease, or unspecified chronic kidney disease; L03.115 Cellulitis of right lower limb; E87.20 Acidosis, unspecified; I50.42 Chronic combined systolic (congestive) and diastolic (congestive) heart failure; I70.261 Atherosclerosis of native arteries of extremities with gangrene, right leg; N18.4 Chronic kidney disease, stage 4 (severe); E11.22 Type 2 diabetes mellitus with diabetic chronic kidney disease; E11.40 Type 2 diabetes mellitus with diabetic neuropathy, unspecified; E11.65 Type 2 diabetes mellitus with hyperglycemia; E11.319 Type 2 diabetes mellitus with unspecified diabetic retinopathy without macular edema; E87.5 Hyperkalemia; I25.10 Atherosclerotic heart disease of native coronary artery without angina pectoris; E03.9 Hypothyroidism, unspecified; F32.A Depression, unspecified; E78.5 Hyperlipidemia, unspecified; I25.5 Ischemic cardiomyopathy; F41.9 Anxiety disorder, unspecified; M79.7 Fibromyalgia; K58.9 Irritable bowel syndrome, unspecified; F40.00 Agoraphobia, unspecified; K57.30 Diverticulosis of large intestine without perforation or abscess without bleeding; L97.519 Non-pressure chronic ulcer of other part of right foot with unspecified severity; R51.9 Headache, unspecified; R33.8 Other retention of urine; K59.00 Constipation, unspecified; Z88.2 Allergy status to sulfonamides; Z88.5 Allergy status to narcotic agent; Z88.8 Allergy status to other drugs, medicaments and biological substances; Z79.84 Long term (current) use of oral hypoglycemic drugs; Z79.82 Long term (current) use of aspirin; Z79.899 Other long term (current) drug therapy; Z85.3 Personal history of malignant neoplasm of breast; Z11.52 Encounter for screening for COVID-19
CPT/HCPCS: 36247; 71046; 73610; 73630; 73720; 75625; 75716; 76775; 80048; 80053; 81003; 81015; 82550; 82570; 82962; 83036; 83605; 83735; 83930; 83935; 84100; 84133; 84156; 84300; 84439; 84443; 84550; 85025; 85027; 85610; 85652; 85730; 86140; 86850; 86900; 86901; 87040; 87086; 87811; 93005; 93922; 93925; 93971; 94640; 96374; 96375; 97116; 97163; 97166; 97530; 97535; 99285; A9575; C1725; C1769; C1874; C1887; C1894; C9765; Q9967

== ENCOUNTER 2024-05-09 09:41 | Inpatient (IN) | payer MEDICARE, OTHER, SELFPAY ==
[2024-05-07 23:33] VITALS: BP 154/60
[2024-05-07 23:35] VITALS: BMI 25.4
[2024-05-07 23:36] VITALS: BP 154/60
[2024-05-08] VITALS (19 sets, daily range): BP systolic 140–168; BP diastolic 47–149; BMI 24.5
--- NOTE | 2024-05-08 00:26 | ED.GENMED ---
History of Present Illness
General
Chief Complaint: Fall
Source: patient
Exam Limitations: none
Time Seen by Provider: 05/07/24 23:46
History of Present Illness
History of Present Illness:
Patient became dizzy/lightheaded standing from her wheelchair and fell on her right hip. She states she gets dizziness frequently. She has had ongoing issues with right leg pain for 4 to 5 days. She has a history of cellulitis and vascular issues
to this leg. She denies any other injury related to the fall
Past History
Past History
ED Past Medical History: CAD, Fibromyalgia, NIDDM, Hypothyroidism, Psychiatric (agorophobia) and Other (diabetic neuropathy, diverticulosis, IBS. Chronic kidney disease)
ED Past Surgical History: Other (Arteriogram angioplasty right SFA and popliteal arteries)
Social History
Tobacco: Non-smoker
Alcohol: None
Personal:
Living: alone
Review of Systems
Review of Systems
All Other Systems: Not applicable
Constitutional: Denies fever or chills
Respiratory: Reports no symptoms
Cardiac: Reports no symptoms
ABD/GI: Reports no symptoms
Phy Exam
Physical Exam
Physical Exam:
GENERAL: Alert and oriented in no apparent distress. Elderly and frail. Normocephalic atraumatic
EYE: Orbits normal.
NECK: Supple, nontender
ENT: Pharynx without erythema
CARDIAC: Regular rate and rhythm without any obvious murmurs.
LUNGS: Clear breath sounds,normal
ABDOMEN: Soft, without focal tenderness or distention
NEUROLOGICAL: Alert and oriented , grossly non-focal
SKIN: Warm and dry, small area of a tender varicose vein to the right lower anterior tibia. Small abrasion to the right lower medial right leg with very minimal erythematous hue.
MUSCULOSKELETAL: Mild swelling to the right lower extremity. Good color. Very strong dorsalis pedis and posterior tibial pulses. Right actually is better than left. Wound dressing of the right great toe. No obvious pain with hip rotation. No
pelvic tenderness. No upper extremity trauma
PSYCH: Normal and appropriate interaction.
Course
Orders/Labs/Results
Orders:
Orders
05/07/24 23:44
Electrocardiogram (*1) Urgent
Reason for Study: Vertigo / Dizzy
EKG- Treatment ONCE
Complete Blood Count/With Diff Urgent
Comprehensive Metabolic Panel Urgent
05/07/24 23:55
US Periph Venous LOWER Ext RT Urgent
Comment:
Reason For Exam: Right leg swelling
05/08/24 00:00
CR Hip - RT w/wo Pel 2-3 Vw* Urgent
Reason For Exam: Trauma
Include a pelvis x-ray?: Yes
CR Leg Tibia/fibula Right 2 Vw Urgent
Reason For Exam: Pain. Trauma.
05/08/24 01:30
Dextrose 50%-Water [Dextrose 50% Syringe] 12.5 grams IV [id number] PRN
Dextrose 50%-Water [Dextrose 50% Syringe] 25 grams IV NOW STA
Insulin Human Regular [Novolin R] 5 units IV NOW STA
Sodium Zirconium Cyclosilicate [Lokelma] 10 gram PO NOW STA
05/08/24 01:31
Bedside Glucose PRE IV Insulin- HyperK+ NOW
05/08/24 01:53
CeFAZolin 1 GRAM [Ancef] 1 gram in 5 ml IV NOW
05/08/24 02:44
Admit/Transfer Patient As Directed
Co-Sign Provider:
Level of Care: Observation services
Assign to:: Telemetry
Physician / Group: hospitalist
Diagnosis: hyperkalemia
Reason for Telemetry: Other
Other Reason for Telemetry: hypekalemia
Date to Stop Telemetry: 05/10/24
Time to Stop Telemetry: 11:00
PRN Pain Medication Management As Directed
May give lesser potent ordered pain med per pt: Yes
preference::
Protocol:: Medication orders for pain may be administered in a
manner that supports deferring to patient preference
when the pt is:
- Requesting an ordered lesser potent pain medication.
Least to most potent pain medications are defined
as: acetaminophen < NSAID < tramadol < opioids
(morphine, oxycodone, hydromorphone).
- Requesting a lesser dose of the same medication IF
ORDERED.
- Requesting a less intrusive route of administration
if both routes are prescribed by the provider (PO <
IV).
05/08/24 02:46
Code Status As Directed
Resuscitation Status: Full Code
05/08/24 03:01
Bedside Glucose POST IV Insulin- HyperK+ Q1HX2,Q2HX2
05/08/24 03:54
Acetaminophen [Tylenol] 650 mg PO Q4HPRN PRN
Ondansetron Injectable [Zofran] 4 mg IV Q6HPRN PRN
Tramadol HCl [Ultram] 100 mg PO A19OWES PRN
05/08/24 03:54
Activity As Directed
Activity Level: With Assistance
Bedside Glucose Monitoring As Directed
Frequency: AC&HS
Orthostatic Vital Signs As Directed
Orthostatic VS Frequency: Daily
Vital Signs As Directed
Frequency: Per unit guidelines
Weight As Directed
Frequency: Daily
Pt Eval And Treat Routine
Activity Level: With Assistance
DX Deep Vein Thrombosis Video Routine
05/08/24 05:12
Basic Metabolic Panel IN AM
Magnesium IN AM
05/08/24 Breakfast
Potassium, 2 Gram
At Your Request: Full Participation
Fluid Restriction: 1440 mL/day (48 oz)
Low Potassium: Sodium, 2 Gram
05/08/24 07:30
Insulin Aspart Corrective Mod [Novolog Flexpen-Moderate Resistance] See Protocol SC AC
05/08/24 08:00
Aspirin Chewable [Low Strength Aspirin] 81 mg PO DAILY
Carvedilol [Coreg] 3.125 mg PO BID
Clopidogrel Bisulfate [Plavix] 75 mg PO DAILY
Docusate Sodium [Colace] 100 mg PO BID
Heparin 5,000 units SC Q8
Thyroid [[place] Thyroid] 90 mg PO DAILY
05/08/24 18:00
Atorvastatin [Lipitor] 20 mg PO QPM
05/08/24 22:00
Insulin Glargine Lantus [Lantus] 15 units Subcutaneous Insulin Syringe [Syringe-Insulin] 0 unit SC HS
Latanoprost [Xalatan Ophthalmic Solution] 1 drop BOTH EYES HS
Polyethylene Glycol Powder [Miralax] 17 grams PO HS
05/10/24 11:00
DC Protocol for Telemetry ONCE
Abnormal Lab Results
05/08/24 05/08/24
00:12 02:01
RBC 2.51 L 10^6/uL
(4.20-5.40)
Hgb 8.3 L g/dL
(12.0-16.0)
Hct 24.9 L %
(37.0-47.0)
MCV 99.2 H fL
(81.0-99.0)
MCH 33.1 H pg
(27.0-31.0)
Abs Immat Gran (auto) 0.1 H 10^3/uL
(0-0.05)
Immature Gran % 1.7 H %
(0-0.5)
Lymphocytes % 19.7 L %
(20.5-51.1)
Potassium 5.9 H mmol/L
(3.5-5.1)
Chloride 108 H mmol/L
(98-107)
Carbon Dioxide 21 L mmol/L
(22-30)
BUN 67 H mg/dl
(7-17)
Creatinine 1.8 H mg/dL
(0.6-1.0)
Glucose 169 H mg/dl
(70-99)
Calcium 8.3 L mg/dl
(8.4-10.2)
AST 65 H U/L
(14-36)
ALT 45 H U/L
(0-35)
Total Protein 5.9 L g/dl
(6.3-8.2)
Albumin 3.1 L g/dl
(3.5-5.0)
POC Glucose 120 H mg/dl
(70-99)
05/08/24 00:12
05/08/24 00:12
Vital Signs
Initial and Last Documented VS:
Initial Vital Signs
Pulse Ox
96
05/07/24 23:30
Last Documented Vital Signs
Temp Pulse Resp BP Pulse Ox
97.9 F 74 19 147/60 97
05/08/24 08:00 05/08/24 15:00 05/08/24 15:00 05/08/24 15:00 05/08/24 11:07
MDM/Problems Addressed
Differential Diagnosis Includes:
From a fall or near syncopal episode standpoint this has been a recurring issue. Nothing to support major arrhythmia issue. EKG is stable. Monitor stable. We will check electrolytes. As for the trauma highly doubt hip fracture. She rotates the
right hip well. She has no pelvic deformity. No other trauma. X-rays will be done like them to be unremarkable. She has some mild swelling of the right lower leg. Ultrasound pending. From an arterial standpoint there are great pulses with
Doppler actually better than the left leg. The foot is warm and perfusing well. There may be a slight cellulitic component with a minimal erythematous hue. She did have a cellulitis in the hospital without osteomyelitis.
*Radiology
Radiology exam reviewed: preliminary read by ED provider (Negative X raise) and other (Negative leg ultrasound)
*Pulse Oximetry
Patient hypoxic: no
*EKG
Interpreted by ED Provider?: Yes
Interpretation: normal
Comparison EKG: no changes
Heart Rate: 68
Rate: normal
Rhythm: sinus
[place]: normal axis
QRS Pattern: poor R-wave progression and left vent hypertrophy
Ischemia: non-specific ST changes
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
Rate: normal
Interpretation: normal
Heart Rate: 70
Rhythm: sinus
*Critical Care Note
Total Time (30-74mins, 75-104mins- exclusive of procedures): Not Applicable
Data Reviewed
Review of Other/Old Records Reveals: Labs, Records, Operative Reports, Testing and Discharge Summary
Update Note
Update Note:
Patient with hyperkalemia, near syncope, renal insufficiency, anemia, possible cellulitis.
ED Attending Note
-
Portions of this chart may have been created with voice recognition software.� Occasional wrong word or��sound alike� substitutions may have occurred due to the inherent limitations of voice recognition software.
Discharge Plan
Departure
Patient Disposition: Admit
Date of Disposition: 05/08/24
Time of Disposition: 01:34
Presentation/result/management discussed w/ accepting MD/DO: Hospitalist
Discharge Problem:
Hyperkalemia, Near syncope, Renal insufficiency, Anemia
Interventions
Interventions:
*Risk Screen - Suicide Last Done: 05/07/24 23:36
*General Assessment Last Done: 05/08/24 08:08
*Neglect/Abuse Screening Last Done: 05/07/24 23:36
ED- Fall Risk Assessment Last Done: 05/08/24 08:00
*ED COVID-19 Vaccine History Last Done: 05/07/24 23:36
*Nursing Disposition Last Done: 05/08/24 12:26
ED-Musculoskeletal Assessment Last Done: 05/07/24 23:41
ED- Neurological Assessment Last Done: 05/08/24 08:00
ED-Skin Assessment Last Done: 05/07/24 23:41
[2024-05-08 00:41] LABS: ALT (SGPT) 45 U/L (0-35); AST (SGOT) 65 U/L (14-36); Albumin 3.1 g/dl (3.5-5.0); Alkaline Phosphatase 103 U/L (38-126); Blood Urea Nitrogen 67 mg/dl (7-17); Calcium 8.3 mg/dl (8.4-10.2); Carbon Dioxide 21 mmol/L (22-30); Chloride 108 mmol/L (98-107); Estimated Creatinine Clearance 24 ml/min; Glucose 169 mg/dl (70-99); Potassium 5.9 mmol/L (3.5-5.1); Sodium 136 mmol/L (135-145); Total Bilirubin 0.3 mg/dl (0.2-1.3); Total Protein 5.9 g/dl (6.3-8.2); eGFR 28.48
[2024-05-08 00:48] LABS: % Basophils 0.8 % (0-2); % Eosinophils 4.1 % (0-6); % Immature Granulocytes 1.7 % (0-0.5); % Lymphocytes 19.7 % (20.5-51.1); % Monocytes 8.3 % (1.7-9.3); % Neutrophils 65.4 % (42.2-75.2); Absolute Basophils 0.1 10^3/uL (0-0.2); Absolute Eosinophils 0.3 10^3/uL (0-0.7); Absolute Immature Granulocytes 0.1 10^3/uL (0-0.05); Absolute Lymphocytes 1.3 10^3/uL (1.2-3.4); Absolute Monocytes 0.5 10^3/uL (0.1-0.6); Absolute Neutrophils 4.2 10^3/uL (1.4-6.5); Hematocrit 24.9 % (37.0-47.0); Hemoglobin 8.3 g/dL (12.0-16.0); Mean Corp Hgb Conc. 33.3 g/dL (33.0-37.0); Mean Corpuscular Hgb 33.1 pg (27.0-31.0); Mean Corpuscular Volume 99.2 fL (81.0-99.0); Mean Platelet Volume 9.9 fL (7.4-10.4); Nucleated Red Blood Cells % 0 %; Platelet Count 396 10^3/uL (130-400); Red Blood Cell Count 2.51 10^6/uL (4.20-5.40); Red Cell Dist. Width 14.3 % (11.5-14.5); White Blood Cell Count 6.4 10^3/uL (4.8-10.8)
[2024-05-08] MEDS: NOVOLIN R 5 UNITS IV (02:01)
[2024-05-08] MEDS: LOKELMA 10 GRAM PO ×2 (02:09→20:19)
[2024-05-08 02:10] LABS: Glucose - Point of Care 120 mg/dl (70-99)
[2024-05-08] MEDS: ANCEF 5 IV (02:10)
[2024-05-08] MEDS: DEXTROSE 50% SYRINGE 25 GRAMS IV (02:10)
--- NOTE | 2024-05-08 02:23 | HPS.HSE ---
Family Physician
-
Family Physician: Shukri Lara
Chief Complaint
-
Fall
History of Present Illness
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
s/p right lower extremity arteriogram, shockwave lithotripsy and balloon angioplasty right SFA and popliteal arteries who presents from rehab with fall and possible presyncope was found to be hyperkalemic in the ED.
Patient reported that she generally is minimally ambulatory but is allowed to ambulate while in the bathroom. She was using the bathroom she got up to pull up pants and felt dizzy. She felt that there was a spinning sensation. She denies loss of
consciousness. This was unwitnessed by anyone else. She was found on the floor next to the commode. She denies hitting her head. She apparently fell on the right side reports her right hip pain. On assessment the right leg was externally
rotated and still remains that way. He was therefore transferred to the emergency department.
Patient denied having any palpitations chest pain dyspnea or shortness of breath. She reports swelling in the right lower extremity since she has been at the rehab. She finished a course of antibiotics per last discharge recommendations. Since
then she has continued to complain of pain and swelling on the right side. She noticed some weeping. She denies any swelling on the left side. She denies having any fevers or chills.
In the emergency department she was afebrile, normotensive with a blood pressure of 151/50 and a pulse of 69. Oxygen saturation was 96% on room air. Labs notable for a potassium of 5.9. Sodium was 136. BUN was 67 with a creatinine of 1.8 which
is not significantly changed from prior. Glucose was 169. She has had a mild transaminitis. Hemoglobin remained at around 8.8 which is similar to prior. The rest of the CBC was unremarkable. ECG showed a sinus rhythm with 4 degree AV block no
acute ST or T wave changes. Skeletal Xrays showed no acute fractures. RLE u/s pending
Medical History
Past Medical History
Past Medical History: Reports CHF, HTN, IDDM and Other
Additional Past Medical History:
ASCVD
CKD III
Depression / Anxiety
Agoraphobia
Hyperlipidemia
Breast cancer
Hypothyroidism
Fibromyalgia
Past Surgical History: Reports Other
Additional Past Surgical History:
Tonsillectomy
Cataract extraction
Right lumpectomy
Social History
Tobacco: Non-smoker
Alcohol: None
Drug: None
Living: Correction
Employment: Retired
Family History
Family History: Not pertinent
Allergies / Home Medications
Allergies reflects when Allergies were last updated in [employer].
Home Medications with original date entered in [employer]
Allergy/Medication List:
Allergies
Allergy/AdvReac Type Severity Reaction Status Date / Time
lidocaine Allergy very cold Verified 04/19/24 01:01
& shakes
phenobarbital Allergy patient Verified 04/19/24 01:01
denies
phenytoin Allergy patient Verified 04/19/24 01:01
denies
Sulfa (Sulfonamide Allergy Itching Verified 04/19/24 01:01
Antibiotics)
sulfisoxazole Allergy Itching Verified 04/19/24 01:01
codeine AdvReac 'shakiness' Verified 04/19/24 01:01
anti hypertensives Allergy Unknown Unknown Uncoded 04/19/24 01:01
most pain medicines Allergy 'per Uncoded 04/19/24 01:01
patient -
they cause
problems'
perfumed soaps Allergy Rash Uncoded 04/19/24 01:01
Home Medications
thyroid (pork) 90 mg tablet ([place] Thyroid) 90 mg PO DAILY Thyroid 09/03/13
latanoprost 0.005 % eye drops 1 drp BOTH EYES HS Eye Condition 11/05/23
aspirin 81 mg chewable tablet (Children's Aspirin) 81 mg PO DAILY #30 tabs 11/15/23
atorvastatin 20 mg tablet 20 mg PO QPM #30 tabs 11/15/23
carvedilol 3.125 mg tablet 3.125 mg PO BID #60 tabs 11/15/23
Probiotic 04/19/24
docusate sodium 100 mg capsule (Colace) 100 mg PO BID Constipation 04/19/24
clopidogrel 75 mg tablet 75 mg PO DAILY #90 tabs 04/26/24
Insulin Glargine Lantus [Lantus] 17 units As Directed mls/hr SC DAILY@2200 04/28/24
acetaminophen 325 mg tablet 650 mg (2 x 325 mg) PO Q4HPRN PRN Mild Pain / Temp > 101 #20 tabs 04/28/24
cephalexin 500 mg capsule 500 mg PO Q6H #16 caps 04/28/24
collagenase clostridium histo. 250 unit/gram topical ointment (Santyl) 1 applic topical DAILY #30 grams 04/28/24
insulin aspart U-100 100 unit/mL (3 mL) subcutaneous pen 4 unit (0.04 mL) SC AC #90 applic 04/28/24
polyethylene glycol 3350 17 gram oral powder packet 17 g PO HS #30 ea 04/28/24
Review of Systems
-
History Source: Patient
Constitutional: Reports No Symptoms
EENT: Reports No Symptoms
Respiratory: Reports No Symptoms
Cardiac: Reports No Symptoms
Abdomen/GI: Reports No Symptoms
: Reports No Symptoms
Musculoskeletal: Reports Joint Swelling and Edema
Skin: Reports Rash
Neurological: Reports No Symptoms
Endocrine: Reports No Symptoms
Hematologic/Lymphatic: Reports No Symptoms
Psych: Reports No Symptoms
Physical Exam
Vital Signs
Vital Signs
Temp Pulse Resp BP Pulse Ox
97.5 F 69 14 151/53 96
05/07/24 23:36 05/08/24 01:15 05/08/24 01:15 05/08/24 00:00 05/08/24 01:15
Physical Exam
General: Well Developed, Comfortable and Conversant
HEENT: NormoCephalic, Anicteric, Moist mucous membranes and Atraumatic
Respiratory: Clear
Cardiac: S1/S2 and Regular Rhythm
GI: Non Tender, Non Distended and Normal Bowel Sounds
Rectal: Deferred by Provider
Genito-urinary: Deferred by me
Musculoskeletal: No Clubbing, No Cyanosis and Edema, Right Upper Extremity (Non-pitting edema to the knees, tenderness to palpation, no erythema, no warmth)
Skin: Warm
Neuro: AO x 3 and Nonfocal/grossly intact
Hematologic/Lymphatic: No Lymphadenopathy
Psych: Calm
Laboratory Results
-
05/08/24 00:12
Laboratory Results
Total Bilirubin 0.3 mg/dl (0.2-1.3) 05/08/24 00:12
AST 65 U/L (14-36) H 05/08/24 00:12
ALT 45 U/L (0-35) H 05/08/24 00:12
Alkaline Phosphatase 103 U/L (38-126) 05/08/24 00:12
Data Reviewed
-
Ultrasound: Report Reviewed by me
Medical Tests (Nuc Med, Echo, EKG etc): Image Personally Visualized and interpreted
Lab Data: Labs Reviewed by me
Impression/Plan
-
IMPRESSION:
Patient with fall while attempting to use a commode independently. She had external rotation of the right leg and was sent to ED. She is barely ambulatory given bilateral foot ulcers and right leg swelling. I suspect mechanical fall. She did
feel dizzy and had a spinning sensation. She denied any loss of consciousness. Skeletal xrays showed no acute fracture. ED evaluation was mostly unremarkable except for recurrent hyperkalemia. Renal function is essential stable. She does have
significant swellling of the RLE.
PLAN:
1. 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 She appears to be on a liberal diet at the rehab. She reports high blood glucose levels at the rehab as well. ACEI discontinued during recent admission. She is also no longer on
diuretics. No acute ECG changes.
- admit to telemetry
- Insulin/Dextrose given in ED
- oral lokelma 10mg given
- repeat k in am
- low K diet for now
- bladder scan to rule out retention
- glucose control
2. RLE swelling - Recently admitted with right great toe infection without bone involvement. S/P arteriogram s/p RFA stent. Completed 14 day course of antibiotics ending with oral cephalexin. Foot and leg tender to touch with non-pitting edema.
No erythema. Possibly recurrent cellulitis vs DVT
- RLE u/s
- if u/s negative, will start vancomycin and consult ID.
- continue asa/plavix and statin for PAD
3. DM II
- lantus 15 hs
- sliding scale
4. Fall - suspect mechanical. No acute fractures
- telemetry monitoring for now
- orthostatic vs
- pt eval
5. CHF - appeas euvolemic except the r leg swelling.
- daily weights for now
- salt and K restriction
- holding off diuretics since discharge
6. Anemia - Chronic macrocytic anemia. No indication for transfusion
- monitorin gfor now
- outpatient nephrology f/u
DVT PPX - hep sq
Code Status - Full Code
[2024-05-08 03:21] LABS: Glucose - Point of Care 101 mg/dl (70-99)
[2024-05-08 04:19] LABS: Glucose - Point of Care 73 mg/dl (70-99)
[2024-05-08] MEDS: ULTRAM 100 MG PO ×2 (04:59→18:03)
[2024-05-08 06:30] LABS: Blood Urea Nitrogen 64 mg/dl (7-17); Calcium 8.5 mg/dl (8.4-10.2); Carbon Dioxide 20 mmol/L (22-30); Chloride 110 mmol/L (98-107); Estimated Creatinine Clearance 24 ml/min; Glucose 65 mg/dl (70-99); Magnesium 2.2 mg/dl (1.6-2.3); Sodium 138 mmol/L (135-145); eGFR 28.48
--- NOTE | 2024-05-08 06:58 | W.PN.HOSP.TC ---
Today's Communication/Plan
-
IV antibiotics
Appreciate Vascular, ID, Podiatry and Ortho evals
Continue to monitor on tele
Assessment / Plan
Assessment / Plan
Physical Exam
General: Not in acute distress
HEENT: Normocephalic
Respiratory: Clear to Auscultation Bilaterally
Cardiac: S1/S2 and Regular Rhythm
GI: Non Tender, Non Distended and Normal Bowel Sounds
Musculoskeletal: No Cyanosis. Edema, Right Lower Extremity (Non-pitting edema to the knees, tenderness to palpation, no erythema, no warmth)
Skin: Warm. Dry.
Neuro: AAO x 3 and Nonfocal/grossly intact
Psych: Calm
Assessment/Plan
79-year-old female with past medical history of chronic kidney disease, insulin-dependent diabetes mellitus, coronary artery disease, recent combined chronic systolic and diastolic heart failure with reduced ejection fraction, history of urinary
retention, right great toe cellulitis with dry gangrene status post right lower extremity arteriogram, shockwave lithotripsy and balloon angioplasty right SFA and popliteal arteries who presented from rehab with fall (while attempting to use a
commode independently) and possible presyncope was found to be hyperkalemic in the emergency department.
Patient reported that she generally is minimally ambulatory but is allowed to ambulate while in the bathroom. She was using the bathroom she got up to pull up pants, felt dizzy but denied any loss of consciousness. She felt that there was a spinning
sensation. This was unwitnessed by anyone else. She was found on the floor next to the commode. She denied hitting her head. She apparently fell on the right side reported right hip pain. On assessment the right leg was externally rotated and still
remains that way. She was therefore transferred to the emergency department.
Patient denied having any palpitations, chest pain, dyspnea or shortness of breath. She reported swelling in the right lower extremity since she has been at the rehab. She finished a course of antibiotics per last discharge recommendations. Since
then she has continued to complain of pain and swelling on the right side. She noticed some weeping. She denied any swelling on the left side. She denied having any fevers or chills.
In the emergency department patient was afebrile, normotensive with a blood pressure of 151/50 and a pulse of 69. Oxygen saturation was 96% on room air. Labs notable for a potassium of 5.9. Sodium was 136. BUN was 67 with a creatinine of 1.8 which
was not significantly changed from prior. Glucose was 169. She has had a mild transaminitis. Hemoglobin remained at around 8.8 which is similar to prior. The rest of the CBC was unremarkable. ECG showed a sinus rhythm with 4 degree AV block no
acute ST or T wave changes. Skeletal X-rays showed no acute fractures. RLE u/s negative for DVT.
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
-She appears to be on a liberal diet at the rehab
-ACEI was discontinued during recent admission
-She was noted to be no longer on diuretics
-No EKG changes
-Continue monitoring on telemetry
-Insulin/Dextrose given in ED
-Lokelma started, continue
-Bumex, as appreciate nephrology
-Continue low potassium diet for now
-Bladder scan to rule out retention
#Right Lower Extremity swelling
#Concern for RLE Cellulitis
#Status post arteriogram status post RFA stent
#Bilateral Lower Extremity Wounds
-Recently admitted with right great toe infection without bone involvement. 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 Foot and leg tender to touch with non-pitting edema. No erythema. Possibly
recurrent cellulitis vs DVT
-Right lower extremity ultrasound was negative for DVT
-Ultrasound negative, started vancomycin and consulted ID.
-Continue Aspirin/Plavix and statin for PAD
-Consulted vascular surgery, appreciate their evaluation and recommendations
-Started Vancomycin, appreciate ID evaluation and recommendations
-Podiatry consulted, appreciate their evaluation and recommendations
-Wound care consult
#DM II
#Hyperglycemia
- lantus 15 hs
- sliding scale
#Fall - suspected mechanical
-Did have dizziness, had a spinning sensation, but no LOC
- Skeletal survey was without fracture but did suggest osteoarthritis in hips and right knee area and possible dislocation of the patella laterally.
- Appreciate ortho eval of the possible patellar dislocation
- telemetry monitoring for now
- orthostatic vitals
- PT/OT
#CHF - appeaes euvolemic except the r leg swelling.
- daily weights for now
- salt and K restriction
- holding off diuretics since discharge
#Anemia - Chronic macrocytic anemia. No indication for transfusion
- monitoring for now
- outpatient nephrology f/u
DVT Prophylaxis: Heparin subq
Code Status: Full Code
Anticipated Discharge: > 48 hours
Subjective/Interval History
-
Date of Service: May 08, 2024
Patient was seen and examined. She reported ongoing pain, redness and tenderness in her right lower extremity and wounds in both of her lower extremities.
Objective Data
-
Labs:
Laboratory Results
05/08/24 05/08/24 05/08/24
00:12 05:04 05:12
WBC 6.4
Hgb 8.3 L
Hct 24.9 L
Plt Count 396
Sodium 136 138
Potassium 5.9 H Cancelled 6.0 H
Chloride 108 H 110 H
Carbon Dioxide 21 L 20 L
BUN 67 H 64 H
Creatinine 1.8 H 1.8 H
Glucose 169 H 65 L
Calcium 8.3 L 8.5
Total Bilirubin 0.3
AST 65 H
ALT 45 H
Alkaline Phosphatase 103
Vital Signs:
Vital Signs
Temp Pulse Resp BP Pulse Ox
97.5 F 68 18 159/66 95
05/07/24 23:36 05/08/24 06:00 05/08/24 06:00 05/08/24 06:00 05/08/24 06:00
[2024-05-08 07:35] LABS: Glucose - Point of Care 77 mg/dl (70-99)
[2024-05-08] MEDS: COLACE 100 MG PO ×2 (07:35→21:49)
[2024-05-08] MEDS: NOVOLOG FLEXPEN-MODERATE RESISTANCE SC (07:35)
[2024-05-08] MEDS: COREG 3.125 MG PO ×2 (07:36→21:49)
[2024-05-08] MEDS: PLAVIX 75 MG PO (07:37)
[2024-05-08] MEDS: HEPARIN 5000 UNITS SC ×2 (07:37→17:17)
[2024-05-08] MEDS: LOW STRENGTH ASPIRIN 81 MG PO (07:37)
--- NOTE | 2024-05-08 07:46 | EDRN ---
Pt administered a boxed lunch.
[2024-05-08] MEDS: ARMOUR THYROID 90 MG PO (08:49)
--- NOTE | 2024-05-08 09:04 | W.CON.NEPH ---
Consultation
-
Date/Time Consultation Requested: 05/08/24 0700
Date/Time Consultation Performed: 06/08/23 0900
Requesting Provider: René Perkins
Performing Provider: Hina Lagunas
Reason for Consultation: hyperkalemia, CKD
Medical History
-
Chief Complaint: gen weakness
History of Present Illness:
Patient is a 79y F with PMH significant for ASCVD, CHFrEF 25%, hypothyroidism on armour thyroid, and DM-II on insulin, CKD3b baseline cr 1.5-1.9 range who just d/c from after long stay for FAWN, urinary retention,right great toe cellulitis with
dry gangrene s/p right lower extremity arteriogram, shockwave lithotripsy and balloon angioplasty right SFA and popliteal arteries d/c on 04/28 and now returns to ER from rehab with fall and possible presyncope was found to be hyperkalemic in the ED
5.9, cr 1.8. She uses WC to the bathroom and when she got up to pull up pants from commode felt dizzy. She felt that there was a spinning sensation. She denies loss of consciousness. This was unwitnessed by anyone else. She was found on the
floor next to the commode. She denies hitting her head.
She reports right lower extremity is more swollen. She finished a course of antibiotics per last discharge recommendations. Since fall she has continued to complain of pain and swelling on the right side. She noticed some weeping. She denies
having any fevers or chills. no chest pain or sob. No abdominal pain or nausea or vomiting. Her creatinine noted at 1.8, potassium was 5.9, received [facility] repeat lab shows potassium still at 6/10 nephrology was consulted. She denies any dysuria
however thinks she may not be emptying her bladder. She notes blood sugars have been elevated at the rehabilitation.
Past Medical History
ASCVD
Chronic HFrEF (25% October 2023)
Hypertension
CKD III
Depression / Anxiety
Agoraphobia
Hyperlipidemia
Breast cancer
Hypothyroidism
Fibromyalgia
DM-II with Retinopathy and Neuropathy
Past Surgical History: Other (Tonsillectomy Cataract extraction Right lumpectomy , s/p right lower extremity arteriogram, shockwave lithotripsy and balloon angioplasty right SFA and popliteal arteries)
Social History
son lives in [place]
Tobacco: Non-Smoker
Alcohol: None
Drug: None
Personal: Single
Living: Long-Term
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
Family History
no CKD
Family History: Not Pertinent
Allergies / Home Medications
Allergy/AdvReac Type Severity Reaction Status Date / Time
lidocaine Allergy very cold Verified 04/19/24 01:01
& shakes
phenobarbital Allergy patient Verified 04/19/24 01:01
denies
phenytoin Allergy patient Verified 04/19/24 01:01
denies
Sulfa (Sulfonamide Allergy Itching Verified 04/19/24 01:01
Antibiotics)
sulfisoxazole Allergy Itching Verified 04/19/24 01:01
codeine AdvReac 'shakiness' Verified 04/19/24 01:01
anti hypertensives Allergy Unknown Unknown Uncoded 04/19/24 01:01
most pain medicines Allergy 'per Uncoded 04/19/24 01:01
patient -
they cause
problems'
perfumed soaps Allergy Rash Uncoded 04/19/24 01:01
�Medication �Instructions �Recorded �Confirmed �Type
thyroid (pork) 90 mg tablet 90 mg PO DAILY Thyroid 09/03/13 05/08/24 History
([place] Thyroid)
latanoprost 0.005 % eye drops 1 drp BOTH EYES HS Eye Condition 11/05/23 05/08/24 History
aspirin 81 mg chewable tablet 81 mg PO DAILY #30 tabs 11/15/23 05/08/24 Rx
(Children's Aspirin)
atorvastatin 20 mg tablet 20 mg PO QPM #30 tabs 11/15/23 05/08/24 Rx
carvedilol 3.125 mg tablet 3.125 mg PO BID #60 tabs 11/15/23 05/08/24 Rx
Probiotic 04/19/24 History
docusate sodium 100 mg capsule 100 mg PO BID Constipation 04/19/24 05/08/24 History
(Colace)
clopidogrel 75 mg tablet 75 mg PO DAILY #90 tabs 04/26/24 05/08/24 Rx
Insulin Glargine Lantus As Directed mls/hr SC DAILY@2200 04/28/24 05/08/24 Rx
[Lantus] 17 units
acetaminophen 325 mg tablet 650 mg (2 x 325 mg) PO Q4HPRN PRN 04/28/24 05/08/24 Rx
Mild Pain / Temp > 101 #20 tabs
collagenase clostridium histo. 250 1 applic topical DAILY #30 grams 04/28/24 05/08/24 Rx
unit/gram topical ointment (Santyl)
insulin aspart U-100 100 unit/mL 4 unit (0.04 mL) SC AC #90 applic 04/28/24 05/08/24 Rx
(3 mL) subcutaneous pen
polyethylene glycol 3350 17 gram 17 g PO HS #30 ea 04/28/24 05/08/24 Rx
oral powder packet
bisacodyl 10 mg rectal suppository 10 mg ND DAILY PRN if no BM after 05/08/24 05/08/24 History
(Dulcolax (bisacodyl)) 8 hr of milk of magnesia
sodium chloride-hypochlorous acid 1 irrig irrigation DAILY 05/08/24 05/08/24 History
0.033 % irrigation solution (Vashe)
tramadol 25 mg tablet 25 mg BID PRN moderate/severe pain 05/08/24 05/08/24 History
tuberculin PPD 1 unit/0.1 mL 5 tb unit intradermal 05/08/24 History
intradermal injection solution
Review of Systems
-
All complete 12 point review of system have been inquired and found negative other than stated in HPI
Physical Exam
Vital Signs
Vital Signs
Temp Pulse Resp BP Pulse Ox
97.9 F 71 18 155/62 97
05/08/24 08:00 05/08/24 07:36 05/08/24 07:15 05/08/24 07:36 05/08/24 07:15
Lab Results
WBC 6.4 10^3/uL (4.8-10.8) 05/08/24 00:12
RBC 2.51 10^6/uL (4.20-5.40) L 05/08/24 00:12
Hgb 8.3 g/dL (12.0-16.0) L 05/08/24 00:12
Hct 24.9 % (37.0-47.0) L 05/08/24 00:12
Plt Count 396 10^3/uL (130-400) 05/08/24 00:12
eGFR 28.48 05/08/24 05:12
Albumin 3.1 g/dl (3.5-5.0) L 05/08/24 00:12
Abnormal Lab Results
05/08/24 05/08/24 05/08/24
00:12 02:01 03:19
RBC 2.51 L
Hgb 8.3 L
Hct 24.9 L
MCV 99.2 H
MCH 33.1 H
Abs Immat Gran (auto) 0.1 H
Immature Gran % 1.7 H
Lymphocytes % 19.7 L
Potassium 5.9 H
Chloride 108 H
Carbon Dioxide 21 L
BUN 67 H
Creatinine 1.8 H
Glucose 169 H
Calcium 8.3 L
AST 65 H
ALT 45 H
Total Protein 5.9 L
Albumin 3.1 L
POC Glucose 120 H 101 H
05/08/24 05/08/24 05/08/24
05:12 12:01 12:21
RBC
Hgb
Hct
MCV
MCH
Abs Immat Gran (auto)
Immature Gran %
Lymphocytes %
Potassium 6.0 H
Chloride 110 H 112 H
Carbon Dioxide 20 L 18 L
BUN 64 H 60 H
Creatinine 1.8 H 1.5 H
Glucose 65 L 158 H
Calcium 7.3 L
AST
ALT
Total Protein
Albumin
POC Glucose 162 H
leg Xray; right
IMPRESSION: Possible dislocation of the patella laterally. Clinical correlation recommended.
Mild lateral compartment osteoarthritis.
Moderate plantar calcaneal spur.
No DVT on US
Physical Exam
General: Awake, Alert, Oriented, AOx3, No Distress and Nontoxic
HEENT: EOMI, Anicteric, Conjunctivae Clear, Neck Supple and No JVD
Respiratory: Clear, Normal Excursion and Nonlabored Respirations
Cardiac: S1/S2 and Regular Rate/Rhythm
Breast: Deferred by me
Abdomen: Soft, Nontender and Nondistended
Musculoskeletal: Edema (right 3+)
Skin: No Rash
Neuro: Nonfocal/Grossly Intact
Psych: Mood/afflect pleasant, Insight/judgement good and Appropriate
Data Reviewed
-
Radiology: Report Reviewed by me and Discussed with Patient
Labs: Labs Reviewed by me and Discussed with Patient
Assessment/Plan
-
IMP:
Hyperkalemia
CKD 3 vs 4 (1.5-1.9)
Metabolic Acidosis
recent RLE Cellulitis
RLE swelling -
PAD S/P arteriogram s/p RFA stent.
DM II
Fall - suspect mechanical
Anemia
Chronic HFrEF
Hypothyroidism
Plan:
Hyperkalemia-no EKG changes, cont temporization, cont LOkelma
last admit TTKG :4:suggests hypo aldosterone state, likely from DM
maintain low k diet, pt reports following at rehab?
will give bumex(sulfa allergy on list)for edema which should help with k too
if still not controlled likely Lokelam 3xweekly
met acidosis -ad dpo bicarb
cr at baseline 1.8
follow bladder scan with known retention
BP stable , check orthostatic since feelign dizzy
hb low-monitor , check fe panel
labs later today
[2024-05-08 12:22] LABS: Glucose - Point of Care 162 mg/dl (70-99)
[2024-05-08 12:23] LABS: Blood Urea Nitrogen 60 mg/dl (7-17); Calcium 7.3 mg/dl (8.4-10.2); Carbon Dioxide 18 mmol/L (22-30); Chloride 112 mmol/L (98-107); Estimated Creatinine Clearance 29 ml/min; Glucose 158 mg/dl (70-99); Sodium 135 mmol/L (135-145); eGFR 35.45
[2024-05-08] MEDS: NOVOLOG FLEXPEN-MODERATE RESISTANCE 1 UNITS SC (13:11)
--- NOTE | 2024-05-08 13:54 | PHA.VAN.IN ---
Assessment
- Assessment
Renal Function: Appears similar to baseline
Maximum Temperature: 97.9
Minimum Temperature: 97.5
- Previous Dosing Experience
Patient's SCR is: Similar to previous dosing experience
Patient's weight is: Elevated compared to previous dosing experience
Plan
- Plan
Initial / Loading Dose: Vanc 1500mg--administration pending
Maintenance Regimen: Dose by level
Monitoring: R 05/09 AM
Pharmacokinetics Vancomycin I
- -
Patient Age: 79
Patient Sex: Female
Vancomycin Day #: 1
Indication: Skin And Soft Tissue
Requesting Provider: Jodi
Pertinent Antimicrobial Allergies:
Sulfa = itching
Height / Weight:
Height 5 ft 6 in
Actual Weight 71.3 kg
IBW in k.3
Adjusted BW in k.1
Pertinent Past Medical History: CKD III; outpt cephalexin course for RLE
- Vital Signs / Lab Results
Temp Pulse Resp BP Pulse Ox
97.9 F 70 17 144/58 97
05/08/24 08:00 05/08/24 12:00 05/08/24 12:00 05/08/24 12:00 05/08/24 11:07
Lab Results - Hematology
05/08/24
00:12
WBC 6.4
Lab Results - Chemistry
05/08/24 05/08/24 05/08/24
00:12 05:12 12:01
BUN 67 H 64 H 60 H
Creatinine 1.8 H 1.8 H 1.5 H
Estimated Creat Clear
Albumin 3.1 L
[2024-05-08] MEDS: BUMEX 0.5 MG IV (14:27)
[2024-05-08] MEDS: VANCOCIN 530 MG IV (14:33)
[2024-05-08 15:06] LABS: Blood Urea Nitrogen 61 mg/dl (7-17); Calcium 8.1 mg/dl (8.4-10.2); Carbon Dioxide 20 mmol/L (22-30); Chloride 110 mmol/L (98-107); Estimated Creatinine Clearance 27 ml/min; Glucose 193 mg/dl (70-99); Potassium 5.8 mmol/L (3.5-5.1); Sodium 136 mmol/L (135-145); eGFR 32.81
[2024-05-08 15:18] LABS: Total Iron Binding Capacity 249 ug/dl (265-497)
[2024-05-08 15:43] LABS: Iron 54 ug/dl (37-170); Percent Saturation 21 % (20-50)
[2024-05-08 16:27] LABS: Ferritin 47.6 ng/ml (11.1-264.0)
[2024-05-08 17:11] LABS: Glucose - Point of Care 218 mg/dl (70-99)
[2024-05-08] MEDS: NOVOLOG FLEXPEN-MODERATE RESISTANCE 3 UNITS SC (17:12)
[2024-05-08] MEDS: LIPITOR 20 MG PO (18:05)
[2024-05-08 22:05] LABS: Potassium 5.6 mmol/L (3.5-5.1)
[2024-05-08] MEDS: LANTUS 0.15 UNITS SC (22:14)
[2024-05-08] MEDS: XALATAN OPHTHALMIC SOLUTION 1 DROP BOTH EYES (22:14)
[2024-05-08] MEDS: MIRALAX 17 GRAMS PO (22:14)
[2024-05-08 22:32] LABS: Glucose - Point of Care 242 mg/dl (70-99)
[2024-05-09] VITALS (7 sets, daily range): BP systolic 131–160; BP diastolic 53–68; PULSE 76–82; O2SAT 99; BMI 24.5
[2024-05-09] MEDS: HEPARIN 5000 UNITS SC ×4 (00:18→23:18)
--- NOTE | 2024-05-09 05:24 | PTCARENOTE ---
Rec'd pt. into room 2130 from ED AAOx3, VSS, NSR on the monitor. Lungs CTA but diminished. Wound care provided to multiple areas (see flow sheet), air mattress applied, q 2 turning schedule initiated. Right lower leg noticeably externally rotated
with +2 edema, pedal pulse present by Doppler, warm to touch, sensation positive. Pt. only complains of pain with movement, offered Tylenol but refused (Ultram given in ED). Unable to void on bedpan (bedrest maintained due to leg, ortho consult
pending), bladder scanned for >[address] cath'd per order yielding 975 ml clear yellow urine. Pt. currently sleeping.
[2024-05-09] MEDS: LOKELMA 10 GRAM PO ×3 (06:24→17:35)
[2024-05-09 07:25] LABS: % Basophils 0.7 % (0-2); % Eosinophils 6.5 % (0-6); % Immature Granulocytes 0.5 % (0-0.5); % Lymphocytes 17.2 % (20.5-51.1); % Monocytes 9.1 % (1.7-9.3); Absolute Eosinophils 0.4 10^3/uL (0-0.7); Absolute Monocytes 0.5 10^3/uL (0.1-0.6); Absolute Neutrophils 3.7 10^3/uL (1.4-6.5); Hematocrit 28.4 % (37.0-47.0); Hemoglobin 8.6 g/dL (12.0-16.0); Mean Corp Hgb Conc. 30.3 g/dL (33.0-37.0); Mean Corpuscular Hgb 32.2 pg (27.0-31.0); Mean Corpuscular Volume 106.4 fL (81.0-99.0); Mean Platelet Volume 9.4 fL (7.4-10.4); Nucleated Red Blood Cells % 0 %; Platelet Count 366 10^3/uL (130-400); Red Blood Cell Count 2.67 10^6/uL (4.20-5.40); Red Cell Dist. Width 14.6 % (11.5-14.5); White Blood Cell Count 5.6 10^3/uL (4.8-10.8)
[2024-05-09 07:54] LABS: ALT (SGPT) 35 U/L (0-35); AST (SGOT) 31 U/L (14-36); Albumin 3.1 g/dl (3.5-5.0); Alkaline Phosphatase 118 U/L (38-126); Blood Urea Nitrogen 53 mg/dl (7-17); Calcium 8.4 mg/dl (8.4-10.2); Carbon Dioxide 21 mmol/L (22-30); Chloride 109 mmol/L (98-107); Estimated Creatinine Clearance 24 ml/min; Glucose 154 mg/dl (70-99); Magnesium 2.2 mg/dl (1.6-2.3); Potassium 5.1 mmol/L (3.5-5.1); Sodium 138 mmol/L (135-145); Total Bilirubin 0.4 mg/dl (0.2-1.3); Total Protein 5.9 g/dl (6.3-8.2); eGFR 28.48
[2024-05-09 07:55] LABS: Vancomycin Random 7.9 ug/ml
[2024-05-09 08:07] LABS: Glucose - Point of Care 211 mg/dl (70-99)
[2024-05-09] MEDS: NOVOLOG FLEXPEN-MODERATE RESISTANCE 3 UNITS SC ×2 (08:13→16:17)
[2024-05-09] MEDS: ARMOUR THYROID 90 MG PO (08:14)
[2024-05-09] MEDS: COREG 3.125 MG PO ×2 (08:14→21:06)
[2024-05-09] MEDS: COLACE 100 MG PO ×2 (08:15→21:06)
[2024-05-09] MEDS: PLAVIX 75 MG PO (08:15)
[2024-05-09] MEDS: LOW STRENGTH ASPIRIN 81 MG PO (08:15)
--- NOTE | 2024-05-09 08:28 | CON.ORTHO ---
Consultation
-
Date/Time Consultation Requested: May 24
Date/Time Consultation Performed: May 24
Requesting Provider: Lele
Performing Provider: Haley for Stefaz[facility]
Reason for Consultation: Right knee pain, r/o patellar dislocation
Consultation - Orthopedics
History
Dictation#[id number]
HPI: Requested in consult by Dr. Royal to this very pleasant 79 y/o white female with a PMH CAD, Fibromyalgia, NIDDM, Hypothyroidism, CKD3, agorophobia, diabetic neuropathy, diverticulosis, IBS who presented through the [facility] after a possible
(pre)syncopal event when standing from her wheelchair. She is currently in rehab at [facility]. She has had 2-3 admissions here since the summer for CHF, RLE cellulitis. Reports landing on her right side, mainly the knee. Also with ongoing
cellulitis and vascular issues with the RLE, under care. Xrays in the ED were concerning for possible right patellar dislocation, therefore we were requested in consultation. Reports some off and on pain about the right knee over the years.
Allergies / Home Medications
Allergy/AdvReac Type Severity Reaction Status Date / Time
lidocaine Allergy very cold Verified 04/19/24 01:01
& shakes
phenobarbital Allergy patient Verified 04/19/24 01:01
denies
phenytoin Allergy patient Verified 04/19/24 01:01
denies
Sulfa (Sulfonamide Allergy Itching Verified 04/19/24 01:01
Antibiotics)
sulfisoxazole Allergy Itching Verified 04/19/24 01:01
codeine AdvReac 'shakiness' Verified 04/19/24 01:01
anti hypertensives Allergy Unknown Unknown Uncoded 04/19/24 01:01
most pain medicines Allergy 'per Uncoded 04/19/24 01:01
patient -
they cause
problems'
perfumed soaps Allergy Rash Uncoded 04/19/24 01:01
�Medication �Instructions �Recorded
thyroid (pork) 90 mg tablet 90 mg PO DAILY Thyroid 09/03/13
([place] Thyroid)
latanoprost 0.005 % eye drops 1 drp BOTH EYES HS Eye Condition 11/05/23
aspirin 81 mg chewable tablet 81 mg PO DAILY #30 tabs 11/15/23
(Children's Aspirin)
atorvastatin 20 mg tablet 20 mg PO QPM #30 tabs 11/15/23
carvedilol 3.125 mg tablet 3.125 mg PO BID #60 tabs 11/15/23
Saccharomyces boulardii 250 mg 250 mg PO HS Supplement ##0 04/19/24
capsule (Florastor)
docusate sodium 100 mg capsule 100 mg PO BID Constipation 04/19/24
(Colace)
clopidogrel 75 mg tablet 75 mg PO DAILY #90 tabs 04/26/24
acetaminophen 325 mg tablet 650 mg (2 x 325 mg) PO Q4HPRN PRN 04/28/24
Mild Pain / Temp > 101 #20 tabs
collagenase clostridium histo. 250 1 applic topical DAILY #30 grams 04/28/24
unit/gram topical ointment (Santyl)
polyethylene glycol 3350 17 gram 17 g PO HS #30 ea 04/28/24
oral powder packet
bisacodyl 10 mg rectal suppository 10 mg [place] DAILYPRN PRN if no BM 05/08/24
(Dulcolax (bisacodyl)) after 8 hr of milk of magnesia
insulin aspart U-100 100 unit/mL 7 unit SC AC Diabetes 05/08/24
(3 mL) subcutaneous pen (Novolog
FlexPen U-100 Insulin aspart)
insulin glargine 100 unit/mL (3 17 unit SC HS Diabetes 05/08/24
mL) subcutaneous pen (Lantus
Solostar U-100 Insulin)
magnesium hydroxide 400 mg/5 mL 2,400 mg PO DAILYPRN PRN if no bm 05/08/24
oral suspension (Milk of Magnesia) on 2nd day
sodium chloride-hypochlorous acid 1 irrig irrigation DAILY right 05/08/24
0.033 % irrigation solution (Vashe) great toe
sodium phosphates 19 gram-7 118 ml [place] DAILYPRN PRN if no bm 05/08/24
gram/118 mL enema ([place] Enema) aftr dulolcax
tramadol 25 mg tablet 25 mg PO BIDPRN PRN 05/08/24
moderate/severe pain
Vital Signs / Lab Results
Temp Pulse Resp BP Pulse Ox
97.7 F 75 18 160/65 96
05/09/24 07:07 05/09/24 07:07 05/09/24 07:07 05/09/24 07:07 05/09/24 07:07
05/09/24 06:35
05/09/24 06:35
Assessment / Plan
PE: In bed. Focused exam of the right knee reveals mild effusion. No significant pain about the right patella. Lateral joint line pain. Slight valgus noted. Passive ROM 3-100 (with guarding) and patella seems to track well. Exquisitely tender RLE
around dressed wound. No obvious signs of RLE cellulitis. Ulceration noted of right medial great toe. DNVI RLE. Note- No right hip pain to palpation. Negative logroll RLE. Gentle ranging of hip not painful
Xrays: Right knee- Lateral compartment OA. No evidence of fracture. No evidence of patellar dislocation
Right Tib-Fib- No acute abnormality, but radiologist mention of possible patellar dislocation
Right Hip- No evidence of fracture. Mild Bilateral hip OA
Impression: Flare of right knee OA. Right hip OA. No evidence of right patellar dislocation
Plan: I discussed at length with Ms. Tyson. She does not have a patellar dislocation. She does have some moderate-severe lateral compartment right knee OA, which can be managed on an outpatient basis if symptoms persist. She does have a small
effusion, but nothing I felt worth aspiration. Discussed with Dr. Canales. Continue Tx per the primary team, to include possibly ID, wound care, ?podi. May be WBAT RLE with assistance/walker, if deemed safe. PT/OT could be beneficial while admitted.
No further imaging studies, in my opinion, are necessary. Upon discharge an outpatient Ortho follow-up can be made with our office regarding her right knee . Orthopaedics to sign off for now
--- NOTE | 2024-05-09 09:10 | PHA.VAN.FU ---
Vancomycin Assessment / Plan
- Assessment
Renal Function: SCR Increasing (scR 1.8)
WBC's are: WNL
In the past 24 hrs, patient has been: Afebrile
- Assessment - Therapeutic Drug Monitoring
Random Level: 7.9, ~17 H after 1.5g dose
- Dosing Plan
Continue: to dose by level
Dosing by Level: Re-dose today (750 mg (11 mg/kg))
Dosing Comments: dosing cautiously due to CKD
- Monitoring Plan
Random Level: 12/10 am labs
- Follow Up
Pharmacy will continue to follow.
Vancomycin Follow UP
- -
Patient Age: 79
Patient Sex: Female
Vancomycin Day #: 2
Indication: Skin And Soft Tissue
Requesting Provider: Jodi
Pertinent Antimicrobial Allergies:
Sulfa = itching
Height / Weight:
Height 5 ft 6 in
Actual Weight 68.765 kg
IBW in k.3
Adjusted BW in k.1
Pertinent Past Medical History: CKD III; outpt cephalexin course for RLE
- Vital Signs / Lab Results
Temp Pulse Resp BP Pulse Ox
97.7 F 75 18 160/65 96
05/09/24 07:07 05/09/24 07:07 05/09/24 07:07 05/09/24 07:07 05/09/24 07:07
Lab Results - Hematology
05/08/24 05/09/24
00:12 06:35
WBC 6.4 5.6
Lab Results - Chemistry
05/08/24 05/08/24 05/08/24
00:12 05:12 12:01
BUN 67 H 64 H 60 H
Creatinine 1.8 H 1.8 H 1.5 H
Estimated Creat Clear
Albumin 3.1 L
05/08/24 05/09/24
14:46 06:35
BUN 61 H 53 H
Creatinine 1.6 H 1.8 H
Estimated Creat Clear
Albumin 3.1 L
Therapeutic Drug Monitoring
Random Vancomycin 7.9 ug/ml 05/09/24 06:35
[2024-05-09] MEDS: VANCOCIN 150 IV (09:41)
--- NOTE | 2024-05-09 10:04 | W.PN.NEPH.PH ---
Today's Communication / Plan
-
Add sodium bicarbonate tablets
Maintain Lokelma 3 times daily for now
Assessment/Plan
-
IMP:
Hyperkalemia
CKD 3 vs 4 (1.5-1.9)
Metabolic Acidosis
recent RLE Cellulitis
RLE swelling -
PAD S/P arteriogram s/p RFA stent.
DM II
Fall - suspect mechanical
Anemia
Chronic HFrEF
Hypothyroidism
Plan:
Creatinine up to 1.8 still within baseline
K down to 5.1
Maintain Lokelma 3 times a day
Hyperkalemia-no EKG changes, continue temporization, cont Lokelma
last admit TTKG :4:suggests hypo aldosterone state, likely from DM
maintain low k diet, pt reports following at rehab?
add sodium bicarbonate pill for metabolic acidosis
follow bladder scan with known retention
BP stable , check orthostatic since feeling dizzy
hgb low-monitor , check fe panel
-
-
Date of Service: May 09, 2024
CC / HPI / ROS
-
Chief Complaint:
Hyperkalemia
CKD
History of Present Illness:
Creatinine at 1.8
Hemodynamically stable
Potassium at 5.1
Review of Systems:
Nonoliguric
No chest pain or shortness of
Labs
-
Labs:
WBC 5.6 10^3/uL (4.8-10.8) 05/09/24 06:35
RBC 2.67 10^6/uL (4.20-5.40) L 05/09/24 06:35
Hgb 8.6 g/dL (12.0-16.0) L 05/09/24 06:35
Hct 28.4 % (37.0-47.0) L 05/09/24 06:35
Plt Count 366 10^3/uL (130-400) 05/09/24 06:35
Sodium 138 mmol/L (135-145) 05/09/24 06:35
Potassium 5.1 mmol/L (3.5-5.1) 05/09/24 06:35
Chloride 109 mmol/L (98-107) H 05/09/24 06:35
Carbon Dioxide 21 mmol/L (22-30) L 05/09/24 06:35
BUN 53 mg/dl (7-17) H 05/09/24 06:35
Creatinine 1.8 mg/dL (0.6-1.0) H 05/09/24 06:35
eGFR 28.48 05/09/24 06:35
Glucose 154 mg/dl (70-99) H 05/09/24 06:35
Calcium 8.4 mg/dl (8.4-10.2) 05/09/24 06:35
Albumin 3.1 g/dl (3.5-5.0) L 05/09/24 06:35
Physical Exam
-
Vital Signs:
Vital Signs
Temp Pulse Resp BP Pulse Ox
97.7 F 75 18 160/65 96
05/09/24 07:07 05/09/24 07:07 05/09/24 07:07 05/09/24 07:07 05/09/24 07:07
Cardiovascular:: Regular rate and rhythm
Respiratory:: Bilateral: CTA
Lung Excursion:: Normal
Abdomen:: Nontender and Soft
Extremity Edema:: None: Bilateral:
Liao Catheter: No
--- NOTE | 2024-05-09 10:05 | CON.ID ---
Consultation
-
Date/Time Consultation Requested: 05/08/24 12:58
Date/Time Consultation Performed: 05/09/24 10:09
Requesting Provider: Dr Royal
Performing Provider: Dr Erwin
Reason for Consultation: B/L lower extremity wounds, RLE cellulitis
Chief Complaint / Past History
Chief Complaint
fall
History of Present Illness
Ms Tyson is a 79 year old female with history of bilateral lower extremity wounds, DM2 with secondary neuropaty/retinopathy/CKD, CHF, right great toe cellulitis without evidence of osteomyelitis 04/22/24, on 04/25 underwent right lower extremity
arteriogram, shockwave lithotripsy and balloon angioplasty right SFA and popliteal arteries, which was uncomplicated. She was initially treated with cefazolin, later keflex for about a 14 day total course. She now represents from Rehab for
presyncope and a fall. She was using the bathroom and stood up and felt dizzy and felt next to the toilet; there was no loss of consciousness or head strike. No palpitations or shortness of breath. Then noted right hip pain and external rotation
to the right. No fevers or chills. Reports that the right great toe has been mildly red/swollen over a year
In the ER she was afebrile, bp stable, saturating well on room air, wbc initially 6.4 now 5.6, hgb 8.5, plt 366, no L shift, AEC 0.4, K initially 5.9 today 5.1, Cr baseline is 1.8 and cr on arrival 1.8, t bili 0.3, ast 65, alt 45, alk phos 103, hip
xray: no definite fracture, constipation; a mrsa screen has been sent.
Past History
Additional Past Medical History:
CHF, HTN, IDDM
ASCVD
CKD III
Depression / Anxiety
Agoraphobia
Hyperlipidemia
Breast cancer
Hypothyroidism
Fibromyalgia
Additional Past Surgical History:
Tonsillectomy
Cataract extraction
Right lumpectomy
Allergy History:
lidocaine Allergy (Verified 04/19/24 01:)
very cold & shakes
phenobarbital Allergy (Verified 04/19/24 01:)
patient denies
phenytoin Allergy (Verified 04/19/24:)
patient denies
Sulfa (Sulfonamide Antibiotics) Allergy (Verified 04/19/24:)
Itching
sulfisoxazole Allergy (Verified 04/19/24:)
Itching
codeine Adverse Reaction (Verified 04/19/24:)
'shakiness'
anti hypertensives Allergy (Unknown, Uncoded 04/19/24:)
Unknown
most pain medicines Allergy (Uncoded 04/19/24:)
'per patient - they cause problems'
perfumed soaps Allergy (Uncoded 04/19/24:)
Rash
Medications Reviewed: Yes
Social History
Tobacco: Non-Smoker
Alcohol: None
Drug: None
Family History
Family History: Not Pertinent
Review of Systems
Review of Systems
General: Negative Fever or Chills
All systems: All other systems were reviewed and were negative
Vital Signs
Temp Pulse Resp BP Pulse Ox
97.7 F 75 18 160/65 96
05/09/24 07:07 05/09/24 07:07 05/09/24 07:07 05/09/24 07:07 05/09/24 07:07
Physical Exam
Physical Exam
Constitutional: No Acute Distress
Cardiovascular: Regular Rate and S1/S2; Negative Murmur or Rub
Pulmonary: Clear and Symmetric; Negative Wheezes, Rales or Rhonchi
Gastrointestinal: Soft, Non Tender, Non Distended and Normal Bowel Sounds
Skin: Warm and Dry; Negative Rash or Jaundice
Wound: Other (several ulcers right great toe with chronic erythema and minimal swelling, gangrenous changes - punched out lesion)
Lab / Diagnostic Study Results
05/09/24 06:35
05/09/24 06:35
Abs Immat Gran (auto) 0.0 10^3/uL (0-0.05) 05/09/24 06:35
Absolute Neuts (auto) 3.7 10^3/uL (1.4-6.5) 05/09/24 06:35
Absolute Lymphs (auto) 1.0 10^3/uL (1.2-3.4) L 05/09/24 06:35
Absolute Monos (auto) 0.5 10^3/uL (0.1-0.6) 05/09/24 06:35
Absolute Basos (auto) 0.0 10^3/uL (0-0.2) 05/09/24 06:35
Immature Gran % 0.5 % (0-0.5) 05/09/24 06:35
Neutrophils % 66.0 % (42.2-75.2) 05/09/24 06:35
Lymphocytes % 17.2 % (20.5-51.1) L 05/09/24 06:35
Monocytes % 9.1 % (1.7-9.3) 05/09/24 06:35
Eosinophils % 6.5 % (0-6) H 05/09/24 06:35
Basophils % 0.7 % (0-2) 05/09/24 06:35
Microbiology Results
Micro:
05/09/24 00:37 MRSA Screen - Pending
Nose
Assessment / Plan
Dry Gangrene Right great Toe - ulcerative wound
CKD
- trial of vancomycin
- xray of the right foot
- vascular US was done but not yet read
- patient tells me the mild erythema and swelling is chronic, note recent course of cefazolin/keflex
- fine to continue vancomycin for now - follow clinically
--- NOTE | 2024-05-09 10:43 | W.PN.HOSP.TC ---
Today's Communication/Plan
-
Increase insulin TX
Assessment / Plan
Assessment / Plan
Physical Exam
General: Not in acute distress
HEENT: Normocephalic
Respiratory: Clear to Auscultation Bilaterally
Cardiac: S1/S2 and Regular Rhythm
GI: Non Tender, Non Distended and Normal Bowel Sounds
Musculoskeletal: No Cyanosis. Edema, Right Lower Extremity (Non-pitting edema to the knees, tenderness to palpation, no erythema, no warmth)
Skin: Warm. Dry.
Neuro: AAO to self and surroundings, forgetful at times, Nonfocal/grossly intact
Psych: Calm
Assessment/Plan
79-year-old female presented from rehab with fall (while attempting to use a commode independently) and possible presyncope was found to be hyperkalemic in the emergency department.
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
Resolving
c/w to treat high glucose
K is 5.1
s/p Lokelma
#Right Lower Extremity swelling
# RLE tenderness, doubt active Cellulitis
#Status post arteriogram status post RFA stent
#Bilateral Lower Extremity Wounds
-Recently admitted with right great toe infection without bone involvement. 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 Foot and leg tender to touch with non-pitting edema. No erythema.
-Right lower extremity ultrasound was negative for DVT
-Ultrasound negative, started vancomycin and consulted ID.
-Continue Aspirin/Plavix and statin for PAD
-Consulted vascular surgery, appreciate their evaluation and recommendations
-Started Vancomycin, appreciate ID evaluation and recommendations
-Podiatry consulted, appreciate their evaluation and recommendations
-Wound care consulted
#DM II
#Hyperglycemia
- Increase Lantus, add pre-meal
- sliding scale
#Fall - suspected mechanical
-Did have dizziness, had a spinning sensation, but no LOC
- Skeletal survey was without fracture but did suggest osteoarthritis in hips and right knee area and possible dislocation of the patella laterally.
- Appreciate ortho eval of the possible patellar dislocation
- telemetry monitoring for now
- orthostatic vitals
- PT/OT
Chronic HFrEF, ICM, EF 25%
-Resume Lasix
-Off RIGO inhibitor due to recurrent High K and CKD.
-Continue beta-hilda
-Monitor volume status, weight.
#Anemia - Chronic macrocytic anemia. No indication for transfusion
- monitoring for now
- outpatient nephrology f/u
DVT Prophylaxis: c/w Heparin subq
Code Status: Full Code
Total time spent to see the patient on the floor, examine the patient, review data and lab results, discuss treatment plan with patient, nursing staff around 55 minutes.
Anticipated Discharge: > 48 hours
Subjective/Interval History
-
Date of Service: May 09, 2024
Reports right ankle pain and tenderness
Objective Data
-
Labs:
Laboratory Results
05/09/24
06:35
WBC 5.6
Hgb 8.6 L
Hct 28.4 L
Plt Count 366
Sodium 138
Potassium 5.1
Chloride 109 H
Carbon Dioxide 21 L
BUN 53 H
Creatinine 1.8 H
Glucose 154 H
Calcium 8.4
Total Bilirubin 0.4
AST 31
ALT 35
Alkaline Phosphatase 118
Vital Signs:
Vital Signs
Temp Pulse Resp BP Pulse Ox
97.7 F 75 18 160/65 96
05/09/24 07:07 05/09/24 07:07 05/09/24 07:07 05/09/24 07:07 05/09/24 07:07
I&O
05/08/24 05/09/24 05/10/24
06:59 06:59 06:59
Intake Total 240 / 240
Output Total 2124
Balance -1884 /
--- NOTE | 2024-05-09 11:07 | CM ---
Reviewed the chart notes and spoke with the patient at the bedside. The patient is admitted for hyperkalemia. Patient was recently discharged from (04/19-04/28) to [facility]. Patient's medical history includes CKD, insulin-dependent
diabetes, CAD, systolic and diastolic heart failure, urinary retention, right great toe cellulitis with dry gangrene s/p right lower extremity arteriogram, shockwave lithotripsy and balloon angioplasty right SFA and popliteal arteries. The patient
resides alone in a one story home in a [place] community. There are two steps to enter. The patient reports on DME in the home includes a shower seat and tub grab bar. The patient reports having had VN and [facility] in the past. The patient has
had [facility] three times a week for three hours, but unfortunately they have become unreliable due to staffing issues. Per patient, the agricultural equipment design engineer of the company provides transportation to appointments. The
caregivers prepare meals for the patient. The patient's [facility] of choice is [facility]. PT recommending SNF/rehab prior to transitioning back to home. CM continues to be available to patient/family and is monitoring medical plan for needs at
discharge.
Plan: Discharge to SNF/rehab. Referral sent via [facility].
[2024-05-09 11:31] LABS: Glucose - Point of Care 159 mg/dl (70-99)
[2024-05-09] MEDS: NOVOLOG FLEXPEN 3 UNITS SC ×2 (11:35→16:14)
[2024-05-09] MEDS: NOVOLOG FLEXPEN-MODERATE RESISTANCE 1 UNITS SC (11:35)
[2024-05-09] MEDS: ULTRAM 100 MG PO (13:09)
--- NOTE | 2024-05-09 13:20 | CON.VAS ---
Consultation
Consultation Request
Performing Provider: Sammy
Reason for Consultation: Right lower extremity pain
Medical History
-
Chief Complaint: Right lower extremity 'skin pain'
History of Present Illness:
79-year-old female with significant past medical history for ASCVD, CHF, diabetes, hypertension, multivessel CAD (not surgical candidate) last seen by our service on 04/24/2024 in the ER for pain to the right lower extremity for about a week. At
that time the patient denied any recent trauma or injury. On that admission she had Right lower extremity arteriogram, shockwave lithotripsy and balloon angioplasty right SFA and popliteal arteries, SFA stent placement (04/25/24) with Dr. Christianson.
Patient presents to the ER last night after a fall. Patient states she fell to her right hip and knee and did not hit her head. There is no open wound from this fall. The small dry wound to her right toe appears unchanged since prior visit. No
drainage noted, no erythema. Patient remains with the same hypersensitivity to the skin of the right leg. This seems unchanged. Palpable DP pulse to the right foot.
Vascular consult for right lower extremity pain.
Past Medical History
Past Medical History: Other (ASCVD, Chronic HFrEF (25% October 2023), Hypertension, CKD III, Depression / Anxiety, Agoraphobia, Hyperlipidemia, Breast cancer, Hypothyroidism, Fibromyalgia, DM-II with Retinopathy and Neuropathy)
Past Surgical History: , Tonsilectomy and Other (Cataract extraction, right lumpectomy)
Social History
Tobacco: Non-Smoker
Alcohol: None
Drug: None
Personal: Single
Living: Alone
Family History
Family History: Reviewed & Not Pertinent
Allergies / Home Medications
Allergy/AdvReac Type Severity Reaction Status Date / Time
lidocaine Allergy very cold Verified 04/19/24 01:01
& shakes
phenobarbital Allergy patient Verified 04/19/24 01:01
denies
phenytoin Allergy patient Verified 04/19/24 01:01
denies
Sulfa (Sulfonamide Allergy Itching Verified 04/19/24 01:01
Antibiotics)
sulfisoxazole Allergy Itching Verified 04/19/24 01:01
codeine AdvReac 'shakiness' Verified 04/19/24 01:01
anti hypertensives Allergy Unknown Unknown Uncoded 04/19/24 01:01
most pain medicines Allergy 'per Uncoded 04/19/24 01:01
patient -
they cause
problems'
perfumed soaps Allergy Rash Uncoded 04/19/24 01:01
�Medication �Instructions �Recorded �Confirmed �Type
thyroid (pork) 90 mg tablet 90 mg PO DAILY Thyroid 09/03/13 05/08/24 History
([place] Thyroid)
latanoprost 0.005 % eye drops 1 drp BOTH EYES HS Eye Condition 11/05/23 05/08/24 History
aspirin 81 mg chewable tablet 81 mg PO DAILY #30 tabs 11/15/23 05/08/24 Rx
(Children's Aspirin)
atorvastatin 20 mg tablet 20 mg PO QPM #30 tabs 11/15/23 05/08/24 Rx
carvedilol 3.125 mg tablet 3.125 mg PO BID #60 tabs 11/15/23 05/08/24 Rx
Saccharomyces boulardii 250 mg 250 mg PO HS Supplement ##0 04/19/24 05/08/24 History
capsule (Florastor)
docusate sodium 100 mg capsule 100 mg PO BID Constipation 04/19/24 05/08/24 History
(Colace)
clopidogrel 75 mg tablet 75 mg PO DAILY #90 tabs 04/26/24 05/08/24 Rx
acetaminophen 325 mg tablet 650 mg (2 x 325 mg) PO Q4HPRN PRN 04/28/24 05/08/24 Rx
Mild Pain / Temp > 101 #20 tabs
collagenase clostridium histo. 250 1 applic topical DAILY #30 grams 04/28/24 05/08/24 Rx
unit/gram topical ointment (Santyl)
polyethylene glycol 3350 17 gram 17 g PO HS #30 ea 04/28/24 05/08/24 Rx
oral powder packet
bisacodyl 10 mg rectal suppository 10 mg UT DAILYPRN PRN if no BM 05/08/24 05/08/24 History
(Dulcolax (bisacodyl)) after 8 hr of milk of magnesia
insulin aspart U-100 100 unit/mL 7 unit SC AC Diabetes 05/08/24 05/08/24 History
(3 mL) subcutaneous pen (Novolog
FlexPen U-100 Insulin aspart)
insulin glargine 100 unit/mL (3 17 unit SC HS Diabetes 05/08/24 05/08/24 History
mL) subcutaneous pen (Lantus
Solostar U-100 Insulin)
magnesium hydroxide 400 mg/5 mL 2,400 mg PO DAILYPRN PRN if no bm 05/08/24 05/08/24 History
oral suspension (Milk of Magnderek) on 2nd day
sodium chloride-hypochlorous acid 1 irrig irrigation DAILY right 05/08/24 05/08/24 History
0.033 % irrigation solution (Vashe) great toe
sodium phosphates 19 gram-7 118 ml UT DAILYPRN PRN if no bm 05/08/24 05/08/24 History
gram/118 mL enema (Fleet Enema) aftr dulolcax
tramadol 25 mg tablet 25 mg PO BIDPRN PRN 05/08/24 05/08/24 History
moderate/severe pain
Review of Systems
-
History Source: Patient
All other systems: Negative unless noted
Constitutional: Reports No Symptoms
EENT: Reports No Symptoms
Respiratory: Reports No Symptoms
Cardiac: Reports No Symptoms
Vascular: Denies Leg Pain / Claudication
Abdomen/GI: Reports No Symptoms
: Reports No Symptoms
Skin: Reports Other (Sensitive skin of the right lower extremity)
Neurological: Reports No Symptoms
Endocrine: Reports No Symptoms
Physical Exam
Vital Signs
Temp Pulse Resp BP Pulse Ox
98.1 F 73 16 131/53 100
05/09/24 11:20 05/09/24 11:20 05/09/24 11:20 05/09/24 11:20 05/09/24 11:20
Lab Results
05/09/24 06:35
05/09/24 06:35
Physical Exam
General: No Apparent Distress
HEENT: Normocephalic and Atraumatic
Respiratory: Non Labored Respirations
Cardiac: Negative JVD
GI: Soft and Non Tender
Musculoskeletal: No Clubbing, No Cyanosis and No Edema
Skin: Warm
Neuro: Awake, Alert and Oriented
Psych: Calm
Pulses: Right Dorsalis Pedis: +1
Assessment / Plan
-
79-year-old female admitted status post fall with right lower extremity pain
Patient has a history of right lower extremity pain/hypersensitive skin of the right lower extremity
Status post Right lower extremity arteriogram, shockwave lithotripsy and balloon angioplasty right SFA and popliteal arteries, SFA stent placement (04/25/24)
Plan:
-Arterial US BL LE
Data Reviewed
-
Labs: Labs Reviewed by me
--- NOTE | 2024-05-09 13:30 | W.PN.UPDATE ---
Update Note
Progress Note Update
Seen and examined with LEONARDO Arredondo and LEONARDO Diez. Full consultation to follow. 79-year-old female known to me status post very recent right lower extremity endovascular revascularization for limb threatening ischemia. Has somewhat atypical symptoms
of leg pain/sensitivity. Notes that the sensitivity predated her angiography procedure. She has had significant sensitivity throughout the calf. Remainder of history as noted in the full consultation. Her exam is relatively benign with evidence
of good perfusion to the right lower extremity with palpable 1+/2+ DP pulse on the foot suggesting patency of her intervention. She does still have a first toe medial small dry gangrene. Plan/obtain follow-up duplex imaging. I do not think any of
her current leg symptoms are vascular mediated in nature.
--- NOTE | 2024-05-09 14:40 | WOUNDNOTE ---
WOC RN note: Patient off unit for test. Air overlay and air chair cushion in place. Patient seen by vascular today. Will try to visit later today or have Marina Wray visit tomorrow. Podiatry on consult.
--- NOTE | 2024-05-09 15:33 | W.CS.POD ---
Consult Summary - Podiatry
-
This is a 79-year-old female with past medical history of CKD, insulin-dependent diabetes, CAD, recent combined chronic systolic and diastolic heart failure with reduced EF, history of urinary retention admitted to the hosp due to syncopal attack/
fall
Podiatry has been asked to evaluate Rt big toe dry, necrotic ulcer and LT heel scabs
Patient was admitted 3 wks ago for Rt L/E cellultis and s/p right lower extremity arteriogram, shockwave lithotripsy and balloon angioplasty right SFA and popliteal arteries.
She has dry, painful ulcer to Rt medial big toe, no drainage noted, no redness , has some swelling . LT heel plantar aspect with dry superficial skin scabs noted, no redness, no drainage
Reviewed pMh, meds and allergies.
Exam ; Diminished pedal pulses B/L feet
Rt hallux medial aspect with dry, necrotic punched out ulcer with no drainage noted, tender to touch, no local signs of any abscess/crepitus felt. no exposed bone in the center of the ulcer,
LT heel superficial dry, clean scabs which are , no erythema, no SOI noted
Xrays and MRI from 04/21/24 with no osteomyelitis to Rt hallux.
ELIUD'S in the past with diminished TBI
A/P: Rt hallux necrotic ulcer.
Diabetic small vessel disease
Arterial ulcerations LT heel
plan : Patient evaluated and discussed in length about the ulcerations which seem to be stable and since her blood flow is diminished, any surgical intervention is is a t high risk of non healing and can get worse with reinfection and loosing limb
is likely
Discussed that she has pain and sensitivity possibly due to the arterial insufficiency,
No surgical intervention by podiatry, will cont with adaptic,Medihoney and dry gauze once daily to Rt hallux
Can ambulate as tolerated with DH pressure relief shoe..
Podiatry will follow
[2024-05-09 16:18] LABS: Glucose - Point of Care 221 mg/dl (70-99)
[2024-05-09] MEDS: LIPITOR 20 MG PO (17:35)
[2024-05-09] MEDS: XALATAN OPHTHALMIC SOLUTION 1 DROP BOTH EYES (21:06)
[2024-05-09] MEDS: MIRALAX 17 GRAMS PO (21:06)
[2024-05-09] MEDS: SODIUM BICARBONATE 325 MG PO (21:07)
[2024-05-09 21:37] LABS: Glucose - Point of Care 94 mg/dl (70-99)
[2024-05-09 23:09] LABS: Glucose - Point of Care 115 mg/dl (70-99)
[2024-05-09] MEDS: LANTUS 0.2 UNITS SC (23:17)
[2024-05-10] MEDS: ULTRAM 100 MG PO ×2 (01:29→13:33)
[2024-05-10 03:38] VITALS: BP 145/61
[2024-05-10 05:10] LABS: Vancomycin Random 10.8 ug/ml
[2024-05-10 05:12] LABS: ALT (SGPT) 31 U/L (0-35); AST (SGOT) 30 U/L (14-36); Albumin 3.2 g/dl (3.5-5.0); Alkaline Phosphatase 110 U/L (38-126); Blood Urea Nitrogen 53 mg/dl (7-17); Calcium 8.6 mg/dl (8.4-10.2); Carbon Dioxide 21 mmol/L (22-30); Chloride 110 mmol/L (98-107); Estimated Creatinine Clearance 24 ml/min; Glucose 88 mg/dl (70-99); Potassium 5.1 mmol/L (3.5-5.1); Sodium 139 mmol/L (135-145); Total Bilirubin 0.3 mg/dl (0.2-1.3); Total Protein 5.8 g/dl (6.3-8.2); eGFR 28.48
[2024-05-10 05:36] VITALS: BMI 24.4
[2024-05-10] MEDS: LOKELMA 10 GRAM PO ×2 (06:22→13:33)
[2024-05-10 07:49] LABS: Glucose - Point of Care 70 mg/dl (70-99)
[2024-05-10 08:02] VITALS: BP 153/65
[2024-05-10] MEDS: NOVOLOG FLEXPEN-MODERATE RESISTANCE SC ×2 (08:06→12:06)
[2024-05-10] MEDS: PLAVIX 75 MG PO (08:13)
[2024-05-10] MEDS: ARMOUR THYROID 90 MG PO (08:13)
[2024-05-10] MEDS: NOVOLOG FLEXPEN 3 UNITS SC ×3 (08:13→16:21)
[2024-05-10] MEDS: COREG 3.125 MG PO ×2 (08:13→19:43)
[2024-05-10] MEDS: HEPARIN 5000 UNITS SC ×3 (08:14→23:04)
[2024-05-10] MEDS: SODIUM BICARBONATE 325 MG PO ×2 (08:14→19:44)
[2024-05-10] MEDS: COLACE 100 MG PO ×2 (08:14→19:44)
[2024-05-10] MEDS: LOW STRENGTH ASPIRIN 81 MG PO (08:14)
--- NOTE | 2024-05-10 09:11 | PHA.VAN.FU ---
Vancomycin Assessment / Plan
- Assessment
Renal Function: Stable
In the past 24 hrs, patient has been: Afebrile
- Assessment - Therapeutic Drug Monitoring
Random Level: 10.8, 18H post 750 mg (11 mg/kg )
- Dosing Plan
Continue: dose by level
Dosing by Level: Re-dose today (750 mg)
- Monitoring Plan
Random Level: 12/11 am
- Follow Up
Pharmacy will continue to follow.
Vancomycin Follow UP
- -
Patient Age: 79
Patient Sex: Female
Vancomycin Day #: 3
Indication: Skin And Soft Tissue
Requesting Provider: Jodi
Pertinent Antimicrobial Allergies:
Sulfa = itching
Height / Weight:
Height 5 ft 6 in
Actual Weight 68.583 kg
IBW in k.3
Adjusted BW in k.1
Pertinent Past Medical History: CKD III; outpt cephalexin course for RLE
- Vital Signs / Lab Results
Temp Pulse Resp BP Pulse Ox
98.4 F 71 18 153/65 98
05/10/24 08:02 05/10/24 08:02 05/10/24 08:02 05/10/24 08:02 05/10/24 08:02
Lab Results - Hematology
05/08/24 05/09/24
00:12 06:35
WBC 6.4 5.6
Lab Results - Chemistry
05/08/24 05/08/24 05/08/24
00:12 05:12 12:01
BUN 67 H 64 H 60 H
Creatinine 1.8 H 1.8 H 1.5 H
Estimated Creat Clear
Albumin 3.1 L
05/08/24 05/09/24 05/10/24
14:46 06:35 04:24
BUN 61 H 53 H 53 H
Creatinine 1.6 H 1.8 H 1.8 H
Estimated Creat Clear
Albumin 3.1 L 3.2 L
Microbiology Results
05/09/24 00:37 MRSA Screen - Final
Nose No Methicillin Resistant Staphylococcus aureus isolated.
Therapeutic Drug Monitoring
Random Vancomycin 10.8 ug/ml 05/10/24 04:24
--- NOTE | 2024-05-10 09:51 | PN.CDI ---
CDI
- -
CDI:
Physician Documentation Request
Admit Date: 05/09/24 09:41
Dear Doctor Parker,
Patient admitted for RLE swelling.
Laboratory Tests
05/08/24 05/09/24
12:01 06:35
Creatinine 1.5 H 1.8 H
Clarify which of the following accurately represents the patient's renal status:
FAWN
Rise in creatinine
Other
Criteria for FAWN*
1 Increase in serum creatinine by > or = to 0.3 mg/dL (> or = to 26.5 micromol/L) within 48 hours, OR
2 Increase in serum creatinine to > or = to 1.5 times baseline, which is known or presumed to have occurred within 7 days, OR
3 Urine volume < 0.5 nL/kg/hour for six hours
Use of terms such as suspected, likely, concern for, or probable (associated with a specific diagnosis that is being evaluated, monitored, or treated as if it exists) are acceptable and can be coded in the inpatient setting, when documented at the
time of discharge.
Thank you,
Maite Sandoval RN, BSN
CDI Specialist
Available via [place] text
Please use your independent medical judgment in providing your response.
*Source: Kidney Disease: Improving Global Outcomes (KDIGO) 2012
--- NOTE | 2024-05-10 09:56 | PN.CDI ---
Addendum entered and electronically signed by Arianna Canales MD 05/10/24 12:43:
Rise in creatinine
Original Note:
CDI
- -
CDI:
Physician Documentation Request
Admit Date: 05/09/24 09:41
Dear Doctor Parker,
Patient admitted for RLE swelling.
05/08 Nephrology Consult: 'CKD 3 vs 4 (1.5-1.9)'
Laboratory Tests
05/08/24 05/09/24
: 06:35
Creatinine 1.5 H 1.8 H
Clarify which of the following accurately represents the patient's renal status:
FAWN on CKD
Rise in creatinine
Other
Criteria for FAWN*
1 Increase in serum creatinine by > or = to 0.3 mg/dL (> or = to 26.5 micromol/L) within 48 hours, OR
2 Increase in serum creatinine to > or = to 1.5 times baseline, which is known or presumed to have occurred within 7 days, OR
3 Urine volume < 0.5 nL/kg/hour for six hours
Use of terms such as suspected, likely, concern for, or probable (associated with a specific diagnosis that is being evaluated, monitored, or treated as if it exists) are acceptable and can be coded in the inpatient setting, when documented at the
time of discharge.
Thank you,
Maite Sandoval RN, BSN
CDI Specialist
Available via [place] text
Please use your independent medical judgment in providing your response.
*Source: Kidney Disease: Improving Global Outcomes (KDIGO) 2012
[2024-05-10] MEDS: VANCOCIN 150 IV (10:38)
--- NOTE | 2024-05-10 11:36 | W.PN.HOSP.TC ---
Today's Communication/Plan
-
On Lokelma
Monitor blood glucose
Assessment / Plan
Assessment / Plan
Physical Exam
General: Not in acute distress
HEENT: Normocephalic
Respiratory: Clear to Auscultation Bilaterally
Cardiac: S1/S2 and Regular Rhythm
GI: Non Tender, Non Distended and Normal Bowel Sounds
Musculoskeletal: No Cyanosis. Edema, Right Lower Extremity (Non-pitting edema to the knees, tenderness to palpation, no erythema, no warmth)
Skin: Warm. Dry.
Neuro: AAO to self and surroundings, forgetful at times, Nonfocal/grossly intact
Psych: Calm
Assessment/Plan
79-year-old female presented from rehab with fall (while attempting to use a commode independently) and possible presyncope was found to be hyperkalemic in the emergency department.
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
Creatinine at 1.8 still within baseline
K down to 5.1
Maintain Lokelde course
Appreciate nephrology help
#Rt hallux medial aspect with dry, necrotic punched out ulcer with no drainage noted, tender to touch, no local signs of any abscess/crepitus felt. no exposed bone in the center of the ulcer,
LT heel superficial dry, clean scabs which are , no erythema, no SOI noted
Diabetic small vessel disease
Arterial ulcerations LT heel
X- ray of right foot showed soft tissue wound along the medial aspect of the great toe distally with underlying soft tissue swelling. No convincing radiographic evidence for active osteomyelitis. No acute fracture or dislocation. Scattered mild
osteoarthritic changes of the interphalangeal and first metatarsophalangeal joints. Mild to moderate plantar calcaneal enthesopathy. Scattered vascular calcifications.
Plan per podiatry: Patient evaluated and discussed in length about the ulcerations which seem to be stable and since her blood flow is diminished, any surgical intervention is is a t high risk of non healing and can get worse with reinfection and
loosing limb is likely
Discussed that she has pain and sensitivity possibly due to the arterial insufficiency,
No surgical intervention by podiatry, will cont with adaptic,Medihoney and dry gauze once daily to Rt hallux
Can ambulate as tolerated with DH pressure relief shoe..
# Hx of recent right lower extremity endovascular revascularization for limb threatening ischemia. Per vascular surgery: Her exam is relatively benign with evidence of good perfusion to the right lower extremity with palpable 1+/2+ DP pulse on
the foot suggesting patency of her intervention. She does still have a first toe medial small dry gangrene.
Follow- up duplex imaging showed right toe brachial index measures 0.99, improved compared to 0.14 on prior. Mild elevation within the right proximal SFA, measuring 235 cm/s, suggestive of mild stenosis.
#DM II
#Hyperglycemia
- Increased Lantus, add pre-meal
- sliding scale
#Fall - suspected mechanical
-Did have dizziness, had a spinning sensation, but no LOC
- Skeletal survey was without fracture but did suggest osteoarthritis in hips and right knee area and possible dislocation of the patella laterally.
- Appreciate ortho eval of the possible patellar dislocation
- telemetry monitoring for now
- orthostatic vitals
- PT/OT
Chronic HFrEF, ICM, EF 25%
- Not on diuretic, will reach out to nephrology
-Off RIGO inhibitor due to recurrent High K and CKD.
-Continue beta-hilda
-Monitor volume status, weight.
#Anemia - Chronic macrocytic anemia. No indication for transfusion
- monitoring for now
- outpatient nephrology f/u
DVT Prophylaxis: c/w Heparin subq
Code Status: Full Code
Total time spent to see the patient on the floor, examine the patient, review data and lab results, discuss treatment plan with patient, nursing staff around 55 minutes.
Anticipated Discharge: 24 - 48 hours
Subjective/Interval History
-
Date of Service: May 10, 2024
She denies chest pain or sob
less pain in left leg/ ankle
Objective Data
-
Labs:
Laboratory Results
05/10/24
04:24
Sodium 139
Potassium 5.1
Chloride 110 H
Carbon Dioxide 21 L
BUN 53 H
Creatinine 1.8 H
Glucose 88
Calcium 8.6
Total Bilirubin 0.3
AST 30
ALT 31
Alkaline Phosphatase 110
Vital Signs:
Vital Signs
Temp Pulse Resp BP Pulse Ox
98.4 F 71 18 153/65 98
05/10/24 08:02 05/10/24 08:02 05/10/24 08:02 05/10/24 08:02 05/10/24 08:02
I&O
05/09/24 05/10/24 05/11/24
06:59 06:59 06:59
Intake Total 240 / 240 900 / 900
Output Total 2125 / 2125 900 / 900
Balance -1885 / -1885 0 / 0
[2024-05-10 12:02] LABS: Glucose - Point of Care 138 mg/dl (70-99)
[2024-05-10 12:09] VITALS: BP 141/66
--- NOTE | 2024-05-10 12:18 | W.PN.NEPH.PH ---
Today's Communication / Plan
-
Observe
Follow BMP
Assessment/Plan
-
IMP:
Hyperkalemia
CKD 3 vs 4 (1.5-1.9)
Metabolic Acidosis
recent RLE Cellulitis
RLE swelling -
PAD S/P arteriogram s/p RFA stent.
DM II
Fall - suspect mechanical
Anemia
Chronic HFrEF
Hypothyroidism
Plan:
Creatinine up to 1.8 still within baseline
K down to 5.1
Maintain Lokelma course
Hyperkalemia-no EKG changes, continue temporization, cont Lokelma
last admit TTKG :4:suggests hypo aldosterone state, likely from DM
maintain low k diet, pt reports following at rehab?
added sodium bicarbonate pill for metabolic acidosis
follow bladder scan with known retention
BP stable , check orthostatic since feeling dizzy
hgb low-monitor , check fe panel
-
-
Date of Service: May 10, 2024
CC / HPI / ROS
-
Chief Complaint:
Hyperkalemia
CKD
History of Present Illness:
Creatinine at 1.8
Hemodynamically stable
Potassium at 5.1
Review of Systems:
Nonoliguric
No chest pain or shortness of
Labs
-
Labs:
WBC 5.6 10^3/uL (4.8-10.8) 05/09/24 06:35
RBC 2.67 10^6/uL (4.20-5.40) L 05/09/24 06:35
Hgb 8.6 g/dL (12.0-16.0) L 05/09/24 06:35
Hct 28.4 % (37.0-47.0) L 05/09/24 06:35
Plt Count 366 10^3/uL (130-400) 05/09/24 06:35
Sodium 139 mmol/L (135-145) 05/10/24 04:24
Potassium 5.1 mmol/L (3.5-5.1) 05/10/24 04:24
Chloride 110 mmol/L (98-107) H 05/10/24 04:24
Carbon Dioxide 21 mmol/L (22-30) L 05/10/24 04:24
BUN 53 mg/dl (7-17) H 05/10/24 04:24
Creatinine 1.8 mg/dL (0.6-1.0) H 05/10/24 04:24
eGFR 28.48 05/10/24 04:24
Glucose 88 mg/dl (70-99) 05/10/24 04:24
Calcium 8.6 mg/dl (8.4-10.2) 05/10/24 04:24
Albumin 3.2 g/dl (3.5-5.0) L 05/10/24 04:24
Physical Exam
-
Vital Signs:
Vital Signs
Temp Pulse Resp BP Pulse Ox
98.1 F 70 18 141/66 97
05/10/24 12:09 05/10/24 12:09 05/10/24 12:09 05/10/24 12:09 05/10/24 12:09
Cardiovascular:: Regular rate and rhythm
Respiratory:: Bilateral: CTA
Lung Excursion:: Normal
Abdomen:: Nontender and Soft
Extremity Edema:: None: Bilateral:
Liao Catheter: No
--- NOTE | 2024-05-10 12:22 | WOUNDNOTE ---
RIGHT GREAT TOE
--- NOTE | 2024-05-10 12:22 | WOUNDNOTE ---
RIGHT MEDIAL LEG
--- NOTE | 2024-05-10 12:23 | WOUNDNOTE ---
RIGHT LATERAL LEG
--- NOTE | 2024-05-10 13:04 | WOUNDNOTE ---
WO RN note: Patient admitted with s/p fall and hyperkalemia
See H&P for complete history.
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
arteriogram, shockwave lithotripsy and balloon angioplasty right SFA and popliteal arteries who presents from rehab with fall and possible presyncope was found to be hyperkalemic in the ED.
Wound Location and type/assessment: Patient admitted with right toe with dry gangrene. Patient was seen by podiatry yesterday and wound care ordered. On assessment, wound is dry, not drainage. Left heel with dry fissures. Right lateral and medial
skin abrasions are scabbed. Vascular has assessed patient this admission. Patient declined to turn due to visitors. Per RN Kirk, sacrum intact. Bilateral heels are blanchable.
Appetite: Good
Pressure redistribution devices in place: Static air overlay, heels off-loaded with air cushion under calves, turning schedule
Plan: Podiatry wound care orders updated per Physician note. Wound care provided as ordered. Local wound care to right LE and left heel. Will confirm orders with hospitalist and update nurse. Updated care plan and will follow as needed.
[2024-05-10 14:45] VITALS: BP 147/62; PULSE 76; O2SAT 96
[2024-05-10 15:00] VITALS: BP 149/63
--- NOTE | 2024-05-10 15:28 | CM ---
Reviewed the chart notes. PT recommending SNF. CM continues to be available to patient/family and is monitoring medical plan for needs at discharge.
Plan: Discharge to SNF/rehab when medically stable and bed secured. Hoping for [facility]. Referral sent in [facility] and was accepted based on bed availability. No precert required.
[2024-05-10 16:10] LABS: Glucose - Point of Care 193 mg/dl (70-99)
[2024-05-10 16:12] VITALS: BMI 24.4
[2024-05-10] MEDS: LIPITOR 20 MG PO (16:18)
[2024-05-10] MEDS: NOVOLOG FLEXPEN-MODERATE RESISTANCE 1 UNITS SC (16:22)
--- NOTE | 2024-05-10 16:38 | W.PN.ID1 ---
Date of Service
Date of Service: May 10, 2024
Today's Communication
- stop vancomycin, start doxycycline plan 7 day course, follow up with podiatry
Assessment / Plan
Dry Gangrene Right great Toe - ulcerative wound
CKD
- xray of the right foot - chronic swelling again noted, no evidence of osteomyelitis
- vascular US right TBI markedly improved from prior
- patient tells me the mild erythema and swelling is chronic, note recent course of cefazolin/keflex
- stop vancomycin, start doxycycline plan 7 day course, follow up with podiatry
Chief Complaint
-: Other (chronic foot ulcer)
Subjective / Review of Systems
afebrile
bp stable
no events
Vital Signs / Physical Exam
Vital Signs
Vital Signs
Temp Pulse Resp BP Pulse Ox
97.8 F 74 17 149/63 97
05/10/24 15:00 05/10/24 15:00 05/10/24 15:00 05/10/24 15:00 05/10/24 15:00
Physical Exam
Constitutional: No Acute Distress
Cardiovascular: Regular Rate and S1/S2; Negative Murmur or Rub
Pulmonary: Clear and Symmetric; Negative Wheezes or Rales
Gastrointestinal: Soft, Non Tender, Non Distended and Normal Bowel Sounds
Skin: Warm and Dry; Negative Rash or Jaundice
Objective Data
Lab Data
Lab Results
05/09/24 06:35
05/10/24 04:24
Estimated Creat Clear 24 ml/min 05/10/24 04:24
Total Bilirubin 0.3 mg/dl (0.2-1.3) 05/10/24 04:24
AST 30 U/L (14-36) 05/10/24 04:24
ALT 31 U/L (0-35) 05/10/24 04:24
Alkaline Phosphatase 110 U/L (38-126) 05/10/24 04:24
Most recent labs reviewed.
Micro Results:
05/09/24 00:37 MRSA Screen - Final
Nose No Methicillin Resistant Staphylococcus aureus isolated.
[2024-05-10 21:46] LABS: Glucose - Point of Care 135 mg/dl (70-99)
[2024-05-10] MEDS: LANTUS 0.2 UNITS SC (22:48)
[2024-05-10] MEDS: MIRALAX 17 GRAMS PO (22:48)
[2024-05-10] MEDS: XALATAN OPHTHALMIC SOLUTION 1 DROP BOTH EYES (22:48)
[2024-05-10 23:00] VITALS: BP 156/67
[2024-05-11] MEDS: ULTRAM 100 MG PO ×2 (01:28→21:03)
[2024-05-11 05:31] VITALS: BMI 25.3
[2024-05-11 07:25] VITALS: BP 144/61
[2024-05-11 08:32] LABS: Glucose - Point of Care 75 mg/dl (70-99)
[2024-05-11] MEDS: NOVOLOG FLEXPEN-MODERATE RESISTANCE SC (08:44)
[2024-05-11 08:45] LABS: Blood Urea Nitrogen 54 mg/dl (7-17); Calcium 8.6 mg/dl (8.4-10.2); Carbon Dioxide 24 mmol/L (22-30); Chloride 107 mmol/L (98-107); Estimated Creatinine Clearance 27 ml/min; Glucose 55 mg/dl (70-99); Potassium 5.2 mmol/L (3.5-5.1); Sodium 137 mmol/L (135-145); eGFR 32.81
[2024-05-11] MEDS: SODIUM BICARBONATE 325 MG PO ×2 (08:45→21:15)
[2024-05-11] MEDS: LOW STRENGTH ASPIRIN 81 MG PO (08:49)
[2024-05-11] MEDS: ARMOUR THYROID 90 MG PO (08:49)
[2024-05-11] MEDS: PLAVIX 75 MG PO (08:49)
[2024-05-11] MEDS: LASIX 40 MG PO (08:50)
[2024-05-11] MEDS: VIBRAMYCIN 100 MG PO ×2 (08:50→21:15)
[2024-05-11] MEDS: COLACE 100 MG PO ×2 (08:51→21:15)
[2024-05-11] MEDS: COREG 3.125 MG PO ×2 (08:51→21:16)
[2024-05-11] MEDS: NOVOLOG FLEXPEN SC (08:52)
[2024-05-11] MEDS: HEPARIN 5000 UNITS SC ×3 (08:53→23:16)
--- NOTE | 2024-05-11 10:30 | PTCARENOTE ---
gave this RN verbal order to pull tello catheter this AM, catheter pulled at 0900. Bladder to be scanned if no output by 1500.
--- NOTE | 2024-05-11 10:36 | PTCARENOTE ---
Pt had critical lab of blood sugar upon lab draw this AM of 55. [place] juice provided, pts blood sugar upon recheck was 75. Blood sugar to be rechecked every 2 hours x 2 and at 0300 per protocol. See worklist for hypoglycemic documentation, made
aware, no new orders at this time.
[2024-05-11 10:39] LABS: Glucose - Point of Care 126 mg/dl (70-99)
--- NOTE | 2024-05-11 11:14 | W.PN.HOSP.TC ---
Today's Communication/Plan
-
Lokelma
decrease Lantus dose
Assessment / Plan
Assessment / Plan
Physical Exam
General: Not in acute distress
HEENT: Normocephalic
Respiratory: Clear to Auscultation Bilaterally
Cardiac: S1/S2 and Regular Rhythm
GI: Non Tender, Non Distended and Normal Bowel Sounds
Musculoskeletal: No Cyanosis. Edema, Right Lower Extremity (Non-pitting edema to the knees, tenderness to palpation, no erythema, no warmth)
Skin: Warm. Dry.
Neuro: AAO to self and surroundings, forgetful at times, Nonfocal/grossly intact
Psych: Calm
Assessment/Plan
79-year-old female presented from rehab with fall (while attempting to use a commode independently) and possible presyncope was found to be hyperkalemic in the emergency department.
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
Creatinine at 1.8 still within baseline
K down to 5.2
order Lokelma course
Appreciate nephrology help
#Rt hallux medial aspect with dry, necrotic punched out ulcer with no drainage noted, tender to touch, no local signs of any abscess/crepitus felt. no exposed bone in the center of the ulcer,
LT heel superficial dry, clean scabs which are , no erythema, no SOI noted
Diabetic small vessel disease
Arterial ulcerations LT heel
X- ray of right foot showed soft tissue wound along the medial aspect of the great toe distally with underlying soft tissue swelling. No convincing radiographic evidence for active osteomyelitis. No acute fracture or dislocation. Scattered mild
osteoarthritic changes of the interphalangeal and first metatarsophalangeal joints. Mild to moderate plantar calcaneal enthesopathy. Scattered vascular calcifications.
Plan per podiatry: Patient evaluated and discussed in length about the ulcerations which seem to be stable and since her blood flow is diminished, any surgical intervention is is a t high risk of non healing and can get worse with reinfection and
loosing limb is likely
Discussed that she has pain and sensitivity possibly due to the arterial insufficiency,
No surgical intervention by podiatry, will cont with adaptic,Medihoney and dry gauze once daily to Rt hallux
Can ambulate as tolerated with DH pressure relief shoe..
# Hx of recent right lower extremity endovascular revascularization for limb threatening ischemia. Per vascular surgery: Her exam is relatively benign with evidence of good perfusion to the right lower extremity with palpable 1+/2+ DP pulse on
the foot suggesting patency of her intervention. She does still have a first toe medial small dry gangrene.
Follow- up duplex imaging showed right toe brachial index measures 0.99, improved compared to 0.14 on prior. Mild elevation within the right proximal SFA, measuring 235 cm/s, suggestive of mild stenosis.
#DM II
#Hypoglycemia-
Decrease Lantus, add pre-meal
- sliding scale
#Fall - suspected mechanical
-Did have dizziness, had a spinning sensation, but no LOC
- Skeletal survey was without fracture but did suggest osteoarthritis in hips and right knee area and possible dislocation of the patella laterally.
- Appreciate ortho eval of the possible patellar dislocation
- telemetry monitoring for now
- orthostatic vitals
- PT/OT
Chronic HFrEF, ICM, EF 25%
- Not on diuretic, will reach out to nephrology
-Off RIGO inhibitor due to recurrent High K and CKD.
-Continue beta-hilda
-Monitor volume status, weight.
#Anemia - Chronic macrocytic anemia. No indication for transfusion
- monitoring for now
- outpatient nephrology f/u
DVT Prophylaxis: c/w Heparin subq
Code Status: Full Code
Total time spent to see the patient on the floor, examine the patient, review data and lab results, discuss treatment plan with patient, nursing staff around 55 minutes.
Anticipated Discharge: Within 24 hours
Subjective/Interval History
-
Date of Service: May 11, 2024
pain is less in right leg
Objective Data
-
Labs:
Laboratory Results
05/11/24
07:13
Sodium 137
Potassium 5.2 H
Chloride 107
Carbon Dioxide 24
BUN 54 H
Creatinine 1.6 H
Glucose 55 L*
Calcium 8.6
Vital Signs:
Vital Signs
Temp Pulse Resp BP Pulse Ox
98.4 F 67 16 144/61 97
05/11/24 07:25 05/11/24 08:50 05/11/24 07:25 05/11/24 08:50 05/11/24 09:16
I&O
05/10/24 05/11/24 05/12/24
06:59 06:59 06:59
Intake Total 900 / 900 1560 / 1560
Output Total 900 / 900 1150 / 1150
Balance 0 / 0 410 / 410
--- NOTE | 2024-05-11 11:30 | W.PN.NEPH.PH ---
Today's Communication / Plan
-
loklema MWF
Assessment/Plan
-
IMP:
Hyperkalemia
CKD 3 vs 4 (1.5-1.9)
Metabolic Acidosis
recent RLE Cellulitis
RLE swelling -
PAD S/P arteriogram s/p RFA stent.
DM II
Fall - suspect mechanical
Anemia
Chronic HFrEF
Hypothyroidism
Plan:
follow BMP
Cr baseline
in interest of dc planning, use lokelma MWF (practical OP dose) to see if it will be enough
-
-
Date of Service: May 11, 2024
CC / HPI / ROS
-
Chief Complaint:
Hyperkalemia
CKD
History of Present Illness:
Creatinine at 1.6
Hemodynamically stable
Potassium at 5.2
Review of Systems:
Nonoliguric
No chest pain or shortness of breath
Labs
-
Labs:
WBC 5.6 10^3/uL (4.8-10.8) 05/09/24 06:35
RBC 2.67 10^6/uL (4.20-5.40) L 05/09/24 06:35
Hgb 8.6 g/dL (12.0-16.0) L 05/09/24 06:35
Hct 28.4 % (37.0-47.0) L 05/09/24 06:35
Plt Count 366 10^3/uL (130-400) 05/09/24 06:35
Sodium 137 mmol/L (135-145) 05/11/24 07:13
Potassium 5.2 mmol/L (3.5-5.1) H 05/11/24 07:13
Chloride 107 mmol/L (98-107) 05/11/24 07:13
Carbon Dioxide 24 mmol/L (22-30) 05/11/24 07:13
BUN 54 mg/dl (7-17) H 05/11/24 07:13
Creatinine 1.6 mg/dL (0.6-1.0) H 05/11/24 07:13
eGFR 32.81 05/11/24 07:13
Glucose 55 mg/dl (70-99) L* 05/11/24 07:13
Calcium 8.6 mg/dl (8.4-10.2) 05/11/24 07:13
Albumin 3.2 g/dl (3.5-5.0) L 05/10/24 04:24
Physical Exam
-
Vital Signs:
Vital Signs
Temp Pulse Resp BP Pulse Ox
98.4 F 67 16 144/61 97
05/11/24 07:25 05/11/24 08:50 05/11/24 07:25 05/11/24 08:50 05/11/24 09:16
Cardiovascular:: Regular rate and rhythm
Respiratory:: Bilateral: CTA
Lung Excursion:: Normal
Abdomen:: Nontender and Soft
Bowel Sounds:: Normal
Extremity Edema:: None: Bilateral:
--- NOTE | 2024-05-11 11:36 | W.PN.ID1 ---
Date of Service
Date of Service: May 11, 2024
Today's Communication
- continue doxycycline plan 7 day course 05/10-05/16
- follow up with podatiry
Assessment / Plan
Dry Gangrene Right great Toe - ulcerative wound
Possible mild cellultitis vs chronic swelling
CKD
- xray of the right foot - chronic swelling again noted, no evidence of osteomyelitis
- vascular US right TBI markedly improved from prior
- continue doxycycline plan 7 day course 05/10-05/16
- follow up with podatiry
Chief Complaint
-: Other (chronic foot ulcer)
Subjective / Review of Systems
afebrile
bp stable
trial of void
hypoglycemia this am - resolved
Vital Signs / Physical Exam
Vital Signs
Vital Signs
Temp Pulse Resp BP Pulse Ox
98.4 F 67 16 144/61 97
05/11/24 07:25 05/11/24 08:50 05/11/24 07:25 05/11/24 08:50 05/11/24 09:16
Physical Exam
Constitutional: No Acute Distress
Cardiovascular: Regular Rate and S1/S2; Negative Murmur or Rub
Pulmonary: Clear and Symmetric; Negative Wheezes or Rales
Gastrointestinal: Soft, Non Tender, Non Distended and Normal Bowel Sounds
Skin: Warm, Dry and Rash (erythema around the wound improved); Negative Jaundice
Objective Data
Lab Data
Lab Results
05/09/24 06:35
05/11/24 07:13
Estimated Creat Clear 27 ml/min 05/11/24 07:13
Total Bilirubin 0.3 mg/dl (0.2-1.3) 05/10/24 04:24
AST 30 U/L (14-36) 05/10/24 04:24
ALT 31 U/L (0-35) 05/10/24 04:24
Alkaline Phosphatase 110 U/L (38-126) 05/10/24 04:24
Most recent labs reviewed.
Micro Results:
05/09/24 00:37 MRSA Screen - Final
Nose No Methicillin Resistant Staphylococcus aureus isolated.
[2024-05-11 12:00] LABS: Glucose - Point of Care 153 mg/dl (70-99)
[2024-05-11] MEDS: LOKELMA 10 GRAM PO (13:37)
[2024-05-11] MEDS: NOVOLOG FLEXPEN-MODERATE RESISTANCE 1 UNITS SC ×2 (13:38→17:09)
[2024-05-11 15:11] VITALS: BP 146/63; BP 153/58; BP 155/68; PULSE 101; PULSE 82; PULSE 87
[2024-05-11 15:12] VITALS: BP 146/63
--- NOTE | 2024-05-11 15:55 | CM ---
Reviewed the chart notes and spoke with the patient at the bedside. IMM reviewed. CM continues to be available to patient/family and is monitoring medical plan for needs at discharge.
Plan: Discharge to SNF/rehab once medically stable. Hoping for return to [facility]. No precert is required.
--- NOTE | 2024-05-11 16:22 | PTCARENOTE ---
Pt due to void by 1500, pt assisted to bathroom to void, no urine output. Pt bladder scanned for 658, straight cathed by this RN for 720mL. Due to be bladder scanned again if no void by 2100.
[2024-05-11 17:03] LABS: Glucose - Point of Care 158 mg/dl (70-99)
[2024-05-11] MEDS: LIPITOR 20 MG PO (17:07)
[2024-05-11] MEDS: XALATAN OPHTHALMIC SOLUTION 1 DROP BOTH EYES (21:17)
[2024-05-11] MEDS: MIRALAX 17 GRAMS PO (21:17)
[2024-05-11 21:21] LABS: Glucose - Point of Care 142 mg/dl (70-99)
[2024-05-11] MEDS: LANTUS 0.15 UNITS SC (21:26)
[2024-05-11 23:02] VITALS: BP 163/67
[2024-05-12 01:15] VITALS: BP 135/67
[2024-05-12 03:30] LABS: Glucose - Point of Care 96 mg/dl (70-99)
--- NOTE | 2024-05-12 04:39 | DOWNTIME ---
There was a [employer] Resource Technician Downtime on 05/12/2024 from 0200 to 05/12/2024 at 0325 . Downtime documentation of patient's care, including medication administrations, has been reconciled in the electronic record per guidelines. Refer to the
patient's paper chart under the miscellaneous tab to see printed paper medication records and downtime forms.
[2024-05-12 06:00] VITALS: BMI 25.1
[2024-05-12 07:10] LABS: Hemoglobin 8.4 g/dL (12.0-16.0); Mean Corp Hgb Conc. 31.1 g/dL (33.0-37.0); Mean Corpuscular Hgb 32.2 pg (27.0-31.0); Mean Corpuscular Volume 103.4 fL (81.0-99.0); Mean Platelet Volume 9.4 fL (7.4-10.4); Platelet Count 347 10^3/uL (130-400); Red Blood Cell Count 2.61 10^6/uL (4.20-5.40); Red Cell Dist. Width 14.3 % (11.5-14.5); White Blood Cell Count 5.7 10^3/uL (4.8-10.8)
[2024-05-12 07:25] VITALS: BP 152/63
[2024-05-12 07:29] LABS: Glucose - Point of Care 151 mg/dl (70-99)
[2024-05-12] MEDS: HEPARIN 5000 UNITS SC (07:33)
[2024-05-12] MEDS: ARMOUR THYROID 90 MG PO (07:35)
[2024-05-12] MEDS: VIBRAMYCIN 100 MG PO (07:35)
[2024-05-12] MEDS: LASIX 40 MG PO (07:36)
[2024-05-12] MEDS: LOW STRENGTH ASPIRIN 81 MG PO (07:37)
[2024-05-12] MEDS: COREG 3.125 MG PO (07:37)
[2024-05-12] MEDS: COLACE 100 MG PO (07:38)
[2024-05-12] MEDS: PLAVIX 75 MG PO (07:38)
[2024-05-12] MEDS: SODIUM BICARBONATE 325 MG PO (07:38)
[2024-05-12] MEDS: NOVOLOG FLEXPEN-MODERATE RESISTANCE 1 UNITS SC ×2 (07:39→13:24)
[2024-05-12 07:47] LABS: Blood Urea Nitrogen 49 mg/dl (7-17); Calcium 8.3 mg/dl (8.4-10.2); Carbon Dioxide 25 mmol/L (22-30); Chloride 108 mmol/L (98-107); Estimated Creatinine Clearance 24 ml/min; Glucose 75 mg/dl (70-99); Potassium 4.9 mmol/L (3.5-5.1); Sodium 137 mmol/L (135-145); eGFR 28.48
--- NOTE | 2024-05-12 09:04 | W.PN.HOSP.TC ---
Today's Communication/Plan
-
dc
Assessment / Plan
Assessment / Plan
Physical Exam
General: Not in acute distress
HEENT: Normocephalic
Respiratory: Clear to Auscultation Bilaterally
Cardiac: S1/S2 and Regular Rhythm
GI: Non Tender, Non Distended and Normal Bowel Sounds
Musculoskeletal: No Cyanosis. Edema, Right Lower Extremity (Non-pitting edema to the knees, tenderness to palpation, no erythema, no warmth)
Skin: Warm. Dry.
Neuro: AAO to self and surroundings, forgetful at times, Nonfocal/grossly intact
Psych: Calm
Assessment/Plan
79-year-old female presented from rehab with fall (while attempting to use a commode independently) and possible presyncope was found to be hyperkalemic in the emergency department.
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
Creatinine at 1.8 still within baseline
K is better now.
c/w Lokelwv course will be three times a week.
She will need to f/w nephrology as oP. I also updated the son
Appreciate nephrology help
#Rt hallux medial aspect with dry, necrotic punched out ulcer with no drainage noted, tender to touch, no local signs of any abscess/crepitus felt. no exposed bone in the center of the ulcer,
LT heel superficial dry, clean scabs which are , no erythema, no SOI noted
Diabetic small vessel disease
Arterial ulcerations LT heel
X- ray of right foot showed soft tissue wound along the medial aspect of the great toe distally with underlying soft tissue swelling. No convincing radiographic evidence for active osteomyelitis. No acute fracture or dislocation. Scattered mild
osteoarthritic changes of the interphalangeal and first metatarsophalangeal joints. Mild to moderate plantar calcaneal enthesopathy. Scattered vascular calcifications.
Plan per podiatry: Patient evaluated and discussed in length about the ulcerations which seem to be stable and since her blood flow is diminished, any surgical intervention is is a t high risk of non healing and can get worse with reinfection and
loosing limb is likely
Discussed that she has pain and sensitivity possibly due to the arterial insufficiency,
No surgical intervention by podiatry, will cont with adaptic,Medihoney and dry gauze once daily to Rt hallux
Can ambulate as tolerated with DH pressure relief shoe..
# Hx of recent right lower extremity endovascular revascularization for limb threatening ischemia. Per vascular surgery: Her exam is relatively benign with evidence of good perfusion to the right lower extremity with palpable 1+/2+ DP pulse on
the foot suggesting patency of her intervention. She does still have a first toe medial small dry gangrene.
Follow- up duplex imaging showed right toe brachial index measures 0.99, improved compared to 0.14 on prior. Mild elevation within the right proximal SFA, measuring 235 cm/s, suggestive of mild stenosis.
#DM II
#no Hypoglycemia over night
Decreased Lantus, add pre-meal
- sliding scale
#Fall - suspected mechanical
-Did have dizziness, had a spinning sensation, but no LOC
- Skeletal survey was without fracture but did suggest osteoarthritis in hips and right knee area and possible dislocation of the patella laterally.
- Appreciate ortho eval of the possible patellar dislocation
- telemetry monitoring for now
- orthostatic vitals
- PT/OT
Chronic HFrEF, ICM, EF 25%
She gained weight here from around 60 [address] her back on Lasix. I discussed cardiology service. She will be on 40 mg Lasix for now instead of 20 mg, they will move up her appointment.
-Off RIGO inhibitor due to recurrent High K and CKD.
-Continue beta-hilda
-Monitored volume status, weight.
#Anemia - Chronic macrocytic anemia. No indication for transfusion
- monitoring for now
- outpatient nephrology f/u
DVT Prophylaxis: c/w Heparin subq
Code Status: Full Code
Total discharge time spent to see the patient on the floor, examine the patient, review data and lab results, discuss discharge plan with patient, son, case specialist, nursing staff around 73 minutes.
Anticipated Discharge: Today
Subjective/Interval History
-
Date of Service: May 12, 2024
Pain is less
feels ready to go to SNF
Objective Data
-
Labs:
Laboratory Results
05/12/24
05:58
WBC 5.7
Hgb 8.4 L
Hct 27.0 L
Plt Count 347
Sodium 137
Potassium 4.9
Chloride 108 H
Carbon Dioxide 25
BUN 49 H
Creatinine 1.8 H
Glucose 75
Calcium 8.3 L
Vital Signs:
Vital Signs
Temp Pulse Resp BP Pulse Ox
98.2 F 69 16 152/63 98
05/12/24 07:25 05/12/24 07:25 05/12/24 07:25 05/12/24 07:25 05/12/24 07:25
I&O
05/11/24 05/12/24 05/13/24
06:59 06:59 06:59
Intake Total 1560 / 1560 590 / 590
Output Total 1150 / 1150 1770 / 1770
Balance 410 / 410 -1180 / -1180
--- NOTE | 2024-05-12 09:58 | CM ---
Addendum entered by Ivonne Cerrato RN 05/12/24 13:31:
Discussed with son options for transportation.
Transportation options and estimation of wheelchair van costs explained (approx. $100 to $150 est) and accepted. Son provided with [facility] contact information for payment.
Original Note:
Reviewed the chart notes. Patient for discharge today. Per [facility] [employer] [facility], bed available today. Covid screen required.
Plan: Discharge to [facility] today.
Call report to: [phone]
Fax report to: [phone]
--- NOTE | 2024-05-12 10:14 | PTCARENOTE ---
ordered tello for acute urinary retention. 14FR tello placed by this RN at 1000 with PCT at side for assistance. Pt tolerated insertion, initial output 75mL of clear yellow urine. Tello care provided by this RN. No new orders at this time.
--- NOTE | 2024-05-12 11:35 | W.PN.NEPH.PH ---
Today's Communication / Plan
-
lokelma MWF
Assessment/Plan
-
IMP:
Hyperkalemia
CKD 3 vs 4 (1.5-1.9)
Metabolic Acidosis
recent RLE Cellulitis
RLE swelling -
PAD S/P arteriogram s/p RFA stent.
DM II
Fall - suspect mechanical
Anemia
Chronic HFrEF
Hypothyroidism
Plan:
follow BMP
Cr baseline
use lokelma MWF
-
-
Date of Service: May 12, 2024
CC / HPI / ROS
-
Chief Complaint:
Hyperkalemia
CKD
History of Present Illness:
Creatinine at 1.8 stable
K 4.9
Hemodynamically stable
Review of Systems:
Nonoliguric
No chest pain or shortness of breath
Labs
-
Labs:
WBC 5.7 10^3/uL (4.8-10.8) 05/12/24 05:58
RBC 2.61 10^6/uL (4.20-5.40) L 05/12/24 05:58
Hgb 8.4 g/dL (12.0-16.0) L 05/12/24 05:58
Hct 27.0 % (37.0-47.0) L 05/12/24 05:58
Plt Count 347 10^3/uL (130-400) 05/12/24 05:58
Sodium 137 mmol/L (135-145) 05/12/24 05:58
Potassium 4.9 mmol/L (3.5-5.1) 05/12/24 05:58
Chloride 108 mmol/L (98-107) H 05/12/24 05:58
Carbon Dioxide 25 mmol/L (22-30) 05/12/24 05:58
BUN 49 mg/dl (7-17) H 05/12/24 05:58
Creatinine 1.8 mg/dL (0.6-1.0) H 05/12/24 05:58
eGFR 28.48 05/12/24 05:58
Glucose 75 mg/dl (70-99) 05/12/24 05:58
Calcium 8.3 mg/dl (8.4-10.2) L 05/12/24 05:58
Albumin 3.2 g/dl (3.5-5.0) L 05/10/24 04:24
Physical Exam
-
Vital Signs:
Vital Signs
Temp Pulse Resp BP Pulse Ox
98.2 F 69 16 152/63 98
05/12/24 07:25 05/12/24 07:25 05/12/24 07:25 05/12/24 07:25 05/12/24 07:25
Cardiovascular:: Regular rate and rhythm
Respiratory:: Bilateral: Coarse
Lung Excursion:: Normal
Abdomen:: Nontender and Soft
Bowel Sounds:: Normal
Extremity Edema:: +1: Bilateral:
[2024-05-12 12:21] LABS: Glucose - Point of Care 188 mg/dl (70-99)
[2024-05-12 13:33] LABS: COVID-19 Antigen Negative (Negative)
--- NOTE | 2024-05-12 15:43 | W.DCSUMMARY ---
Discharge Summary
Discharge Data
Date of Admission: 05/09/24
Date of Discharge: 05/12/24
-
Pending Results: No
Hospital Course
79 years old female was sent to the hospital from rehab after sustaining a fall and possible a presyncopal episode. In the emergency room, patient reported weakness and pain in her lower extremities. She was found to have hyperkalemia with
potassium 5.9. She has underlying chronic kidney disease stage IIIb-IV, creatinine was 1.8. Skeletal survey was without fracture. Patient had history of recent right lower extremity endovascular revascularization for limb threatening ischemia.
She was evaluated by vascular surgery and duplex imaging study showed patency of her intervention. 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 She was evaluated by podiatry. X-ray of the right foot showed soft tissue swelling with no
radiographic evidence of active osteomyelitis. She was maintained on wound care and she was given antibiotic. She was followed by ID doctor. She was given treatment for hyperkalemia. She was followed by finance advisor. She was maintained on
Lokelma 3 times a week and recommended to follow-up with nephrology in outpatient setting. Pain in her lower extremities subsided and she was able to ambulate. Patient was evaluated by physical therapy and recommended to go back to SNF. She was
given sodium bicarbonate for metabolic acidosis. She was maintained on aspirin and Plavix. She remained hemodynamically stable and was discharged in a stable condition. Discharge instructions/ recommendations were discussed with her son.
Discharge Plan
-
Patient Disposition: Long-Term/SNF
Discharge Diagnosis/Procedures: -CKD stage IIIb to IV
-Hyperkalemia
-Metabolic acidosis
-Dry Gangrene Right great Toe - ulcerative wound, possible mild cellultitis vs chronic swelling, continue Doxycycline, last dose on 05/16.
- History of right lower extremity pain/hypersensitive skin of the right lower extremity status post Right lower extremity arteriogram, shockwave lithotripsy and balloon angioplasty right SFA and popliteal arteries, SFA stent placement (04/25/24),
continue with Tylenol & Tramadol as needed.
Diet: Low Fat and Diabetic, Carb Controlled
Blood Work: BMP in 3 days
Activity Restrictions/Additional Instructions:
Wound Care Instructions Left Heel, Right lateral and medical leg wounds-Clean with normal saline, apply no-sting barrier and cover with silicone border foam. Change Q 48 hours
Right Great Toe- Clean with normal saline or soap and water. Apply Honey gel, adaptic and dry dressing. Change daily.
Follow up with your [employer]
Referrals:
Aakash Jung PA-C [Specified Professional Personl] - in one month (if right knee symptoms persist)
Pramod Ramos MD [Active] - 05/20/24 4:00 pm
Shukri Lara DO [Family Provider] -
Hina Staples MD [Active] - in one month
Prescriptions:
New
doxycycline hyclate 100 mg Capsule
100 mg PO Q12 Qty: 9 0RF
sodium bicarbonate 650 mg Tablet
325 mg PO BID Qty: 60 0RF
Lokelma 10 gram Powder In Packet
10 g PO MOWEFR Qty: 30 0RF
furosemide 40 mg Tablet
40 mg PO DAILY Qty: 30 0RF
tramadol 50 mg tablet
50 mg PO BID PRN (Reason: severe pain) Qty: 20 0RF
Continued
thyroid (pork) [Blackstone Thyroid] 90 MG tablet
90 mg PO DAILY
latanoprost 0.005 % Drops
1 drp BOTH EYES HS
carvedilol 3.125 mg Tablet
3.125 mg PO BID Qty: 60 0RF
atorvastatin 20 mg Tablet
20 mg PO QPM Qty: 30 0RF
aspirin [Children's Aspirin] 81 mg Tablet,Chewable
81 mg PO DAILY Qty: 30 0RF
docusate sodium [Colace] 100 mg Capsule
100 mg PO BID
Saccharomyces boulardii [Florastor] 250 mg Capsule
250 mg PO HS Qty: 0
clopidogrel 75 mg Tablet
75 mg PO DAILY Qty: 90 0RF
acetaminophen 325 mg Tablet
650 mg PO Q4HPRN PRN (Reason: Mild Pain / Temp > 101) Qty: 20 0RF
polyethylene glycol 3350 17 gram Powder In Packet
17 g PO HS Qty: 30 0RF
Santyl 250 unit/gram Ointment
1 applic topical DAILY Qty: 30 0RF
Rx Instructions:
right great toe
bisacodyl [Dulcolax (bisacodyl)] 10 mg Suppository
10 mg MA DAILYPRN PRN (Reason: if no BM after 8 hr of milk of magnesia )
Vashe 0.033 % Irrigation Solution
1 irrig IRRIGATION DAILY
magnesium hydroxide [Milk of Magnesia] 400 mg/5 mL Suspension
2,400 mg PO DAILYPRN PRN (Reason: if no bm on 2nd day)
Fleet Enema 19-7 gram/118 mL Enema
118 ml MA DAILYPRN PRN (Reason: if no bm aftr dulolcax)
insulin glargine [Lantus Solostar U-100 Insulin] 100 unit/mL (3 mL) Insulin Pen
17 unit SC HS Qty: 0 0RF
Changed
insulin aspart U-100 [Novolog FlexPen U-100 Insulin] 100 unit/mL (3 mL) Insulin Pen
3 unit SC AC Qty: 0 0RF
Discontinued
tramadol 25 mg Tablet
25 mg PO BIDPRN PRN (Reason: moderate/severe pain)
Discharge Orders:
Discharge Patient (As Directed); Ordered 05/12/24
Ordered By: Arianna Canales
Discharge Date and Time
Print Language: IRISH
[2024-05-12 15:53] VITALS: BP 150/63
== END 2024-05-12 17:09 | DRG 300 ==
LOC: 2 NORTH 09:41
PROVIDERS: Emergency Medicine; Hospitalist; Specialist; ADMITTING PHYSICIAN Internal Medicine; ATTENDING PHYSICIAN Internal Medicine; CONSULT PHYSICIAN Internal Medicine; CONSULT PHYSICIAN Orthopaedic Surgery; CONSULT PHYSICIAN Podiatrist Foot & Ankle Surgery; EMERGENCY PHYSICIAN Emergency Medicine; FAMILY PHYSICIAN Family Medicine; OTHER PHYSICIAN Student in an Organized Health Care Education/Training Program
DX: E11.52 Type 2 diabetes mellitus with diabetic peripheral angiopathy with gangrene (principal); E87.20 Acidosis, unspecified; I13.0 Hypertensive heart and chronic kidney disease with heart failure and stage 1 through stage 4 chronic kidney disease, or unspecified chronic kidney disease; L97.429 Non-pressure chronic ulcer of left heel and midfoot with unspecified severity; L97.419 Non-pressure chronic ulcer of right heel and midfoot with unspecified severity; I50.22 Chronic systolic (congestive) heart failure; N18.4 Chronic kidney disease, stage 4 (severe); E87.5 Hyperkalemia; E11.621 Type 2 diabetes mellitus with foot ulcer; E11.22 Type 2 diabetes mellitus with diabetic chronic kidney disease; E11.65 Type 2 diabetes mellitus with hyperglycemia; E11.40 Type 2 diabetes mellitus with diabetic neuropathy, unspecified; I25.10 Atherosclerotic heart disease of native coronary artery without angina pectoris; L03.031 Cellulitis of right toe; L97.519 Non-pressure chronic ulcer of other part of right foot with unspecified severity; F32.A Depression, unspecified; F41.9 Anxiety disorder, unspecified; E78.5 Hyperlipidemia, unspecified; E03.9 Hypothyroidism, unspecified; D63.1 Anemia in chronic kidney disease; M16.11 Unilateral primary osteoarthritis, right hip; N25.89 Other disorders resulting from impaired renal tubular function; M17.11 Unilateral primary osteoarthritis, right knee; I25.5 Ischemic cardiomyopathy; F40.00 Agoraphobia, unspecified; Z11.52 Encounter for screening for COVID-19; Z79.4 Long term (current) use of insulin; Z95.820 Peripheral vascular angioplasty status with implants and grafts; Z88.2 Allergy status to sulfonamides; Z88.5 Allergy status to narcotic agent; Z79.82 Long term (current) use of aspirin; Z79.02 Long term (current) use of antithrombotics/antiplatelets; Z79.899 Other long term (current) drug therapy
CPT/HCPCS: 51798; 73502; 73564; 73590; 73620; 80048; 80053; 80202; 82728; 82962; 83540; 83550; 83735; 84132; 85025; 85027; 87070; 87811; 93005; 93922; 93925; 93971; 96374; 96375; 97110; 97163; 97530; 99285